=== PATIENT | female | born 1960 | race Caucasian/White ===

== ENCOUNTER 2020-03-10 10:14 | Outpatient (RCR) | payer BC, SELFPAY ==
--- NOTE | 2020-04-16 08:21 | P.EN_ITS ---
Event Note Date of Service: 04/16/20 Event Note: Call to patient to discuss out patient clinic closing 03/31/20-06/29. Pt plans to continue meds with her PCP
--- NOTE | 2020-04-16 08:21 | PM.EVENT ---
Event Note Date of Service: 04/16/20 Event Note: Call to patient to discuss out patient clinic closing 03/31/20-06/29/20. Pt plans to continue meds with her PCP
== END 2020-04-16 09:21 | disposition home or self-care (01) ==
LOC: HO.PAOS 10:14
PROVIDERS: Visit Provider Clinical Nurse Specialist Psychiatric/Mental Health, Adult
DX: F31.9 Bipolar disorder, unspecified (principal)

== ENCOUNTER 2020-09-18 09:16 | Outpatient (REF) | payer BC, SELFPAY ==
[2020-09-18 11:22] LABS: MANUAL DIFF FLAG NO
[2020-09-18 11:38] LABS: Basophils Percent Auto 0.4 % (0-2); Eosinophils Absolute Auto 0.1 X10*3/uL (0.0-0.4); Eosinophils Percent Auto 1.6 % (0-4); Hematocrit 39.1 % (37-47); Hemoglobin 13.4 g/dl (12.0-16.0); Imm Gran Abs Auto 0.03 X10*3/uL (0.00-0.03); Imm Gran Pct Auto 0.4 % (0.0-0.4); Lymphocytes Absolute Auto 2.5 X10*3/uL (1.2-4.9); Lymphocytes Percent Auto 36.4 % (20-40); Mean Corpuscular HGB Conc 34.3 g/dl (31.0-35.0); Mean Corpuscular Hemoglobin 30.8 pg (27.0-33.0); Mean Corpuscular Volume 89.9 fL (80-98); Mean Platelet Volume 9.2 fL (9.4-12.3); Monocytes Absolute Auto 0.5 X10*3/uL (0.1-1.2); Monocytes Percent Auto 7.9 % (2-11); Neutrophils Absolute Auto 3.6 X10*3/uL (2.0-8.3); Neutrophils Percent Auto 53.3 % (45-73); Platelet Count 335 X10*3/uL (160-400); Red Blood Count 4.35 X10*6/uL (4.20-5.50); Red Cell Distribution Width 12.5 % (11.0-16.0); White Blood Count 6.8 X10*3/uL (4.8-10.8)
[2020-09-18 12:13] LABS: Alanine Aminotransferase 21 U/L (0-31); Albumin Level 4.3 g/dL (3.5-5.0); Alkaline Phosphatase 91 U/L (39-117); Anion Gap 15 (12-20); Aspartate Amino Transferase 15 U/L (5-31); Bilirubin Direct 0.2 mg/dL (0.0-0.5); Bilirubin Total 0.7 mg/dL (0.0-1.0); Blood Urea Nitrogen 13 mg/dL (9-16); Calcium 9.4 mg/dL (8.4-10.2); Carbon Dioxide 25 mmol/L (22-29); Chloride 105 mmol/L (96-108); Cholesterol 201 mg/dL; Estimated Glomerular Filt Rate > 60; Glucose Fasting 99 mg/dL (60-99); HDL Cholesterol 58 mg/dL; LDL Cholesterol Calculated 126 mg/dl; Potassium 4.3 mmol/L (3.3-5.1); Sodium 141 mmol/L (135-145); Total Protein 6.9 g/dL (6.5-8.0); Triglycerides 87 mg/dL
== END 2020-09-18 09:17 | disposition home or self-care (01) ==
LOC: HO.HMGCLDS 09:16
PROVIDERS: PCP Internal Medicine; Visit Provider Internal Medicine
DX: I10 Essential (primary) hypertension (principal)
CPT/HCPCS: 36415; 80048; 80061; 80076; 85025

== ENCOUNTER 2020-10-06 09:06 | Outpatient (REF) | payer BC, SELFPAY ==
[2020-10-09 13:52] LABS: HPV mRNA E6/E7 rflx Not Detected (Not Detected)
== END 2020-10-06 09:07 | disposition home or self-care (01) ==
LOC: HO.LAB 09:06
PROVIDERS: PCP Internal Medicine; Visit Provider Obstetrics & Gynecology
DX: Z01.419 Encounter for gynecological examination (general) (routine) without abnormal findings (principal); Z11.51 Encounter for screening for human papillomavirus (HPV)
CPT/HCPCS: 87624; 88142

== ENCOUNTER 2020-11-16 09:58 | Outpatient (REF) | payer BC, SELFPAY ==
--- NOTE | ~2020-11-16 | MM_ITS ---
EXAMINATION: MM SCREENING DIGITAL BREAST TOMOSYNTHESIS, BILATERAL CLINICAL INFORMATION: Screening. Asymptomatic. The lifetime risk of breast cancer based on the Tyrer-Cuzick Model is 6%. COMPARISON: Mammography: 05/09/2016, 04/28/2015 TECHNIQUE: Digital breast tomosynthesis is performed in both the craniocaudal and mediolateral oblique views along with computer-aided detection (CAD). Synthesized 2D images are generated from the tomosynthesis. FINDINGS: There are scattered areas of fibroglandular density (ACR BI-RADS breast composition Category b). There are no significant masses, abnormal calcifications, or other abnormalities. Parenchymal pattern is similar to prior exams. No developing density. Skin contours are smooth. MM/MM tomosynthesis screening BI IMPRESSION: No mammographic evidence of malignancy. ASSESSMENT: BI-RADS 1: Negative RECOMMENDATION: Routine annual mammography screening. This patient's information was entered into a reminder system with a target due date for their next mammogram.
[2020-11-16 12:12] LABS: TSH reflex Free T4 < 0.01 uIU/mL (0.32-4.0)
[2020-11-16 13:21] LABS: Free T4 (Free Thyroxine) 1.92 ng/dL (0.71-1.85)
== END 2020-11-16 09:59 | disposition home or self-care (01) ==
LOC: HO.MAMMO 09:58
PROVIDERS: PCP Internal Medicine; Visit Provider Internal Medicine
DX: Z12.31 Encounter for screening mammogram for malignant neoplasm of breast (principal); E03.9 Hypothyroidism, unspecified
CPT/HCPCS: 36415; 77063; 77067; 84439; 84443

== ENCOUNTER 2021-01-18 09:09 | Outpatient (REF) | payer BC, SELFPAY ==
[2021-01-18 12:34] LABS: TSH reflex Free T4 1.27 uIU/mL (0.32-4.0)
== END 2021-01-18 09:10 | disposition home or self-care (01) ==
LOC: HO.HMGCLDS 09:09
PROVIDERS: PCP Internal Medicine; Visit Provider Internal Medicine
DX: E03.8 Other specified hypothyroidism (principal)
CPT/HCPCS: 36415; 84443

== ENCOUNTER 2021-03-23 09:08 | Outpatient (REF) | payer BC, SELFPAY ==
[2021-03-23 11:28] LABS: MANUAL DIFF FLAG NO
[2021-03-23 11:35] LABS: Basophils Percent Auto 0.4 % (0-2); Eosinophils Absolute Auto 0.2 X10*3/uL (0.0-0.4); Eosinophils Percent Auto 2.7 % (0-4); Hematocrit 42.3 % (37.0-47.0); Imm Gran Abs Auto 0.02 X10*3/uL (0.00-0.03); Imm Gran Pct Auto 0.3 % (0.0-0.4); Lymphocytes Absolute Auto 2.4 X10*3/uL (1.2-4.9); Lymphocytes Percent Auto 30.7 % (20-40); Mean Corpuscular HGB Conc 33.1 g/dl (31.0-35.0); Mean Corpuscular Hemoglobin 30.8 pg (27.0-33.0); Mean Corpuscular Volume 93.2 fL (80.0-98.0); Mean Platelet Volume 8.9 fL (9.4-12.3); Monocytes Absolute Auto 0.5 X10*3/uL (0.1-1.2); Monocytes Percent Auto 6.5 % (2-11); Neutrophils Absolute Auto 4.6 x10*3/uL (2.0-8.3); Neutrophils Percent Auto 59.4 % (45-73); Platelet Count 312 X10*3/uL (160-400); Red Blood Count 4.54 X10*6/uL (4.20-5.50); Red Cell Distribution Width 12.9 % (11.0-16.0); White Blood Count 7.8 X10*3/uL (4.8-10.8)
[2021-03-23 12:21] LABS: TSH reflex Free T4 19.73 uIU/mL (0.32-4.0)
[2021-03-23 12:29] LABS: Alanine Aminotransferase 20 U/L (0-31); Albumin Level 4.4 g/dL (3.5-5.0); Alkaline Phosphatase 84 U/L (39-117); Anion Gap 15 (12-20); Aspartate Amino Transferase 17 U/L (5-31); Bilirubin Total < 0.2 mg/dL (0.0-1.0); Blood Urea Nitrogen 11 mg/dL (9-16); Carbon Dioxide 25 mmol/L (22-29); Chloride 107 mmol/L (96-108); Estimated Glomerular Filt Rate 45; Glucose Random 76 mg/dL (60-115); Potassium 4.4 mmol/L (3.3-5.1); Sodium 143 mmol/L (135-145)
[2021-03-26 05:56] LABS: LDL Cholesterol Direct 132 mg/dL (<100)
== END 2021-03-23 09:09 | disposition home or self-care (01) ==
LOC: HO.HMGCLDS 09:08
PROVIDERS: Visit Provider Internal Medicine
DX: E03.8 Other specified hypothyroidism (principal); I10 Essential (primary) hypertension; M19.90 Unspecified osteoarthritis, unspecified site; F31.9 Bipolar disorder, unspecified
CPT/HCPCS: 36415; 80053; 83721; 84439; 84443; 85025

== ENCOUNTER 2021-05-03 09:04 | Outpatient (REF) | payer BC, SELFPAY ==
[2021-05-03 11:58] LABS: TSH reflex Free T4 6.65 uIU/mL (0.32-4.0)
[2021-05-03 12:30] LABS: Free T4 (Free Thyroxine) 1.12 ng/dL (0.71-1.85)
== END 2021-05-03 09:05 | disposition home or self-care (01) ==
LOC: HO.HMGCLDS 09:04
PROVIDERS: PCP Internal Medicine; Visit Provider Internal Medicine
DX: E03.8 Other specified hypothyroidism (principal)
CPT/HCPCS: 36415; 84439; 84443

== ENCOUNTER 2021-10-15 12:33 | Outpatient (REF) | payer BC, SELFPAY ==
[2021-10-15 15:47] LABS: Alanine Aminotransferase 31 U/L (0-31); Albumin Level 4.7 g/dL (3.5-5.0); Alkaline Phosphatase 96 U/L (39-117); Anion Gap 17 (12-20); Aspartate Amino Transferase 23 U/L (5-31); Bilirubin Total 0.4 mg/dL (0.0-1.0); Blood Urea Nitrogen 8 mg/dL (9-16); Calcium 9.7 mg/dL (8.4-10.2); Carbon Dioxide 25 mmol/L (22-29); Chloride 96 mmol/L (96-108); Estimated Glomerular Filt Rate 59; Glucose Random 122 mg/dL (60-115); Potassium 4.1 mmol/L (3.3-5.1); Sodium 134 mmol/L (135-145); Total Protein 7.6 g/dL (6.5-8.0)
== END 2021-10-15 12:34 | disposition home or self-care (01) ==
LOC: HO.HMGCLDS 12:33
PROVIDERS: PCP Internal Medicine; Visit Provider Internal Medicine
DX: M19.90 Unspecified osteoarthritis, unspecified site (principal); I10 Essential (primary) hypertension
CPT/HCPCS: 36415; 80053

== ENCOUNTER 2021-11-10 13:06 | Outpatient (REF) | payer BC, SELFPAY ==
[2021-11-10 13:52] LABS: MANUAL DIFF FLAG NO
[2021-11-10 13:58] LABS: Basophils Percent Auto 0.3 % (0-2); Eosinophils Absolute Auto 0.1 X10*3/uL (0.0-0.4); Eosinophils Percent Auto 1.3 % (0-4); Hematocrit 41.3 % (37.0-47.0); Hemoglobin 14.3 g/dl (12.0-16.0); Imm Gran Abs Auto 0.03 X10*3/uL (0.00-0.03); Imm Gran Pct Auto 0.3 % (0.0-0.4); Lymphocytes Absolute Auto 2.5 X10*3/uL (1.2-4.9); Lymphocytes Percent Auto 27.3 % (20-40); Mean Corpuscular HGB Conc 34.6 g/dl (31.0-35.0); Mean Corpuscular Hemoglobin 30.4 pg (27.0-33.0); Mean Corpuscular Volume 87.9 fL (80.0-98.0); Mean Platelet Volume 8.8 fL (9.4-12.3); Monocytes Absolute Auto 0.8 X10*3/uL (0.1-1.2); Monocytes Percent Auto 8.3 % (2-11); Neutrophils Absolute Auto 5.7 x10*3/uL (2.0-8.3); Neutrophils Percent Auto 62.5 % (45-73); Platelet Count 329 X10*3/uL (160-400); Red Cell Distribution Width 12.8 % (11.0-16.0); White Blood Count 9.2 X10*3/uL (4.8-10.8)
[2021-11-10 14:25] LABS: Alanine Aminotransferase 22 U/L (0-31); Albumin Level 4.9 g/dL (3.5-5.0); Alkaline Phosphatase 94 U/L (39-117); Anion Gap 16 (12-20); Aspartate Amino Transferase 19 U/L (5-31); Bilirubin Total 0.4 mg/dL (0.0-1.0); Blood Urea Nitrogen 9 mg/dL (9-16); Calcium 9.3 mg/dL (8.4-10.2); Carbon Dioxide 24 mmol/L (22-29); Chloride 98 mmol/L (96-108); Estimated Glomerular Filt Rate > 60; Glucose Random 89 mg/dL (60-115); Potassium 4.5 mmol/L (3.3-5.1); Sodium 133 mmol/L (135-145); Total Protein 7.4 g/dL (6.5-8.0)
[2021-11-10 14:49] LABS: TSH reflex Free T4 0.14 uIU/mL (0.32-4.0)
[2021-11-10 15:36] LABS: Free T4 (Free Thyroxine) 1.44 ng/dL (0.71-1.85)
== END 2021-11-10 13:07 | disposition home or self-care (01) ==
LOC: HO.HMGCLDS 13:06
PROVIDERS: PCP Internal Medicine; Visit Provider Internal Medicine
DX: E03.8 Other specified hypothyroidism (principal); F31.72 Bipolar disorder, in full remission, most recent episode hypomanic; I10 Essential (primary) hypertension; E66.09 Other obesity due to excess calories; Z68.33 Body mass index [BMI] 33.0-33.9, adult
CPT/HCPCS: 36415; 80053; 84439; 84443; 85025

== ENCOUNTER 2021-11-18 07:47 | Outpatient (REF) | payer BC, SELFPAY ==
--- NOTE | ~2021-11-18 | MM_ITS ---
EXAMINATION: MM SCREENING DIGITAL BREAST TOMOSYNTHESIS, BILATERAL CLINICAL INFORMATION: Screening. Asymptomatic. The lifetime risk of breast cancer based on the Tyrer-Cuzick Model is 5.2%. COMPARISON: Mammography: November 16, 2020 and studies dating back to August 06, 2010 TECHNIQUE: Digital breast tomosynthesis is performed in both the craniocaudal and mediolateral oblique views along with computer-aided detection (CAD). Synthesized 2D images are generated from the tomosynthesis. FINDINGS: There are scattered areas of fibroglandular density (ACR BI-RADS breast composition Category b). There are no significant masses, abnormal calcifications, or other abnormalities. MM/MM tomosynthesis screening BI IMPRESSION: There are no significant changes from prior study. ASSESSMENT: BI-RADS 1: Negative RECOMMENDATION: Routine annual mammography screening. This patient's information was entered into a reminder system with a target due date for their next mammogram.
== END 2021-11-18 07:48 | disposition home or self-care (01) ==
LOC: HO.MAMMO 07:47
PROVIDERS: PCP Internal Medicine; Visit Provider Obstetrics & Gynecology
DX: Z12.31 Encounter for screening mammogram for malignant neoplasm of breast (principal)
CPT/HCPCS: 77063; 77067

== ENCOUNTER 2022-06-13 09:30 | Outpatient (REF) | payer BC, SELFPAY ==
[2022-06-13 11:28] LABS: MANUAL DIFF FLAG NO
[2022-06-13 11:49] LABS: Basophils Percent Auto 0.4 % (0-2); Eosinophils Absolute Auto 0.1 X10*3/uL (0.0-0.4); Hematocrit 41.9 % (37.0-47.0); Hemoglobin 13.9 g/dl (12.0-16.0); Imm Gran Abs Auto 0.03 X10*3/uL (0.00-0.03); Imm Gran Pct Auto 0.4 % (0.0-0.4); Lymphocytes Absolute Auto 2.7 X10*3/uL (1.2-4.9); Lymphocytes Percent Auto 38.1 % (20-40); Mean Corpuscular HGB Conc 33.2 g/dl (31.0-35.0); Mean Corpuscular Hemoglobin 30.7 pg (27.0-33.0); Mean Corpuscular Volume 92.5 fL (80.0-98.0); Monocytes Absolute Auto 0.5 X10*3/uL (0.1-1.2); Monocytes Percent Auto 7.5 % (2-11); Neutrophils Absolute Auto 3.6 x10*3/uL (2.0-8.3); Neutrophils Percent Auto 51.6 % (45-73); Platelet Count 355 X10*3/uL (160-400); Red Blood Count 4.53 X10*6/uL (4.20-5.50); Red Cell Distribution Width 12.7 % (11.0-16.0)
[2022-06-13 12:26] LABS: Alanine Aminotransferase 17 U/L (0-31); Albumin Level 4.4 g/dL (3.5-5.0); Alkaline Phosphatase 91 U/L (39-117); Anion Gap 16 (12-20); Aspartate Amino Transferase 15 U/L (5-31); Bilirubin Total 0.3 mg/dL (0.0-1.0); Blood Urea Nitrogen 18 mg/dL (9-16); Calcium 9.9 mg/dL (8.4-10.2); Carbon Dioxide 25 mmol/L (22-29); Chloride 104 mmol/L (96-108); Estimated Glomerular Filt Rate > 60; Glucose Random 96 mg/dL (60-115); Potassium 4.9 mmol/L (3.3-5.1); Sodium 140 mmol/L (135-145); TSH reflex Free T4 0.13 uIU/mL (0.32-4.0); Total Protein 6.9 g/dL (6.5-8.0)
[2022-06-13 12:56] LABS: Free T4 (Free Thyroxine) 1.25 ng/dL (0.71-1.85)
[2022-06-14 08:03] LABS: LDL Cholesterol Direct 98 mg/dL (<100)
== END 2022-06-13 09:31 | disposition home or self-care (01) ==
LOC: HO.HMGCLDS 09:30
PROVIDERS: PCP Internal Medicine; Visit Provider Internal Medicine
DX: M19.90 Unspecified osteoarthritis, unspecified site (principal); I10 Essential (primary) hypertension; F31.72 Bipolar disorder, in full remission, most recent episode hypomanic; E03.8 Other specified hypothyroidism; E66.09 Other obesity due to excess calories; Z68.33 Body mass index [BMI] 33.0-33.9, adult
CPT/HCPCS: 36415; 80053; 83721; 84439; 84443; 85025

== ENCOUNTER 2022-11-11 15:11 | Outpatient (AMB) | payer BC, SELFPAY ==
[2022-11-11 15:20] VITALS: BP 124/90; PULSE 91; O2SAT 99; BMI 32.9
--- NOTE | 2022-11-11 15:20 | A.OFFPC_ITS ---
Vital Signs 11/11/22 15:20 Height 5 ft 3 in Weight 186 lb BMI 32.9 BP 124/90 H Blood Pressure Location Rt brachial Position Sitting Pulse 91 Pulse Source Pulse Oximeter Pulse Oximetry (%) 99 Oxygen Delivery Method Room Air Intake Visit Reasons: Annual PE Allergies oxycodone Allergy (Unknown, Verified 11/11/22 15:20) Unknown lithium [LITHIUM] Adverse Reaction (Intermediate, Verified 11/11/22 15:20) bilateral pedal edema Medication List - Last Reconciled 11/11/22 by Rozina Carpio MD atenolol 25 mg PO DAILY 90 days hydrochlorothiazide 25 mg PO QAM 90 days hydroxyzine HCl 25 mg PO BID lamotrigine (Lamictal) 250 mg PO DAILY levothyroxine 112 mcg PO DAILY 90 days omeprazole 20 mg PO ONCE 90 days quetiapine (Seroquel) 100 mg (2 x 50 mg) PO DAILY MDD 50-100 mg daily Tobacco use date assessed: 11/11/22 Dental Screening Dental Screen Date: 11/11/22 Did you have a dental visit in the last 12 months?: Yes Did you have a dental problem in the last 6 months where you did not have access to dental care?: No Was dental information given to patient?: Patient has dentist HPI Annual PE HPI Details Patient is 62-year-old female came in today for physical examination Blood pressure is stable patient is on atenolol 25 mg and hydrochlorothiazide 25 mg tolerating medication no side effects. 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 Due for mammogram Colonoscopy is due in [address] Dumont [facility] Lab order placed to be done fasting Follow-up 6 months [facility] Medical History Anxiety Hx of major depression Hypertension Thyroid ca Surgical History Hx of section Family History Other Mental health disorder Substance use disorder Social History Housing: House Alcohol intake: current Alcohol intake frequency: holidays/special occasions only Patient Tobacco Use Status: Current someday Tobacco user Tobacco use type: Cigarette Cigarettes Per Day: 2 e-Cigarette/Vaping Use: Never Used service: No Current occupational status: employed (off for 3 months) Cognitive needs: No Hearing needs: No Vision needs: No Female Reproductive History Menstrual Age of Menarche: 14 Questionnaire Thrive Questionnaire Date Thrive assessed: 06/10/22 ANTON-7 AMB Questionnaire ANTON-7 Date ANTON - 7 assessed: 06/10/22 Source: Developed by Drs. Dangelo Taylor, Madiha Valdez, Jonny Pepper and colleagues, with an educational brina from [employer]. Review of Systems Const Denies chills, Denies fever(s) and Denies headache(s) Eyes Denies blurry vision ENT Denies headache(s), Denies nasal discharge, Denies nasal obstruction, Denies odynophagia and Denies sinus pain Card Denies chest pain at rest and Denies chest pain with activity Resp Denies cough and Denies hemoptysis GI Denies diarrhea, Denies odynophagia, Denies vomiting and Denies hematemesis Reports as per HPI Musc Denies abnormal gait Skin/Breast Reports as per HPI Neuro Denies Neuro-related abnormal movements, Denies Abnormal speech present, Denies abnormal gait, Denies headache(s) and Denies Sensory deficit (Neuro) Psych Denies mood swings and Denies paranoia Endo Reports as per HPI Moustapha/Lymph Reports as per HPI Aller/Immun Reports as per HPI Physical exam (Primary Care) Vital Signs: Last Vital Signs Pulse 91 11/11/22 15:20 BP 124/90 H 11/11/22 15:20 Pulse Ox 99 11/11/22 15:20 Oxygen Delivery Method Room Air 11/11/22 15:20 BMI result Body Mass Index 32.9 Tobacco/Smoking Status: Tobacco use Status Tobacco use date assessed 11/11/22 11/11/22 15:24 Patient Tobacco Use Status Current someday Tobacco 11/11/22 15:24 Tobacco use type Cigarette 11/11/22 15:24 e-Cigarette/Vaping Use Never Used 11/11/22 15:24 Thrive Assessment: Date of Thrive Assessment Date Thrive assessed 02/10/23 07/14/23 15:24 Const General: cooperative, comfortable and no acute distress Orientation/consciousness: patient oriented x3 HENMT Head: Yes normocephalic and Yes atraumatic Eyes General: appearance normal, both eyes and all related structures Pupils: Equal, round and reactive pupils present EOM: EOMs intact bilaterally Neck Neck: Yes supple and No lymphadenopathy Thyroid: Thyroid normal Lymphatic: no lymphadenopathy noted Resp Effort & Inspection: normal respiratory effort and able to speak in complete sentences Auscultation: clear to auscultation bilaterally Cardio Heart sounds: S1 normal heart sound present and S2 normal heart sound present GI Palpation (GI): Soft to palpation and nontender Auscultation: normal bowel sounds General: Yes no CVA tenderness Back/Spine/Pelvis Back: no CVA tenderness Skin General skin exam: elasticity normal and turgor normal Neuro General: patient oriented x3 and gait normal Cranial nerves: Yes Equal, round and reactive pupils present Speech: No Abnormal speech present Sensory Exam: No Sensory deficit (Neuro) Coordination: tandem gait normal and Romberg test negative Extrem General: Yes normal exam except as noted and No edema Assessment and Plan Assessment & Plan (1) Encounter for general adult medical examination with abnormal findings: Code(s): Z00.01 - Encounter for general adult medical examination with abnormal findings (2) Hypertension, essential: Code(s): I10 - Essential (primary) hypertension (3) Bipolar disorder: Code(s): F31.9 - Bipolar disorder, unspecified Qualifiers: Active/Remission status: in full remission Most recent bipolar episode type: hypomanic Qualified Code(s): F31.72 - Bipolar disorder, in full remission, most recent episode hypomanic (4) Other specified hypothyroidism: Code(s): E03.8 - Other specified hypothyroidism (5) Obesity due to excess calories: Code(s): E66.09 - Other obesity due to excess calories Qualifiers: Obesity classification: adult class 1 (BMI 30 - 34.9) Serious obesity comorbidity presence: with serious comorbidity Body mass index: BMI 33.0-33.9 Qualified Code(s): E66.09 - Other obesity due to excess calories; Z68.33 - Body mass index [BMI] 33.0-33.9, adult Plan Patient is 62-year-old female came in today for physical examination Blood pressure is stable patient is on atenolol 25 mg and hydrochlorothiazide 25 mg tolerating medication no side effects. 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 Due for mammogram Colonoscopy is due in [address] Dumont [facility] Lab order placed to be done fasting Follow-up 6 months Orders: Orders MM tomosynthesis screening BI Today Z12.31 - Encounter for screening mammogram for malignant neoplasm of breast Complete Blood Count Auto Diff Today E03.8 - Other specified hypothyroidism, E66.09 - Other obesity due to excess calories, F31.9 - Bipolar disorder, unspecified, I10 - Essential (primary) hypertension, Z00.01 - Encounter for general adult medical examination with abnormal findings Comprehensive [place]. Panel Fast Today E03.8 - Other specified hypothyroidism, E66.09 - Other obesity due to excess calories, F31.9 - Bipolar disorder, unspecified, I10 - Essential (primary) hypertension, Z00.01 - Encounter for gen [facility] adult medical examination with abnormal findings TSH reflex Free T4 Today E03.8 - Other specified hypothyroidism, E66.09 - Other obesity due to excess calories, F31.9 - Bipolar disorder, unspecified, I10 - Essential (primary) hypertension, Z00.01 - Encounter for general adult medical examination with abnormal findings Lipid Panel Today E03.8 - Other specified hypothyroidism, E66.09 - Other obesity due to excess calories, F31.9 - Bipolar disorder, unspecified, I10 - Essential (primary) hypertension, Z00.01 - Encounter for general adult medical examination with abnormal findings Medications: Changed From lamotrigine (Lamictal) 200 mg PO DAILY 30 tabs 0RF To lamotrigine (Lamictal) 250 mg PO DAILY Coding Level of Care Code Est Pt Prev Care 40-64y(03303) Diagnoses Encounter for general adult medical examination with abnormal findings Z00.01 Hypertension, essential I10 Bipolar disorder F31.72 Active/Remission status: in full remission Most recent bipolar episode type: hypomanic Other specified hypothyroidism E03.8 Obesity due to excess calories E66.09; Z68.33 Obesity classification: adult class 1 (BMI 30 - 34.9) Serious obesity comorbidity presence: with serious comorbidity Body mass index: BMI 33.0-33.9
== END 2022-11-11 16:10 | disposition home or self-care (01) ==
PROVIDERS: Visit Provider Internal Medicine
DX: Z00.01 Encounter for general adult medical examination with abnormal findings (principal); I10 Essential (primary) hypertension; F31.72 Bipolar disorder, in full remission, most recent episode hypomanic; E03.8 Other specified hypothyroidism; Z68.33 Body mass index [BMI] 33.0-33.9, adult; E66.09 Other obesity due to excess calories
CPT/HCPCS: 99396

== ENCOUNTER 2022-11-12 19:27 | Emergency (ER) | payer BC, SELFPAY ==
[2022-11-12 19:43] VITALS: BP 137/81; PULSE 102; RESP 20; TEMP 36.9; O2SAT 95; BMI 33.3
--- NOTE | 2022-11-12 19:47 | ED.URI ---
HPI - URI/Sore Throat General Chief Complaint: Upper Respiratory Symptoms Stated Complaint: COVID+ Time Seen by Provider: 11/12/22 19:48 Source: patient Mode of arrival: ambulatory Limitations: no limitations History of Present Illness HPI Narrative: 62 yo female with history of HTN, hypothyroidism, bipolar disorder who presents to the ER for evaluation of diffuse body aches that started today. She states she took an at home COVID test and it was positive. She states she just saw her PCP yesterday for a physical and was asymptomatic. She states today she feels weak, tired and achey. No SOB or chest pain. No fevers. No history of COVID infection in the past. MD elicited complaint: other (body aches) Onset (ago): hour(s) Consistency: constant Severity: moderate Able to tolerate fluids by mouth: Yes Associated symptoms: myalgias and headache Treatments prior to arrival: none Related Data Home Medications Medication Instructions Recorded Confirmed hydroxyzine HCl 25 mg tablet 25 mg PO BID 03/23/21 11/11/22 lamotrigine 200 mg tablet 250 mg PO DAILY 11/11/22 11/11/22 (Lamictal) Previous Rx's Medication Instructions Recorded quetiapine 50 mg tablet (Seroquel) 100 mg PO DAILY #60 tabs 04/16/20 hydrochlorothiazide 25 mg tablet 25 mg PO QAM 90 days #90 tabs 12/13/21 levothyroxine 112 mcg tablet 112 mcg PO DAILY 90 days #90 tabs 08/22/22 omeprazole 20 mg capsule,delayed 20 mg PO ONCE 90 days #90 caps 09/12/22 release atenolol 25 mg tablet 25 mg PO DAILY 90 days #90 tabs 11/11/22 Allergies Allergy/AdvReac Type Severity Reaction Status Date / Time oxycodone Allergy Unknown Unknown Verified 11/11/22 15:20 lithium [LITHIUM] AdvReac Intermediate bilateral Verified 11/11/22 15:20 pedal edema Review of Systems Review of Systems: Yes all other systems are reviewed and are negative PMFSH Past Medical History Medical History Anxiety Hx of major depression Hypertension Thyroid ca Surgical History Hx of section Family History Family History Other Mental health disorder Substance use disorder Social History Social History Housing: House Alcohol intake: current Alcohol intake frequency: holidays/special occasions only Patient Tobacco Use Status: Current someday Tobacco user Tobacco use type: Cigarette Cigarettes Per Day: 2 e-Cigarette/Vaping Use: Never Used Advance Directives: No Advance Directives Information Provided: No service: No Current occupational status: employed (off for 3 months) Cognitive needs: No Hearing needs: No Vision needs: No Physical Exam Vital Signs: Vital Signs: Last Vital Signs Temp 98.5 F 11/12/22 19:43 Pulse 102 H 11/12/22 19:43 Resp 20 11/12/22 19:43 BP 137/81 11/12/22 19:43 Pulse Ox 95 11/12/22 19:43 O2 Del Method Room Air 11/12/22 19:43 BMI result Body Mass Index 33.3 Appearance: Alert. Oriented X3. No acute distress. HEENT: normal inspection Neck: Normal inspection. CVS: Normal heart rate and rhythm. Pulses normal. Respiratory: No respiratory distress. Breath sounds normal. Skin: Skin warm and dry. Normal skin color. Normal skin turgor. No rashes. Extremities: No lower extremity edema. Neuro/psych: Oriented X 3. grossly normal, nonfocal Medical Decision Making Medical Decision Making MDM Narrative: 62 yo female with hx HTN and hypothyroidism presenting with body aches that started today, found to have COVID on a home test. VSS and exam unremarkable. Lungs CTAB. No need for CXR today. Symptoms are mild. no pulmonary history. will defer paxlovid and have her f/u with her PCP. patient agrees w/ plan. stable for d/c home with supportive care. return precautions discussed Differential Diagnosis Differential Diagnoses: The differential diagnosis associated with the presentation includes covid, flu, rsv, other viral syndrome, bronchitis, pneumonia External Record Review External record reviewed: Prior outpatient labs Prescription Management I considered prescription management with: Antiviral Chronic Conditions Patient?s care impacted by: Hypertension Critical Care Time Critical Care Time Critical Care Time: No Discharge Plan Discharge Clinical Impression: COVID-19 Patient Disposition: Home, Self-Care Instructions: Covid-19 Viral Syndrome and Novel Coronavirus (ED) Hey/Ath Additional Instructions: your vital signs and exam were not concerning today Rest. Drink plenty of fluids. Do not go out in public while you are not feeling well Take over the counter cold/flu medications as needed for your symptoms. Take Tylenol and/or Motrin as needed for fevers and body aches. Follow up with your doctor tomorrow morning to discuss Paxlovid If you develop shortness of breath, difficulty breathing or any new or worsening symptoms call 911 or come back to the ER for further evaluation. Prescriptions: No Action hydrochlorothiazide 25 mg tablet 25 mg PO QAM 90 Days Qty: 90 1RF levothyroxine 112 mcg tablet 112 mcg PO DAILY 90 Days Qty: 90 1RF omeprazole 20 mg capsule,delayed release(DR/EC) 20 mg PO ONCE 90 Days Qty: 90 0RF atenolol 25 mg tablet 25 mg PO DAILY 90 Days Qty: 90 1RF quetiapine [Seroquel] 50 mg tablet 100 mg PO DAILY MDD 50-100 mg daily Qty: 60 0RF hydroxyzine HCl 25 mg tablet 25 mg PO BID lamotrigine [Lamictal] 200 mg tablet 250 mg PO DAILY
== END 2022-11-12 19:53 | disposition home or self-care (01) ==
PROVIDERS: Emergency Provider Emergency Medicine; PCP Internal Medicine
DX: U07.1 COVID-19 (principal); I10 Essential (primary) hypertension
CPT/HCPCS: 99282

== ENCOUNTER 2022-11-19 09:14 | Outpatient (REF) | payer BC, SELFPAY ==
[2022-11-19 11:25] LABS: MANUAL DIFF FLAG NO
[2022-11-19 11:36] LABS: Basophils Percent Auto 0.3 % (0-2); Eosinophils Absolute Auto 0.1 X10*3/uL (0.0-0.4); Eosinophils Percent Auto 0.9 % (0-4); Hematocrit 36.5 % (37.0-47.0); Hemoglobin 12.4 g/dl (12.0-16.0); Imm Gran Abs Auto 0.09 X10*3/uL (0.00-0.03); Imm Gran Pct Auto 0.9 % (0.0-0.4); Lymphocytes Absolute Auto 2.1 X10*3/uL (1.2-4.9); Lymphocytes Percent Auto 21.3 % (20-40); Mean Corpuscular Hemoglobin 29.8 pg (27.0-33.0); Mean Corpuscular Volume 87.7 fL (80.0-98.0); Monocytes Absolute Auto 0.7 X10*3/uL (0.1-1.2); Monocytes Percent Auto 7.2 % (2-11); Neutrophils Absolute Auto 6.7 x10*3/uL (2.0-8.3); Neutrophils Percent Auto 69.4 % (45-73); Platelet Count 340 X10*3/uL (160-400); Red Blood Count 4.16 X10*6/uL (4.20-5.50); Red Cell Distribution Width 13.2 % (11.0-16.0); White Blood Count 9.6 X10*3/uL (4.8-10.8)
[2022-11-19 11:59] LABS: Alanine Aminotransferase 13 U/L (0-31); Albumin Level 3.7 g/dL (3.5-5.0); Alkaline Phosphatase 71 U/L (39-117); Anion Gap 14 (12-20); Aspartate Amino Transferase 15 U/L (5-31); Bilirubin Total 0.4 mg/dL (0.0-1.0); Blood Urea Nitrogen 9 mg/dL (9-16); Carbon Dioxide 28 mmol/L (22-29); Chloride 100 mmol/L (96-108); Cholesterol 173 mg/dL; Estimated Glomerular Filt Rate > 60; Glucose Fasting 106 mg/dL (60-99); HDL Cholesterol 27 mg/dL; LDL Cholesterol Calculated 111 mg/dl; Potassium 2.9 mmol/L (3.3-5.1); Sodium 139 mmol/L (135-145); Total Protein 7.1 g/dL (6.5-8.0); Triglycerides 177 mg/dL
[2022-11-19 12:19] LABS: TSH reflex Free T4 2.44 uIU/mL (0.32-4.0)
== END 2022-11-19 09:15 | disposition home or self-care (01) ==
LOC: HO.HMGCLDS 09:14
PROVIDERS: PCP Internal Medicine; Visit Provider Internal Medicine
DX: Z00.01 Encounter for general adult medical examination with abnormal findings (principal); E03.8 Other specified hypothyroidism; E66.09 Other obesity due to excess calories; F31.9 Bipolar disorder, unspecified; I10 Essential (primary) hypertension
CPT/HCPCS: 36415; 80053; 80061; 84443; 85025

== ENCOUNTER 2022-11-21 09:12 | Outpatient (AMB) | payer BC, SELFPAY ==
--- NOTE | 2022-11-21 09:14 | MHC.OFFVIS ---
Intake Vital Signs 11/21/22 09:15 Height 5 ft 3 in Weight 184 lb BMI 32.6 BP 134/76 Intake Visit Reasons: [employer]OD [employer]AT[employer] PROFESSIONAL annual exam/DO NOT RS Denture Model Maker Required: No Information Interpreted: non-clinical & clinical Dictating Transcribing Machine Servicer: Dictating Transcribing Machine Servicer Present (Tomeka) Allergies oxycodone Allergy (Unknown, Verified 11/21/22 09:19) Unknown lithium [LITHIUM] Adverse Reaction (Intermediate, Verified 11/21/22 09:19) bilateral pedal edema Is last menstrual period known: No Post menopausal: Yes HPI HPI Comments History of Present Illness Details Presenting for annual exam. No complaints. Last Pap/HPV was negative in 10/19 Last Mammogram was BI-RADS 1 in 11/19 Last Colonoscopy was in 2013, the recommendation was to repeat in 2023 [facility] Medical History Anxiety Hx of major depression Hypertension Thyroid ca Surgical History Hx of section Hx of thyroidectomy Family History Father Colon cancer Other Mental health disorder Substance use disorder Social History Housing: House Alcohol intake: current Alcohol intake frequency: holidays/special occasions only Patient Tobacco Use Status: Current someday Tobacco user Tobacco use type: Cigarette Cigarettes Per Day: 2 e-Cigarette/Vaping Use: Never Used service: No Current occupational status: employed (off for 3 months) Cognitive needs: No Hearing needs: No Vision needs: No Female Reproductive History Menstrual Age of Menarche: 14 control method: none Total pregnancies: 6 Full term: 1 Number of Living Children: 1 Ab spontaneous: 4 Date of last pap smear: 10/07/20 (negative) Date of Mammogram: 11/18/21 Review of Systems Const All systems reviewed & are unremarkable except as noted in HPI and below Card Reports as per HPI Resp Reports as per HPI GI Reports as per HPI and Reports no additional complaints Reports as per HPI Physical Exam Vital Signs: Last Vital Signs BP 134/76 11/21/22 09:15 BMI result Body Mass Index 32.6 Const General: cooperative, healthy appearing and comfortable Chest Chest palpation & inspection: normal inspection of the chest and normal palpation of entire chest wall Breast/axilla inspection: normal inspection of the breasts and normal inspection of the axillae Breast/axilla palpation: normal palpation of the breasts, normal palpation of the axillae and no axillary lymphadenopathy Resp Effort & Inspection: normal respiratory effort Auscultation: clear to auscultation bilaterally Percussion: percussion normal Cardio Palpation: normal PMI Rate: regular rate Rhythm: regular rhythm Heart sounds: no murmurs and no rubs Peripheral pulses: Peripheral pulses 2+ throughout GI Inspection: Yes normal to inspection Palpation (GI): Soft to palpation, nontender, no guarding, not rigid and No hepatosplenomegaly present Percussion: Yes normal to percussion Auscultation: normal bowel sounds Rectal Exam - Female: deferred General: Yes bladder normal to palpation External Female Exam: No lesion Speculum Exam - Vagina: normal appearance of the vagina, normal palpation, normal vaginal discharge and not erythematous Speculum Exam - Cervix: normal appearance of the cervix and normal palpation Bimanual exam- vagina & uterus: normal bimanual exam, normal palpation, uterine size normal, bladder normal to palpation, consistency normal and normal palpation Bimanual Exam- Adnexa, other: normal adnexae, no masses and no tenderness Assessment & Plan Assessment & Plan (1) Well woman exam: Code(s): Z01.419 - Encounter for gynecological examination (general) (routine) without abnormal findings Plan: Co testing not indicated this year. Counseled the patient about the recommended dietary allowance of 1200 mg of Calcium & 600 IU of vitamin D. Mammogram is scheduled in 3 days , the patient is up-to-date with screening colonoscopy . The patient was instructed to perform monthly self-breast exams and schedule annual exam in a year; all questions answered and the patient verbalized understanding. Coding Level of Care Code Est Pt Prev Care 40-64y(56135) Diagnoses Well woman exam Z01.419
[2022-11-21 09:15] VITALS: BP 134/76; BMI 32.6
== END 2022-11-21 09:45 | disposition home or self-care (01) ==
LOC: HO.HWS 09:12
PROVIDERS: PCP Internal Medicine; Visit Provider Obstetrics & Gynecology
DX: Z01.419 Encounter for gynecological examination (general) (routine) without abnormal findings (principal)
CPT/HCPCS: 99396

== ENCOUNTER → 2022-11-21 09:12 | Outpatient (BNVA) | payer BC, SELFPAY | PROVIDERS: PCP Internal Medicine; Visit Provider Obstetrics & Gynecology ==

== ENCOUNTER 2022-11-24 07:28 | Outpatient (REF) | payer BC, SELFPAY ==
--- NOTE | ~2022-11-24 | MM_ITS ---
EXAMINATION: MM SCREENING DIGITAL BREAST TOMOSYNTHESIS, BILATERAL CLINICAL INFORMATION: Screening. Asymptomatic. The lifetime risk of breast cancer based on the Tyrer-Cuzick Model is 4.8%. COMPARISON: Mammography: This study is compared with prior exams dating back to 2017. TECHNIQUE: Digital breast tomosynthesis is performed in both the craniocaudal and mediolateral oblique views along with computer-aided detection (CAD). Synthesized 2D images are generated from the tomosynthesis. FINDINGS: There are scattered areas of fibroglandular density (ACR BI-RADS breast composition Category b). There are no significant masses, abnormal calcifications, or other abnormalities. MM/MM tomosynthesis screening BI IMPRESSION: No mammographic evidence of malignancy. ASSESSMENT: BI-RADS BI-RADS 1 - Negative RECOMMENDATION: Routine annual mammography screening. 1 year F/U This examination should not preclude the clinical evaluation of a suspicious palpable abnormality. This patient's information was entered into a reminder system with a target due date for their next mammogram.
== END 2022-11-24 07:29 | disposition home or self-care (01) ==
LOC: HO.MAMMO 07:28
PROVIDERS: PCP Internal Medicine; Visit Provider Internal Medicine
DX: Z12.31 Encounter for screening mammogram for malignant neoplasm of breast (principal)
CPT/HCPCS: 77063; 77067

== ENCOUNTER → 2022-11-24 08:00 | Outpatient (BNV) | payer BC, SELFPAY | PROVIDERS: PCP Internal Medicine; Visit Provider Radiology Diagnostic Radiology | DX: Z12.31 Encounter for screening mammogram for malignant neoplasm of breast (principal) | CPT/HCPCS: 77063; 77067 ==

== ENCOUNTER 2022-11-28 09:11 | Outpatient (REF) | payer BC, SELFPAY ==
[2022-11-28 12:32] LABS: Anion Gap 21 (12-20); Blood Urea Nitrogen 21 mg/dL (9-16); Calcium 10.3 mg/dL (8.4-10.2); Carbon Dioxide 23 mmol/L (22-29); Chloride 98 mmol/L (96-108); Estimated Glomerular Filt Rate 41; Glucose Random 117 mg/dL (60-115); Potassium 3.4 mmol/L (3.3-5.1); Sodium 139 mmol/L (135-145)
== END 2022-11-28 09:12 | disposition home or self-care (01) ==
LOC: HO.HMGCLDS 09:11
PROVIDERS: PCP Internal Medicine; Visit Provider Internal Medicine
DX: E87.6 Hypokalemia (principal)
CPT/HCPCS: 36415; 80048

== ENCOUNTER 2023-01-13 10:31 | Outpatient (AMB) | payer BC, SELFPAY ==
[2023-01-13 10:54] VITALS: BP 120/82; PULSE 82; TEMP 36.1; O2SAT 98; BMI 32.8
--- NOTE | 2023-01-13 10:54 | AM.OFFWIN_ITS ---
Intake Vital Signs 01/13/23 10:54 Height 5 ft 3 in Weight 84.028 kg BMI 32.8 BP 120/82 Blood Pressure Location Lt brachial Position Sitting Pulse 82 Pulse Source Pulse Oximeter Temp 97 F Temp Source Temporal Artery Scan Pulse Oximetry (%) 98 Oxygen Delivery Method Room Air Intake Visit Reasons: EP RT Knee Pain Patient Tobacco Use Status: Current someday Tobacco user Allergies oxycodone Allergy (Unknown, Verified 11/21/22 09:19) Unknown lithium [LITHIUM] Adverse Reaction (Intermediate, Verified 11/21/22 09:19) bilateral pedal edema HPI HPI Comments History of Present Illness Details 1124 62 yo f presents w/ right knee pain atra umatic in nature ongoing for the past month unclear how it started. Reports constant discomfort w/ intermittent pain worse at night and after long periods of standing. Denies trauma, numbness, tingling, fevers, chills PE benign Plan- imaging concerns for osteoarthritis, inflammatory arthritis. Unlikley nv compromise, threat to limb, dvt, arterial occlusion PFSH Medical History Thyroid ca Anxiety Hx of major depression Hypertension Surgical History Hx of thyroidectomy Hx of section Family History Father Colon cancer Other Mental health disorder Substance use disorder Social History Housing: House Alcohol intake: current Alcohol intake frequency: holidays/special occasions only Patient Tobacco Use Status: Current someday Tobacco user Tobacco use type: Cigarette Cigarettes Per Day: 2 e-Cigarette/Vaping Use: Never Used service: No Current occupational status: employed (off for 3 months) Cognitive needs: No Hearing needs: No Vision needs: No Female Reproductive History Menstrual Age of Menarche: 14 Review of Systems Const Details: Constitutional : No Weight loss, No Fever, No Chills, No Fatigue, No Malaise ENT/Mouth : No sore throat, No Rhinorrhea Eyes: No Eye Pain, No Swelling, No Redness Cardiovascular : No Chest Pain, No SOB, No Dyspnea on Exertion, No Orthopnea, No Edema, No Palpitations Respiratory : No Cough, No Sputum, No Wheezing Gastrointestinal : No Nausea, No Vomiting, No Diarrhea, No Constipation, No abdominal Pain, No Hematochezia, No Melena Genitourinary : No Dysuria, No Urinary Frequency, No Hematuria, Musculoskeletal : + joint pain, No Myalgias, + Joint Swelling Skin : No Skin Lesions, No rash Neuro : No Weakness, No Numbness, No Dizziness, No Headache Psych : No Anxiety/Panic, No Depression All other systems reviewed and are negative All systems reviewed & are unremarkable except as noted in HPI and below Physical Exam Vital Signs: Last Vital Signs Temp 97 F 01/13/23 10:54 Pulse 82 01/13/23 10:54 BP 120/82 01/13/23 10:54 Pulse Ox 98 01/13/23 10:54 Oxygen Delivery Method Room Air 01/13/23 10:54 BMI result Body Mass Index 32.8 vss Appearance: Alert.? Oriented X3.? No acute distress.? Head: Normocephalic, atraumatic, no step-offs or deformities Eyes: Pupils equal, round and reactive to light.? CVS: Normal heart rate and rhythm.? Pulses normal.? Respiratory: No respiratory distress.? Breath sounds normal.? Abdomen: Soft and nontender.? Skin: Skin warm and dry.? Normal skin color.? Normal skin turgor.? Extremities: No lower extremity edema.? No calf ttp. 5/5 strength to bilateral upper and lower extremities. Full rom to b/l knees painless. no effusions. Ambulatory w/ steady gait normal coordination. Neuro: Oriented X 3.? No motor deficit.? No sensory deficit. CN 2-12 intact Assessment & Plan Assessment & Plan (1) Right knee pain: Code(s): M25.561 - Pain in right knee Plan Take your medications as prescribed. If you were prescribed antibiotics today, it is important that you take your medication to their entirety, do not skip any doses, do not finish them early. Follow-up with your primary care provider this week. Return to the emergency department with new or worsening symptoms. Such as fevers, chills, chest pain, shortness of breath, nausea, vomiting, dizziness, headache, vision changes, lethargy In case of emergency call 911 Coding Level of Care Code Est Pt Level 3 (25234) Diagnoses Right knee pain M25.561
== END 2023-01-13 12:50 | disposition home or self-care (01) ==
PROVIDERS: PCP Internal Medicine; Visit Provider Physician Assistant
DX: M25.561 Pain in right knee (principal)
CPT/HCPCS: 99213

== ENCOUNTER 2023-01-13 11:22 | Outpatient (REF) | payer BC, SELFPAY ==
--- NOTE | ~2023-01-13 | XR_ITS ---
EXAMINATION: XR KNEE, RIGHT CLINICAL INFORMATION: Right knee pain COMPARISON: None available. TECHNIQUE: AP, lateral, and both oblique views of the right knee. FINDINGS: No fracture or malalignment. Small marginal osteophytes at the medial compartment. Mild medial compartment joint space narrowing. Lateral and patellofemoral compartments are relatively well-preserved. No significant effusion. XR/XR knee RT 4V IMPRESSION: Mild medial compartment osteoarthritis. No acute osseous findings.
== END 2023-01-13 11:23 | disposition home or self-care (01) ==
LOC: HO.HMGCX 11:22
PROVIDERS: PCP Internal Medicine; Visit Provider Physician Assistant
DX: M25.561 Pain in right knee (principal)
CPT/HCPCS: 73564

== ENCOUNTER 2023-02-01 12:40 | Outpatient (AMB) | payer BC, SELFPAY ==
[2023-02-01 12:43] VITALS: BP 146/94; PULSE 79; O2SAT 98; BMI 33.3
--- NOTE | 2023-02-01 12:43 | A.OFFPC_ITS ---
Vital Signs 3 02/01/23 12:43 Height 5 ft 3 in Weight 188 lb BMI 33.3 BP 146/94 H Blood Pressure Location Lt brachial Position Sitting Pulse 79 Pulse Source Pulse Oximeter Pulse Oximetry (%) 98 Oxygen Delivery Method Room Air Intake Visit Reasons: Follow Up Walk-In/ Arthritis Allergies oxycodone Allergy (Unknown, Verified 02/01/23 12:44) Unknown lithium [LITHIUM] Adverse Reaction (Intermediate, Verified 02/01/23 12:44) bilateral pedal edema Medication List - Last Reconciled 02/01/23 by Rozina Carpio MD atenolol 25 mg PO DAILY 90 days hydrochlorothiazide 25 mg PO QAM 90 days hydroxyzine HCl 25 mg PO BID lamotrigine (Lamictal) 250 mg PO DAILY levothyroxine 112 mcg PO DAILY 90 days omeprazole 20 mg PO ONCE 90 days potassium chloride 40 mEq (15 mL) PO BID 3 days quetiapine (Seroquel) 100 mg (2 x 50 mg) PO DAILY MDD 50-100 mg daily Tobacco use date assessed: 11/11/22 HPI Follow Up Walk-In/ Arthritis 2 HPI0 Details Patient is a 62-year-old female came in today to be evaluated for pain in her right knee Patient was evaluated in walk-in clinic and x-ray done which showed osteoarthritis She has been taking Aleve which is been her. I have told her to stop taking Aleve or Motrin and instead I have stent diclofenac 75 mg that she can take after supper As her pain is worse when she is sleeping at night. Referral for orthopedic evaluation placed. [facility] Medical History Thyroid ca Anxiety Hx of major depression Hypertension Surgical History Hx of thyroidectomy Hx of section Family History Father Colon cancer Other Mental health disorder Substance use disorder Social History Housing: House Alcohol intake: current Alcohol intake frequency: holidays/special occasions only Patient Tobacco Use Status: Current someday Tobacco user Tobacco use type: Cigarette Cigarettes Per Day: 2 e-Cigarette/Vaping Use: Never Used service: No Current occupational status: employed (off for 3 months) Cognitive needs: No Hearing needs: No Vision needs: No Female Reproductive History Menstrual Age of Menarche: 14 Questionnaire PHQ-9 Over the last 2 weeks, how often have you been bothered by any of the following problems? 1. Little interest or pleasure in doing things: several days 2. Feeling down, depressed, or hopeless: several days 3. Trouble falling or staying asleep, or sleeping too much: several days 4. Feeling tired or having little energy: several days 5. Poor appetite or overeating: several days 6. Feeling bad about yourself - or that you are a failure or have let yourself or your family down: not at all 7. Trouble concentrating on things, such as reading the newspaper or watching television: not at all 8. Moving or speaking so slowly that other people could have noticed. Or the opposite - being so fidgety or restless that you have been moving around a lot more than usual: not at all 9. Thoughts that you would be better off or of hurting yourself in some way: not at all Total score: 5 Depression Screening Interpretation: Negative Depression Screening Done: Yes 80823 - PHQ-9 Billing: Yes Source: Developed by Drs. Dangelo Taylor, Jonny Nix and colleagues, with an educational brina from [employer]. Thrive Questionnaire Date Thrive assessed: 06/10/22 ANTON-7 AMB Questionnaire ANTON-7 Date ANTON - 7 assessed: 06/10/22 Source: Developed by Drs. Dangelo Taylor, Jonny Nix and colleagues, with an educational brina from [employer]. Review of Systems Const All systems reviewed & are unremarkable except as noted in HPI and below Physical exam (Primary Care) Vital Signs: Last Vital Signs Pulse 79 02/01/23 12:43 BP 146/94 H 02/01/23 12:43 Pulse Ox 98 02/01/23 12:43 Oxygen Delivery Method Room Air 02/01/23 12:43 BMI result Body Mass Index 33.3 Tobacco/Smoking Status: Tobacco use Status Tobacco use date assessed 11/11/22 02/01/23 12:48 Patient Tobacco Use Status Current someday Tobacco 02/01/23 12:48 Tobacco use type Cigarette 02/01/23 12:48 e-Cigarette/Vaping Use Never Used 02/01/23 12:48 PHQ-9: PHQ-9 Score PHQ-9: Total score 5 02/01/23 13:07 Depression Screening Interpretation: Negative Thrive Assessment: Date of Thrive Assessment Date Thrive assessed 06/10/22 02/01/23 12:48 Const General: no acute distress Orientation/consciousness: patient oriented x3 Eyes General: appearance normal, both eyes and all related structures Resp Effort & Inspection: normal respiratory effort and able to speak in complete sentences Auscultation: clear to auscultation bilaterally Neuro General: patient oriented x3 Extrem Knee images: 2 1. Tender all over, range of motion intact, no swelling Psych Mental Status: mental status grossly normal Assessment and Plan Assessment & Plan (1) Acute pain of right knee: Code(s): M25.561 - Pain in right knee (2) Osteoarthritis of right knee: Code(s): M17.11 - Unilateral primary osteoarthritis, right knee Orders: Referrals 2 Orthopedics Referral M17.11 - Unilateral primary osteoarthritis, right knee, M25.561 - Pain in right knee Medications: New 2 diclofenac sodium 75 mg PO .qhs 30 tabs 0RF pain 30 days Coding Level of Care Code Est Pt Level 3 (24734) Diagnoses Acute pain of right knee M25.561 Osteoarthritis of right knee M17.11
== END 2023-02-01 13:23 | disposition home or self-care (01) ==
PROVIDERS: PCP Internal Medicine; Visit Provider Internal Medicine
DX: M25.561 Pain in right knee (principal); M17.11 Unilateral primary osteoarthritis, right knee
CPT/HCPCS: 99213

== ENCOUNTER 2023-02-20 10:39 | Outpatient (AMB) | payer BC, SELFPAY ==
--- NOTE | 2023-02-20 10:56 | A.OFFVIS_ITS ---
Intake Intake Visit Reasons: New Pt - Right Knee OA - XR @ [facility] Intake Note: Regla is a 62 year old female who presents today as a new patient with complaints of right knee pain. She was seen at the [facility] walk in on 02/01/23 where xrays were taken and she was told that she has OA. Diclofenac was prescribed. She reports that this medication was very helpful and is no longer having pain. Allergies oxycodone Allergy (Unknown, Verified 02/01/23 12:44) Unknown lithium [LITHIUM] Adverse Reaction (Intermediate, Verified 02/01/23 12:44) bilateral pedal edema HPI New Pt - Right Knee OA - XR @ [facility] HPI Details Regla is a 62 year old woman who presents to discuss her right knee OA. She reports having pain in her right knee with daily activity, worse at night which used to wake her up. She denies any pain at this time however. She was seen at the walk-in clinic on 02/01/23 and given PO Diclofenac, which she says has been very helpful for her pain. [facility] Medical History Thyroid ca Anxiety Hx of major depression Hypertension Surgical History Hx of thyroidectomy Hx of section Family History Father Colon cancer Other Mental health disorder Substance use disorder Social History Housing: House Alcohol intake: current Alcohol intake frequency: holidays/special occasions only Patient Tobacco Use Status: Current someday Tobacco user Tobacco use type: Cigarette Cigarettes Per Day: 2 e-Cigarette/Vaping Use: Never Used service: No Current occupational status: employed (off for 3 months) Cognitive needs: No Hearing needs: No Vision needs: No Female Reproductive History Menstrual Age of Menarche: 14 Review of Systems Const All systems reviewed & are unremarkable except as noted in HPI and below Physical Exam Const General: no acute distress, alert and awake Orientation/consciousness: patient oriented x3 HEENT Head: Yes normocephalic and Yes atraumatic Eyes EOM: EOMs intact bilaterally Resp Effort & Inspection: normal respiratory effort and able to speak in complete sentences Cardio Jugular venous distension: no JVD Skin General skin exam: turgor normal Rashes: no rashes Neuro General: patient oriented x3 Extrem Other: Right Knee: No pain Normal motion Normal gait Psych Appearance: grossly normal Affect: normal affect Attitude: cooperative Results Reviewed Results Reviewed: I personally reviewed relevant radiographs. Mild medial compartment osteoarthritis. No acute osseous findings. Assessment & Plan Assessment & Plan (1) Osteoarthritis of right knee: Code(s): M17.11 - Unilateral primary osteoarthritis, right knee Plan: This is a 62 year old woman with mild right knee OA. She no longer has pain and is taking prescribed Diclofenac. I recommend she continue with NSAIDs prn and activity as tolerated. She can follow up prn. Plan Scribed for Henry Reyes MD by [place], chief medical technologist, on 02/20/23 at 11:15 AM, EST. Coding Level of Care Code New Pt Level 3 (33661) Diagnoses Osteoarthritis of right knee M17.11
== END 2023-02-20 11:21 | disposition home or self-care (01) ==
PROVIDERS: PCP Internal Medicine; Visit Provider Orthopaedic Surgery
DX: M17.11 Unilateral primary osteoarthritis, right knee (principal)
CPT/HCPCS: 99204

== ENCOUNTER → 2023-02-20 10:39 | Outpatient (BNVA) | payer BC, SELFPAY | PROVIDERS: PCP Internal Medicine; Visit Provider Orthopaedic Surgery ==

== ENCOUNTER 2023-05-16 09:46 | Outpatient (AMB) | payer BC, SELFPAY ==
[2023-05-16 09:53] VITALS: BP 128/76; PULSE 63; O2SAT 92; BMI 35.7
--- NOTE | 2023-05-16 09:53 | A.OFFPC_ITS ---
Vital Signs 05/16/23 09:53 Height 5 ft 3 in Weight 201 lb 6 oz BMI 35.7 BP 128/76 Blood Pressure Location Lt brachial Position Sitting Pulse 63 Pulse Source Pulse Oximeter Pulse Oximetry (%) 92 Oxygen Delivery Method Room Air Intake Visit Reasons: 6 Month Follow up~ Allergies oxycodone Allergy (Unknown, Verified 05/16/23 09:53) Unknown lithium [LITHIUM] Adverse Reaction (Intermediate, Verified 05/16/23 09:53) bilateral pedal edema Medication List - Last Reconciled 05/16/23 by Rozina Carpio MD atenolol 25 mg PO DAILY 90 days diclofenac sodium 75 mg PO .qhs 30 days hydrochlorothiazide 25 mg PO QAM 90 days hydroxyzine HCl 25 mg PO BID lamotrigine (Lamictal) 250 mg PO DAILY levothyroxine 112 mcg PO DAILY 90 days omeprazole 20 mg PO ONCE 90 days potassium chloride 40 mEq (15 mL) PO BID 3 days quetiapine (Seroquel) 100 mg (2 x 50 mg) PO DAILY MDD 50-100 mg daily Tobacco use date assessed: 05/16/23 Dental Screening Dental Screen Date: 05/16/23 Did you have a dental visit in the last 12 months?: Yes Did you have a dental problem in the last 6 months where you did not have access to dental care?: No Was dental information given to patient?: Patient has dentist HPI 6 Month Follow up~ HPI Details Patient is 63-year-old female came in today for her regular follow-up visit Hypothyroidism: Patient is taking levothyroxine 112 mcg, management through endocrinology Due for labs Blood pressure is stable patient is on hydrochlorothiazide 25 mg and atenolol 25 mg Reflux is stable with omeprazole Arthrosis: Patient takes diclofenac acid as needed with food Bipolar disorder management through Psychiatry Currently she is on lamotrigine 200 mg, hydroxyzine and Seroquel, through Psychiatry Patient has been losing hair she is concerned, requesting a referral to Dermatology, she also need skin cancer screening She is going to be losing her insurance 24 of June as she has stopped working at [employer] BMI is elevated need to lose weight Follow-up 3 months PFSH Medical History Thyroid ca Anxiety Hx of major depression Hypertension Surgical History Hx of thyroidectomy Hx of section Family History Father Colon cancer Other Mental health disorder Substance use disorder Social History Housing: House Alcohol intake: current Alcohol intake frequency: holidays/special occasions only Patient Tobacco Use Status: Current someday Tobacco user Tobacco use type: Cigarette Cigarettes Per Day: 2 e-Cigarette/Vaping Use: Never Used service: No Current occupational status: employed (off for 3 months) Cognitive needs: No Hearing needs: No Vision needs: No Female Reproductive History Menstrual Age of Menarche: 14 Questionnaire Thrive Questionnaire Date Thrive assessed: 06/10/22 AUDIT C Alcohol Use Questionnaire (AUDIT-C) 1. How often do you have a drink containing alcohol?: 2-4 times a month 2. How many drinks containing alcohol do you have on a typical day when you are drinking?: 1 or 2 3. How often do you have six or more drinks on one occasion?: Never Total Score: 2 Score Reviewed/Action Taken: Yes ANTON-7 AMB Questionnaire ANTON-7 Date ANTON - 7 assessed: 06/10/22 Source: Developed by Drs. Dangelo Taylor, Madiha Valdez, Jonny Pepper and colleagues, with an educational brina from [employer]. Review of Systems Const Denies chills and Denies fever(s) ENT Denies epistaxis and Denies nasal discharge Card Denies chest pain Resp Denies chest congestion, Denies cough and Denies hemoptysis GI Denies diarrhea and Denies nausea Skin/Breast Denies rash Neuro Reports no additional complaints Psych Reports no additional complaints Endo Reports no additional complaints Physical exam (Primary Care) Vital Signs: Last Vital Signs Pulse 63 05/16/23 09:53 BP 128/76 05/16/23 09:53 Pulse Ox 92 05/16/23 09:53 Oxygen Delivery Method Room Air 05/16/23 09:53 BMI result Body Mass Index 35.7 Tobacco/Smoking Status: Tobacco use Status Tobacco use date assessed 05/16/23 05/16/23 10:02 Patient Tobacco Use Status Current someday Tobacco 05/16/23 10:02 Tobacco use type Cigarette 05/16/23 10:02 e-Cigarette/Vaping Use Never Used 05/16/23 10:02 Thrive Assessment: Date of Thrive Assessment Date Thrive assessed 06/10/22 05/16/23 10:02 Const General: cooperative, comfortable and no acute distress Orientation/consciousness: patient oriented x3 HENMT Other: Female pattern alopecia Head: Yes normocephalic Eyes General: appearance normal, both eyes and all related structures Neck Neck: Yes supple Resp Effort & Inspection: normal respiratory effort, no cough and no stridor Cardio Rhythm: regular rhythm Heart sounds: S1 normal heart sound present and S2 normal heart sound present Skin General skin exam: turgor normal Neuro General: patient oriented x3, tone normal and moves all extremities Extrem Right lower extremity: no edema Left lower extremity: no edema Assessment and Plan Assessment & Plan (1) Hypertension, essential: Code(s): I10 - Essential (primary) hypertension (2) Arthrosis: Code(s): M19.90 - Unspecified osteoarthritis, unspecified site (3) Bipolar disorder: Code(s): F31.9 - Bipolar disorder, unspecified Qualifiers: Active/Remission status: in full remission Most recent bipolar episode type: hypomanic Qualified Code(s): F31.72 - Bipolar disorder, in full remission, most recent episode hypomanic (4) Other specified hypothyroidism: Code(s): E03.8 - Other specified hypothyroidism (5) Obesity due to excess calories: Code(s): E66.09 - Other obesity due to excess calories Qualifiers: Body mass index: BMI 33.0-33.9 Obesity classification: adult class 1 (BMI 30 - 34.9) Serious obesity comorbidity presence: with serious comorbidity Qualified Code(s): E66.09 - Other obesity due to excess calories; Z68.33 - Body mass index [BMI] 33.0-33.9, adult Plan Patient is 63-year-old female came in today for her regular follow-up visit Hypothyroidism: Patient is taking levothyroxine 112 mcg, management through endocrinology Due for labs Blood pressure is stable patient is on hydrochlorothiazide 25 mg and atenolol 25 mg Reflux is stable with omeprazole Arthrosis: Patient takes diclofenac acid as needed with food Bipolar disorder management through Psychiatry Currently she is on lamotrigine 200 mg, hydroxyzine and Seroquel, through Psychiatry Patient has been losing hair she is concerned, requesting a referral to Dermatology, she also need skin cancer screening She is going to be losing her insurance 24 of June as she has stopped working at [employer] BMI is elevated need to lose weight Follow-up 3 months Orders: Orders Complete Blood Count Auto Diff Today E03.8 - Other specified hypothyroidism, F 31.9 - Bipolar disorder, unspecified, I10 - Essential (primary) hypertension, M19.90 - Unspecified osteoarthritis, unspecified site Comprehensive Met. Panel Today E03.8 - Other specified hypothyroidism, F31.9 - Bipolar disorder, unspecified, I10 - Essential (primary) hypertension, M19.90 - Unspecified osteoarthritis, unspecified site LDL Cholesterol Direct Today E03.8 - Other specified hypothyroidism, F31.9 - Bipolar disorder, unspecified, I10 - Essential (primary) hypertension, M19.90 - Unspecified osteoarthritis, unspecified site TSH reflex Free T4 Today E03.8 - Other specified hypothyroidism, F31.9 - Bipolar disorder, unspecified, I10 - Essential (primary) hypertension, M19.90 - Unspecified osteoarthritis, unspecified site Referrals Dermatology Referral L65.9 - Nonscarring hair loss, unspecified, Z12.83 - Encounter for screening for malignant neoplasm of skin Medications: Refilled omeprazole 20 mg PO ONCE 90 caps 0RF 90 days levothyroxine 112 mcg PO DAILY 90 tabs 1RF 90 days Coding Level of Care Code Est Pt Level 4 (09908) Diagnoses Hypertension, essential I10 Arthrosis M19.90 Bipolar disorder, in full remission, most recent episode hypomanic F31.72 Active/Remission status: in full remission Most recent bipolar episode type: hypomanic Other specified hypothyroidism E03.8 Class 1 obesity due to excess calories with serious comorbidity and body mass index (BMI) of 33.0 to 33.9 in adult E66.09; Z68.33 Body mass index: BMI 33.0-33.9 Obesity classification: adult class 1 (BMI 30 - 34.9) Serious obesity comorbidity presence: with serious comorbidity
== END 2023-05-16 10:15 | disposition home or self-care (01) ==
PROVIDERS: PCP Internal Medicine; Visit Provider Internal Medicine
DX: I10 Essential (primary) hypertension (principal); M19.90 Unspecified osteoarthritis, unspecified site; F31.72 Bipolar disorder, in full remission, most recent episode hypomanic; E03.8 Other specified hypothyroidism; E66.09 Other obesity due to excess calories; Z68.33 Body mass index [BMI] 33.0-33.9, adult
CPT/HCPCS: 99214

== ENCOUNTER 2023-05-16 10:17 | Outpatient (REF) | payer BC, SELFPAY ==
[2023-05-16 13:22] LABS: MANUAL DIFF FLAG NO
[2023-05-16 13:34] LABS: Basophils Percent Auto 0.4 % (0-2); Hematocrit 38.4 % (37.0-47.0); Hemoglobin 13.4 g/dl (12.0-16.0); Imm Gran Abs Auto 0.03 X10*3/uL (0.00-0.03); Imm Gran Pct Auto 0.4 % (0.0-0.4); Lymphocytes Absolute Auto 2.3 X10*3/uL (1.2-4.9); Lymphocytes Percent Auto 29.4 % (20-40); Mean Corpuscular HGB Conc 34.9 g/dl (31.0-35.0); Mean Corpuscular Hemoglobin 30.5 pg (27.0-33.0); Mean Corpuscular Volume 87.3 fL (80.0-98.0); Mean Platelet Volume 9.1 fL (9.4-12.3); Monocytes Absolute Auto 0.6 X10*3/uL (0.1-1.2); Monocytes Percent Auto 7.8 % (2-11); Neutrophils Absolute Auto 4.9 x10*3/uL (2.0-8.3); Platelet Count 348 X10*3/uL (160-400); Red Cell Distribution Width 12.6 % (11.0-16.0); White Blood Count 7.9 X10*3/uL (4.8-10.8)
[2023-05-16 13:47] LABS: Alanine Aminotransferase 18 U/L (0-31); Albumin Level 4.5 g/dL (3.5-5.0); Alkaline Phosphatase 98 U/L (39-117); Anion Gap 14 (12-20); Aspartate Amino Transferase 21 U/L (5-31); Bilirubin Total 0.5 mg/dL (0.0-1.0); Blood Urea Nitrogen 14 mg/dL (9-16); Calcium 10.1 mg/dL (8.4-10.2); Carbon Dioxide 29 mmol/L (22-29); Chloride 90 mmol/L (96-108); Estimated Glomerular Filt Rate 58; Glucose Random 99 mg/dL (60-115); Potassium 3.3 mmol/L (3.3-5.1); Sodium 130 mmol/L (135-145); Total Protein 7.8 g/dL (6.5-8.0)
[2023-05-16 14:16] LABS: TSH reflex Free T4 3.42 uIU/mL (0.32-4.0)
[2023-05-17 08:24] LABS: LDL Cholesterol Direct 133 mg/dL (<100)
== END 2023-05-16 10:18 | disposition home or self-care (01) ==
LOC: HO.HMGCLDS 10:17
PROVIDERS: PCP Internal Medicine; Visit Provider Internal Medicine
DX: M19.90 Unspecified osteoarthritis, unspecified site (principal); F31.9 Bipolar disorder, unspecified; E03.8 Other specified hypothyroidism; I10 Essential (primary) hypertension
CPT/HCPCS: 36415; 80053; 83721; 84443; 85025

== ENCOUNTER 2023-08-09 13:36 | Outpatient (AMB) | payer OTHER, SELFPAY ==
[2023-08-09 13:41] VITALS: BP 122/84; PULSE 81; TEMP 36.1; O2SAT 97; BMI 35.6
--- NOTE | 2023-08-09 13:41 | AM.OFFWIN_ITS ---
Intake Vital Signs 08/09/23 13:41 Height 5 ft 3 in Weight 201 lb 2 oz BMI 35.6 BP 122/84 Blood Pressure Location Lt brachial Position Sitting Pulse 81 Pulse Source Pulse Oximeter Temp 97.0 F Temp Source Temporal Artery Scan Pulse Oximetry (%) 97 Oxygen Delivery Method Room Air Intake Visit Reasons: EP RT Knee extreme pain Intake Note: Pt presents to the office today for c/o right knee pain. Pt states she has severe knee pain with no injury. She states the pain is worse at night Patient Tobacco Use Status: Current someday Tobacco user Allergies oxycodone Allergy (Unknown, Verified 08/09/23 13:43) Unknown lithium [LITHIUM] Adverse Reaction (Intermediate, Verified 08/09/23 13:43) bilateral pedal edema HPI HPI Comments History of Present Illness Details 63 y/o female patient who presents to [facility] in clinic today with c/o right knee pain. This is an ongoing chronic issue. She was prescribed Diclofenac by PCP with good pain relief then, now she reports medication not working. She was seen by Ortho back in Dec, but at that time pain went away. Xray done in Dec show Mild OA right knee. PFSH Medical History Thyroid ca Anxiety Hx of major depression Hypertension Surgical History Hx of thyroidectomy Hx of section Family History Father Colon cancer Other Mental health disorder Substance use disorder Social History Housing: House Alcohol intake: current Alcohol intake frequency: holidays/special occasions only Patient Tobacco Use Status: Current someday Tobacco user Tobacco use type: Cigarette Cigarettes Per Day: 2 e-Cigarette/Vaping Use: Never Used service: No Current occupational status: employed (off for 3 months) Cognitive needs: No Hearing needs: No Vision needs: No Female Reproductive History Menstrual Age of Menarche: 14 Physical Exam Vital Signs: Last Vital Signs Temp 97.0 F 08/09/23 13:41 Pulse 81 08/09/23 13:41 BP 122/84 08/09/23 13:41 Pulse Ox 97 08/09/23 13:41 Oxygen Delivery Method Room Air 08/09/23 13:41 BMI result Body Mass Index 35.6 Const General: no acute distress Nutritional Appearance: obese Orientation/consciousness: patient oriented x3 Neuro General: patient oriented x3, gait normal and moves all extremities Extrem Right lower extremity: knee Details: normal to inspection, tenderness Location: of the patella Details: medially and normal ROM; no swelling, no crepitus and no unusual warmth; no edema Left lower extremity: full ROM; no edema Psych Speech and movement: Normal speech and movement present Assessment & Plan Assessment & Plan (1) Osteoarthritis of right knee: Code(s): M17.11 - Unilateral primary osteoarthritis, right knee Qualifiers: Osteoarthritis type: unspecified Qualified Code(s): M17.11 - Unilateral primary osteoarthritis, right knee Plan: - Knee Brace - Call Ortho for f/u Appt - Acetaminophen for pain relief. - Recom swimming as low impact exercise. Coding Level of Care Code Est Pt Level 3 (31102) Diagnoses Osteoarthritis of right knee, unspecified osteoarthritis type M17.11 Osteoarthritis type: unspecified Time Spent (min) 15
== END 2023-08-09 14:20 | disposition home or self-care (01) ==
PROVIDERS: PCP Internal Medicine; Visit Provider Nurse Practitioner Family
DX: M17.11 Unilateral primary osteoarthritis, right knee (principal)
CPT/HCPCS: 99213

== ENCOUNTER 2023-08-18 09:30 | Outpatient (AMB) | payer OTHER, SELFPAY ==
--- NOTE | 2023-08-18 09:36 | A.OFFPC_ITS ---
Vital Signs 08/18/23 09:37 Height 5 ft 3 in Weight 200 lb 2 oz BMI 35.4 BP 122/78 Blood Pressure Location Lt brachial Position Sitting Pulse 61 Pulse Source Pulse Oximeter Pulse Oximetry (%) 97 Oxygen Delivery Method Room Air Intake Visit Reasons: 3 month fu Allergies oxycodone Allergy (Unknown, Verified 08/18/23 09:37) Unknown lithium [LITHIUM] Adverse Reaction (Intermediate, Verified 08/18/23 09:37) bilateral pedal edema Medication List - Last Reconciled 08/18/23 by Rozina Carpio MD atenolol 25 mg PO DAILY 90 days diclofenac sodium 25 mg PO .qhs 30 days hydrochlorothiazide 25 mg PO QAM 90 days hydroxyzine HCl 25 mg PO BID lamotrigine (Lamictal) 250 mg PO DAILY levothyroxine 112 mcg PO DAILY 90 days omeprazole 20 mg PO ONCE 90 days potassium chloride 40 mEq (15 mL) PO BID 3 days quetiapine (Seroquel) 100 mg (2 x 50 mg) PO DAILY MDD 50-100 mg daily Tobacco use date assessed: 05/16/23 Dental Screening Dental Screen Date: 08/18/23 Did you have a dental visit in the last 12 months?: Yes Did you have a dental problem in the last 6 months where you did not have access to dental care?: No Was dental information given to patient?: Patient has dentist HPI 3 month fu HPI Details Patient is 63-year-old female came in today for her regular follow-up visit She has been suffering from knee pain for the past few weeks Patient says that diclofenac is not helping her anymore she is taking that we Tylenol I have sent tramadol 50 mg tablets that she may take at night, she has appointment coming up with orthopedic end of this month Also has been complaining of cramping all over the body I see that her sodium was slightly low last time We will be repeating labs again, I have added magnesium as well She is also complaining of frequency of urination, UA added as well as sugar Hypothyroidism: Patient is taking levothyroxine 112 mcg, management through endocrinology Blood pressure is stable patient is on hydrochlorothiazide 25 mg and atenolol 25 mg Reflux is stable with omeprazole Bipolar disorder management through Psychiatry Currently she is on lamotrigine 200 mg, hydroxyzine and Seroquel, through Psychiatry BMI is elevated need to lose weight Follow-up 1st week of August PFSH Medical History Thyroid ca Anxiety Hx of major depression Hypertension Surgical History Hx of thyroidectomy Hx of section Family History Father Colon cancer Other Mental health disorder Substance use disorder Social History Housing: House Alcohol intake: current Alcohol intake frequency: holidays/special occasions only Patient Tobacco Use Status: Current someday Tobacco user Tobacco use type: Cigarette Cigarettes Per Day: 2 e-Cigarette/Vaping Use: Never Used service: No Current occupational status: employed (off for 3 months) Cognitive needs: No Hearing needs: No Vision needs: No Female Reproductive History Menstrual Age of Menarche: 14 Questionnaire PHQ-9 Over the last 2 weeks, how often have you been bothered by any of the following problems? 1. Little interest or pleasure in doing things: nearly every day 2. Feeling down, depressed, or hopeless: more than half the days 3. Trouble falling or staying asleep, or sleeping too much: nearly every day 4. Feeling tired or having little energy: nearly every day 5. Poor appetite or overeating: more than half the days 6. Feeling bad about yourself - or that you are a failure or have let yourself or your family down: not at all 7. Trouble concentrating on things, such as reading the newspaper or watching television: not at all 8. Moving or speaking so slowly that other people could have noticed. Or the opposite - being so fidgety or restless that you have been moving around a lot more than usual: not at all 9. Thoughts that you would be better off or of hurting yourself in some way: not at all Total score: 13 Depression Screening Interpretation: Positive Depression Screening Follow-up: Existing condition and In treatment Depression Screening Done: Yes [id number] - PHQ-9 Billing: Yes Source: Developed by Drs. Dangelo Taylor, Madiha Valdez, Jonny Pepper and colleagues, with an educational brina from [employer]. Thrive Questionnaire Date Thrive assessed: 08/18/23 I am a: Patient What is your living situation today?: I have a steady place to live Within the past 12 months, did the food you bought not last and you didn't have the money to get more?: Never true Within the past 12 months, did you worry whether your food would run out before you got money to buy more?: Never true Do you have trouble paying for medicines?: No Do you have trouble getting transportation to medical appointments?: No Do you have trouble paying your heating and electricity bill?: No Do you have trouble taking care of your child, family member or friend?: No Do you have trouble with day-to-day activities such as bathing, preparing meals, shopping, managing finances, etc.?: No Are you currently unemployed and looking for a job?: No Are you interested in more education?: No Please select the resources that you would like help with: None Currently or been in a relationship where the following occur: no concerns reported THRIVE Score: 0 AUDIT C Alcohol Use Questionnaire (AUDIT-C) 1. How often do you have a drink containing alcohol?: Never 3. How often do you have six or more drinks on one occasion?: Never Total Score: 0 Score Reviewed/Action Taken: Yes ANTON-7 AMB Questionnaire ANTON-7 Date ANTON - 7 assessed: 08/18/23 Feeling nervous, anxious, or on edge: 3 = Nearly every day Not being able to stop or control worryin = Nearly every day Worrying too much about different things: 3 = Nearly every day Trouble relaxin = Nearly every day Being so restless that it is hard to sit still: 0 = Not at all Becoming easily annoyed or irritable: 3 = Nearly every day Feeling afraid as if something awful might happen: 0 = Not at all Total ANTON-7 score (0-4 normal; 5-9 mild; 10-14 moderate; 15-21 severe): 15 Source: Developed by Drs. Dangelo Taylor, Madiha Valdez, Jonny Pepper and colleagues, with an educational brina from [employer]. ANTON-7 Assessment Billing ANTON-7 Assessment Tool: ANTON-7 Assessment 79306 Review of Systems Const Denies chills and Denies fever(s) ENT Denies epistaxis and Denies nasal discharge Card Denies chest pain Resp Denies chest congestion, Denies cough and Denies hemoptysis GI Denies diarrhea and Denies nausea Skin/Breast Denies rash Neuro Reports no additional complaints Psych Reports no additional complaints Endo Reports no additional complaints Physical exam (Primary Care) Vital Signs: Last Vital Signs Pulse 61 08/18/23 09:37 BP 122/78 08/18/23 09:37 Pulse Ox 97 08/18/23 09:37 Oxygen Delivery Method Room Air 08/18/23 09:37 BMI result Body Mass Index 35.4 Tobacco/Smoking Status: Tobacco use Status Tobacco use date assessed 05/16/23 08/18/23 09:37 Patient Tobacco Use Status Current someday Tobacco 08/18/23 09:37 Tobacco use type Cigarette 08/18/23 09:37 e-Cigarette/Vaping Use Never Used 08/18/23 09:37 PHQ-9: PHQ-9 Score PHQ-9: Total score 13 08/18/23 10:11 Depression Screening Interpretation: Positive Depression Screening Follow-up: Existing condition and In treatment Thrive Assessment: Date of Thrive Assessment Date Thrive assessed 08/18/23 08/18/23 09:43 Currently or been in a relationship where the following occur: no concerns reported Const General: cooperative, comfortable and no acute distress Orientation/consciousness: patient oriented x3 HENMT Head: Yes normocephalic Eyes General: appearance normal, both eyes and all related structures Neck Neck: Yes supple Resp Effort & Inspection: normal respiratory effort, no cough and no stridor Cardio Rhythm: regular rhythm Heart sounds: S1 normal heart sound present and S2 normal heart sound present Skin General skin exam: turgor normal Neuro General: patient oriented x3, tone normal and moves all extremities Extrem Right lower extremity: no edema Left lower extremity: no edema Assessment and Plan Assessment & Plan (1) Hypertension, essential: Code(s): I10 - Essential (primary) hypertension (2) Muscle cramps: Code(s): R25.2 - Cramp and spasm (3) Frequency of urination: Code(s): R35.0 - Frequency of micturition (4) Osteoarthritis of right knee: Code(s): M17.11 - Unilateral primary osteoarthritis, right knee Qualifiers: Osteoarthritis type: unspecified Qualified Code(s): M17.11 - Unilateral primary osteoarthritis, right knee (5) Obesity due to excess calories: Code(s): E66.09 - Other obesity due to excess calories Qualifiers: Body mass index: BMI 33.0-33.9 Obesity classification: adult class 1 (BMI 30 - 34.9) Serious obesity comorbidity presence: with serious comorbidity Qualified Code(s): E66.09 - Other obesity due to excess calories; Z68.33 - Body mass index [BMI] 33.0-33.9, adult (6) Other specified hypothyroidism: Code(s): E03.8 - Other specified hypothyroidism (7) Bipolar disorder: Code(s): F31.9 - Bipolar disorder, unspecified Qualifiers: Active/Remission status: in full remission Most recent bipolar episode type: hypomanic Qualified Code(s): F31.72 - Bipolar disorder, in full remission, most recent episode hypomanic (8) Hypothyroidism: Code(s): E03.9 - Hypothyroidism, unspecified Qualifiers: Hypothyroidism type: unspecified Qualified Code(s): E03.9 - Hypothyroidism, unspecified (9) Arthrosis: Code(s): M19.90 - Unspecified osteoarthritis, unspecified site Plan Patient is 63-year-old female came in today for her regular follow-up visit She has been suffering from knee pain for the past few weeks Patient says that diclofenac is not helping her anymore she is taking that we Tylenol I have sent tramadol 50 mg tablets that she may take at night, she has appointment coming up with orthopedic end of this month Also has been complaining of cramping all over the body I see that her sodium was slightly low last time We will be repeating labs again, I have added magnesium as well She is also complaining of frequency of urination, UA added as well as sugar Hypothyroidism: Patient is taking levothyroxine 112 mcg, management through endocrinology Blood pressure is stable patient is on hydrochlorothiazide 25 mg and atenolol 25 mg Reflux is stable with omeprazole Bipolar disorder management through Psychiatry Currently she is on lamotrigine 200 mg, hydroxyzine and Seroquel, through Psychiatry BMI is elevated need to lose weight Follow-up 1st week of August Orders: Orders Complete Blood Count Auto Diff Today E03.8 - Other specified hypothyroidism, E03.9 - Hypothyroidism, unspecified, E66.09 - Other obesity due to excess calories, F31.72 - Bipolar disorder, in full remission, most recent episode hypomanic, I10 - Essential (primary) hypertension, M17.11 - Unilateral primary osteoarthritis, right knee, M19.90 - Unspecified osteoarthritis, unspecified site, Z68.33 - Body mass index [BMI] 33.0-33.9, adult LDL Cholesterol Direct Today E03.8 - Other specified hypothyroidism, E03.9 - Hypothyroidism, unspecified, E66.09 - Other obesity due to excess calories, F31.72 - Bipolar disorder, in full remission, most recent episode hypomanic, I10 - Essential (primary) hypertension, M17.11 - Unilateral primary osteoarthritis, right knee, M19.90 - Unspecified osteoarthritis, unspecified site, Z68.33 - Body mass index [BMI] 33.0-33.9, adult Vitamin B12 Today E03.8 - Other specified hypothyroidism, E03.9 - Hypothyroidism, unspecified, E66.09 - Other obesity due to excess calories, F31.72 - Bipolar disorder, in full remission, most recent episode hypomanic, I10 - Essential (primary) hypertension, M17.11 - Unilateral primary osteoarthritis, right knee, M19.90 - Unspecified osteoarthritis, unspecified site, Z68.33 - B brenda mass index [BMI] 33.0-33.9, adult UA CC w/rflx Micro + Cult Today R25.2 - Cramp and spasm, R35.0 - Frequency of micturition Magnesium Today R25.2 - Cramp and spasm, R35.0 - Frequency of micturition Hemoglobin A1c Today E03.8 - Other specified hypothyroidism, E03.9 - Hypothyroidism, unspecified, E66.09 - Other obesity due to excess calories, F31.72 - Bipolar disorder, in full remission, most recent episode hypomanic, I10 - Essential (primary) hypertension, M17.11 - Unilateral primary osteoarthritis, right knee, M19.90 - Unspecified osteoarthritis, unspecified site, Z68.33 - Body mass index [BMI] 33.0-33.9, adult Comprehensive Met. Panel Today E03.8 - Other specified hypothyroidism, E03.9 - Hypothyroidism, unspecified, E66.09 - Other obesity due to excess calories, F31.72 - Bipolar disorder, in full remission, most recent episode hypomanic, I10 - Essential (primary) hypertension, M17.11 - Unilateral primary osteoarthritis, right knee, M19.90 - Unspecified osteoarthritis, unspecified site, Z68.33 - Body mass index [BMI] 33.0-33.9, adult TSH reflex Free T4 Today E03.8 - Other specified hypothyroidism, E03.9 - Hypothyroidism, unspecified, E66.09 - Other obesity due to excess calories, F31.72 - Bipolar disorder, in full remission, most recent episode hypomanic, I10 - Essential (primary) hypertension, M17.11 - Unilateral primary osteoarthritis, right knee, M19.90 - Unspecified osteoarthritis, unspecified site, Z68.33 - Body mass index [BMI] 33.0-33.9, adult Vitamin D 25-OH (D2 and D3) Today E03.8 - Other specified hypothyroidism, E03.9 - Hypothyroidism, unspecified, E66.09 - Other obesity due to excess calories, F 31.72 - Bipolar disorder, in full remission, most recent episode hypomanic, I10 - Essential (primary) hypertension, M17.11 - Unilateral primary osteoarthritis, right knee, M19.90 - Unspecified osteoarthritis, unspecified site, Z68.33 - Body mass index [BMI] 33.0-33.9, adult Medications: New tramadol 50 mg PO BEDTIME 20 tabs 0RF 20 days cyclobenzaprine 5 mg PO BEDTIME 30 tabs 0RF 30 days M54.9 - Dorsalgia, unspecified Coding Level of Care Code Est Pt Level 4 (60554) Diagnoses Hypertension, essential I10 Muscle cramps R25.2 Frequency of urination R35.0 Osteoarthritis of right knee, unspecified osteoarthritis type M17.11 Osteoarthritis type: unspecified Class 1 obesity due to excess calories with serious comorbidity and body mass index (BMI) of 33.0 to 33.9 in adult E66.09; Z68.33 Body mass index: BMI 33.0-33.9 Obesity classification: adult class 1 (BMI 30 - 34.9) Serious obesity comorbidity presence: with serious comorbidity Other specified hypothyroidism E03.8 Bipolar disorder, in full remission, most recent episode hypomanic F31.72 Active/Remission status: in full remission Most recent bipolar episode type: hypomanic Hypothyroidism, unspecified type E03.9 Hypothyroidism type: unspecified Arthrosis M19.90 Additional Codes ANTON-7 Assessment Billing - ANTON-7 Assessment Tool: ANTON-7 Assessment [id number] ([id number])
[2023-08-18 09:37] VITALS: BP 122/78; PULSE 61; O2SAT 97; BMI 35.4
== END 2023-08-18 10:00 | disposition home or self-care (01) ==
PROVIDERS: PCP Internal Medicine; Visit Provider Internal Medicine
DX: I10 Essential (primary) hypertension (principal); R25.2 Cramp and spasm; F31.72 Bipolar disorder, in full remission, most recent episode hypomanic; R35.0 Frequency of micturition; M17.11 Unilateral primary osteoarthritis, right knee; E66.09 Other obesity due to excess calories; Z68.33 Body mass index [BMI] 33.0-33.9, adult; E03.8 Other specified hypothyroidism; E03.9 Hypothyroidism, unspecified; M19.90 Unspecified osteoarthritis, unspecified site
CPT/HCPCS: 99214

== ENCOUNTER 2023-08-18 10:01 | Outpatient (REF) | payer OTHER, SELFPAY ==
[2023-08-18 13:19] LABS: MANUAL DIFF FLAG NO
[2023-08-18 13:40] LABS: Appearance Urine Clear; Color Urine Yellow; Glucose Urine UA Negative (Negative); Leukocyte Esterase Urine Trace (Negative); Nitrite Urine Negative (Negative); PH 6.5 (5.0-9.0); Specific Gravity - Urine <= 1.005 (1.005-1.025); UMIC TRIGGER UACC YES; Urine Blood Negative (Negative); Urine Ketones Negative (Negative); Urine Protein Negative (Neg-Trace)
[2023-08-18 13:42] LABS: Bacteria Urine None Seen (None Seen); Hyaline Casts Urine 0-2 /LPF (0-2); RBC Urine 0-2 /HPF (0-2); WBC Urine 0-5 /HPF (0-5)
[2023-08-18 13:44] LABS: Basophils Percent Auto 0.3 % (0-2); Eosinophils Percent Auto 0.5 % (0-4); Hemoglobin 13.6 g/dl (12.0-16.0); Imm Gran Abs Auto 0.09 X10*3/uL (0.00-0.03); Imm Gran Pct Auto 1.2 % (0.0-0.4); Lymphocytes Absolute Auto 1.7 X10*3/uL (1.2-4.9); Lymphocytes Percent Auto 23.2 % (20-40); Mean Corpuscular HGB Conc 36.8 g/dl (31.0-35.0); Mean Corpuscular Volume 84.3 fL (80.0-98.0); Mean Platelet Volume 8.8 fL (9.4-12.3); Monocytes Absolute Auto 0.5 X10*3/uL (0.1-1.2); Monocytes Percent Auto 7.1 % (2-11); Neutrophils Absolute Auto 5.1 x10*3/uL (2.0-8.3); Neutrophils Percent Auto 67.7 % (45-73); Platelet Count 471 X10*3/uL (160-400); Red Blood Count 4.39 X10*6/uL (4.20-5.50); Red Cell Distribution Width 12.2 % (11.0-16.0); White Blood Count 7.5 X10*3/uL (4.8-10.8)
[2023-08-18 15:26] LABS: Estimated Average Glucose 117 mg/dL; Hemoglobin A1C 196.4933 umol/L; Hemoglobin A1c % 5.7 % (<6.0)
[2023-08-18 17:38] LABS: Anion Gap 18 (12-20)
[2023-08-18 18:03] LABS: TSH reflex Free T4 15.74 uIU/mL (0.32-4.0)
[2023-08-18 18:04] LABS: Alanine Aminotransferase 38 U/L (0-31); Albumin Level 4.4 g/dL (3.5-5.0); Alkaline Phosphatase 86 U/L (39-117); Aspartate Amino Transferase 45 U/L (5-31); Bilirubin Total 0.3 mg/dL (0.0-1.0); Blood Urea Nitrogen 8 mg/dL (9-16); Calcium 9.4 mg/dL (8.4-10.2); Carbon Dioxide 23 mmol/L (22-29); Chloride 82 mmol/L (96-108); Estimated Glomerular Filt Rate 54; Glucose Random 112 mg/dL (60-115); Magnesium 2.1 mg/dL (1.6-2.6); Potassium 3.3 mmol/L (3.3-5.1); Total Protein 7.6 g/dL (6.5-8.0)
[2023-08-18 18:34] LABS: Free T4 (Free Thyroxine) 1.22 ng/dL (0.71-1.85)
[2023-08-18 20:12] LABS: Sodium 120 mmol/L (135-145)
[2023-08-19 17:03] LABS: LDL Cholesterol Direct 161 mg/dL (<100)
[2023-08-20 00:25] LABS: Vitamin B12 820 pg/mL (200-900)
[2023-08-26 14:27] LABS: Vitamin D 25-OH, D2 <4 ng/mL; Vitamin D 25-OH, D3 15 ng/mL; Vitamin D 25-OH, Total 15 ng/mL (30-100)
== END 2023-08-18 10:02 | disposition home or self-care (01) ==
LOC: HO.HMGCLDS 10:01
PROVIDERS: PCP Internal Medicine; Visit Provider Internal Medicine
DX: M17.11 Unilateral primary osteoarthritis, right knee (principal); E66.09 Other obesity due to excess calories; E03.8 Other specified hypothyroidism; F31.72 Bipolar disorder, in full remission, most recent episode hypomanic; E03.9 Hypothyroidism, unspecified; I10 Essential (primary) hypertension; M19.90 Unspecified osteoarthritis, unspecified site; R25.2 Cramp and spasm; R35.0 Frequency of micturition; Z68.33 Body mass index [BMI] 33.0-33.9, adult
CPT/HCPCS: 36415; 80053; 81001; 82306; 82607; 83036; 83721; 83735; 84439; 84443; 85025

== ENCOUNTER 2023-08-18 20:39 | Inpatient (IN) | payer OTHER, SELFPAY ==
[2023-08-18 20:58] VITALS: BP 151/76; PULSE 54; RESP 18; TEMP 36.8; O2SAT 100; BMI 35.4
--- NOTE | 2023-08-18 21:33 | MHC.EDTECH ---
Patient brought to triage area,labs drawn and sent to lab.
[2023-08-18 21:36] LABS: MANUAL DIFF FLAG NO
[2023-08-18 21:43] LABS: Basophils Percent Auto 0.2 % (0-2); Eosinophils Absolute Auto 0.1 X10*3/uL (0.0-0.4); Eosinophils Percent Auto 0.6 % (0-4); Hematocrit 38.4 % (37.0-47.0); Hemoglobin 14.3 g/dl (12.0-16.0); Imm Gran Abs Auto 0.09 X10*3/uL (0.00-0.03); Imm Gran Pct Auto 0.7 % (0.0-0.4); Lymphocytes Absolute Auto 3.3 X10*3/uL (1.2-4.9); Lymphocytes Percent Auto 26.9 % (20-40); Mean Corpuscular HGB Conc 37.2 g/dl (31.0-35.0); Mean Corpuscular Hemoglobin 30.7 pg (27.0-33.0); Mean Corpuscular Volume 82.4 fL (80.0-98.0); Mean Platelet Volume 8.4 fL (9.4-12.3); Monocytes Absolute Auto 0.9 X10*3/uL (0.1-1.2); Monocytes Percent Auto 7.1 % (2-11); Neutrophils Absolute Auto 7.8 x10*3/uL (2.0-8.3); Neutrophils Percent Auto 64.5 % (45-73); Platelet Count 434 X10*3/uL (160-400); Red Blood Count 4.66 X10*6/uL (4.20-5.50); Red Cell Distribution Width 12.2 % (11.0-16.0); White Blood Count 12.1 X10*3/uL (4.8-10.8)
[2023-08-18 22:14] LABS: Alanine Aminotransferase 39 U/L (0-31); Albumin Level 4.3 g/dL (3.5-5.0); Alkaline Phosphatase 88 U/L (39-117); Anion Gap 14 (12-20); Aspartate Amino Transferase 43 U/L (5-31); Bilirubin Total 0.3 mg/dL (0.0-1.0); Blood Urea Nitrogen 8 mg/dL (9-16); Carbon Dioxide 28 mmol/L (22-29); Chloride 81 mmol/L (96-108); Creatinine Clr Calc Pharmacy 67.9; Estimated Glomerular Filt Rate > 60; Glucose Random 103 mg/dL (60-115); Potassium 3.3 mmol/L (3.3-5.1); Sodium 120 mmol/L (135-145); Total Protein 7.5 g/dL (6.5-8.0)
--- NOTE | 2023-08-18 22:18 | ECG_ITS ---
Test Reason : HYPONATREMIA Blood Pressure : / mmHG Vent. Rate : 049 BPM Atrial Rate : 049 BPM P-R Int : 170 ms QRS Dur : 100 ms QT Int : 482 ms P-R-T Axes : 007 -15 012 degrees QTc Int : 435 ms Sinus bradycardia Nonspecific T wave abnormality Abnormal ECG When compared with ECG of 18-JUL-2017 11:15, Vent. rate has decreased BY 31 BPM Inverted T waves have replaced nonspecific T wave abnormality in Inferior leads Nonspecific T wave abnormality now evident in Anterior leads QT has shortened Referred By: Vijay Spaulding Electronically Signed By:VIRA DAVIES
--- NOTE | 2023-08-18 22:33 | ED.RECABL ---
HPI - Recheck/Abnormal Lab/Rx General Chief Complaint: Recheck/Abnormal Lab/Rx Stated Complaint: electrolytes are low per dawood Time Seen by Provider: 08/18/23 20:48 Source: patient Mode of arrival: ambulatory Limitations: no limitations History of Present Illness HPI narrative: 63-year-old female with a history of, depression, anxiety hypertension, GERD, right knee osteoarthritis, thyroid cancer 5 years prior status post thyroidectomy with hypothyroidism who presents emergency department for evaluation of abnormal labs. Patient states that she has not been feeling well for 2 weeks. She states that her muscles are cramping. She states she feels very weak and fatigued. Laboratory evaluation from earlier this morning at 10:05 hours revealed low sodium and low chloride of 120 and 81. The patient states that she takes atenolol 25 mg daily and hydrochlorothiazide 25 mg daily. The patient states that she drinks 2 gal of water per day and she does urinate frequently. Related Data Home Medications ?Medication ?Instructions ?Recorded ?Confirmed hydroxyzine HCl 25 mg tablet 25 mg PO BID 03/23/21 08/18/23 lamotrigine 200 mg tablet 250 mg PO DAILY 11/11/22 08/18/23 (Lamictal) Previous Rx's ?Medication ?Instructions ?Recorded quetiapine 50 mg tablet (Seroquel) 100 mg (2 x 50 mg) PO DAILY #60 04/16/20 tabs potassium chloride 40 mEq/15 mL 40 meq (15 mL) PO BID 3 days #90 mL 11/21/22 oral liquid atenolol 25 mg tablet 25 mg PO DAILY 90 days #90 tabs 05/08/23 hydrochlorothiazide 25 mg tablet 25 mg PO QAM 90 days #90 tabs 05/09/23 levothyroxine 112 mcg tablet 112 mcg PO DAILY 90 days #90 tabs 05/16/23 omeprazole 20 mg capsule,delayed 20 mg PO ONCE 90 days #90 caps 05/16/23 release diclofenac sodium 25 mg 25 mg PO .qhs pain 30 days #30 tabs 08/08/23 tablet,delayed release cyclobenzaprine 5 mg tablet 5 mg PO BEDTIME 30 days #30 tabs 08/18/23 tramadol 50 mg tablet 50 mg PO BEDTIME 20 days #20 tabs 08/18/23 Allergies Allergy/AdvReac Type Severity Reaction Status Date / Time oxycodone Allergy Unknown Unknown Verified 08/18/23 21:01 lithium [LITHIUM] AdvReac Intermediate bilateral Verified 08/18/23 21:01 pedal edema PMFSH Past Medical History Medical History Thyroid ca Anxiety Hx of major depression Hypertension Surgical History Hx of thyroidectomy Hx of section Family History Family History Father Colon cancer Other Mental health disorder Substance use disorder Social History Social History Housing: House Alcohol intake: current Alcohol intake frequency: holidays/special occasions only Patient Tobacco Use Status: Current someday Tobacco user Tobacco use type: Cigarette Cigarettes Per Day: 2 Smoked in Last 30 Days: Yes e-Cigarette/Vaping Use: Never Used Advance Directives: No Advance Directives Information Provided: No service: No Current occupational status: employed (off for 3 months) Cognitive needs: No Hearing needs: No Vision needs: No Physical Exam Vital Signs: Vital Signs: Last Vital Signs Temp 98.2 F 08/18/23 20:58 Pulse 54 08/18/23 20:58 Resp 18 08/18/23 20:58 BP 151/76 H 08/18/23 20:58 Pulse Ox 100 08/18/23 20:58 O2 Del Method Room Air 08/18/23 20:58 BMI result Body Mass Index 35.4 Medical Decision Making Medical Decision Making MDM Narrative: 63-year-old female with a history of, depression, anxiety hypertension, GERD, right knee osteoarthritis, thyroid cancer 5 years prior status post thyroidectomy with hypothyroidism who presents emergency department for evaluation of abnormal labs. Patient states that she has not been feeling well for 2 weeks. She states that her muscles are cramping. She states she feels very weak and fatigued. Laboratory evaluation from earlier this morning at 10:05 hours revealed low sodium and low chloride of 120 and 81.The patient states that she takes atenolol 25 mg daily and hydrochlorothiazide 25 mg daily. The patient states that she drinks 2 gal of water per day and she does urinate frequently. Vital signs revealed an elevated blood pressure of 151/76. Physical examination was unremarkable. Differential diagnosis: ?Includes but is not limited to SIADH, water intoxication/polydipsia, diuretic induced hyponatremia, liver failure, kidney failure, Following evaluation was ordered: CBC, CMP, urinalysis, magnesium, TSH with reflex T4, urine osmolality, serum osmolality, urine sodium Patient was initially treated with the following: Fluid restriction Course: 00:15 My independent interpretation patient's laboratory evaluation as follows: Sodium low 120, chloride low 81. BUN and creatinine normal. Serum osmolality low, serum osmolality low 94 and urine sodium is low less than 20-these values suggest that the patient has water intoxication most likely secondary to polydipsia. TSH this morning and this evening were elevated at 15.74 and 23.55, patient had a normal T4 of 1.22 this morning. Urinalysis positive for leukocyte esterase. Microscopic revealed 0-2 RBCs, 6-10 WBCs, 0-2 squamous cells but no bacteria-no evidence for urinary tract infection. I did discuss patient's laboratory evaluation with the window shade estimator, Dr. El and he felt that the patient's symptoms were related to polydipsia/water intoxication and recommended straight fluid restriction and following the patient's sodium every 2-3 hours until it normalizes. I did put in a consult for him as well to help us manage this patient. I did discuss the patient's presentation over tiger text with the covering hospitalist the patient will be admitted for further management. Admission/Observation Consideration of admission/observation: Escalation of care including admission/observation considered Consult Healthcare Provider Management of the patient was discussed with: Hospitalist and Commissary Clerk (Nephrology, ) Lab Data MDM Lab Attestation statement: I reviewed the patient's lab results. 08/18/23 21:32 08/18/23 21:32 Labs: Lab Results 08/18/23 08/18/23 08/18/23 Range/Units 21:32 22:40 22:52 WBC 12.1 H (4.8-10.8) X10*3/uL RBC 4.66 (4.20-5.50) X10*6/uL Hgb 14.3 (12.0-16.0) g/dl Hct 38.4 (37.0-47.0) % MCV 82.4 (80.0-98.0) fL MCH 30.7 (27.0-33.0) pg MCHC 37.2 H (31.0-35.0) g/dl RDW 12.2 (11.0-16.0) % Plt Count 434 H (160-400) X10*3/uL MPV 8.4 L (9.4-12.3) fL Immature Gran % (Auto) 0.7 H (0.0-0.4) % Neut % (Auto) 64.5 (45-73) % Lymph % (Auto) 26.9 (20-40) % Sampson % (Auto) 7.1 (2-11) % Eos % (Auto) 0.6 (0-4) % Baso % (Auto) 0.2 (0-2) % Lymph # (Auto) 3.3 (1.2-4.9) X10*3/uL Sampson # (Auto) 0.9 (0.1-1.2) X10*3/uL Eos # (Auto) 0.1 (0.0-0.4) X10*3/uL Baso # (Auto) 0.0 (0.0-0.2) X10*3/uL Abs Immat Gran (auto) 0.09 H (0.00-0.03) X10*3/uL Absolute Neuts (auto) 7.8 (2.0-8.3) x10*3/uL Absolute Nucleated RBC 0.000 (0.0-0.012) X10*3/uL Nucleated RBC % (auto) 0.0 (0.0-0.2) /100WBC Sodium 120 L* (135-145) mmol/L Potassium 3.3 (3.3-5.1) mmol/L Chloride 81 L (96-108) mmol/L Carbon Dioxide 28 (22-29) mmol/L Anion Gap 14 (12-20) BUN 8 L (9-16) mg/dL Creatinine 0.93 (0.5-1.4) mg/dL Estim Creat Clear Calc 67.9 Estimated GFR > 60 Random Glucose 103 (60-115) mg/dL Osmolality 247 L (281-305) mosm/kg Calcium 11.0 H D (8.4-10.2) mg/dL Magnesium 1.9 (1.6-2.6) mg/dL Total Bilirubin 0.3 (0.0-1.0) mg/dL AST 43 H (5-31) U/L ALT 39 H (0-31) U/L Alkaline Phosphatase 88 (39-117) U/L Total Protein 7.5 (6.5-8.0) g/dL Albumin 4.3 (3.5-5.0) g/dL TSH 23.55 H (0.32-4.0) uIU/mL Urine Color Yellow Urine Appearance Clear Urine pH 6.5 (5.0-9.0) Ur Specific [place] <= 1.005 (1.005-1.025) Urine Protein Negative (Neg-Trace) mg/dL Urine Glucose (UA) Negative (Negative) mg/dL Urine Ketones Negative (Negative) mg/dL Urine Blood Negative (Negative) Urine Nitrite Negative (Negative) Ur Leukocyte Esterase Small (1+) H (Negative) Urine RBC 0-2 (0-2) /HPF Urine WBC 6-10 H (0-5) /HPF Ur Squamous Epith Cells 0-2 (0-2) /HPF Urine Bacteria None Seen (None Seen) Hyaline Casts 0-2 (0-2) /LPF Urine Osmolality (373-1093) mosm/kg Ur Random Sodium < 20.0 mmol/L 08/18/23 Range/Units 22:53 WBC (4.8-10.8) X10*3/uL RBC (4.20-5.50) X10*6/uL Hgb (12.0-16.0) g/dl Hct (37.0-47.0) % MCV (80.0-98.0) fL MCH (27.0-33.0) pg MCHC (31.0-35.0) g/dl RDW (11.0-16.0) % Plt Count (160-400) X10*3/uL MPV (9.4-12.3) fL Immature Gran % (Auto) (0.0-0.4) % Neut % (Auto) (45-73) % Lymph % (Auto) (20-40) % Sampson % (Auto) (2-11) % Eos % (Auto) (0-4) % Baso % (Auto) (0-2) % Lymph # (Auto) (1.2-4.9) X10*3/uL Sampson # (Auto) (0.1-1.2) X10*3/uL Eos # (Auto) (0.0-0.4) X10*3/uL Baso # (Auto) (0.0-0.2) X10*3/uL Abs Immat Gran (auto) (0.00-0.03) X10*3/uL Absolute Neuts (auto) (2.0-8.3) x10*3/uL Absolute Nucleated RBC (0.0-0.012) X10*3/uL Nucleated RBC % (auto) (0.0-0.2) /100WBC Sodium (135-145) mmol/L Potassium (3.3-5.1) mmol/L Chloride (96-108) mmol/L Carbon Dioxide (22-29) mmol/L Anion Gap (12-20) BUN (9-16) mg/dL Creatinine (0.5-1.4) mg/dL Estim Creat Clear Calc Estimated GFR Random Glucose (60-115) mg/dL Osmolality (281-305) mosm/kg Calcium (8.4-10.2) mg/dL Magnesium (1.6-2.6) mg/dL Total Bilirubin (0.0-1.0) mg/dL AST (5-31) U/L ALT (0-31) U/L Alkaline Phosphatase (39-117) U/L Total Protein (6.5-8.0) g/dL Albumin (3.5-5.0) g/dL TSH (0.32-4.0) uIU/mL Urine Color Urine Appearance Urine pH (5.0-9.0) Ur Specific [place] (1.005-1.025) Urine Protein (Neg-Trace) mg/dL Urine Glucose (UA) (Negative) mg/dL Urine Ketones (Negative) mg/dL Urine Blood (Negative) Urine Nitrite (Negative) Ur Leukocyte Esterase (Negative) Urine RBC (0-2) /HPF Urine WBC (0-5) /HPF Ur Squamous Epith Cells (0-2) /HPF Urine Bacteria (None Seen) Hyaline Casts (0-2) /LPF Urine Osmolality 94 L (373-1093) mosm/kg Ur Random Sodium mmol/L Independent Interpretation I performed an independent interpretation of an: EKG Interpretation: My independent interpretation patient's 12 EKG done at 22:28 hours is as follows: Sinus bradycardia with a rate of 48, normal UT interval, prolonged QRS of 100 milliseconds, normal QTC interval, no ST segment elevation, no ST segment depression, inverted T-wave in lead 3 and V1, no PACs, no PVCs-except for the bradycardia this is a normal EKG. Chronic Conditions Patient?s care impacted by: Hypertension Critical Care Time Critical Care Time Critical Care Time: Yes Total Critical Care Time: 35 Attestation: Critical Care: The patient was critically ill with a high probability of imminent or life threatening deterioration. I spent greater than 30 minutes of discontinuous time evaluating the patient,delivering critical care at the bedside, discussing and evaluating pertinent data with consultants. Critical care time does not include time spent performing separately billable procedures or teaching. Total time spent performing critical care was minutes. Discharge Plan Discharge Patient Disposition: Admitted As Inpatient Prescriptions: No Action potassium chloride 40 mEq/15 mL liquid 40 meq PO BID 3 Days Qty: 90 1RF atenolol 25 mg tablet 25 mg PO DAILY 90 Days Qty: 90 1RF hydrochlorothiazide 25 mg tablet 25 mg PO QAM 90 Days Qty: 90 1RF diclofenac sodium 25 mg tablet,delayed release (DR/EC) 25 mg PO .qhs 30 Days Qty: 30 0RF quetiapine [Seroquel] 50 mg tablet 100 mg PO DAILY MDD 50-100 mg daily Qty: 60 0RF tramadol 50 mg tablet 50 mg PO BEDTIME 20 Days Qty: 20 0RF cyclobenzaprine 5 mg tablet 5 mg PO BEDTIME 30 Days Qty: 30 0RF hydroxyzine HCl 25 mg tablet 25 mg PO BID lamotrigine [Lamictal] 200 mg tablet 250 mg PO DAILY levothyroxine 112 mcg tablet 112 mcg PO DAILY 90 Days Qty: 90 1RF omeprazole 20 mg capsule,delayed release(DR/EC) 20 mg PO ONCE 90 Days Qty: 90 0RF Print Language: [place]ican
[2023-08-18 22:39] LABS: Magnesium 1.9 mg/dL (1.6-2.6)
--- NOTE | 2023-08-18 22:44 | PC.NURSE ---
Patient sent to ED by Dr. Carpio for abnormal electrolytes, NA 120. Patients generalized cramp like discomfort x2 weeks.Patient changed into a hospital attire, 20 G IV line established in R AC, labs draw. Patient assisted to the restroom to collect urine specimen, flux core welder applied. Call hernández placed within patient's reach. Plan of care ongoing.
[2023-08-18 23:02] LABS: Appearance Urine Clear; Color Urine Yellow; Glucose Urine UA Negative (Negative); Leukocyte Esterase Urine Small (1+) (Negative); Nitrite Urine Negative (Negative); PH 6.5 (5.0-9.0); Specific Gravity - Urine <= 1.005 (1.005-1.025); UMIC TRIGGER UACC YES; Urine Blood Negative (Negative); Urine Ketones Negative (Negative); Urine Protein Negative (Neg-Trace)
[2023-08-18 23:06] LABS: Bacteria Urine None Seen (None Seen); Hyaline Casts Urine 0-2 /LPF (0-2); RBC Urine 0-2 /HPF (0-2); Squamous Epithelial Cell Urine 0-2 /HPF (0-2); UACC Culture Trigger YES
[2023-08-18 23:10] LABS: Sodium Urine Random < 20.0 mmol/L
[2023-08-18 23:14] LABS: TSH reflex Free T4 23.55 uIU/mL (0.32-4.0)
[2023-08-18 23:23] LABS: Osmolality, Serum 247 mosm/kg (281-305)
[2023-08-18 23:24] LABS: Osmolality Urine 94 mosm/kg (373-1093)
[2023-08-19] VITALS (7 sets, daily range): BP systolic 98–143; BP diastolic 54–75; PULSE 51–58; RESP 14–20; TEMP 36.1–37; O2SAT 93–97
--- NOTE | 2023-08-19 02:19 | P.HPHOSP_ITS ---
History of Present Illness Date of Service: 08/19/23 Attending physician on admission: hCinyere Condon Chief Complaint: I feel crapy Regla Bailey is a 63 years old woman with past medical history significant for hypothyroidism (thyroid CA s/p thyroidectomy), depression and essential hypertension presents to the emergency department after she was found to have significant hyponatremia (120) on a routine blood workup as an outpatient. She stated that she has been feeling generally weak and having episodes of cramps over the last 2 weeks. Over the month, she also mentioned that she has been taking diclofenac for right knee. She denied headache, confusion, dizziness, seizures, nausea, vomiting, diarrhea or abdominal pain. She also denied any acute urinary symptoms. Denies fevers or chills. Denied any acute cardiopulmonary symptoms She takes hydrochlorothiazide for hypertension. She admits drinking about 2 gal of water daily. Before today she used to 2 L of diet Coke daily. Has no history of hyponatremia. In the ED she was found to have normal vital signs. Blood workup was remarkable for hyponatremia 120 and hypochloremia and hypercalcemia, 11. Urine osmolarity is 94 and urine sodium is < 20. Transaminases are slightly elevated of Willie, total protein and albumin are normal. TSH is 23.52 and free T4 is 1.22. ED tx: None. Review of Systems 2 Review of Systems: All 12 systems were reviewed and normal except as noted in HPI. [facility] Medical History Thyroid ca Anxiety Hx of major depression Hypertension Family History Father Colon cancer Other Mental health disorder Substance use disorder Surgical History Hx of thyroidectomy Hx of section Social History Housing: House Alcohol intake: current Alcohol intake frequency: holidays/special occasions only Patient Tobacco Use Status: Current someday Tobacco user Tobacco use type: Cigarette Cigarettes Per Day: 2 Smoked in Last 30 Days: Yes e-Cigarette/Vaping Use: Never Used Advance Directives: No Advance Directives Information Provided: No service: No Current occupational status: employed (off for 3 months) Cognitive needs: No Hearing needs: No Vision needs: No Meds Allergies Allergy/AdvReac Type Severity Reaction Status Date / Time oxycodone Allergy Unknown Unknown Verified 08/18/23 21:01 lithium [LITHIUM] AdvReac Intermediate bilateral Verified 08/18/23 21:01 pedal edema Active Medications: Current Medications Acetaminophen (Acetaminophen 325 Mg Tablet) 650 mg PO Q6H PRN PRN Reason: Pain, Mild (Pain Scale 1-3) Sodium Chloride (0.9 % Sodium Chloride Flush 3 Ml Syringe) 3 ml IVFLUSH QSHIFT [facility] Home Medications ?Medication ?Instructions ?Recorded ?Confirmed ?Last Taken ?Type hydroxyzine HCl 25 mg tablet 25 mg PO Q8H PRN Anxiety 03/23/21 08/19/23 Unknown History lamotrigine 200 mg tablet 250 mg PO DAILY 11/11/22 08/18/23 Unknown History (Lamictal) lamotrigine 250 mg tablet,extended 250 mg PO QAM 08/19/23 08/19/23 Unknown History release 24 hr quetiapine 100 mg tablet 100 mg PO BEDTIME 08/19/23 08/19/23 Unknown History Physical Exam 2 Vital Signs and Narrative: Vital Signs: Last Vital Signs Temp 98.2 F 08/18/23 20:58 Pulse 58 08/19/23 00:55 Resp 16 08/19/23 00:55 BP 138/71 08/19/23 00:55 Pulse Ox 96 08/19/23 00:55 O2 Del Method Room Air 08/19/23 00:55 BMI result Body Mass Index 35.4 Results Labs 08/18/23 21:32 08/18/23 21:32 Labs: Laboratory Results - last 24 hr 08/18/23 08/18/23 08/18/23 21:32 22:40 22:52 MCV 82.4 MCH 30.7 MCHC 37.2 H RDW 12.2 Plt Count 434 H MPV 8.4 L Immature Gran % (Auto) 0.7 H Neut % (Auto) 64.5 Lymph % (Auto) 26.9 Cass % (Auto) 7.1 Eos % (Auto) 0.6 Baso % (Auto) 0.2 Lymph # (Auto) 3.3 Cass # (Auto) 0.9 Eos # (Auto) 0.1 Baso # (Auto) 0.0 Abs Immat Gran (auto) 0.09 H Absolute Neuts (auto) 7.8 Absolute Nucleated RBC 0.000 Nucleated RBC % (auto) 0.0 Anion Gap 14 Estim Creat Clear Calc 67.9 Estimated GFR > 60 Random Glucose 103 Osmolality 247 L Calcium 11.0 H D Magnesium 1.9 Total Bilirubin 0.3 AST 43 H ALT 39 H Alkaline Phosphatase 88 Total Protein 7.5 Albumin 4.3 TSH 23.55 H Urine Color Yellow Urine Appearance Clear Urine pH 6.5 Ur Specific [place] <= 1.005 Urine Protein Negative Urine Glucose (UA) Negative Urine Ketones Negative Urine Blood Negative Urine Nitrite Negative Ur Leukocyte Esterase Small (1+) H Urine RBC 0-2 Urine WBC 6-10 H Ur Squamous Epith Cells 0-2 Urine Bacteria None Seen Hyaline Casts 0-2 Urine Osmolality Ur Random Sodium < 20.0 08/18/23 22:53 MCV MCH MCHC RDW Plt Count MPV Immature Gran % (Auto) Neut % (Auto) Lymph % (Auto) Cass % (Auto) Eos % (Auto) Baso % (Auto) Lymph # (Auto) Cass # (Auto) Eos # (Auto) Baso # (Auto) Abs Immat Gran (auto) Absolute Neuts (auto) Absolute Nucleated RBC Nucleated RBC % (auto) Anion Gap Estim Creat Clear Calc Estimated GFR Random Glucose Osmolality Calcium Magnesium Total Bilirubin AST ALT Alkaline Phosphatase Total Protein Albumin TSH Urine Color Urine Appearance Urine pH Ur Specific [place] Urine Protein Urine Glucose (UA) Urine Ketones Urine Blood Urine Nitrite Ur Leukocyte Esterase Urine RBC Urine WBC Ur Squamous Epith Cells Urine Bacteria Hyaline Casts Urine Osmolality 94 L Ur Random Sodium Assessment and Plan (1) Polydipsia: Status: Acute (2) Acute hyponatremia: Status: Acute (3) Hypothyroidism: Qualifiers: Hypothyroidism type: unspecified Qualified Code(s): E03.9 - Hypothyroidism, unspecified Status: Acute (4) Hypertension, essential: Status: Acute Plan Regla Bailey is a 63 years old woman admitted with: * Hyponatremia, likely secondary to primary polydipsia; no severe symptoms reported. Admit to hospitalist service. Na+ levels stat then every 4 hours. Fluid restriction. Hold hydrochlorothiazide (Dr. El was contacted by Dr. Spaulding). * Hypercalcemia. Likely secondary to hydrochlorothiazide. Hold hydrochlorothiazide. Check PTH and phosphate. Continue to monitor calcium level. * Short QT. Likely secondary to above. Telemetry. Recheck EKG. * Hypothyroidism, TSH is worsening. Normal free T4. Hx of thyroid CA s/p thyroidectomy. Likely contributing to hyponatremia. Increase levothyroxine dose. * Essential hypertension. Continue atenolol. Hydrochlorothiazide on hold due to hyponatremia. * Depression and anxiety. Continue Seroquel, lamotrigine and hydroxyzine. DVT prophylaxis: SCDs. Early ambulation. Code status: Full Patient will need hospitalization for at least 2 midnights for hyponatremia management. She needs close monitoring of sodium level, signs and symptoms and evaluation by subspecialty Quality Stroke Does the patient have a stroke diagnosis?: No VTE Prior VTE?: No VTE Risk Level:: Medical - low VTE Device Contraindication: N/A - Device Ordered VTE Drug Contraindication: Treatment Not Indicated
[2023-08-19 03:04] LABS: Sodium 119 mmol/L (135-145)
[2023-08-19] MEDS: Sodium Chloride 3 % 100 ML 25 ML IV (03:31)
--- NOTE | 2023-08-19 03:41 | PC.NURSE ---
Na+ 3% IV infusion paused per Dr Pedroza order for consultation with pc maintenance technician.
--- NOTE | 2023-08-19 04:03 | PC.NURSE ---
Per IRENE Patino to resume Na+ 3% 100 mL at 25 mL /hr.
[2023-08-19 08:01] LABS: Parathyroid Hormone Intact 37.6 pg/mL (8.7-77.1)
[2023-08-19 08:03] LABS: Phosphorus 3.5 mg/dL (2.7-4.5); Sodium 120 mmol/L (135-145)
[2023-08-19] MEDS: Levothyroxine Sodium 125 MCG TABLET PO (08:41)
[2023-08-19] MEDS: atenoloL 25 MG TABLET PO (08:41)
[2023-08-19] MEDS: 0.9 % Sodium Chloride Flush 3 ML SYRINGE IVFLUSH ×2 (08:46→17:41)
--- NOTE | 2023-08-19 08:54 | MHC.CM.PN ---
CM met with Patient at bedside and assisted her with the completion of a HCP; Patient named her Daughter/Crystal as her Agent. Patient lives in a house with her Boyfriend and her 13 year old Disabled Grandson(Patient is his Caregiver). Patient is functionally independent. Home self care is the goal and CM has initiated and will follow fir dc planning. PCP is Dr.Asma Carpio.
--- NOTE | 2023-08-19 09:21 | PHA.MEDREC ---
Pharmacy Consult ? Medication Reconciliation Pharmacy has completed the medication reconciliation.
[2023-08-19 10:10] LABS: Sodium 121 mmol/L (135-145)
[2023-08-19 14:35] LABS: Sodium 119 mmol/L (135-145)
--- NOTE | 2023-08-19 14:44 | P.PNIM_ITS ---
Subjective Subjective Date of Service: 08/19/23 Interval History: seen and examined this morning follow up for low sodium having cramps Review of Systems Review of Systems: Yes all other systems are reviewed and are negative Constitutional Constitutional: Denies chills and Denies fever(s) Cardiovascular Cardiovascular: Denies chest pain, Denies palpitations and Denies dyspnea Respiratory Respiratory: Denies cough and Denies dyspnea Gastrointestinal Gastrointestinal: Denies abdominal pain Endocrine Endocrine: Denies palpitations Physical Exam 2 Vital Signs: Vital Signs: Last Vital Signs Temp 98.6 F 08/19/23 11:10 Pulse 54 08/19/23 11:10 Resp 20 08/19/23 11:10 BP 116/54 L 08/19/23 11:10 Pulse Ox 95 08/19/23 11:10 O2 Del Method Room Air 08/19/23 11:10 BMI result Body Mass Index 35.4 Const: General: cooperative, comfortable, no acute distress, alert and awake Nutritional Appearance: overweight Orientation/consciousness: patient oriented x3 Resp: Effort & Inspection: normal respiratory effort, able to speak in complete sentences, no respiratory distress and no use of accessory muscles Cardio: Rate: regular rate GI: Inspection: No distended Palpation (GI): Soft to palpation and nontender Neuro: General: patient oriented x3, moves all extremities and CN's II-XI intact bilaterally Extrem: General: Yes no pedal edema Objective Data Active Medications Acetaminophen (Acetaminophen 325 Mg Tablet) 650 mg PO Q6H PRN PRN Reason: Pain, Mild (Pain Scale 1-3) Atenolol (Atenolol 25 Mg Tablet) 25 mg PO DAILY [facility]; Protocol Last Admin: 08/19/23 08:41 Dose: 25 mg Documented By: SHARON Cyclobenzaprine HCl (Cyclobenzaprine Hcl 5 Mg Tablet) 5 mg PO DAILY [facility] Hydroxyzine HCl (Hydroxyzine Hcl 25 Mg Tablet) 25 mg PO Q8H PRN PRN Reason: Anxiety Levothyroxine Sodium (Levothyroxine Sodium 125 Mcg Tablet) 125 mcg PO DAILY@0600 [facility] Last Admin: 08/19/23 08:41 Dose: 125 mcg Documented By: SHARON Non-Formulary Medication (Lamotrigine) 250 mg PO QAM [facility] Omeprazole (Omeprazole 20 Mg Capsule.Dr) 20 mg PO DAILY@0630 [facility] Quetiapine Fumarate (Quetiapine Fumarate 100 Mg Tablet) 100 mg PO BEDTIME [facility] Sodium Chloride (0.9 % Sodium Chloride Flush 3 Ml Syringe) 3 ml IVFLUSH QSHIFT [facility] Last Admin: 08/19/23 08:46 Dose: 3 ml Documented By: SHARON Sodium Chloride (Sodium Chloride Tab 1 Gm Tablet) 2 gm PO BID [facility] Tramadol HCl (Tramadol Hcl 50 Mg Tablet) 50 mg PO BEDTIME [facility] Labs 08/18/23 21:32 08/19/23 13:52 Labs: Laboratory Results - last 24 hr 08/18/23 08/18/23 08/18/23 21:32 22:40 22:52 MCV 82.4 MCH 30.7 MCHC 37.2 H RDW 12.2 Plt Count 434 H MPV 8.4 L Immature Gran % (Auto) 0.7 H Neut % (Auto) 64.5 Lymph % (Auto) 26.9 Swain % (Auto) 7.1 Eos % (Auto) 0.6 Baso % (Auto) 0.2 Lymph # (Auto) 3.3 Swain # (Auto) 0.9 Eos # (Auto) 0.1 Baso # (Auto) 0.0 Abs Immat Gran (auto) 0.09 H Absolute Neuts (auto) 7.8 Absolute Nucleated RBC 0.000 Nucleated RBC % (auto) 0.0 Hold Purple Top Anion Gap 14 Estim Creat Clear Calc 67.9 Estimated GFR > 60 Random Glucose 103 Osmolality 247 L Calcium 11.0 H D Phosphorus Magnesium 1.9 Total Bilirubin 0.3 AST 43 H ALT 39 H Alkaline Phosphatase 88 Total Protein 7.5 Albumin 4.3 TSH 23.55 H PTH Intact Urine Color Yellow Urine Appearance Clear Urine pH 6.5 Ur Specific [place] <= 1.005 Urine Protein Negative Urine Glucose (UA) Negative Urine Ketones Negative Urine Blood Negative Urine Nitrite Negative Ur Leukocyte Esterase Small (1+) H Urine RBC 0-2 Urine WBC 6-10 H Ur Squamous Epith Cells 0-2 Urine Bacteria None Seen Hyaline Casts 0-2 Urine Osmolality Ur Random Sodium < 20.0 08/18/23 08/19/23 08/19/23 22:53 07:20 07:30 MCV MCH MCHC RDW Plt Count MPV Immature Gran % (Auto) Neut % (Auto) Lymph % (Auto) Swain % (Auto) Eos % (Auto) Baso % (Auto) Lymph # (Auto) Swain # (Auto) Eos # (Auto) Baso # (Auto) Abs Immat Gran (auto) Absolute Neuts (auto) Absolute Nucleated RBC Nucleated RBC % (auto) Hold Purple Top SEE NOTE Anion Gap Estim Creat Clear Calc Estimated GFR Random Glucose Osmolality Calcium Phosphorus 3.5 Magnesium Total Bilirubin AST ALT Alkaline Phosphatase Total Protein Albumin TSH PTH Intact 37.6 Urine Color Urine Appearance Urine pH Ur Specific [place] Urine Protein Urine Glucose (UA) Urine Ketones Urine Blood Urine Nitrite Ur Leukocyte Esterase Urine RBC Urine WBC Ur Squamous Epith Cells Urine Bacteria Hyaline Casts Urine Osmolality 94 L Ur Random Sodium Assessment and Plan (1) Polydipsia: Status: Acute (2) Acute hyponatremia: Status: Acute Plan Regla Bailey is a 63 years old woman admitted with: Hyponatremia, likely secondary to primary polydipsia recently changed from drinking several Liters of diet soda to the same amount of water sodium still 120 Fluid restriction Hold hydrochlorothiazide will start salts tabs 2gm bid nephrology following Hypercalcemia repeat levels Hypothyroidism, TSH is worsening. Normal free T4. Hx of thyroid CA s/p thyroidectomy. Likely contributing to hyponatremia. Increase levothyroxine dose. Essential hypertension. Continue atenolol. Hydrochlorothiazide on hold due to hyponatremia. BP stable Depression and anxiety. Continue Seroquel, lamotrigine and hydroxyzine. DVT prophylaxis: SCDs. Early ambulation. Code status: Full Patient will need hospitalization for at least 2 midnights for hyponatremia management. She needs close monitoring of sodium level, signs and symptoms and evaluation by subspecialty Quality Stroke Does the patient have a stroke diagnosis?: No VTE Prior VTE?: No VTE Risk Level:: Medical - low VTE Device Contraindication: N/A - Device Ordered VTE Drug Contraindication: Treatment Not Indicated
[2023-08-19] MEDS: Omeprazole 20 MG CAPSULE.DR PO (15:25)
[2023-08-19 16:05] LABS: Calcium 9.7 mg/dL (8.4-10.2)
[2023-08-19] MEDS: Sodium Chloride Tab 1 GM TABLET 2 GM PO ×2 (17:41→21:08)
--- NOTE | 2023-08-19 18:26 | PM.EVENT ---
Event Note Date of Service: 08/19/23 Event Note: 63 yr old woman with severe hyponatremia Na stays around 120 Severe hypothyroidism Low urine Osm Restrict PO water intake Optimize thyroid function Currently on NaCl tabs If no improvement, can add UREA powder 30 gm PO BID x 4 doses Goal is to correct pNa at a rate of 0.5 to 1 mmol/L/ hr and not more than 10 meq in a 24 hr period Monitor pNa q 2-4hourly Full conuslt to follow Thanks Time Spent With Patient Time: Total time managing care of this patient today ____ minutes.
[2023-08-19 21:00] LABS: Sodium 119 mmol/L (135-145)
[2023-08-19] MEDS: traMADoL HCL 50 MG TABLET PO (21:08)
[2023-08-19] MEDS: QUEtiapine Fumarate 100 MG TABLET PO (21:08)
[2023-08-19] MEDS: Urea 15 GM POWDER 30 GM PO (22:42)
[2023-08-20] VITALS (7 sets, daily range): BP systolic 96–144; BP diastolic 47–68; PULSE 48–59; RESP 16–18; TEMP 36–36.6; O2SAT 92–99
[2023-08-20 02:09] LABS: Sodium 126 mmol/L (135-145)
[2023-08-20] MEDS: Omeprazole 20 MG CAPSULE.DR PO (05:56)
[2023-08-20] MEDS: Levothyroxine Sodium 125 MCG TABLET PO (05:57)
--- NOTE | 2023-08-20 07:21 | PM.EVENT ---
Event Note Date of Service: 08/20/23 Event Note: 10:03 PM - Na+ level - urea powder started. 1:51 AM - Na+ 26 - pt refusing urea due to bad taste. Will hold NaCL tab for now. Of note: 3% NaCl 100 ml 25 ml/hr was ordered to give over 4 hours on admission as Na+ level dropped to 119. I was notified by nursing that 3% was still running since it was ordered so it was stopped immediately. It was assumed that pt was receiving 3% over the last 24h but pharmacy stated that the infusion was stopped for several hours and restarted (pt received the infusion over 8hr instead of 4 hours). Time Spent With Patient Time: Total time managing care of this patient today ____ minutes.
[2023-08-20 07:49] LABS: Anion Gap 13 (12-20); Blood Urea Nitrogen 22 mg/dL (9-16); Calcium 9.5 mg/dL (8.4-10.2); Carbon Dioxide 26 mmol/L (22-29); Chloride 93 mmol/L (96-108); Creatinine Clr Calc Pharmacy 73.4; Estimated Glomerular Filt Rate > 60; Glucose Random 94 mg/dL (60-115); Potassium 3.1 mmol/L (3.3-5.1); Sodium 129 mmol/L (135-145)
[2023-08-20] MEDS: Potassium Chloride ER 20 MEQ TAB.ER.PRT 40 MEQ PO (09:32)
[2023-08-20] MEDS: atenoloL 25 MG TABLET PO (09:33)
[2023-08-20] MEDS: Cyclobenzaprine HCl 5 MG TABLET PO (09:33)
[2023-08-20] MEDS: Dextrose 5 % 1,000 ML 75 ML IVCONT (09:34)
[2023-08-20] MEDS: 0.9 % Sodium Chloride Flush 3 ML SYRINGE IVFLUSH (09:37)
--- NOTE | 2023-08-20 11:15 | HO.PM.IMPN ---
Subjective Subjective Date of Service: 08/20/23 Interval History: seen and examined this morning follow up for hyponatremia cramping better no specific complaints this morning Review of Systems Review of Systems: Yes all other systems are reviewed and are negative Constitutional Constitutional: Denies chills and Denies fever(s) Physical Exam Vital Signs: Vital Signs: Last Vital Signs Temp 97.6 F 08/20/23 10:45 Pulse 52 08/20/23 10:45 Resp 16 08/20/23 10:45 BP 111/64 08/20/23 10:45 Pulse Ox 92 08/20/23 10:45 O2 Del Method Room Air 08/20/23 10:45 BMI result Body Mass Index 35.4 Const: General: cooperative, comfortable, no acute distress, alert and awake Nutritional Appearance: overweight Orientation/consciousness: patient oriented x3 Resp: Effort & Inspection: normal respiratory effort, able to speak in complete sentences, no respiratory distress and no use of accessory muscles Cardio: Rate: regular rate GI: Inspection: No distended Palpation (GI): Soft to palpation and nontender Neuro: General: patient oriented x3, moves all extremities and CN's II-XI intact bilaterally Extrem: General: Yes no pedal edema Objective Data Active Medications Acetaminophen (Acetaminophen 325 Mg Tablet) 650 mg PO Q6H PRN PRN Reason: Pain, Mild (Pain Scale 1-3) Atenolol (Atenolol 25 Mg Tablet) 25 mg PO DAILY [facility]; Protocol Last Admin: 08/20/23 09:33 Dose: 25 mg Documented By: BRIDGET Cyclobenzaprine HCl (Cyclobenzaprine Hcl 5 Mg Tablet) 5 mg PO DAILY [facility] Last Admin: 08/20/23 09:33 Dose: 5 mg Documented By: BRIDGET Hydroxyzine HCl (Hydroxyzine Hcl 25 Mg Tablet) 25 mg PO Q8H PRN PRN Reason: Anxiety Dextrose (D5w) 1,000 mls @ 75 mls/hr IVCONT .[id number] [facility] Stop: 08/20/23 21:49 Last Admin: 08/20/23 09:34 Dose: 75 mls/hr Documented By: BRIDGET Levothyroxine Sodium (Levothyroxine Sodium 125 Mcg Tablet) 125 mcg PO DAILY@0600 [facility] Last Admin: 08/20/23 05:57 Dose: 125 mcg Documented By: WILLIAM Non-Formulary Medication (Lamotrigine) 250 mg PO QAM [facility] Omeprazole (Omeprazole 20 Mg Capsule.) 20 mg PO DAILY@0630 [facility] Last Admin: 08/20/23 05:56 Dose: 20 mg Documented By: WILLIAM Quetiapine Fumarate (Quetiapine Fumarate 100 Mg Tablet) 100 mg PO BEDTIME [facility] Last Admin: 08/19/23 21:08 Dose: 100 mg Documented By: MIKAL Sodium Chloride (0.9 % Sodium Chloride Flush 3 Ml Syringe) 3 ml IVFLUSH QSHIFT [facility] Last Admin: 08/20/23 09:37 Dose: 3 ml Documented By: BRIDGET Tramadol HCl (Tramadol Hcl 50 Mg Tablet) 50 mg PO BEDTIME [facility] Last Admin: 08/19/23 21:08 Dose: 50 mg Documented By: MIKAL Labs 08/18/23 21:32 08/20/23 06:56 Labs: Laboratory Results - last 24 hr 08/19/23 08/20/23 13:52 06:56 Hold Purple Top SEE NOTE Anion Gap 13 Estim Creat Clear Calc 73.4 Estimated GFR > 60 Random Glucose 94 Calcium 9.7 D 9.5 Microbiology Microbiology Results: Microbiology 08/18/23 Unknown Urine Culture - Preliminary Urine clean catch - Urine mayes top Gram negative nithya Assessment and Plan (1) Acute hyponatremia: Status: Acute (2) Low blood potassium: Status: Acute Plan Regla Bailey is a 63 years old female with hypothyroidism, hypertension, depression, anxiety who was been having leg cramps for the past 2 weeks and was sent in by PCP after routine lab work revealed severe hyponatremia Hyponatremia, likely secondary to primary polydipsia recently changed from drinking several Liters of diet soda to the same amount of water continue Fluid restriction Hold hydrochlorothiazide started on salts tabs 2gm bid 08/18 and urea started overnight due to persistently low na, sodium up to 129 this am will stop salt tabs and urea start d5w 75 cc/hr x 1L follow sodium levels closely nephrology following Hypercalcemia repeat wnl hypokalemia replace and follow Hypothyroidism, TSH is worsening. Normal free T4. Hx of thyroid CA s/p thyroidectomy. Likely contributing to hyponatremia. Increases levothyroxine dose. Essential hypertension. Continue atenolol. Hydrochlorothiazide on hold due to hyponatremia. BP stable Depression and anxiety. Continue Seroquel, lamotrigine and hydroxyzine. DVT prophylaxis: SCDs. Early ambulation. Code status: Full Requires ongoing inpatient stay for hyponatremia management. She needs close monitoring of sodium level, signs and symptoms and evaluation by subspecialty Quality Stroke Does the patient have a stroke diagnosis?: No VTE Prior VTE?: No VTE Risk Level:: Medical - low VTE Device Contraindication: N/A - Device Ordered VTE Drug Contraindication: Treatment Not Indicated
[2023-08-20 13:22] LABS: Sodium 128 mmol/L (135-145)
[2023-08-20 18:08] LABS: Sodium 123 mmol/L (135-145)
[2023-08-20 21:35] LABS: Sodium 122 mmol/L (135-145)
[2023-08-20] MEDS: traMADoL HCL 50 MG TABLET PO (22:04)
[2023-08-20] MEDS: QUEtiapine Fumarate 100 MG TABLET PO (22:04)
[2023-08-21] VITALS (7 sets, daily range): BP systolic 102–148; BP diastolic 54–67; PULSE 48–57; RESP 16–20; TEMP 36–36.8; O2SAT 94–98
[2023-08-21 01:52] LABS: Sodium 125 mmol/L (135-145)
[2023-08-21 06:12] LABS: Anion Gap 11 (12-20); Blood Urea Nitrogen 14 mg/dL (9-16); Calcium 8.8 mg/dL (8.4-10.2); Carbon Dioxide 26 mmol/L (22-29); Chloride 95 mmol/L (96-108); Estimated Glomerular Filt Rate > 60; Glucose Random 100 mg/dL (60-115); Potassium 3.5 mmol/L (3.3-5.1); Sodium 128 mmol/L (135-145)
[2023-08-21] MEDS: Acetaminophen 325 MG TABLET 650 MG PO ×3 (06:27→21:52)
[2023-08-21] MEDS: Omeprazole 20 MG CAPSULE.DR PO (06:28)
[2023-08-21] MEDS: Levothyroxine Sodium 125 MCG TABLET PO (06:28)
[2023-08-21] MEDS: Cyclobenzaprine HCl 5 MG TABLET PO (06:31)
[2023-08-21] MEDS: atenoloL 25 MG TABLET PO (07:50)
[2023-08-21] MEDS: 0.9 % Sodium Chloride Flush 3 ML SYRINGE IVFLUSH ×4 (07:52→21:54)
[2023-08-21] MEDS: lamoTRIgine 100 MG TABLET 125 MG PO ×2 (09:22→21:51)
[2023-08-21 10:09] LABS: Sodium 127 mmol/L (135-145)
--- NOTE | 2023-08-21 10:36 | HO.PM.IMPN ---
Subjective Subjective Date of Service: 08/21/23 Interval History: seen and examined this morning follow up for hyponatremia cramping better no specific complaints this morning Review of Systems Review of Systems: Yes all other systems are reviewed and are negative Constitutional Constitutional: Denies chills and Denies fever(s) Physical Exam Vital Signs: Vital Signs: Last Vital Signs Temp 97.6 F 08/21/23 07:11 Pulse 52 08/21/23 07:50 Resp 20 08/21/23 07:11 BP 129/62 08/21/23 07:50 Pulse Ox 96 08/21/23 07:11 O2 Del Method Room Air 08/21/23 07:11 BMI result Body Mass Index 35.4 Appearing in no acute distress lung sounds are clear to auscultation heart regular rate rhythm, clear S1, S2 positive bowel sounds, abdomen is soft, nontender neuro patient is alert x3, no focal deficits Objective Data Active Medications Acetaminophen (Acetaminophen 325 Mg Tablet) 650 mg PO Q6H PRN PRN Reason: Pain, Mild (Pain Scale 1-3) Last Admin: 08/21/23 06:27 Dose: 650 mg Documented By: TIM Atenolol (Atenolol 25 Mg Tablet) 25 mg PO DAILY [facility]; Protocol Last Admin: 08/21/23 07:50 Dose: 25 mg Documented By: BRIDGET Cyclobenzaprine HCl (Cyclobenzaprine Hcl 5 Mg Tablet) 5 mg PO DAILY [facility] Last Admin: 08/21/23 06:31 Dose: 5 mg Documented By: TIM Hydroxyzine HCl (Hydroxyzine Hcl 25 Mg Tablet) 25 mg PO Q8H PRN PRN Reason: Anxiety Lamotrigine (Lamotrigine 100 Mg Tablet) 125 mg PO BID [facility] Last Admin: 08/21/23 09:22 Dose: 125 mg Documented By: BRIDGET Levothyroxine Sodium (Levothyroxine Sodium 125 Mcg Tablet) 125 mcg PO DAILY@0600 [facility] Last Admin: 08/21/23 06:28 Dose: 125 mcg Documented By: TIM Omeprazole (Omeprazole 20 Mg Capsule.) 20 mg PO DAILY@0630 [facility] Last Admin: 08/21/23 06:28 Dose: 20 mg Documented By: TIM Quetiapine Fumarate (Quetiapine Fumarate 100 Mg Tablet) 100 mg PO BEDTIME [facility] Last Admin: 08/20/23 22:04 Dose: 100 mg Documented By: TIM Sodium Chloride (0.9 % Sodium Chloride Flush 3 Ml Syringe) 3 ml IVFLUSH QSHIFT [facility] Last Admin: 08/21/23 07:52 Dose: 3 ml Documented By: BRIDGET Tramadol HCl (Tramadol Hcl 50 Mg Tablet) 50 mg PO BEDTIME [facility] Last Admin: 08/20/23 22:04 Dose: 50 mg Documented By: TIM Labs 08/18/23 21:32 08/21/23 09:57 Labs: Laboratory Results - last 24 hr 08/21/23 05:22 Hold Purple Top SEE NOTE Anion Gap 11 L Estim Creat Clear Calc 83.0 Estimated GFR > 60 Random Glucose 100 Calcium 8.8 D Microbiology Microbiology Results: Microbiology 08/18/23 Unknown Urine Culture - Final Urine clean catch - Urine mayes top Escherichia coli Assessment and Plan (1) Acute hyponatremia: Status: Acute (2) Low blood potassium: Status: Acute Plan Regla Bailey is a 63 years old female with hypothyroidism, hypertension, depression, anxiety who was been having leg cramps for the past 2 weeks and was sent in by PCP after routine lab work revealed severe hyponatremia Hyponatremia, likely secondary to primary polydipsia recently changed from drinking several Liters of diet soda to the same amount of water continue Fluid restriction hydrochlorothiazide stopped s/p salt tabs and urea s/p d5w 75 cc/hr x 1L follow sodium levels closely nephrology following Hypercalcemia repeat wnl Hypokalemia replace and follow Hypothyroidism, TSH is worsening. Normal free T4. Hx of thyroid CA s/p thyroidectomy. Likely contributing to hyponatremia. Increases levothyroxine dose. Essential hypertension. Continue atenolol. Hydrochlorothiazide on hold due to hyponatremia. BP stable Depression and anxiety. Continue Seroquel, lamotrigine and hydroxyzine. DVT prophylaxis: SCDs. Early ambulation. Attending Dr. Colón Code status: Full Requires ongoing inpatient stay for hyponatremia management. She needs close monitoring of sodium level, signs and symptoms and evaluation by subspecialty Quality Stroke Does the patient have a stroke diagnosis?: No VTE Prior VTE?: No VTE Risk Level:: Medical - low VTE Device Contraindication: N/A - Device Ordered VTE Drug Contraindication: Treatment Not Indicated
--- NOTE | 2023-08-21 10:47 | P.CONNP_ITS ---
History of Present Illness Reason for Consult Consult date: 08/21/23 Reason for consult: Hyponatremia Chief Complaint Chief complaint: Hyponatremia History of Present Illness Narrative: 63 years old woman with a history significant for hypothyroidism (thyroid CA s/p thyroidectomy), depression and essential hypertension presents to the emergency department after she was found to have significant hyponatremia (120) on a routine blood workup as an outpatient. She stated that she has been feeling generally weak and having episodes of cramps over the last 2 weeks. Over the month, she also mentioned that she has been taking diclofenac for right knee. She denied headache, confusion, dizziness, seizures, nausea, vomiting, diarrhea or abdominal pain. She also denied any acute urinary symptoms. Denies fevers or chills. Denied any acute cardiopulmonary symptoms She takes hydrochlorothiazide for hypertension. She admits drinking about 2 gal of water daily. she used to 2 L of diet Coke daily. Has no history of hyponatremia. Urine specific gravity was less than 1.005 initially Serum sodium improved from 119 up to 127. She was given D5W to slow the rate of correction Review of Systems Constitutional: Denies fever(s) and Denies weight loss Cardiovascular: Denies chest pain Respiratory: Denies cough and Denies hemoptysis Gastrointestinal: Denies abdominal pain, Denies diarrhea and Denies nausea Musculoskeletal: Denies back pain Denies focal weakness PMFSH Past Medical History Medical History Thyroid ca Anxiety Hx of major depression Hypertension Family History Family History Father Colon cancer Other Mental health disorder Substance use disorder Surgical History Surgical History Hx of thyroidectomy Hx of section Social History Social History Household Members: Significant Other Housing: House Do you presently have visiting nurse or other home services: No Alcohol intake: current Alcohol intake frequency: holidays/special occasions only Patient Tobacco Use Status: Never used Tobacco Tobacco use type: Cigarette Cigarettes Per Day: 2 e-Cigarette/Vaping Use: Never Used service: No Current occupational status: employed (off for 3 months) Cognitive needs: No Hearing needs: No Vision needs: No Meds Allergies Allergy/AdvReac Type Severity Reaction Status Date / Time oxycodone Allergy Unknown Unknown Verified 08/18/23 21:01 lithium [LITHIUM] AdvReac Intermediate bilateral Verified 08/18/23 21:01 pedal edema Active Medications: Current Medications Acetaminophen (Acetaminophen 325 Mg Tablet) 650 mg PO Q6H PRN PRN Reason: Pain, Mild (Pain Scale 1-3) Last Admin: 08/21/23 06:27 Dose: 650 mg Atenolol (Atenolol 25 Mg Tablet) 25 mg PO DAILY [facility]; Protocol Last Admin: 08/21/23 07:50 Dose: 25 mg Cyclobenzaprine HCl (Cyclobenzaprine Hcl 5 Mg Tablet) 5 mg PO DAILY [facility] Last Admin: 08/21/23 06:31 Dose: 5 mg Hydroxyzine HCl (Hydroxyzine Hcl 25 Mg Tablet) 25 mg PO Q8H PRN PRN Reason: Anxiety Lamotrigine (Lamotrigine 100 Mg Tablet) 125 mg PO BID [facility] Last Admin: 08/21/23 09:22 Dose: 125 mg Levothyroxine Sodium (Levothyroxine Sodium 125 Mcg Tablet) 125 mcg PO DAILY@0600 [facility] Last Admin: 08/21/23 06:28 Dose: 125 mcg Omeprazole (Omeprazole 20 Mg Capsule.Dr) 20 mg PO DAILY@0630 [facility] Last Admin: 08/21/23 06:28 Dose: 20 mg Quetiapine Fumarate (Quetiapine Fumarate 100 Mg Tablet) 100 mg PO BEDTIME [facility] Last Admin: 08/20/23 22:04 Dose: 100 mg Sodium Chloride (0.9 % Sodium Chloride Flush 3 Ml Syringe) 3 ml IVFLUSH QSHIFT [facility] Last Admin: 08/21/23 07:52 Dose: 3 ml Tramadol HCl (Tramadol Hcl 50 Mg Tablet) 50 mg PO BEDTIME [facility] Last Admin: 08/20/23 22:04 Dose: 50 mg Home Medications ?Medication ?Instructions ?Recorded ?Confirmed ?Last Taken ?Type hydroxyzine HCl 25 mg tablet 25 mg PO Q8H PRN Anxiety 03/23/21 08/19/23 Unknown History cyclobenzaprine 5 mg tablet 5 mg PO DAILY 08/19/23 08/19/23 08/18/23 History diclofenac sodium 25 mg 25 mg PO BEDTIME PRN pain 08/19/23 08/19/23 Unknown History tablet,delayed release hydrochlorothiazide 25 mg tablet 25 mg PO DAILY 08/19/23 08/19/23 08/18/23 History lamotrigine 250 mg tablet,extended 250 mg PO DAILY 08/19/23 08/19/23 08/18/23 History release 24 hr levothyroxine 88 mcg tablet 88 mcg PO DAILY@0600 08/19/23 08/19/23 08/18/23 History omeprazole magnesium 20 mg 20 mg PO DAILY@0630 08/19/23 08/19/23 08/18/23 History capsule,delayed release quetiapine 100 mg tablet 100 mg PO BEDTIME 08/19/23 08/19/23 08/18/23 History Physical Exam Vital Signs: Last Vital Signs Temp 97.6 F 08/21/23 07:11 Pulse 52 08/21/23 07:50 Resp 20 08/21/23 07:11 BP 129/62 08/21/23 07:50 Pulse Ox 96 08/21/23 07:11 O2 Del Method Room Air 08/21/23 07:11 BMI result Body Mass Index 35.4 Results Lab Results 08/18/23 21:32 08/21/23 09:57 Lab results: Chemistry 08/18/23 08/19/23 08/19/23 21:32 02:47 07:30 Sodium 120 L* 119 L* 120 L* Potassium 3.3 Carbon Dioxide 28 BUN 8 L Creatinine 0.93 Calcium 11.0 H D Phosphorus 3.5 08/19/23 08/19/23 08/19/23 09:45 13:52 20:03 Sodium 121 L 119 L* 119 L* Potassium Carbon Dioxide BUN Creatinine Calcium 9.7 D Phosphorus 08/20/23 08/20/23 08/20/23 01:51 06:22 06:22 Sodium 126 L Cancelled Cancelled Potassium Carbon Dioxide BUN Creatinine Calcium Phosphorus 08/20/23 08/20/23 08/20/23 06:56 12:38 17:40 Sodium 129 L 128 L 123 L Potassium 3.1 L Carbon Dioxide 26 BUN 22 H Creatinine 0.86 Calcium 9.5 Phosphorus 08/20/23 08/21/23 08/21/23 20:58 01:40 05:22 Sodium 122 L 125 L 128 L Potassium 3.5 Carbon Dioxide 26 BUN 14 Creatinine 0.76 Calcium 8.8 D Phosphorus 08/21/23 09:57 Sodium 127 L Potassium Carbon Dioxide BUN Creatinine Calcium Phosphorus Hematology 08/18/23 21:32 WBC 12.1 H Hgb 14.3 Plt Count 434 H Urinalysis 08/18/23 22:52 Urine Color Yellow Urine Appearance Clear Urine pH 6.5 Ur Specific [place] <= 1.005 Urine Protein Negative Urine Glucose (UA) Negative Urine Ketones Negative Urine Blood Negative Urine Nitrite Negative Ur Leukocyte Esterase Small (1+) H Urine RBC 0-2 Urine WBC 6-10 H Ur Squamous Epith Cells 0-2 Hyaline Casts 0-2 Urine Studies 08/18/23 22:53 Urine Osmolality 94 L Assessment and Plan (1) Acute hyponatremia: Status: Acute Plan 63-year-old man with a history of severe hyponatremia. Based on the history and available lab data it appears that she has been drinking excess free water leading to hyponatremia. Goal is to correct the serum sodium rate of 0.5 to 1 millimole per L/hr not exceed more than 10 millimoles in a 24 hour. Restrict oral free water intake D5W has been discontinued. Monitor serum sodium every 4 hours. No indication for urea powder at this time. She can be discharged home with a serum sodium more than 130 millimoles and can be followed as an outpatient. Procedures Date of Service Date of Service: 08/21/23
[2023-08-21 11:43] LABS: Sodium 128 mmol/L (135-145)
--- NOTE | 2023-08-21 13:11 | MHC.CM.PN ---
Pt has not been medically cleared for DC, she requires ongoing treatment for hypernatremia. Her DC plan is home, self care. CM will follow and assist as needed with DC plan.
[2023-08-21 14:16] LABS: Sodium 125 mmol/L (135-145)
[2023-08-21 18:19] LABS: Sodium 127 mmol/L (135-145)
[2023-08-21] MEDS: traMADoL HCL 50 MG TABLET PO (21:52)
[2023-08-21] MEDS: QUEtiapine Fumarate 100 MG TABLET PO (21:53)
[2023-08-22 03:46] VITALS: BP 114/58; PULSE 47; RESP 18; TEMP 36.4; O2SAT 94
[2023-08-22] MEDS: Acetaminophen 325 MG TABLET 650 MG PO (05:57)
[2023-08-22] MEDS: Omeprazole 20 MG CAPSULE.DR PO (05:57)
[2023-08-22] MEDS: Levothyroxine Sodium 125 MCG TABLET PO (05:58)
[2023-08-22 07:43] VITALS: BP 117/57; PULSE 54; RESP 18; TEMP 36.5; O2SAT 95
[2023-08-22 08:05] LABS: Anion Gap 12 (12-20); Blood Urea Nitrogen 12 mg/dL (9-16); Carbon Dioxide 24 mmol/L (22-29); Chloride 96 mmol/L (96-108); Estimated Glomerular Filt Rate > 60; Glucose Random 86 mg/dL (60-115); Potassium 3.9 mmol/L (3.3-5.1); Sodium 128 mmol/L (135-145)
[2023-08-22] MEDS: Cyclobenzaprine HCl 5 MG TABLET PO (08:08)
[2023-08-22] MEDS: lamoTRIgine 100 MG TABLET 125 MG PO (08:09)
[2023-08-22] MEDS: 0.9 % Sodium Chloride Flush 3 ML SYRINGE IVFLUSH (08:10)
--- NOTE | 2023-08-22 10:12 | P.PNNP_ITS ---
Subjective Subjective Date of Service: 08/22/23 Interval history: Events noted Feels better Physical Exam 2 Vital Signs: Vital Signs: Last Vital Signs Temp 97.7 F 08/22/23 07:43 Pulse 54 08/22/23 07:43 Resp 18 08/22/23 07:43 BP 117/57 L 08/22/23 07:43 Pulse Ox 95 08/22/23 07:43 O2 Del Method Room Air 08/22/23 07:43 BMI result Body Mass Index 35.4 Const: General: cooperative, comfortable, no acute distress, alert and awake Nutritional Appearance: overweight Orientation/consciousness: patient oriented x3 Resp: Effort & Inspection: normal respiratory effort, able to speak in complete sentences, no respiratory distress and no use of accessory muscles Cardio: Rate: regular rate GI: Inspection: No distended Palpation (GI): Soft to palpation and nontender Neuro: General: patient oriented x3, moves all extremities and CN's II-XI intact bilaterally Extrem: General: Yes no pedal edema Objective Data Labs 08/18/23 21:32 08/22/23 06:18 Labs: Laboratory Results - last 24 hr 08/21/23 08/21/23 08/21/23 11:29 14:05 17:47 Hold Purple Top Sodium 128 L 125 L 127 L Potassium Chloride Carbon Dioxide Anion Gap BUN Creatinine Estim Creat Clear Calc Estimated GFR Random Glucose Calcium 08/22/23 06:18 Hold Purple Top SEE NOTE Sodium 128 L Potassium 3.9 Chloride 96 Carbon Dioxide 24 Anion Gap 12 BUN 12 Creatinine 0.82 Estim Creat Clear Calc 77.0 Estimated GFR > 60 Random Glucose 86 Calcium 9.0 Microbiology Microbiology Results: Microbiology 08/18/23 Unknown Urine clean catch - Urine mayes top Urine Culture - Final Escherichia coli Procedures Date of Service Date of Service: 08/22/23 Assessment & Plan Assessment and plan (1) Acute hyponatremia: Status: Acute Plan 63-year-old man with a history of severe hyponatremia. Based on the history and available lab data it appears that she has been drinking excess free water leading to hyponatremia. Goal is to correct the serum sodium rate of 0.5 to 1 millimole per L/hr not exceed more than 10 millimoles in a 24 hour. Restrict oral free water intake No indication for urea powder at this time. She can be discharged home and i will follow her as an outpatient. Time Spent With Patient Time: Total time managing care of this patient today ____ minutes. Progress Note: Quality Stroke Does the patient have a stroke diagnosis?: No
[2023-08-22 11:04] VITALS: BP 133/63; PULSE 53; RESP 20; TEMP 36.2; O2SAT 98
--- NOTE | 2023-08-22 11:09 | P.DS_ITS ---
DS: Providers Provider Date of Service: 08/22/23 Date of admission: 08/19/23 02:09 Primary care physician: Rozina Carpio MD Consults: 08/19/23 00:09 Consult to Nephrology Routine Consulting Provider: [facility] [place] [place] Reason for consultation: Hyponatremia Has provider been notified: Yes DS: Diagnosis Discharge Diagnosis (1) Acute hyponatremia: Status: Acute DS: Summary Hospital Course Hospital Course: History and physical as per admitting provider. Regla Bailey is a 63 years old woman with past medical history significant for hypothyroidism (thyroid CA s/p thyroidectomy), depression and essential hypertension presents to the emergency department after she was found to have significant hyponatremia (120) on a routine blood workup as an outpatient. She stated that she has been feeling generally weak and having episodes of cramps over the last 2 weeks. Over the month, she also mentioned that she has been taking diclofenac for right knee. She denied headache, confusion, dizziness, seizures, nausea, vomiting, diarrhea or abdominal pain. She also denied any acute urinary symptoms. Denies fevers or chills. Denied any acute cardiopulmonary symptoms She takes hydrochlorothiazide for hypertension. She admits drinking about 2 gal of water daily. Before today she used to 2 L of diet Coke daily. Has no history of hyponatremia. In the ED she was found to have normal vital signs. Blood workup was remarkable for hyponatremia 120 and hypochloremia and hypercalcemia, 11. Urine osmolarity is 94 and urine sodium is < 20. Transaminases are slightly elevated of Willie, total protein and albumin are normal. TSH is 23.52 and free T4 is 1.22. ED tx: None. 63-year-old woman treated for acute hyponatremia secondary to primary polydipsia patient had been drinking several L of diet soda and switched to water instead. She was having cramps throughout her body and came to the ER. She was placed on a fluid restriction, her hydrochlorothiazide was stopped. She was treated with salt tabs and urea but discontinued. Treated with D5W. Sodium levels have slowly increased. Seen evaluated by Nephrology, elda for patient to be discharged with sodium of 128. She will need to recheck BMP in 1 week and follow up with Nephrology in office. Hypokalemia. Repleted and resolved Hypothyroidism. TSH worsening, normal free T4. History of thyroid cancer status post thyroidectomy. Levothyroxine dose increased. Hypertension. Continue atenolol. Hydrochlorothiazide was stopped due to hyponatremia Mental health. Continue Seroquel, lamotrigine and hydroxyzine Time Attestation Discharge Coordination Time (in mins): 47 Quality: Safe Use of Opioids Does Pt have an Active Cancer Diagnosis on the Problem List?: No Quality: Stroke Does the patient have a stroke diagnosis?: No Physical Exam Vital Signs: Vital Signs: Last Vital Signs Temp 97.2 F 08/22/23 11:04 Pulse 53 08/22/23 11:04 Resp 20 08/22/23 11:04 BP 133/63 08/22/23 11:04 Pulse Ox 98 08/22/23 11:04 O2 Del Method Room Air 08/22/23 11:04 BMI result Body Mass Index 35.4 Appearing in no acute distress head is normocephalic atraumatic eyes pupils are PERRLA sclera is anicteric mouth throat mucous membranes are intact and moist neck is supple no lymphadenopathy, no JVD noted lung sounds are clear to auscultation heart regular rate rhythm, clear S1, S2 positive bowel sounds, abdomen is soft, nontender neuro patient is alert x3, no focal deficits DS: Data Data Completed and Pending Labs on day of discharge: Laboratory Results - last 24 hr 08/21/23 08/21/23 08/21/23 11:29 14:05 17:47 Hold Purple Top Sodium 128 L 125 L 127 L Potassium Chloride Carbon Dioxide Anion Gap BUN Creatinine Estim Creat Clear Calc Estimated GFR Random Glucose Calcium 08/22/23 06:18 Hold Purple Top SEE NOTE Sodium 128 L Potassium 3.9 Chloride 96 Carbon Dioxide 24 Anion Gap 12 BUN 12 Creatinine 0.82 Estim Creat Clear Calc 77.0 Estimated GFR > 60 Random Glucose 86 Calcium 9.0 Discharge Plan Discharge Anticipated Discharge Date/Time: 08/22/23 10:36 Patient Disposition: Home, Self-Care Discharge Diagnosis: Hyponatremia Referrals: Sarkis El MD [Physician] - 1 Week Rozina Carpio MD [Primary Care Provider] - 1 Week Discharge Medications: New levothyroxine 125 mcg Tablet 125 mcg PO DAILY@0600 Qty: 30 0RF nicotine (polacrilex) 2 mg gum 2 mg buccal Q2H Qty: 20 0RF Continued atenolol 25 mg tablet 25 mg PO DAILY 90 Days Qty: 90 1RF lamotrigine 250 mg tablet extended release 24hr 250 mg PO DAILY quetiapine 100 mg tablet 100 mg PO BEDTIME levothyroxine 88 mcg tablet 88 mcg PO DAILY@0600 diclofenac sodium 25 mg tablet,delayed release (DR/EC) 25 mg PO BEDTIME PRN (Reason: pain) omeprazole magnesium 20 mg Capsule,Delayed Release(Dr/Ec) 20 mg PO DAILY@0630 cyclobenzaprine 5 mg tablet 5 mg PO DAILY tramadol 50 mg tablet 50 mg PO BEDTIME 20 Days Qty: 20 0RF hydroxyzine HCl 25 mg tablet 25 mg PO Q8H PRN (Reason: Anxiety) Discontinued hydrochlorothiazide 25 mg tablet 25 mg PO DAILY Discharge Orders: Discharge Order (Routine); Ordered 08/22/23 Ordered By: Ariadne Zelaya Diet: Advance to usual diet Activity on Discharge: As tolerated Stand Alone Forms: Patient Portal Discharge page Print Language: Australian Other Ambulatory Orders: Basic Metabolic Panel (Routine) Timeframe: 1 Week Facility: [facility] - Location: Laboratory Ordered By: Ariadne Zelaya Care Plan Goals: Check BMP in 1 week, follow up with Nephrology outpatient Avoid excess water intake Your hydrochlorothiazide was stopped as this medication can also make sodium levels go down Health Concerns: Hyponatremia Plan of Treatment: Follow-up with primary care provider as needed Take all medications as prescribed Assessment: See discharge summary
--- NOTE | 2023-08-22 11:14 | MHC.CM.PN ---
Pt has been medically cleared for DC, she will go home via family transport and plan is self, care.
[2023-08-22 11:29] LABS: Sodium 129 mmol/L (135-145)
== END 2023-08-22 15:15 | disposition home or self-care (01) | DRG 426 ==
LOC: HO.ED 08-19 00:22 → HO.EDOVER 08-19 02:17 → HO.S3 08-19 05:20 → HO.IMC 08-19 07:17
PROVIDERS: Physician Assistant Medical; Admitting Provider Internal Medicine; Emergency Provider Emergency Medicine Emergency Medical Services; PCP Internal Medicine; Visit Provider Nurse Practitioner Acute Care
DX: E87.1 Hypo-osmolality and hyponatremia (principal); E83.52 Hypercalcemia; E89.0 Postprocedural hypothyroidism; I10 Essential (primary) hypertension; F32.A Depression, unspecified; E87.6 Hypokalemia; F41.9 Anxiety disorder, unspecified; Z85.850 Personal history of malignant neoplasm of thyroid; Z79.890 Hormone replacement therapy; Z79.899 Other long term (current) drug therapy
CPT/HCPCS: 36415; 80048; 80053; 81001; 81003; 82310; 83735; 83930; 83935; 83970; 84100; 84295; 84300; 84443; 85025; 87086; 87088; 87186; 93005; 99285; J7131

== ENCOUNTER → 2023-08-18 22:18 | Outpatient (BNV) | payer OTHER, SELFPAY | PROVIDERS: Admitting Provider Internal Medicine; Emergency Provider Emergency Medicine Emergency Medical Services; PCP Internal Medicine; Visit Provider Internal Medicine | DX: R00.1 Bradycardia, unspecified (principal) | CPT/HCPCS: 93010 ==

== ENCOUNTER → 2023-08-19 02:09 | Outpatient (BNV) | payer OTHER, SELFPAY | PROVIDERS: Admitting Provider Internal Medicine; Emergency Provider Emergency Medicine Emergency Medical Services; PCP Internal Medicine; Visit Provider Internal Medicine Hypertension Specialist | DX: E87.1 Hypo-osmolality and hyponatremia (principal) | CPT/HCPCS: 99223; 99232; 99499 ==

== ENCOUNTER → 2023-08-19 02:09 | Outpatient (BNV) | payer OTHER, SELFPAY | PROVIDERS: Admitting Provider Internal Medicine; Emergency Provider Emergency Medicine Emergency Medical Services; PCP Internal Medicine; Visit Provider Internal Medicine | DX: E87.1 Hypo-osmolality and hyponatremia (principal) | CPT/HCPCS: 99222; 99232; 99233; 99239; 99499 ==

== ENCOUNTER 2023-08-28 12:18 | Outpatient (AMB) | payer OTHER, SELFPAY ==
--- NOTE | 2023-08-28 12:20 | MHC.OFFVIS ---
Intake Visit Reasons: ov-Right Knee OA pain Intake Note: Regla is a 63 year old female who presents today for a follow up of her right knee OA. At her last visit she was instructed to continue NSAIDs and continue activity as tolerated. Patient reports that her pain has increased, she is having trouble sleeping at night due to the pain. She was seen with her PCP who prescribed Cyclobenzabrine and Tramadol which did give her some relief. Allergies oxycodone Allergy (Unknown, Verified 08/28/23 14:24) Unknown lithium [LITHIUM] Adverse Reaction (Intermediate, Verified 08/28/23 14:24) bilateral pedal edema HPI HPI ov-Right Knee OA pain: Details: This is a 63-year-old woman who comes in today with worsening right knee pain. She was seen in the past and we discussed treatment options including injections and physical therapy and NSAIDs. She has been active and taking NSAIDs and they were working until the last 4-6 weeks when she has had worsening pain. She is pain at night and she can not sleep well. She denies any specific injury. She denies mechanical symptoms. [facility] Medical History (Updated 08/28/23 @ 15:07 by Henry Reyes MD) Internal derangement of right knee Hypothyroidism Hypertension, essential Thyroid ca Anxiety Hx of major depression Hypertension Surgical History Hx of thyroidectomy Hx of section Family History Father Colon cancer Other Mental health disorder Substance use disorder Social History Household Members: Significant Other Housing: House Do you presently have visiting nurse or other home services: No Alcohol intake: current Alcohol intake frequency: holidays/special occasions only Patient Tobacco Use Status: Never used Tobacco Tobacco use type: Cigarette Cigarettes Per Day: 2 e-Cigarette/Vaping Use: Never Used service: No Current occupational status: employed (off for 3 months) Cognitive needs: No Hearing needs: No Vision needs: No Female Reproductive History Menstrual Age of Menarche: 14 Physical Exam Const General: no acute distress, alert and awake Orientation/consciousness: patient oriented x3 HEENT Head: Yes normocephalic and Yes atraumatic Eyes EOM: EOMs intact bilaterally Resp Effort & Inspection: normal respiratory effort and able to speak in complete sentences Cardio Jugular venous distension: no JVD Skin General skin exam: turgor normal Rashes: no rashes Neuro General: patient oriented x3 Extrem Other: There is tenderness to palpation medial joint line with a positive medial Rama's right knee. Trace effusion. Psych Appearance: grossly normal Affect: normal affect Attitude: cooperative Office Procedures Joint Injection/Drain Joint Injection/Drain Details: Injected 1 mL of Decadron and 3 mL 1% lidocaine and 3 mL of 0.25% Marcaine. Site was prepped using aseptic technique. Patient tolerated the procedure well. Primary Site: right knee Approach Used: anterolateral Coding - Large joint Procedure code (CPT) selection complete Assessment & Plan Assessment & Plan (1) Internal derangement of right knee: Code(s): M23.91 - Unspecified internal derangement of right knee Category: Medical Plan: I injected her right knee. I recommend MRI to assess as she has signs and symptoms of meniscal injury that have been ongoing and worsening. Orders: Orders MR knee RT wo con Today M23.91 - Unspecified internal derangement of right knee Coding Level of Care Code Est Pt Level 3 (52061) Diagnoses Internal derangement of right knee M23.91 CPT Codes Coding - Large joint: 26440 - Large joint ([id number])
== END 2023-08-28 15:50 | disposition home or self-care (01) ==
PROVIDERS: PCP Internal Medicine; Visit Provider Orthopaedic Surgery
DX: M23.91 Unspecified internal derangement of right knee (principal)
CPT/HCPCS: 20610; 99213

== ENCOUNTER → 2023-08-28 12:18 | Outpatient (BNVA) | payer OTHER, SELFPAY | PROVIDERS: PCP Internal Medicine; Visit Provider Orthopaedic Surgery | DX: E03.8 Other specified hypothyroidism (principal); E87.1 Hypo-osmolality and hyponatremia; N18.9 Chronic kidney disease, unspecified | CPT/HCPCS: 99212 ==

== ENCOUNTER 2023-08-28 14:20 | Outpatient (AMB) | payer OTHER, SELFPAY ==
[2023-08-28 14:22] VITALS: BP 136/70; PULSE 68; O2SAT 98; BMI 34.9
--- NOTE | 2023-08-28 14:22 | HO.NEPHOV ---
Vital Signs 08/28/23 14:22 Height 5 ft 3 in Weight 197 lb BMI 34.9 BP 136/70 Blood Pressure Location Rt brachial Position Sitting Pulse 68 Pulse Source Pulse Oximeter Pulse Oximetry (%) 98 Oxygen Delivery Method Room Air Intake Visit Reasons: CKD/ FU/ Confirmed Assistant Account Executive Required: No Accompanied by: Self / Same As Patient Allergies oxycodone Allergy (Unknown, Verified 08/28/23 14:24) Unknown lithium [LITHIUM] Adverse Reaction (Intermediate, Verified 08/28/23 14:24) bilateral pedal edema HPI Comments Details: 63 years old woman with a history significant for hypothyroidism (thyroid CA s/p thyroidectomy), depression and essential hypertension presents to the emergency department after she was found to have significant hyponatremia (120) on a routine blood workup as an outpatient. Sodium was 119. She admits to drinking 2 gal of water. She drinks at least 1 2 L bottle of diet Coke. She had severe hypothyroidism with a TSH of 16 She is placed on p.o. water restriction. Sodium gradually increased to 129 and she was discharged She is here for further follow-up. At the time of discharge she was supposed to be sent home with 125 mcg of Synthroid however she was given a prescription of 88 mcg. [facility] Medical History (Updated 08/28/23 @ 15:07 by Henry Reyes MD) Internal derangement of right knee Hypothyroidism Hypertension, essential Thyroid ca Anxiety Hx of major depression Hypertension Surgical History Hx of thyroidectomy Hx of section Family History Father Colon cancer Other Mental health disorder Substance use disorder Social History Household Members: Significant Other Housing: House Do you presently have visiting nurse or other home services: No Alcohol intake: current Alcohol intake frequency: holidays/special occasions only Patient Tobacco Use Status: Never used Tobacco Tobacco use type: Cigarette Cigarettes Per Day: 2 e-Cigarette/Vaping Use: Never Used service: No Current occupational status: employed (off for 3 months) Cognitive needs: No Hearing needs: No Vision needs: No Female Reproductive History Menstrual Age of Menarche: 14 Physical Exam Vital Signs: Last Vital Signs Pulse 68 08/28/23 14:22 BP 136/70 08/28/23 14:22 Pulse Ox 98 08/28/23 14:22 Oxygen Delivery Method Room Air 08/28/23 14:22 BMI result Body Mass Index 34.9 Const General: comfortable Nutritional Appearance: well nourished Orientation/consciousness: patient oriented x3 HEENT Head: No normal to inspection Mouth: moist mucous membranes Neck Neck: Yes supple and Yes no JVD Resp Auscultation: clear to auscultation bilaterally, no rales and rub present Cardio Jugular venous distension: no JVD Palpation: no palpable S3 and no palpable S4 Heart sounds: no rubs GI Palpation (GI): Soft to palpation and nontender Percussion: No Fluid wave present General: Yes no CVA tenderness Back/Spine/Pelvis Back: no CVA tenderness Skin General skin exam: no rashes or lesions noted Neuro General: patient oriented x3 Extrem General: Yes no pedal edema and No clubbing Results Reviewed Nephrology Results: Hgb 14.3 g/dl (12.0-16.0) 08/18/23 WBC 12.1 X10*3/uL (4.8-10.8) H 08/18/23 Plt Count 434 X10*3/uL (160-400) H 08/18/23 Sodium 132 mmol/L (135-145) L 08/28/23 Potassium 3.8 mmol/L (3.3-5.1) 08/28/23 Chloride 96 mmol/L (96-108) 08/28/23 Carbon Dioxide 22 mmol/L (22-29) 08/28/23 BUN 15 mg/dL (9-16) 08/28/23 Creatinine 1.12 mg/dL (0.5-1.4) 08/28/23 Calcium 10.0 mg/dL (8.4-10.2) 08/28/23 Phosphorus 3.5 mg/dL (2.7-4.5) 08/19/23 PTH Intact 37.6 pg/mL (8.7-77.1) 08/19/23 Urine Protein Negative mg/dL (Neg-Trace) 08/18/23 Assessment & Plan Assessment & Plan (1) Other specified hypothyroidism: Code(s): E03.8 - Other specified hypothyroidism Category: Medical (2) Hyponatremia: Code(s): E87.1 - Hypo-osmolality and hyponatremia Category: Medical Plan Severe hyponatremia due to significant hypothyroidism and excessive free water intake. Serum sodium has been gradually corrected. Rate of correction acceptable. Goal is to maintain serum sodium more than 130 millimoles. Hypothyroidism needs to be addressed. I will switch her back to 125 mcg and recheck TSH in next 4 weeks. Encouraged to limit her free water intake. She will follow serum sodium periodically. Orders: Orders Basic Metabolic Panel 08/28/23 E03.8 - Other specified hypothyroidism, E87.1 - Hypo-osmolality and hyponatremia Basic Metabolic Panel 08/28/23 E87.1 - Hypo-osmolality and hyponatremia TSH reflex Free T4 08/28/23 E03.8 - Other specified hypothyroidism, E87.1 - Hypo-osmolality and hyponatremia Medications: Refilled levothyroxine 125 mcg PO DAILY@0600 30 tabs 0RF Coding Level of Care Code Est Pt Level 4 (67500) Diagnoses Other specified hypothyroidism E03.8 Hyponatremia E87.1
== END 2023-08-28 14:48 | disposition home or self-care (01) ==
PROVIDERS: PCP Internal Medicine; Visit Provider Internal Medicine Hypertension Specialist
DX: E03.8 Other specified hypothyroidism (principal); E87.1 Hypo-osmolality and hyponatremia
CPT/HCPCS: 99214

== ENCOUNTER 2023-08-28 15:12 | Outpatient (REF) | payer OTHER, SELFPAY ==
[2023-08-28 17:19] LABS: Anion Gap 18 (12-20); Blood Urea Nitrogen 15 mg/dL (9-16); Carbon Dioxide 22 mmol/L (22-29); Chloride 96 mmol/L (96-108); Estimated Glomerular Filt Rate 49; Glucose Random 149 mg/dL (60-115); Potassium 3.8 mmol/L (3.3-5.1); Sodium 132 mmol/L (135-145)
== END 2023-08-28 15:13 | disposition home or self-care (01) ==
LOC: HO.HMGCLDS 15:12
PROVIDERS: PCP Internal Medicine; Visit Provider Internal Medicine Hypertension Specialist
DX: E87.1 Hypo-osmolality and hyponatremia (principal); E03.8 Other specified hypothyroidism
CPT/HCPCS: 20610; 36415; 80048; 84443; 99212; J0665; J1100

== ENCOUNTER 2023-09-06 10:54 | Outpatient (AMB) | payer OTHER, SELFPAY ==
[2023-09-06 10:57] VITALS: BP 136/66; PULSE 63; O2SAT 96; BMI 34.7
--- NOTE | 2023-09-06 10:57 | MHC.PC.OV ---
Vital Signs 09/06/23 10:57 Height 5 ft 3 in Weight 196 lb 3 oz BMI 34.7 BP 136/66 Blood Pressure Location Rt brachial Position Sitting Pulse 63 Pulse Source Pulse Oximeter Pulse Oximetry (%) 96 Oxygen Delivery Method Room Air Intake Visit Reasons: 1M F/U knee pain Allergies oxycodone Allergy (Unknown, Verified 09/06/23 10:58) Unknown lithium [LITHIUM] Adverse Reaction (Intermediate, Verified 09/06/23 10:58) bilateral pedal edema NSAIDS (Non-Steroidal Anti-Inflamma Adverse Reaction (Mild, Verified 09/06/23 11:28) Nephropathy Medication List - Last Reconciled 09/06/23 by Rozina Carpio MD atenolol 25 mg PO DAILY 90 days cholecalciferol (vitamin D3) 25 mcg PO DAILY 90 days cyclobenzaprine 5 mg PO BEDTIME diclofenac sodium 25 mg PO BEDTIME PRN hydroxyzine HCl 25 mg PO Q8H PRN lamotrigine ER 250 mg PO DAILY levothyroxine (Synthroid) 125 mcg PO DAILY omeprazole magnesium 20 mg PO DAILY@0630 quetiapine 100 mg PO BEDTIME Tobacco use date assessed: 09/06/23 Dental Screening Dental Screen Date: 09/06/23 Did you have a dental visit in the last 12 months?: Yes Did you have a dental problem in the last 6 months where you did not have access to dental care?: No Was dental information given to patient?: Patient has dentist HPI 1M F/U knee pain HPI Details Patient is 63-year-old female came in today for follow-up appointment She has been having pain in her knee, x-ray done showed Mild medial compartment osteoarthritis. No acute osseous findings. She was given few tablets of tramadol as Tylenol was not helping Patient recently had sodium of 120 she was in hospital, at that time she was evaluated for knee pain And was given cortisone injection which did help her. Now the pain is only at night when she lays down She is still taking diclofenac given by orthopedic doctor, I have told patient to stop taking that and do not take anymore NSAIDs because of nephropathy I have sent few more tablets of tramadol to be taken as needed only at night Patient also had labs done She has chronically low sodium level Her GFR has dropped to 49 from 60 She is currently seeing Nephrology and has appointment coming up next month Patient has seen them last month, consultation reviewed As per Nephrology patient is hyponatremia is due to significant hypothyroidism and excessive free water intake. Her TSH done recently is within normal limit Sodium has improved to 132 She will return for follow-up in 4 months for hypothyroidism [facility] Medical History Internal derangement of right knee Hypothyroidism Hypertension, essential Thyroid ca Anxiety Hx of major depression Hypertension Surgical History Hx of thyroidectomy Hx of section Family History Father Colon cancer Other Mental health disorder Substance use disorder Social History Household Members: Significant Other Housing: House Do you presently have visiting nurse or other home services: No Alcohol intake: current Alcohol intake frequency: holidays/special occasions only Patient Tobacco Use Status: Never used Tobacco Tobacco use type: Cigarette Cigarettes Per Day: 2 e-Cigarette/Vaping Use: Never Used service: No Current occupational status: employed (off for 3 months) Cognitive needs: No Hearing needs: No Vision needs: No Female Reproductive History Menstrual Age of Menarche: 14 Questionnaire Thrive Questionnaire Date Thrive assessed: 08/19/23 AUDIT C Alcohol Use Questionnaire (AUDIT-C) 1. How often do you have a drink containing alcohol?: Never 3. How often do you have six or more drinks on one occasion?: Never Total Score: 0 Score Reviewed/Action Taken: Yes ANTON-7 AMB Questionnaire ANTON-7 Date ANTON - 7 assessed: 08/18/23 Source: Developed by Drs. Dangelo Taylor, Madiha Valdez, Jonny Pepper and colleagues, with an educational brina from [employer]. Review of Systems Const Denies chills and Denies fever(s) ENT Denies epistaxis and Denies nasal discharge Card Denies chest pain Resp Denies chest congestion, Denies cough and Denies hemoptysis GI Denies diarrhea and Denies nausea Skin/Breast Denies rash Neuro Reports no additional complaints Psych Reports no additional complaints Endo Reports no additional complaints Physical exam (Primary Care) Vital Signs: Last Vital Signs Pulse 63 09/06/23 10:57 BP 136/66 09/06/23 10:57 Pulse Ox 96 09/06/23 10:57 Oxygen Delivery Method Room Air 09/06/23 10:57 BMI result Body Mass Index 34.7 Tobacco/Smoking Status: Tobacco use Status Tobacco use date assessed 09/06/23 09/06/23 10:59 Patient Tobacco Use Status Never used Tobacco 09/06/23 10:59 Tobacco use type Cigarette 09/06/23 10:59 e-Cigarette/Vaping Use Never Used 09/06/23 10:59 Thrive Assessment: Date of Thrive Assessment Date Thrive assessed 08/19/23 09/06/23 10:59 Const General: cooperative, comfortable and no acute distress Orientation/consciousness: patient oriented x3 HENMT Head: Yes normocephalic Eyes General: appearance normal, both eyes and all related structures Neck Neck: Yes supple Resp Effort & Inspection: normal respiratory effort, no cough and no stridor Cardio Rhythm: regular rhythm Heart sounds: S1 normal heart sound present and S2 normal heart sound present Skin General skin exam: turgor normal Neuro General: patient oriented x3, tone normal and moves all extremities Extrem Right lower extremity: no edema Left lower extremity: no edema Assessment and Plan Assessment & Plan (1) Hospital discharge follow-up: Code(s): Z09 - Encounter for follow-up examination after completed treatment for conditions other than malignant neoplasm (2) Other specified hypothyroidism: Code(s): E03.8 - Other specified hypothyroidism (3) Osteoarthritis of right knee: Code(s): M17.11 - Unilateral primary osteoarthritis, right knee Qualifiers: Osteoarthritis type: unspecified Qualified Code(s): M17.11 - Unilateral primary osteoarthritis, right knee (4) Hyponatremia: Code(s): E87.1 - Hypo-osmolality and hyponatremia (5) Nephropathy: Code(s): N28.9 - Disorder of kidney and ureter, unspecified Plan Patient is 63-year-old female came in today for follow-up appointment She has been having pain in her knee, x-ray done showed Mild medial compartment osteoarthritis. No acute osseous findings. She was given few tablets of tramadol as Tylenol was not helping Patient recently had sodium of 120 she was in hospital, at that time she was evaluated for knee pain And was given cortisone injection which did help her. Now the pain is only at night when she lays down She is still taking diclofenac given by orthopedic doctor, I have told patient to stop taking that and do not take anymore NSAIDs because of nephropathy I have sent few more tablets of tramadol to be taken as needed only at night Patient also had labs done She has chronically low sodium level Her GFR has dropped to 49 from 60 She is currently seeing Nephrology and has appointment coming up next month Patient has seen them last month, consultation reviewed As per Nephrology patient is hyponatremia is due to significant hypothyroidism and excessive free water intake. Her TSH done recently is within normal limit Sodium has improved to 132 She will return for follow-up in 4 months for hypothyroidism Medications: Changed From tramadol 50 mg PO BEDTIME 20 days 20 tabs 0RF To tramadol 50 mg PO BEDTIME 30 days 30 tabs 0RF Right knee pain Coding Level of Care Code Est Pt Level 4 (36456) Complex EM visit Add On G2211 Diagnoses Hospital discharge follow-up Z09 Other specified hypothyroidism E03.8 Osteoarthritis of right knee, unspecified osteoarthritis type M17.11 Osteoarthritis type: unspecified Hyponatremia E87.1 Nephropathy N28.9
== END 2023-09-06 11:24 | disposition home or self-care (01) ==
PROVIDERS: PCP Internal Medicine; Visit Provider Internal Medicine
DX: Z09 Encounter for follow-up examination after completed treatment for conditions other than malignant neoplasm (principal); E03.8 Other specified hypothyroidism; M17.11 Unilateral primary osteoarthritis, right knee; E87.1 Hypo-osmolality and hyponatremia; N28.9 Disorder of kidney and ureter, unspecified
CPT/HCPCS: 99214; G2211

== ENCOUNTER 2023-09-26 06:51 | Outpatient (REF) | payer OTHER, SELFPAY ==
--- NOTE | ~2023-09-26 | MR_ITS ---
EXAMINATION: MR KNEE WITHOUT CONTRAST, RIGHT CLINICAL INFORMATION: Right knee pain. Internal derangement. COMPARISON: Right knee radiographs dated 01/13/2023. TECHNIQUE: MRI of the knee without contrast was performed using routine sequences on a high-field scanner. FINDINGS: MENISCI: Medial Meniscus: Irregular inner margin fraying/tearing of the posterior horn and root with an oblique inner margin component to the tear. Medial extrusion of the meniscal body with inner margin fraying. Adjacent soft tissue edema. Lateral Meniscus: Blunting of the posterior horn and root inner margin, consistent with tearing. LIGAMENTS: Cruciate: Intact. Collateral: Edema adjacent to the medial collateral ligament, likely related to the meniscal tear. No measurable ligament tear. Intact fibular collateral ligament. EXTENSOR MECHANISM: Intact quadriceps and patellar tendons. Normal patellofemoral alignment. ARTICULAR CARTILAGE/BONE: Patellofemoral Compartment: Patellar median ridge and medial patellar facet articular cartilage signal heterogeneity and surface irregularity. Medial trochlea signal heterogeneity. Small marginal osteophytes. Medial Compartment: Weightbearing articular cartilage thinning and signal heterogeneity with areas of full-thickness loss at the weightbearing medial femoral condyle. Marrow edema within the medial tibial plateau which likely represents an osseous contusion related to the meniscal tear. No associated fracture line. Small marginal osteophytes. Lateral Compartment: Intact articular cartilage. JOINT FLUID AND BURSAE: Small joint effusion and small Sharpe's cyst. MR/MR knee RT wo con IMPRESSION: 1. Irregular inner margin fraying/tearing of the medial meniscus posterior horn and root with a thin oblique inner margin component. Medial extrusion of the meniscal body with inner margin fraying. Adjacent soft tissue edema and osseous contusion within the medial tibial plateau. 2. Inner margin tearing of the lateral meniscus posterior horn and root. 3. Mild patellofemoral and medial compartment osteoarthritis. Small joint effusion and small Sharpe's cyst.
== END 2023-09-26 06:52 | disposition home or self-care (01) ==
LOC: HO.MRI 06:51
PROVIDERS: PCP Internal Medicine; Visit Provider Orthopaedic Surgery
DX: M23.91 Unspecified internal derangement of right knee (principal)
CPT/HCPCS: 73721

== ENCOUNTER 2023-10-04 10:00 | Outpatient (REF) | payer OTHER, SELFPAY ==
[2023-10-04 13:50] LABS: Appearance Urine Clear; Color Urine Yellow; Glucose Urine UA Negative (Negative); Leukocyte Esterase Urine Moderate (2+) (Negative); Nitrite Urine Negative (Negative); PH 6.5 (5.0-9.0); UMIC TRIGGER UACC YES; Urine Blood Trace (Negative); Urine Ketones Negative (Negative); Urine Protein Negative (Neg-Trace)
[2023-10-04 13:53] LABS: Bacteria Urine None Seen (None Seen); Hyaline Casts Urine 0-2 /LPF (0-2); UACC Culture Trigger YES; WBC Urine 21-50 /HPF (0-5)
[2023-10-04 14:32] LABS: Anion Gap 15 (12-20); Blood Urea Nitrogen 7 mg/dL (9-16); Calcium 10.3 mg/dL (8.4-10.2); Carbon Dioxide 25 mmol/L (22-29); Chloride 92 mmol/L (96-108); Estimated Glomerular Filt Rate > 60; Glucose Random 96 mg/dL (60-115); Potassium 3.1 mmol/L (3.3-5.1); Sodium 129 mmol/L (135-145)
== END 2023-10-04 10:01 | disposition home or self-care (01) ==
LOC: HO.HMGCLDS 10:00
PROVIDERS: PCP Internal Medicine; Visit Provider Internal Medicine Hypertension Specialist
DX: E87.1 Hypo-osmolality and hyponatremia (principal); R25.2 Cramp and spasm; R35.0 Frequency of micturition; E87.79 Other fluid overload; R63.1 Polydipsia
CPT/HCPCS: 36415; 80048; 81001; 87086

== ENCOUNTER 2023-10-09 09:06 | Outpatient (AMB) | payer OTHER, SELFPAY ==
[2023-10-09 09:08] VITALS: BP 136/70; PULSE 70; O2SAT 97; BMI 33.8
--- NOTE | 2023-10-09 09:08 | HO.NEPHOV ---
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 Coordinator Required: No Accompanied by: Self / Same As Patient Allergies oxycodone Allergy (Unknown, Verified 10/09/23 09:10) Unknown lithium [LITHIUM] Adverse Reaction (Intermediate, Verified 10/09/23 09:10) bilateral pedal edema NSAIDS (Non-Steroidal Anti-Inflamma Adverse Reaction (Mild, Verified 10/09/23 09:10) Nephropathy HPI Comments Details: 63 years old woman with a history significant for hypothyroidism (thyroid CA s/p thyroidectomy), depression and essential hypertension presents to the emergency department after she was found to have significant hyponatremia (120) on a routine blood workup as an outpatient. Sodium was 119. She admits to drinking 2 gal of water. She drinks at least 1 2 L bottle of diet Coke. She had severe hypothyroidism with a TSH of 16 She is placed on p.o. water restriction. Sodium gradually increased to 129 and she was discharged She is here for further follow-up. At the time of discharge she was supposed to be sent home with 125 mcg of Synthroid however she was given a prescription of 88 mcg. Extent 2023. She took 2 caffeinated gums and feels jittery. Recently treated for suspected UTI with nitrofurantoin. Currently she is on levothyroxine 125 mcg. [facility] Medical History Internal derangement of right knee Hypothyroidism Hypertension, essential Thyroid ca Anxiety Hx of major depression Hypertension Surgical History Hx of thyroidectomy Hx of section Family History Father Colon cancer Other Mental health disorder Substance use disorder Social History Household Members: Significant Other Housing: House Do you presently have visiting nurse or other home services: No Alcohol intake: current Alcohol intake frequency: holidays/special occasions only Patient Tobacco Use Status: Never used Tobacco Tobacco use type: Cigarette Cigarettes Per Day: 2 e-Cigarette/Vaping Use: Never Used service: No Current occupational status: employed (off for 3 months) Cognitive needs: No Hearing needs: No Vision needs: No Female Reproductive History Menstrual Age of Menarche: 14 Physical Exam Vital Signs: Last Vital Signs Pulse 70 10/09/23 09:08 BP 136/70 10/09/23 09:08 Pulse Ox 97 10/09/23 09:08 Oxygen Delivery Method Room Air 10/09/23 09:08 BMI result Body Mass Index 33.8 Const General: comfortable Nutritional Appearance: well nourished Orientation/consciousness: patient oriented x3 HEENT Head: No normal to inspection Mouth: moist mucous membranes Neck Neck: Yes supple and Yes no JVD Resp Auscultation: clear to auscultation bilaterally, no rales and rub present Cardio Jugular venous distension: no JVD Palpation: no palpable S3 and no palpable S4 Heart sounds: no rubs GI Palpation (GI): Soft to palpation and nontender Percussion: No Fluid wave present General: Yes no CVA tenderness Back/Spine/Pelvis Back: no CVA tenderness Skin General skin exam: no rashes or lesions noted Neuro General: patient oriented x3 Extrem General: Yes no pedal edema and No clubbing Results Reviewed Nephrology Results: Hgb 14.3 g/dl (12.0-16.0) 08/18/23 WBC 12.1 X10*3/uL (4.8-10.8) H 08/18/23 Plt Count 434 X10*3/uL (160-400) H 08/18/23 Sodium 129 mmol/L (135-145) L 10/04/23 Potassium 3.1 mmol/L (3.3-5.1) L 10/04/23 Chloride 92 mmol/L (96-108) L 10/04/23 Carbon Dioxide 25 mmol/L (22-29) 10/04/23 BUN 7 mg/dL (9-16) L 10/04/23 Creatinine 0.79 mg/dL (0.5-1.4) 10/04/23 Calcium 10.3 mg/dL (8.4-10.2) H 10/04/23 Phosphorus 3.5 mg/dL (2.7-4.5) 08/19/23 PTH Intact 37.6 pg/mL (8.7-77.1) 08/19/23 Urine Protein Negative mg/dL (Neg-Trace) 10/04/23 Assessment & Plan Assessment & Plan (1) Hyponatremia: Code(s): E87.1 - Hypo-osmolality and hyponatremia Category: Medical (2) Other specified hypothyroidism: Code(s): E03.8 - Other specified hypothyroidism Category: Medical Plan History of Severe hyponatremia due to significant hypothyroidism and excessive free water intake. Serum sodium has been gradually improved Rate of correction acceptable. Goal is to maintain serum sodium more than 130 millimoles. Hypothyroidism needs to be addressed. Continue levothyroxine 125 mcg and recheck TSH -ordered Encouraged to limit her free water intake. Mild hypokalemia. Gave potassium chloride 10 mEq use daily x3 doses check levels next week. Orders: Orders Basic Metabolic Panel 1 Week E87.1 - Hypo-osmolality and hyponatremia TSH reflex Free T4 1 Week E87.1 - Hypo-osmolality and hyponatremia Medications: New potassium chloride ER 10 mEq PO DAILY 3 caps 0RF Coding Level of Care Code Est Pt Level 4 (28831) Diagnoses Hyponatremia E87.1 Other specified hypothyroidism E03.8
== END 2023-10-09 09:35 | disposition home or self-care (01) ==
PROVIDERS: PCP Internal Medicine; Visit Provider Internal Medicine Hypertension Specialist
DX: E87.1 Hypo-osmolality and hyponatremia (principal); E03.8 Other specified hypothyroidism
CPT/HCPCS: 99214

== ENCOUNTER → 2023-10-09 09:06 | Outpatient (BNVA) | payer OTHER, SELFPAY | PROVIDERS: PCP Internal Medicine; Visit Provider Internal Medicine Hypertension Specialist | DX: E87.1 Hypo-osmolality and hyponatremia (principal); E03.8 Other specified hypothyroidism | CPT/HCPCS: 99212 ==

== ENCOUNTER 2023-10-20 09:30 | Outpatient (REF) | payer OTHER, SELFPAY ==
[2023-10-20 12:21] LABS: Anion Gap 16 (12-20); Blood Urea Nitrogen 11 mg/dL (9-16); Calcium 9.3 mg/dL (8.4-10.2); Carbon Dioxide 26 mmol/L (22-29); Chloride 96 mmol/L (96-108); Estimated Glomerular Filt Rate > 60; Glucose Random 111 mg/dL (60-115); Potassium 3.2 mmol/L (3.3-5.1); Sodium 135 mmol/L (135-145); TSH reflex Free T4 0.05 uIU/mL (0.32-4.0)
[2023-10-20 13:10] LABS: Free T4 (Free Thyroxine) 1.36 ng/dL (0.71-1.85)
== END 2023-10-20 09:31 | disposition home or self-care (01) ==
LOC: HO.HMGCLDS 09:30
PROVIDERS: PCP Internal Medicine; Visit Provider Internal Medicine Hypertension Specialist
DX: E87.1 Hypo-osmolality and hyponatremia (principal)
CPT/HCPCS: 36415; 80048; 84439; 84443

== ENCOUNTER 2023-11-06 11:21 | Outpatient (AMB) | payer OTHER, SELFPAY ==
--- NOTE | 2023-11-06 11:22 | MHC.OFFVIS ---
Intake Visit Reasons: OV - Right Knee MRI Follow Up Intake Note: Regla is a 63 year old female who present today for a follow up of her right Knee MRI done on 09/26/23. Patient reports she is still having continued pain at night that keeps her awake. Her last injection was on 08/28/23 provided her with a month of relief. Allergies oxycodone Allergy (Unknown, Verified 11/06/23 11:24) Unknown lithium [LITHIUM] Adverse Reaction (Intermediate, Verified 11/06/23 11:24) bilateral pedal edema NSAIDS (Non-Steroidal Anti-Inflamma Adverse Reaction (Mild, Verified 11/06/23 11:24) Nephropathy HPI HPI OV - Right Knee MRI Follow Up: Details: Regla is a 63 year old female who present today for a follow up of her right Knee MRI done on 09/26/23. Patient reports she is still having continued pain at night that keeps her awake. Her last injection was on 08/28/23 provided her with a month of relief. She has pain at night and with ambulation. [facility] Medical History Internal derangement of right knee Hypothyroidism Hypertension, essential Thyroid ca Anxiety Hx of major depression Hypertension Surgical History Hx of thyroidectomy Hx of section Family History Father Colon cancer Other Mental health disorder Substance use disorder Social History Household Members: Significant Other Housing: House Do you presently have visiting nurse or other home services: No Alcohol intake: current Alcohol intake frequency: holidays/special occasions only Patient Tobacco Use Status: Never used Tobacco Tobacco use type: Cigarette Cigarettes Per Day: 2 e-Cigarette/Vaping Use: Never Used service: No Current occupational status: unemployed Cognitive needs: No Hearing needs: No Vision needs: No Female Reproductive History Menstrual Age of Menarche: 14 Physical Exam Extrem Other: Medial tibial plateau ttp Office Procedures Joint Injection/Drain Joint Injection/Drain Details: Injected 1 mL of Decadron and 3 mL 1% lidocaine and 3 mL of 0.25% Marcaine. Site was prepped using aseptic technique. Patient tolerated the procedure well. Primary Site: right knee Approach Used: anterolateral Coding - Large joint Procedure code (CPT) selection complete Results Reviewed Results Reviewed: I personally reviewed the MR images. 1. Irregular inner margin fraying/tearing of the medial meniscus posterior horn and root with a thin oblique inner margin component. Medial extrusion of the meniscal body with inner margin fraying. Adjacent soft tissue edema and osseous contusion within the medial tibial plateau. Assessment & Plan Assessment & Plan (1) Unilateral post-traumatic osteoarthritis, right knee: Code(s): M17.31 - Unilateral post-traumatic osteoarthritis, right knee Category: Medical Plan: Degenerative meniscal tearing in setting of knee OA. Injected knee today. If pain persists will consider additional options. Cannot take NSAIDs. Coding Level of Care Code Est Pt Level 3 (91517) Diagnoses Unilateral post-traumatic osteoarthritis, right knee M17.31 CPT Codes Coding - Large joint: 98835 - Large joint ([id number])
== END 2023-11-06 12:06 | disposition home or self-care (01) ==
PROVIDERS: PCP Internal Medicine; Visit Provider Orthopaedic Surgery
DX: M17.31 Unilateral post-traumatic osteoarthritis, right knee (principal)
CPT/HCPCS: 20610; 99213

== ENCOUNTER → 2023-11-06 11:21 | Outpatient (BNVA) | payer OTHER, SELFPAY | PROVIDERS: PCP Internal Medicine; Visit Provider Orthopaedic Surgery | DX: M17.31 Unilateral post-traumatic osteoarthritis, right knee (principal); T14.90XS Injury, unspecified, sequela | CPT/HCPCS: 20610; 99212; J0665; J1100 ==

== ENCOUNTER 2023-11-18 10:03 | Outpatient (REF) | payer OTHER, SELFPAY ==
[2023-11-18 11:51] LABS: Anion Gap 17 (12-20); Carbon Dioxide 21 mmol/L (22-29); Chloride 105 mmol/L (96-108); Sodium 139 mmol/L (135-145)
== END 2023-11-18 10:04 | disposition home or self-care (01) ==
LOC: HO.HMGCLDS 10:03
PROVIDERS: PCP Internal Medicine; Visit Provider Internal Medicine Nephrology
DX: E87.1 Hypo-osmolality and hyponatremia (principal)
CPT/HCPCS: 36415; 80051

== ENCOUNTER 2023-11-20 10:03 | Outpatient (AMB) | payer OTHER, SELFPAY ==
[2023-11-20 10:05] VITALS: BP 142/78; PULSE 73; O2SAT 97; BMI 33.7
--- NOTE | 2023-11-20 10:05 | HO.NEPHOV_ITS ---
Vital Signs 11/20/23 10:05 11/20/23 10:15 Height 5 ft 3 in Weight 190 lb BMI 33.7 BP 142/78 H 120/70 Blood Pressure Location Lt brachial Lt brachial Position Sitting Sitting Pulse 73 Pulse Source Pulse Oximeter Pulse Oximetry (%) 97 Oxygen Delivery Method Room Air Intake Visit Reasons: CKD/ 6 weeks fu/ LVM [employer] Required: No Accompanied by: Self / Same As Patient Allergies oxycodone Allergy (Unknown, Verified 11/20/23 10:06) Unknown lithium [LITHIUM] Adverse Reaction (Intermediate, Verified 11/20/23 10:06) bilateral pedal edema NSAIDS (Non-Steroidal Anti-Inflamma Adverse Reaction (Mild, Verified 11/20/23 10:06) Nephropathy Medication List - Last Reconciled 11/20/23 by Sarkis El MD atenolol 25 mg PO DAILY 90 days cholecalciferol (vitamin D3) 25 mcg PO DAILY 90 days cyclobenzaprine 5 mg PO BEDTIME diclofenac sodium 75 mg PO BEDTIME PRN lamotrigine ER 250 mg PO DAILY levothyroxine 125 mcg PO DAILY minoxidil 2.5 mg PO DAILY omeprazole magnesium 20 mg PO DAILY@0630 potassium chloride ER 10 mEq PO DAILY quetiapine 100 mg PO BEDTIME tramadol 50 mg PO BEDTIME 30 days HPI Comments Details: 63 years old woman with a history significant for hypothyroidism (thyroid CA s/p thyroidectomy), depression and essential hypertension presents to the emergency department after she was found to have significant hyponatremia (120) on a routine blood workup as an outpatient. Sodium was 119. She admits to drinking 2 gal of water. She drinks at least 1 2 L bottle of diet Coke. She had severe hypothyroidism with a TSH of 16 She is placed on p.o. water restriction. Sodium gradually increased to 129 and she was discharged She is here for further follow-up. At the time of discharge she was supposed to be sent home with 125 mcg of Synthroid however she was given a prescription of 88 mcg. September 2023. She took 2 caffeinated gums and feels jittery. Recently treated for suspected UTI with nitrofurantoin. Currently she is on levothyroxine 125 mcg. [facility] Medical History Internal derangement of right knee Hypothyroidism Hypertension, essential Thyroid ca Anxiety Hx of major depression Hypertension Surgical History Hx of thyroidectomy Hx of section Family History Father Colon cancer Other Mental health disorder Substance use disorder Social History Household Members: Significant Other Housing: House Do you presently have visiting nurse or other home services: No Alcohol intake: current Alcohol intake frequency: holidays/special occasions only Patient Tobacco Use Status: Never used Tobacco Tobacco use type: Cigarette Cigarettes Per Day: 2 e-Cigarette/Vaping Use: Never Used service: No Current occupational status: unemployed Cognitive needs: No Hearing needs: No Vision needs: No Female Reproductive History Menstrual Age of Menarche: 14 Physical Exam Vital Signs: Last Vital Signs Pulse 73 11/20/23 10:05 BP 142/78 H 11/20/23 10:05 Pulse Ox 97 11/20/23 10:05 Oxygen Delivery Method Room Air 11/20/23 10:05 BMI result Body Mass Index 33.7 Const General: comfortable; No acute distress Orientation/consciousness: patient oriented x3 Eyes General: appearance normal, both eyes and all related structures Visual Hernandez: normal visual hernandez by confrontation Neck Neck: Yes supple and Yes no JVD Resp Effort & Inspection: normal respiratory effort and respiratory effort not decreased Auscultation: rhonchi Cardio Palpation: no palpable S3 and no palpable S4 Heart sounds: no rubs GI Inspection: Yes normal to inspection Palpation (GI): Soft to palpation Percussion: Yes normal to percussion Auscultation: normal bowel sounds General: Yes no CVA tenderness Back/Spine/Pelvis Back: no CVA tenderness Skin General skin exam: no petechiae and no purpura Neuro General: patient oriented x3 and no focal motor deficits Extrem General: No clubbing and No edema Results Reviewed Nephrology Results: Sodium 139 mmol/L (135-145) 11/18/23 Potassium 4.0 mmol/L (3.3-5.1) 11/18/23 Chloride 105 mmol/L (96-108) 11/18/23 Carbon Dioxide 21 mmol/L (22-29) L 11/18/23 BUN 11 mg/dL (9-16) 10/20/23 Creatinine 0.77 mg/dL (0.5-1.4) 10/20/23 Calcium 9.3 mg/dL (8.4-10.2) 10/20/23 Urine Protein Negative mg/dL (Neg-Trace) 10/04/23 Assessment & Plan Assessment & Plan (1) Hyponatremia: Code(s): E87.1 - Hypo-osmolality and hyponatremia Category: Medical (2) Other specified hypothyroidism: Code(s): E03.8 - Other specified hypothyroidism Category: Medical Plan History of Severe hyponatremia due to significant hypothyroidism and excessive free water intake. Serum sodium has been gradually improved Rate of correction acceptable. Goal is to maintain serum sodium more than 130 millimoles. Hypothyroidism Continue levothyroxine 125 mcg Repeat TSH -normal Encouraged to limit her free water intake. Mild hypokalemia. corrected Orders: Orders Basic Metabolic Panel 3 Months E87.1 - Hypo-osmolality and hyponatremia Vitamin D 25-OH (D2 and D3) 3 Months E87.1 - Hypo-osmolality and hyponatremia TSH reflex Free T4 3 Months E87.1 - Hypo-osmolality and hyponatremia Medications: Discontinued potassium chloride ER Discontinued Reason: Doctor's Order 10 mEq PO DAILY 3 caps 0RF Coding Level of Care Code Est Pt Level 3 (63116) Diagnoses Hyponatremia E87.1 Other specified hypothyroidism E03.8
[2023-11-20 10:15] VITALS: BP 120/70
== END 2023-11-20 10:18 | disposition home or self-care (01) ==
PROVIDERS: PCP Internal Medicine; Visit Provider Internal Medicine Hypertension Specialist
DX: E87.1 Hypo-osmolality and hyponatremia (principal); E03.8 Other specified hypothyroidism
CPT/HCPCS: 99213

== ENCOUNTER → 2023-11-20 10:03 | Outpatient (BNVA) | payer OTHER, SELFPAY | PROVIDERS: PCP Internal Medicine; Visit Provider Internal Medicine Hypertension Specialist | DX: E87.1 Hypo-osmolality and hyponatremia (principal); E03.8 Other specified hypothyroidism | CPT/HCPCS: 99212 ==

== ENCOUNTER 2023-11-30 07:34 | Outpatient (REF) | payer OTHER, SELFPAY ==
--- NOTE | ~2023-11-30 | MM_ITS ---
EXAMINATION: MM SCREENING DIGITAL BREAST TOMOSYNTHESIS, BILATERAL CLINICAL INFORMATION: Screening. Asymptomatic. COMPARISON: Mammography: This study is compared with prior exams dating back to 2017. TECHNIQUE: Digital breast tomosynthesis is performed in both the craniocaudal and mediolateral oblique views along with computer-aided detection (CAD). Synthesized 2D images are generated from the tomosynthesis. FINDINGS: There are scattered areas of fibroglandular density (ACR BI-RADS breast composition Category b). There are no significant masses, abnormal calcifications, or other abnormalities. MM/MM tomosynthesis screening BI IMPRESSION: No mammographic evidence of malignancy. ASSESSMENT: BI-RADS BI-RADS 1 - Negative RECOMMENDATION: Routine annual mammography screening. 1 year F/U This examination should not preclude the clinical evaluation of a suspicious palpable abnormality. This patient's information was entered into a reminder system with a target due date for their next mammogram. Electronically signed by: Shaina Betancourt MD 12/29/2023 11:50 AM EDT
== END 2023-11-30 07:35 | disposition home or self-care (01) ==
LOC: HO.MAMMO 07:34
PROVIDERS: PCP Internal Medicine; Visit Provider Internal Medicine
DX: Z12.31 Encounter for screening mammogram for malignant neoplasm of breast (principal)
CPT/HCPCS: 77063; 77067

== ENCOUNTER → 2023-11-30 07:45 | Outpatient (BNV) | payer OTHER, SELFPAY | PROVIDERS: PCP Internal Medicine; Visit Provider Radiology Diagnostic Radiology | DX: Z12.31 Encounter for screening mammogram for malignant neoplasm of breast (principal) | CPT/HCPCS: 77063; 77067 ==

== ENCOUNTER 2023-12-06 12:12 | Outpatient (AMB) | payer OTHER, SELFPAY ==
--- NOTE | 2023-12-06 12:46 | A.OFFVIS_ITS ---
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 No complaints. Last Pap/HPV was negative in 10/19 Last Mammogram was done in 12/20/2023, the report is still pending Last Colonoscopy was in 2013, the recommendation was to repeat in 2023 [facility] Medical History Internal derangement of right knee Hypothyroidism Hypertension, essential Thyroid ca Anxiety Hx of major depression Hypertension Surgical History Hx of thyroidectomy Hx of section Family History Father Colon cancer Other Mental health disorder Substance use disorder Social History Household Members: Significant Other Housing: House Do you presently have visiting nurse or other home services: No Alcohol intake: current Alcohol intake frequency: holidays/special occasions only Patient Tobacco Use Status: Never used Tobacco Tobacco use type: Cigarette Cigarettes Per Day: 2 e-Cigarette/Vaping Use: Never Used service: No Current occupational status: unemployed Cognitive needs: No Hearing needs: No Vision needs: No Female Reproductive History Menstrual Age of Menarche: 14 Date of last pap smear: 10/07/20 Date of Mammogram: 11/30/23 Review of Systems Const All systems reviewed & are unremarkable except as noted in HPI and below Card Reports as per HPI Resp Reports as per HPI GI Reports as per HPI and Reports no additional complaints Reports as per HPI Physical Exam Vital Signs: Last Vital Signs BP 126/74 12/06/23 12:47 BMI result Body Mass Index 33.6 Const General: cooperative, healthy appearing and comfortable Chest Chest palpation & inspection: normal inspection of the chest and normal palpation of entire chest wall Breast/axilla inspection: normal inspection of the breasts and normal inspection of the axillae Breast/axilla palpation: normal palpation of the breasts, normal palpation of the axillae and no axillary lymphadenopathy Resp Effort & Inspection: normal respiratory effort Auscultation: clear to auscultation bilaterally Percussion: percussion normal Cardio Palpation: normal PMI Rate: regular rate Rhythm: regular rhythm Heart sounds: no murmurs and no rubs Peripheral pulses: Peripheral pulses 2+ throughout GI Inspection: Yes normal to inspection Palpation (GI): Soft to palpation, nontender, no guarding, not rigid and No hepatosplenomegaly present Percussion: Yes normal to percussion Auscultation: normal bowel sounds Rectal Exam - Female: deferred General: Yes bladder normal to palpation External Female Exam: No lesion Speculum Exam - Vagina: normal appearance of the vagina, normal palpation, normal vaginal discharge and not erythematous Speculum Exam - Cervix: normal appearance of the cervix and normal palpation Bimanual exam- vagina & uterus: normal bimanual exam, normal palpation, uterine size normal, bladder normal to palpation, consistency normal and normal palpation Bimanual Exam- Adnexa, other: normal adnexae, no masses and no tenderness Assessment & Plan Assessment & Plan (1) Well woman exam: Code(s): Z01.419 - Encounter for gynecological examination (general) (routine) without abnormal findings Category: Medical Plan: Co testing not indicated this year. Counseled the patient about the recommended dietary allowance of 1200 mg of Calcium & 600 IU of vitamin D. Instructions given the patient to schedule next screening Mammogram in 12/23. The patient was referred to GI for screening colonoscopy . The patient was instructed to perform monthly self-breast exams and schedule annual exam in a year. All questions answered and the patient verbalized understanding. Orders: Referrals Gastroenterology Referral Z12.11 - Encounter for screening for malignant neoplasm of colon Coding Level of Care Code Est Pt Prev Care 40-64y(41636) Diagnoses Well woman exam Z01.419
[2023-12-06 12:47] VITALS: BP 126/74; BMI 33.6
== END 2023-12-06 13:01 | disposition home or self-care (01) ==
PROVIDERS: PCP Internal Medicine; Visit Provider Obstetrics & Gynecology
DX: Z01.419 Encounter for gynecological examination (general) (routine) without abnormal findings (principal)
CPT/HCPCS: 99396

== ENCOUNTER → 2023-12-06 12:12 | Outpatient (BNVA) | payer OTHER, SELFPAY | PROVIDERS: PCP Internal Medicine; Visit Provider Obstetrics & Gynecology | DX: Z01.419 Encounter for gynecological examination (general) (routine) without abnormal findings (principal) | CPT/HCPCS: 99396 ==

== ENCOUNTER 2023-12-11 08:25 | Outpatient (REF) | payer OTHER, SELFPAY ==
--- NOTE | ~2023-12-11 | XR_ITS ---
EXAMINATION: XR KNEE AP STANDING CLINICAL INFORMATION: Pain. COMPARISON: Right knee radiographs dated 01/13/2023. TECHNIQUE: AP bilateral standing view of the knees was obtained. FINDINGS: Bony alignment and mineralization are normal. There is mild to moderate asymmetric narrowing of medial joint space compartment of the right knee. The lateral joint space compartment of the right knee is well-maintained. The lateral and medial joint space compartments of the left knee are well-maintained. No acute fracture or dislocation is seen. There is no significant varus or valgus configuration bilaterally. The soft tissue planes are unremarkable. XR/XR knee standing BI IMPRESSION: 1. There is mild to moderate degenerative change of the medial joint space compartment of the right knee. 2. The joint space compartments of the left knee are well-maintained. Electronically signed by: Jet Vides MD 01/09/2024 07:59 PM EDT
== END 2023-12-11 08:26 | disposition home or self-care (01) ==
LOC: HO.HOSX 08:25
PROVIDERS: Visit Provider Orthopaedic Surgery
DX: M25.569 Pain in unspecified knee (principal); M17.11 Unilateral primary osteoarthritis, right knee
CPT/HCPCS: 73565; 99212

== ENCOUNTER 2023-12-11 10:16 | Outpatient (AMB) | payer OTHER, SELFPAY ==
[2023-12-11 10:40] VITALS: BMI 33.5
--- NOTE | 2023-12-11 10:40 | A.OFFVIS_ITS ---
Vital Signs 12/11/23 10:40 Height 5 ft 3 in Weight 189 lb BMI 33.5 Intake Visit Reasons: OV-pain in right knee-discuss surgery? Intake Note: Regla is a 63 year old female who presents today for a follow up of her right knee OA & Degenerative Mencius tearing. Injected 11/06/23 which was only mildly helpful, she would like to discuss alternative treatment options. Allergies oxycodone Allergy (Unknown, Verified 12/11/23 10:43) Unknown lithium [LITHIUM] Adverse Reaction (Intermediate, Verified 12/11/23 10:43) bilateral pedal edema NSAIDS (Non-Steroidal Anti-Inflamma Adverse Reaction (Mild, Verified 12/11/23 10:43) Nephropathy HPI HPI OV-pain in right knee-discuss surgery?: Details: Regla is a 63 year old female who presents today for a follow up of her right knee OA & Degenerative Mencius tearing. Injected 11/06/23 which was only mildly helpful, she would like to discuss alternative treatment options. Injections, NSAIDs, activity modification have been tried and have been unsuccessful. This has been going on for about one year and she feels the quality of her life is diminished. [facility]LY [facility] Medical History Internal derangement of right knee Hypothyroidism Hypertension, essential Thyroid ca Anxiety Hx of major depression Hypertension Surgical History Hx of thyroidectomy Hx of section Family History Father Colon cancer Other Mental health disorder Substance use disorder Social History Household Members: Significant Other Housing: House Do you presently have visiting nurse or other home services: No Alcohol intake: current Alcohol intake frequency: holidays/special occasions only Patient Tobacco Use Status: Never used Tobacco Tobacco use type: Cigarette Cigarettes Per Day: 2 e-Cigarette/Vaping Use: Never Used service: No Current occupational status: unemployed Cognitive needs: No Hearing needs: No Vision needs: No Female Reproductive History Menstrual Age of Menarche: 14 Physical Exam Vital Signs: BMI result Body Mass Index 33.5 Extrem Other: medial compartment gonarthrosis and ttp trace effusion gait antalgia on gait initiation Results Reviewed Results Reviewed: I personally reviewed relevant radiographs. I personally reviewed the MR images. There is moderate to severe cartilage loss in the medial compartment of the right knee. Assessment & Plan Assessment & Plan (1) Arthritis of right knee: Code(s): M17.11 - Unilateral primary osteoarthritis, right knee Category: Medical Plan: right knee medial compartment arthrosis. She has failed non-operative treatments and I recommend UKA. We had a long discussion regarding UKA vs TKA. I discussed the risks benefits and alternatives including but not limited to the risk of pain, infection, stiffness, need for further surgery as well as potential medical complications such as blood clots, pulmonary embolism and cardiac complications. We elected to proceed forward with UKA. She understands the possibilty of adjacent compartment disease and decreased prosthesis longevity. Plan I reccomend medial unicompartmental Knee Arthroplasty, I will introduce patient to our Nurse Navigator Nilda for surgical planning Orders: Orders XR knee standing BI Today M25.569 - Pain in unspecified knee Coding Level of Care Code Est Pt Level 4 (14665) Diagnoses Arthritis of right knee M17.11
== END 2023-12-11 11:13 | disposition home or self-care (01) ==
PROVIDERS: PCP Internal Medicine; Visit Provider Orthopaedic Surgery
DX: M17.11 Unilateral primary osteoarthritis, right knee (principal)
CPT/HCPCS: 99214

== ENCOUNTER 2024-01-03 09:14 | Outpatient (AMB) | payer OTHER, SELFPAY ==
[2024-01-03 09:16] VITALS: BP 126/84; PULSE 80; O2SAT 96; BMI 33.5
--- NOTE | 2024-01-03 09:16 | A.OFFPC_ITS ---
Vital Signs 01/03/24 09:16 Height 5 ft 3 in Weight 189 lb 4 oz BMI 33.5 BP 126/84 Blood Pressure Location Lt brachial Position Sitting Pulse 80 Pulse Source Pulse Oximeter Pulse Oximetry (%) 96 Oxygen Delivery Method Room Air Intake Visit Reasons: 4M F/U knee pain Allergies oxycodone Allergy (Unknown, Verified 01/03/24 09:16) Unknown lithium [LITHIUM] Adverse Reaction (Intermediate, Verified 01/03/24 09:16) bilateral pedal edema NSAIDS (Non-Steroidal Anti-Inflamma Adverse Reaction (Mild, Verified 01/03/24 09:16) Nephropathy Medication List - Last Reconciled 01/03/24 by Rozina Carpio MD atenolol 25 mg PO DAILY 90 days cholecalciferol (vitamin D3) 25 mcg PO DAILY 90 days cyclobenzaprine 5 mg PO BEDTIME lamotrigine ER 250 mg PO DAILY levothyroxine 125 mcg PO DAILY minoxidil 2.5 mg PO DAILY omeprazole magnesium 20 mg PO DAILY@0630 quetiapine 100 mg PO BEDTIME tramadol 50 mg PO BEDTIME 30 days Tobacco use date assessed: 01/03/24 Dental Screening Dental Screen Date: 01/03/24 Did you have a dental visit in the last 12 months?: Yes Did you have a dental problem in the last 6 months where you did not have access to dental care?: No Was dental information given to patient?: Patient has dentist HPI 4M F/U knee pain HPI Details Patient is 63-year-old female came in today for her regular follow-up visit She has been suffering from knee pain for the past few weeks Finally going partial knee replacement right side on February 12 She will come in January 30 for preop clearance Lab order placed that need to be done 3 days before her visit with me Hypothyroidism: Patient was seeing endocrinology but then stopped going, her TSH level was very high at 1 point Patient says that somebody told her that they are sending 25 mg of levothyroxine and that is why it was like that She told Dr. El who took over the thyroid management, she is currently taking 125 mcg , patient started seeing Nephrology Due to electrolyte imbalance and nephropathy. I have ordered TSH level that she will do 3 days before her preop visit Blood pressure is stable with atenolol 25 mg and hydrochlorothiazide 25 mg Reflux is stable with omeprazole Bipolar disorder management through Psychiatry Currently she is on lamotrigine 200 mg, hydroxyzine and Seroquel, through Psychiatry BMI is elevated need to lose weight PFSH Medical History Internal derangement of right knee Hypothyroidism Hypertension, essential Thyroid ca Anxiety Hx of major depression Hypertension Surgical History Hx of thyroidectomy Hx of section Family History Father Colon cancer Other Mental health disorder Substance use disorder Social History Household Members: Significant Other Housing: House Do you presently have visiting nurse or other home services: No Alcohol intake: current Alcohol intake frequency: holidays/special occasions only Patient Tobacco Use Status: Never used Tobacco Tobacco use type: Cigarette Cigarettes Per Day: 2 e-Cigarette/Vaping Use: Never Used service: No Current occupational status: unemployed Cognitive needs: No Hearing needs: No Vision needs: No Female Reproductive History Menstrual Age of Menarche: 14 Questionnaire PHQ-9 Over the last 2 weeks, how often have you been bothered by any of the following problems? 1. Little interest or pleasure in doing things: several days 2. Feeling down, depressed, or hopeless: not at all 3. Trouble falling or staying asleep, or sleeping too much: not at all 4. Feeling tired or having little energy: not at all 5. Poor appetite or overeating: not at all 6. Feeling bad about yourself - or that you are a failure or have let yourself or your family down: not at all 7. Trouble concentrating on things, such as reading the newspaper or watching television: not at all 8. Moving or speaking so slowly that other people could have noticed. Or the opposite - being so fidgety or restless that you have been moving around a lot more than usual: not at all 9. Thoughts that you would be better off or of hurting yourself in some way: not at all Total score: 1 Depression Screening Interpretation: Negative Depression Screening Done: Yes 57347 - PHQ-9 Billing: Yes Source: Developed by Drs. Dangelo LMadiha Hadley Kurt Kroenke and colleagues, with an educational brina from [employer]. Thrive Questionnaire Date Thrive assessed: 01/03/24 I am a: Patient What is your living situation today?: I have a steady place to live Within the past 12 months, did the food you bought not last and you didn't have the money to get more?: I choose not to answer this question Within the past 12 months, did you worry whether your food would run out before you got money to buy more?: I choose not to answer this question Do you have trouble paying for medicines?: I choose not to answer this question Do you have trouble getting transportation to medical appointments?: No Do you have trouble paying your heating and electricity bill?: No Do you have trouble taking care of your child, family member or friend?: No Do you have trouble with day-to-day activities such as bathing, preparing meals, shopping, managing finances, etc.?: No Are you currently unemployed and looking for a job?: No Are you interested in more education?: I choose not to answer this question Please select the resources that you would like help with: None Currently or been in a relationship where the following occur: No concerns reported THRIVE Score: 0 AUDIT C Alcohol Use Questionnaire (AUDIT-C) 1. How often do you have a drink containing alcohol?: Never 2. How many drinks containing alcohol do you have on a typical day when you are drinking?: 1 or 2 3. How often do you have six or more drinks on one occasion?: Never Total Score: 0 Score Reviewed/Action Taken: Yes ANTON-7 AMB Questionnaire ANTON-7 Date ANTON - 7 assessed: 01/03/24 Feeling nervous, anxious, or on edge: 2 = More than half the days Not being able to stop or control worryin = Several days Worrying too much about different things: 2 = More than half the days Trouble relaxin = Several days Being so restless that it is hard to sit still: 0 = Not at all Becoming easily annoyed or irritable: 3 = Nearly every day Feeling afraid as if something awful might happen: 1 = Several days Total ANTON-7 score (0-4 normal; 5-9 mild; 10-14 moderate; 15-21 severe): 10 Source: Developed by Drs. Dangelo Taylor, Madiha Valdez, Jonny Pepper and colleagues, with an educational brina from [employer]. ANTON-7 Assessment Billing ANTON-7 Assessment Tool: ANTON-7 Assessment 35420 Review of Systems Const Denies chills and Denies fever(s) ENT Denies epistaxis and Denies nasal discharge Card Denies chest pain Resp Denies chest congestion, Denies cough and Denies hemoptysis GI Denies diarrhea and Denies nausea Skin/Breast Denies rash Neuro Reports no additional complaints Psych Reports no additional complaints Endo Reports no additional complaints Physical exam (Primary Care) Vital Signs: Last Vital Signs Pulse 80 01/03/24 09:16 BP 126/84 01/03/24 09:16 Pulse Ox 96 01/03/24 09:16 Oxygen Delivery Method Room Air 01/03/24 09:16 BMI result Body Mass Index 33.5 Tobacco/Smoking Status: Tobacco use Status Tobacco use date assessed 01/03/24 01/03/24 09:17 Patient Tobacco Use Status Never used Tobacco 01/03/24 09:17 Tobacco use type Cigarette 01/03/24 09:17 e-Cigarette/Vaping Use Never Used 01/03/24 09:17 PHQ-9: PHQ-9 Score PHQ-9: Total score 1 01/03/24 09:52 Depression Screening Interpretation: Negative Thrive Assessment: Date of Thrive Assessment Date Thrive assessed 01/03/24 01/03/24 09:17 Currently or been in a relationship where the following occur: No concerns reported Const General: cooperative, comfortable and no acute distress Orientation/consciousness: patient oriented x3 HENDE Head: Yes normocephalic Eyes General: appearance normal, both eyes and all related structures Neck Neck: Yes supple Resp Effort & Inspection: normal respiratory effort, no cough and no stridor Cardio Rhythm: regular rhythm Heart sounds: S1 normal heart sound present and S2 normal heart sound present Skin General skin exam: turgor normal Neuro General: patient oriented x3, tone normal and moves all extremities Extrem Right lower extremity: no edema Left lower extremity: no edema Assessment and Plan Assessment & Plan (1) Hypertension, essential: Code(s): I10 - Essential (primary) hypertension (2) Bipolar disorder: Code(s): F31.9 - Bipolar disorder, unspecified Qualifiers: Active/Remission status: in full remission Most recent bipolar episode type: hypomanic Qualified Code(s): F31.72 - Bipolar disorder, in full remission, most recent episode hypomanic (3) Other specified hypothyroidism: Code(s): E03.8 - Other specified hypothyroidism (4) Obesity due to excess calories: Code(s): E66.09 - Other obesity due to excess calories Qualifiers: Body mass index: BMI 33.0-33.9 Obesity classification: adult class 1 (BMI 30 - 34.9) Serious obesity comorbidity presence: with serious comorbidity Qualified Code(s): E66.09 - Other obesity due to excess calories; Z68.33 - Body mass index [BMI] 33.0-33.9, adult (5) Osteoarthritis of right knee: Code(s): M17.11 - Unilateral primary osteoarthritis, right knee Qualifiers: Osteoarthritis type: unspecified Qualified Code(s): M17.11 - Unilateral primary osteoarthritis, right knee (6) Nephropathy: Code(s): N28.9 - Disorder of kidney and ureter, unspecified (7) Muscle cramps: Code(s): R25.2 - Cramp and spasm (8) Hypothyroidism: Code(s): E03.9 - Hypothyroidism, unspecified Qualifiers: Hypothyroidism type: unspecified Qualified Code(s): E03.9 - Hypothyroidism, unspecified (9) Arthrosis: Code(s): M19.90 - Unspecified osteoarthritis, unspecified site Plan Patient is 63-year-old female came in today for her regular follow-up visit She has been suffering from knee pain for the past few weeks Finally going partial knee replacement right side on February 12 She will come in January 30 for preop clearance Lab order placed that need to be done 3 days before her visit with me Hypothyroidism: Patient was seeing endocrinology but then stopped going, her TSH level was very high at 1 point Patient says that somebody told her that they are sending 25 mg of levothyroxine and that is why it was like that She told Dr. El who took over the thyroid management, she is currently taking 125 mcg , patient started seeing Nephrology Due to electrolyte imbalance and nephropathy. I have ordered TSH level that she will do 3 days before her preop visit Blood pressure is stable with atenolol 25 mg and hydrochlorothiazide 25 mg Reflux is stable with omeprazole Bipolar disorder management through Psychiatry Currently she is on lamotrigine 200 mg, hydroxyzine and Seroquel, through Psychiatry BMI is elevated need to lose weight Orders: Orders Complete Blood Count Auto Diff Today E03.8 - Other specified hypothyroidism, E66.09 - Other obesity due to excess calories, F31.72 - Bipolar disorder, in full remission, most recent episode hypomanic, M17.11 - Unilateral primary osteoarthritis, right knee, Z68.33 - Body mass index [BMI] 33.0-33.9, adult TSH reflex Free T4 Today E03.8 - Other specified hypothyroidism, E66.09 - Other obesity due to excess calories, F31.72 - Bipolar disorder, in full remission, most recent episode hypomanic, M17.11 - Unilateral primary osteoarthritis, right knee, Z68.33 - Body mass index [BMI] 33.0-33.9, adult Comprehensive Met. Panel Today E03.8 - Other specified hypothyroidism, E66.09 - Other obesity due to excess calories, F31.72 - Bipolar disorder, in full remission, most recent episode hypomanic, M17.11 - Unilateral primary osteoarthritis, right knee, Z68.33 - Body mass index [BMI] 33.0-33.9, adult Coding Level of Care Code Est Pt Level 4 (35263) Complex EM visit Add On G2211 Diagnoses Hypertension, essential I10 Bipolar disorder, in full remission, most recent episode hypomanic F31.72 Active/Remission status: in full remission Most recent bipolar episode type: hypomanic Other specified hypothyroidism E03.8 Class 1 obesity due to excess calories with serious comorbidity and body mass index (BMI) of 33.0 to 33.9 in adult E66.09; Z68.33 Body mass index: BMI 33.0-33.9 Obesity classification: adult class 1 (BMI 30 - 34.9) Serious obesity comorbidity presence: with serious comorbidity Osteoarthritis of right knee, unspecified osteoarthritis type M17.11 Osteoarthritis type: unspecified Nephropathy N28.9 Muscle cramps R25.2 Hypothyroidism, unspecified type E03.9 Hypothyroidism type: unspecified Arthrosis M19.90 Additional Codes ANTON-7 Assessment Billing - ANTON-7 Assessment Tool: ANTON-7 Assessment [id number] ([id number])
== END 2024-01-03 10:20 | disposition home or self-care (01) ==
PROVIDERS: PCP Internal Medicine; Visit Provider Internal Medicine
DX: I10 Essential (primary) hypertension (principal); F31.72 Bipolar disorder, in full remission, most recent episode hypomanic; Z68.33 Body mass index [BMI] 33.0-33.9, adult; E66.09 Other obesity due to excess calories; E03.8 Other specified hypothyroidism; M17.11 Unilateral primary osteoarthritis, right knee; N28.9 Disorder of kidney and ureter, unspecified; R25.2 Cramp and spasm; E03.9 Hypothyroidism, unspecified; M19.90 Unspecified osteoarthritis, unspecified site
CPT/HCPCS: 99214; G2211

== ENCOUNTER 2024-01-10 10:25 | Outpatient (REF) | payer OTHER, SELFPAY ==
[2024-01-10 14:34] LABS: Alanine Aminotransferase 20 U/L (0-31); Albumin Level 4.3 g/dL (3.5-5.0); Alkaline Phosphatase 99 U/L (39-117); Aspartate Amino Transferase 23 U/L (5-31); Bilirubin Direct < 0.2 mg/dL (0.0-0.5); Bilirubin Total 0.2 mg/dL (0.0-1.0); Total Protein 7.1 g/dL (6.5-8.0)
== END 2024-01-10 10:26 | disposition home or self-care (01) ==
LOC: HO.HMGCLDS 10:25
PROVIDERS: PCP Internal Medicine
DX: Z79.899 Other long term (current) drug therapy (principal)
CPT/HCPCS: 36415; 80076

== ENCOUNTER → 2024-01-19 08:48 | Outpatient (BNVA) | payer OTHER, SELFPAY | PROVIDERS: PCP Internal Medicine | DX: Z01.818 Encounter for other preprocedural examination (principal) ==

== ENCOUNTER 2024-01-24 08:03 | Outpatient (REF) | payer OTHER, SELFPAY ==
[2024-01-24 10:13] LABS: Basophils Percent Auto 0.1 % (0-2); Eosinophils Percent Auto 0.1 % (0-4); Hematocrit 38.1 % (37.0-47.0); Hemoglobin 13.1 g/dl (12.0-16.0); Imm Gran Abs Auto 0.04 X10*3/uL (0.00-0.03); Imm Gran Pct Auto 0.6 % (0.0-0.4); Lymphocytes Absolute Auto 2.3 X10*3/uL (1.2-4.9); Lymphocytes Percent Auto 32.4 % (20-40); MANUAL DIFF FLAG NO; Mean Corpuscular HGB Conc 34.4 g/dl (31.0-35.0); Mean Corpuscular Hemoglobin 32.1 pg (27.0-33.0); Mean Corpuscular Volume 93.4 fL (80.0-98.0); Mean Platelet Volume 8.8 fL (9.4-12.3); Monocytes Absolute Auto 0.5 X10*3/uL (0.1-1.2); Monocytes Percent Auto 7.3 % (2-11); Neutrophils Absolute Auto 4.2 x10*3/uL (2.0-8.3); Neutrophils Percent Auto 59.5 % (45-73); Platelet Count 292 X10*3/uL (160-400); Red Blood Count 4.08 X10*6/uL (4.20-5.50); Red Cell Distribution Width 12.7 % (11.0-16.0)
[2024-01-24 10:58] LABS: Alanine Aminotransferase 15 U/L (0-31); Alkaline Phosphatase 72 U/L (39-117); Anion Gap 12 (12-20); Aspartate Amino Transferase 15 U/L (5-31); Bilirubin Total 0.4 mg/dL (0.0-1.0); Blood Urea Nitrogen 12 mg/dL (9-16); Calcium 9.5 mg/dL (8.4-10.2); Carbon Dioxide 28 mmol/L (22-29); Chloride 106 mmol/L (96-108); Estimated Glomerular Filt Rate > 60; Glucose Random 78 mg/dL (60-115); Potassium 4.1 mmol/L (3.3-5.1); Sodium 142 mmol/L (135-145); TSH reflex Free T4 0.17 uIU/mL (0.32-4.0); Total Protein 6.7 g/dL (6.5-8.0)
[2024-01-24 11:36] LABS: Free T4 (Free Thyroxine) 1.21 ng/dL (0.71-1.85)
== END 2024-01-24 08:04 | disposition home or self-care (01) ==
LOC: HO.HMGCLDS 08:03
PROVIDERS: PCP Internal Medicine; Visit Provider Internal Medicine
DX: M17.11 Unilateral primary osteoarthritis, right knee (principal); Z68.33 Body mass index [BMI] 33.0-33.9, adult; E66.09 Other obesity due to excess calories; E03.8 Other specified hypothyroidism; F31.72 Bipolar disorder, in full remission, most recent episode hypomanic
CPT/HCPCS: 36415; 80053; 84439; 84443; 85025

== ENCOUNTER 2024-01-31 13:29 | Outpatient (AMB) | payer OTHER, SELFPAY ==
[2024-01-31 13:38] VITALS: BP 128/86; PULSE 68; O2SAT 97; BMI 33.7
--- NOTE | 2024-01-31 13:38 | MHC.PC.OV ---
Vital Signs 01/31/24 13:38 Height 5 ft 3 in Weight 190 lb 4 oz BMI 33.7 BP 128/86 Blood Pressure Location Lt brachial Position Sitting Pulse 68 Pulse Source Pulse Oximeter Pulse Oximetry (%) 97 Oxygen Delivery Method Room Air Intake Visit Reasons: Knee arthroplasty Allergies oxycodone Allergy (Unknown, Verified 01/31/24 13:41) Unknown lithium [LITHIUM] Adverse Reaction (Intermediate, Verified 01/31/24 13:41) bilateral pedal edema NSAIDS (Non-Steroidal Anti-Inflamma Adverse Reaction (Mild, Verified 01/31/24 13:41) Nephropathy Medication List - Last Reconciled 01/31/24 by Rozina Carpio MD atenolol 25 mg PO DAILY 90 days cholecalciferol (vitamin D3) 25 mcg PO DAILY 90 days cyclobenzaprine 5 mg PO BEDTIME PRN hydroxyzine HCl 25 mg PO Q8H PRN lamotrigine ER 250 mg PO BEDTIME levothyroxine 125 mcg PO DAILY minoxidil 2.5 mg PO DAILY omeprazole magnesium 20 mg PO DAILY@0630 quetiapine 100 mg PO BEDTIME tramadol 50 mg PO BEDTIME PRN walker Folding Front wheeled walker Tobacco use date assessed: 01/31/24 Dental Screening Dental Screen Date: 01/31/24 Did you have a dental visit in the last 12 months?: Yes Did you have a dental problem in the last 6 months where you did not have access to dental care?: No Was dental information given to patient?: Patient has dentist HPI Knee arthroplasty HPI Details Regla came in today for preop clearance for right knee surgery By Dr. Reyes on February 12 [facility] TSH level is still abnormal We are reducing levothyroxine further to 112 mcg Patient is complaining of urine incontinence which is chronic problem But has gotten worse for the past few weeks I have placed order for UA to rule out bladder infection Patient is to start Detrol 1 mg in the morning EKG done in the hospital recently reviewed Labs done recently reviewed as well Patient is stable for knee surgery We will set up a telemedicine visit in 3 weeks to see how she is doing with the new medication for bladder PFSH Medical History Arthritis GERD (gastroesophageal reflux disease) Bipolar 1 disorder Internal derangement of right knee Thyroid ca Anxiety Hx of major depression Hypothyroidism Hypertension, essential Surgical History Hx of removal of cyst H/O colonoscopy Hx of thyroidectomy Hx of section Family History Father Colon cancer Other Mental health disorder Substance use disorder Social History Household Members: Significant Other Housing: House Are you a primary director of patient care to a significant other at home: No Do you presently have visiting nurse or other home services: No Alcohol intake: current Alcohol intake frequency: a few times a month Patient Tobacco Use Status: Never used Tobacco Tobacco use type: Cigarette Cigarettes Per Day: 2 e-Cigarette/Vaping Use: Never Used service: No Current occupational status: unemployed Cognitive needs: No Hearing needs: No Vision needs: No Female Reproductive History Menstrual Age of Menarche: 14 Questionnaire PHQ-9 Over the last 2 weeks, how often have you been bothered by any of the following problems? 1. Little interest or pleasure in doing things: not at all 2. Feeling down, depressed, or hopeless: several days 3. Trouble falling or staying asleep, or sleeping too much: not at all 4. Feeling tired or having little energy: not at all 5. Poor appetite or overeating: not at all 6. Feeling bad about yourself - or that you are a failure or have let yourself or your family down: not at all 7. Trouble concentrating on things, such as reading the newspaper or watching television: not at all 8. Moving or speaking so slowly that other people could have noticed. Or the opposite - being so fidgety or restless that you have been moving around a lot more than usual: not at all 9. Thoughts that you would be better off or of hurting yourself in some way: not at all Total score: 1 Depression Screening Interpretation: Negative Depression Screening Done: Yes 37059 - PHQ-9 Billing: Yes Source: Developed by Drs. Dangelo Taylor, Madiha Valdez, Jonny Pepper and colleagues, with an educational brina from [employer]. Thrive Questionnaire Date Thrive assessed: 01/31/24 I am a: Patient What is your living situation today?: I have a steady place to live Within the past 12 months, did the food you bought not last and you didn't have the money to get more?: I choose not to answer this question Within the past 12 months, did you worry whether your food would run out before you got money to buy more?: I choose not to answer this question Do you have trouble paying for medicines?: I choose not to answer this question Do you have trouble getting transportation to medical appointments?: No Do you have trouble paying your heating and electricity bill?: No Do you have trouble taking care of your child, family member or friend?: No Do you have trouble with day-to-day activities such as bathing, preparing meals, shopping, managing finances, etc.?: No Are you currently unemployed and looking for a job?: No Are you interested in more education?: I choose not to answer this question Please select the resources that you would like help with: None Currently or been in a relationship where the following occur: No concerns reported THRIVE Score: 0 AUDIT C Alcohol Use Questionnaire (AUDIT-C) 1. How often do you have a drink containing alcohol?: Never 3. How often do you have six or more drinks on one occasion?: Never Total Score: 0 Score Reviewed/Action Taken: Yes ANTON-7 AMB Questionnaire ANTON-7 Date ANTON - 7 assessed: 01/03/24 Source: Developed by Drs. Dangelo Taylor, Madiha Valdez, Jonny Pepper and colleagues, with an educational brina from [employer]. Review of Systems Const Denies chills and Denies fever(s) ENT Denies epistaxis and Denies nasal discharge Card Denies chest pain Resp Denies chest congestion, Denies cough and Denies hemoptysis GI Denies diarrhea and Denies nausea Skin/Breast Denies rash Neuro Reports no additional complaints Psych Reports no additional complaints Endo Reports no additional complaints Physical exam (Primary Care) Vital Signs: Last Vital Signs Pulse 68 01/31/24 13:38 BP 128/86 01/31/24 13:38 Pulse Ox 97 01/31/24 13:38 Oxygen Delivery Method Room Air 01/31/24 13:38 BMI result Body Mass Index 33.7 Tobacco/Smoking Status: Tobacco use Status Tobacco use date assessed 01/31/24 01/31/24 13:42 Patient Tobacco Use Status Never used Tobacco 01/31/24 13:38 Tobacco use type Cigarette 01/31/24 13:38 e-Cigarette/Vaping Use Never Used 01/31/24 13:38 PHQ-9: PHQ-9 Score PHQ-9: Total score 1 01/31/24 13:42 Depression Screening Interpretation: Negative Thrive Assessment: Date of Thrive Assessment Date Thrive assessed 01/31/24 01/31/24 13:42 Currently or been in a relationship where the following occur: No concerns reported Const General: cooperative, comfortable and no acute distress Orientation/consciousness: patient oriented x3 HENMT Head: Yes normocephalic Eyes General: appearance normal, both eyes and all related structures Neck Neck: Yes supple Resp Effort & Inspection: normal respiratory effort, no cough and no stridor Cardio Rhythm: regular rhythm Heart sounds: S1 normal heart sound present and S2 normal heart sound present Skin General skin exam: turgor normal Neuro General: patient oriented x3, tone normal and moves all extremities Extrem Right lower extremity: no edema Left lower extremity: no edema Coding Level of Care Code Est Pt Level 4 (04799) Diagnoses Pre-op evaluation Z01.818 Unilateral post-traumatic osteoarthritis, right knee M17.31 Mixed stress and urge urinary incontinence N39.46 Urinary Incontinence type: mixed stress and urge incontinence Other specified hypothyroidism E03.8 Assessment & Plan Assessment & Plan (1) Pre-op evaluation: Code(s): Z01.818 - Encounter for other preprocedural examination Category: Medical (2) Unilateral post-traumatic osteoarthritis, right knee: Code(s): M17.31 - Unilateral post-traumatic osteoarthritis, right knee Category: Medical (3) Urine incontinence: Code(s): R32 - Unspecified urinary incontinence Category: Medical Qualifiers: Urinary Incontinence type: mixed stress and urge incontinence Qualified Code(s): N39.46 - Mixed incontinence (4) Other specified hypothyroidism: Code(s): E03.8 - Other specified hypothyroidism Category: Medical Plan Regla came in today for preop clearance for right knee surgery By Dr. Reyes on February 12 [facility] TSH level is still abnormal We are reducing levothyroxine further to 112 mcg Patient is complaining of urine incontinence which is chronic problem But has gotten worse for the past few weeks I have placed order for UA to rule out bladder infection Patient is to start Detrol 1 mg in the morning EKG done in the hospital recently reviewed Labs done recently reviewed as well Patient is stable for knee surgery We will set up a telemedicine visit in 3 weeks to see how she is doing with the new medication for bladder Orders: Orders UA CC w/rflx Micro + Cult Today R32 - Unspecified urinary incontinence Medications: New tolterodine (Detrol) 1 mg PO DAILY 30 tabs 0RF Changed From levothyroxine 125 mcg PO DAILY 90 tabs 0RF To levothyroxine 112 mcg PO DAILY 90 tabs 0RF
== END 2024-01-31 16:02 | disposition home or self-care (01) ==
PROVIDERS: PCP Internal Medicine; Visit Provider Internal Medicine
DX: Z01.818 Encounter for other preprocedural examination (principal); M17.31 Unilateral post-traumatic osteoarthritis, right knee; N39.46 Mixed incontinence; E03.8 Other specified hypothyroidism

== ENCOUNTER 2024-01-31 13:29 | Outpatient (REF) | payer OTHER, SELFPAY ==
[2024-01-31 16:18] LABS: Appearance Urine Clear; Color Urine Yellow; Glucose Urine UA Negative (Negative); Leukocyte Esterase Urine Small (1+) (Negative); Nitrite Urine Negative (Negative); PH 5.5 (5.0-9.0); Specific Gravity - Urine 1.015 (1.005-1.025); UMIC TRIGGER UACC YES; Urine Blood Moderate (2+) (Negative); Urine Ketones Negative (Negative); Urine Protein Trace mg/dL (Neg-Trace)
[2024-01-31 16:25] LABS: Bacteria Urine Trace (None Seen); Hyaline Casts Urine 0-2 /LPF (0-2); UACC Culture Trigger YES
== END 2024-01-31 13:30 | disposition home or self-care (01) ==
LOC: HO.HMGCLDS 13:29
PROVIDERS: PCP Internal Medicine; Visit Provider Internal Medicine
DX: Z01.818 Encounter for other preprocedural examination (principal); M17.31 Unilateral post-traumatic osteoarthritis, right knee; T14.90XS Injury, unspecified, sequela; X58.XXXS Exposure to other specified factors, sequela; N39.46 Mixed incontinence; E03.8 Other specified hypothyroidism; Z79.899 Other long term (current) drug therapy
CPT/HCPCS: 81001; 87086; 87088; 87186; 96127; 99212

== ENCOUNTER 2024-02-08 08:33 | Outpatient (REF) | payer OTHER, SELFPAY ==
--- NOTE | ~2024-02-08 | XR_ITS ---
EXAMINATION: Upright AP view of both knees and patellae and lateral view of the right knee CLINICAL INFORMATION: Primary osteoarthritis right knee COMPARISON: Upright AP view of both knees December 11, 2023 and MRI of the right knee August 2023. TECHNIQUE: AP upright both knees with additional lateral patella view of the right knee FINDINGS: Right knee: There is moderate to severe osteoarthritis of the medial compartment with joint space narrowing. Lateral compartment unremarkable. Minimal osteoarthritis patellofemoral compartment. Joint effusion. Limited left knee AP upright: The visualized medial lateral compartments are normal. Patella compartment cannot be assessed. Surrounding bone and soft tissues unremarkable. XR/XR knee RT 3V IMPRESSION: Right knee: Osteoarthritis with degenerative changes most prominent in the medial compartment being moderate to severe. Left knee limited: Unremarkable Electronically signed by: Rodrick Concepcion MD 02/14/2024 11:29 AM EDT
--- NOTE | ~2024-02-08 | XR_ITS ---
EXAMINATION: Upright AP view of both knees and patellae and lateral view of the right knee CLINICAL INFORMATION: Primary osteoarthritis right knee COMPARISON: Upright AP view of both knees December 11, 2023 and MRI of the right knee August 2023. TECHNIQUE: AP upright both knees with additional lateral patella view of the right knee FINDINGS: Right knee: There is moderate to severe osteoarthritis of the medial compartment with joint space narrowing. Lateral compartment unremarkable. Minimal osteoarthritis patellofemoral compartment. Joint effusion. Limited left knee AP upright: The visualized medial lateral compartments are normal. Patella compartment cannot be assessed. Surrounding bone and soft tissues unremarkable. XR/XR knee LT 1V IMPRESSION: Right knee: Osteoarthritis with degenerative changes most prominent in the medial compartment being moderate to severe. Left knee limited: Unremarkable Electronically signed by: Rodrick Concepcion MD 02/14/2024 11:29 AM EDT
== END 2024-02-08 08:34 | disposition home or self-care (01) ==
LOC: HO.HOSX 08:33
PROVIDERS: Visit Provider Physician Assistant
DX: M25.562 Pain in left knee (principal); M17.11 Unilateral primary osteoarthritis, right knee; M17.31 Unilateral post-traumatic osteoarthritis, right knee; Z96.651 Presence of right artificial knee joint
CPT/HCPCS: 73560; 73562; 99212

== ENCOUNTER 2024-02-08 09:33 | Outpatient (AMB) | payer OTHER, SELFPAY ==
--- NOTE | 2024-02-08 09:43 | MHC.OFFVIS ---
Vital Signs 02/08/24 09:56 Height 5 ft 3 in Weight 190 lb BMI 33.7 Intake Visit Reasons: Pre-Op: R UKA w/NE 02/13/24 Intake Note: Regla a 63 year old female who presents today for a preoperative visit, RT UKA w/NE on 02/13/24. Pain management agreement reviewed and signed. Allergies oxycodone Allergy (Unknown, Verified 02/08/24 09:54) Unknown lithium [LITHIUM] Adverse Reaction (Intermediate, Verified 02/08/24 09:54) bilateral pedal edema NSAIDS (Non-Steroidal Anti-Inflamma Adverse Reaction (Mild, Verified 02/08/24 09:54) Nephropathy Medication List - Last Reconciled 02/08/24 by Jose Colorado PA-C atenolol 25 mg PO DAILY 90 days cholecalciferol (vitamin D3) 25 mcg PO DAILY 90 days cyclobenzaprine 5 mg PO BEDTIME PRN hydroxyzine HCl 25 mg PO Q8H PRN lamotrigine ER 250 mg PO BEDTIME levothyroxine 112 mcg PO DAILY minoxidil 2.5 mg PO DAILY nitrofurantoin monohyd/m-cryst 100 mg (Macrobid) 100 mg PO Q12H 7 days omeprazole magnesium 20 mg PO DAILY@0630 quetiapine 100 mg PO BEDTIME tolterodine (Detrol) 1 mg PO DAILY tramadol 50 mg PO BEDTIME PRN walker Folding Front wheeled walker HPI Comments Details: Ms Bailey presents to the office today for preop visit. She is scheduled for right unicompartmental knee arthroplasty with Dr. Reyes. She continues to have ongoing pain and difficulty with ambulation in the right knee, which is affecting her quality of life; therefore, she has elected to move forward with surgery. [facility] Medical History Arthritis GERD (gastroesophageal reflux disease) Bipolar 1 disorder Internal derangement of right knee Thyroid ca Anxiety Hx of major depression Hypothyroidism Hypertension, essential Surgical History Hx of removal of cyst H/O colonoscopy Hx of thyroidectomy Hx of section Family History Father Colon cancer Other Mental health disorder Substance use disorder Social History Household Members: Significant Other Housing: House Are you a primary child care education coordinator to a significant other at home: No Do you presently have visiting nurse or other home services: No Alcohol intake: current Alcohol intake frequency: a few times a month Patient Tobacco Use Status: Never used Tobacco Tobacco use type: Cigarette Cigarettes Per Day: 2 e-Cigarette/Vaping Use: Never Used service: No Current occupational status: unemployed Cognitive needs: No Hearing needs: No Vision needs: No Female Reproductive History Menstrual Age of Menarche: 14 Review of Systems Const All systems reviewed & are unremarkable except as noted in HPI and below Physical Exam Vital Signs: BMI result Body Mass Index 33.7 Const General: cooperative and no acute distress Orientation/consciousness: patient oriented x3 Neck Neck: Yes normal visual inspection and Yes no lymphadenopathy Resp Effort & Inspection: normal respiratory effort and able to speak in complete sentences Cardio Peripheral pulses: Peripheral pulses 2+ throughout GI Inspection: Yes normal to inspection Palpation (GI): Soft to palpation Skin General skin exam: no rashes or lesions noted Neuro General: patient oriented x3 Extrem Other: Right knee skin intact, no open wounds or abraisons. Full extension and flexion medial compartment gonarthrosis and ttp trace effusion gait antalgia on gait initiation Results Reviewed Results Reviewed: Xrays were obtained in the office today and personally reviewed by me of the right knee for pre op planning show medial compartment oa / joint collapse Assessment & Plan Assessment & Plan (1) Unilateral post-traumatic osteoarthritis, right knee: Code(s): M17.31 - Unilateral post-traumatic osteoarthritis, right knee Category: Medical Plan I discussed in detail the procedure and what to expect pre and post operatively. We discussed the risks, benefits and alternatives to the surgery as well as the rehabilitation course. The risks; which include, but are not limited to infection, bleeding, nerve injury, ongoing pain, swelling, and stiffness, perioperative risk of injury to bones and soft tissues, and blood clots. I?ve answered all questions and with their understanding they have consented to move forward with Right unicompartment knee arthroplasty with Dr. Amy Weinberg ASA Orders: Orders XR knee RT 3V Today M17.11 - Unilateral primary osteoarthritis, right knee XR knee LT 1V Today M25.562 - Pain in left knee PT Evaluation and Treatment Today Z96.651 - Presence of right artificial knee joint Patient Instructions: Scribed for Jose Colorado PA-C, by Aníbal Thompson medical records assistant, on 02/08/2024 at 9:45 AM EST.? I, Jose Colorado PA-C, have personally reviewed and agree with the information entered by the scribe. Coding Level of Care Code Est Pt Level 3 (87892) Complex EM visit Add On G2211 Diagnoses Unilateral post-traumatic osteoarthritis, right knee M17.31
[2024-02-08 09:56] VITALS: BMI 33.7
== END 2024-02-08 10:16 | disposition home or self-care (01) ==
PROVIDERS: PCP Internal Medicine; Visit Provider Physician Assistant
DX: M17.31 Unilateral post-traumatic osteoarthritis, right knee (principal)
CPT/HCPCS: 99024

== ENCOUNTER 2024-02-13 06:06 | Day surgery (SDC) | payer OTHER, SELFPAY ==
--- NOTE | 2024-01-31 | ECG_ITS ---
Test Reason : PREOP Blood Pressure : / mmHG Vent. Rate : 066 BPM Atrial Rate : 066 BPM P-R Int : 148 ms QRS Dur : 088 ms QT Int : 428 ms P-R-T Axes : 013 -11 010 degrees QTc Int : 448 ms Normal sinus rhythm Normal ECG When compared with ECG of 18-AUG-2023 22:28, Nonspecific T wave abnormality no longer evident in Anterior leads Heart rate has increased Referred By: Yolande Reilly Electronically Signed By:CODY MCLEOD
[2024-01-31 12:06] VITALS: BP 171/77; PULSE 65; RESP 18; O2SAT 95; BMI 33.8
--- NOTE | 2024-01-31 12:29 | HO.ANESPROP2 ---
Documented by User: Yolande Reilly NP 02/08/24 13:17 HPI - Anesthesia Eval Consult details Narrative: 63yo F for Right Knee Replacement Uni-Compartmental, 02/13/24 Medically optimized No recent illness No CP/SOB with minimal activity GERD: PPI controls PMFSH Active Problems Active Problems: All Active Problems Arthritis of right knee (Acute) Unilateral post-traumatic osteoarthritis, right knee (Acute) Hospital discharge follow-up (Acute) Nephropathy (Acute) Hyponatremia (Acute) Frequency of urination (Acute) Muscle cramps (Acute) Skin cancer screening (Acute) Hair loss (Acute) Acute pain of right knee (Acute) Osteoarthritis of right knee (Acute) COVID-19 (Acute) Recurrent vomiting (Acute) Obesity due to excess calories (Acute) Other specified hypothyroidism (Acute) Well woman exam (Acute) Routine gynecological examination (Acute) Breast screening (Acute) Bipolar disorder (Acute) Encounter for general adult medical examination with abnormal findings (Acute) Arthrosis (Acute) Internal derangement of right knee (Acute) Past Medical History Medical History Arthritis GERD (gastroesophageal reflux disease) Bipolar 1 disorder Internal derangement of right knee Thyroid ca Anxiety Hx of major depression Hypothyroidism Hypertension, essential Family History Family History Father Colon cancer Other Mental health disorder Substance use disorder Family history of problems with anesthesia: No Surgical History Surgical History Hx of removal of cyst H/O colonoscopy Hx of thyroidectomy Hx of section History of Problems with Anesthesia: No Social History Social History Household Members: Significant Other Housing: House Are you a primary health care liaison to a significant other at home: No Do you presently have visiting nurse or other home services: No Alcohol intake: current Alcohol intake frequency: a few times a month Patient Tobacco Use Status: Current someday Tobacco user Tobacco use type: Cigarette Cigarettes Per Day: 2 e-Cigarette/Vaping Use: Never Used Use of substances other than those prescribed or required for medical reasons: No Have you been hit, kicked, punched, or otherwise hurt by someone within the past year? If so, by whom?: No Are you DNR?: No Advance Directives: No Advance Directives Information Provided: No Advance Directives on File: No Recently lost weight without trying: No Eating poorly because of decreased appetite: No Nutrition Risks: No Nutritional Risk Patient : No : No Poor oral hygiene: Yes (partial upper denture) service: No Current occupational status: unemployed Cognitive needs: No Hearing needs: No Vision needs: No Meds Allergies Allergy/AdvReac Type Severity Reaction Status Date / Time lithium [LITHIUM] AdvReac Intermediate bilateral Verified 02/08/24 09:54 pedal edema Home Medications ?Medication ?Instructions ?Recorded ?Confirmed ?Last Taken ?Type lamotrigine 250 mg tablet,extended 250 mg PO BEDTIME 08/19/23 02/13/24 02/11/24 History release 24 hr quetiapine 100 mg tablet 100 mg PO BEDTIME 08/19/23 02/13/24 02/11/24 History minoxidil 2.5 mg tablet 2.5 mg PO DAILY 11/20/23 02/13/24 02/11/24 History cyclobenzaprine 5 mg tablet 5 mg PO BEDTIME PRN Muscle Spasm 01/31/24 02/13/24 02/11/24 History hydroxyzine HCl 25 mg tablet 25 mg PO Q8H PRN anxiety 01/31/24 02/13/24 02/11/24 History tramadol 50 mg tablet 50 mg PO BEDTIME PRN Right knee 01/31/24 02/13/24 02/11/24 History pain Exam Height,Weight and Vital Signs: Height 5 ft 3 in Weight 86.636 kg Last Vital Signs Pulse 65 01/31/24 12:06 Resp 18 01/31/24 12:06 BP 171/77 H 01/31/24 12:06 Pulse Ox 95 01/31/24 12:06 O2 Del Method Room Air 01/31/24 12:06 Pertinent Lab Results Pertinent Lab Results: Laboratory Tests 01/24/24 01/24/24 08:08 Unknown WBC 7.0 Hgb 13.1 Hct 38.1 Plt Count 292 D Sodium 142 Potassium 4.1 Chloride 106 Carbon Dioxide 28 BUN 12 Creatinine 0.90 Narrative Narrative: EKG 01/2024 Vent. Rate : 066 BPM Atrial Rate : 066 BPM P-R Int : 148 ms QRS Dur : 088 ms QT Int : 428 ms P-R-T Axes : 013 -11 010 degrees QTc Int : 448 ms Normal sinus rhythm Normal ECG When compared with ECG of 18-AUG-2023 22:28, Nonspecific T wave abnormality no longer evident in Anterior leads Heart rate has increased Airway Mallampati Class: II TM Dist: >3cm Neck ROM: Full Partial: Upper Heart: RRR Lungs: CTAB Assessment and Plan Assessment Anesthesia Assessment: Anesthesia Plan Discussed, Smoking Cess. Discussed and PAT Visit Final Anesthetic Review Family History of Problems with Anesthesia: No History of Problems with Anesthesia: No Documented by User: Ashlee Soliz MD 02/13/24 08:15 [facility] Past Medical History Medical History Arthritis GERD (gastroesophageal reflux disease) Bipolar 1 disorder Internal derangement of right knee Thyroid ca Anxiety Hx of major depression Hypothyroidism Hypertension, essential Family History Family History Father Colon cancer Other Mental health disorder Substance use disorder Surgical History Surgical History Hx of removal of cyst H/O colonoscopy Hx of thyroidectomy Hx of section Social History Social History Household Members: Significant Other Housing: House Are you a primary health care liaison to a significant other at home: No Do you presently have visiting nurse or other home services: No Alcohol intake: current Alcohol intake frequency: a few times a month Patient Tobacco Use Status: Current someday Tobacco user Tobacco use type: Cigarette Cigarettes Per Day: 2 e-Cigarette/Vaping Use: Never Used Use of substances other than those prescribed or required for medical reasons: No Have you been hit, kicked, punched, or otherwise hurt by someone within the past year? If so, by whom?: No Are you DNR?: No Advance Directives: No Advance Directives Information Provided: No Advance Directives on File: No Recently lost weight without trying: No Eating poorly because of decreased appetite: No Nutrition Risks: No Nutritional Risk Patient : No : No Poor oral hygiene: Yes (partial upper denture) service: No Current occupational status: unemployed Cognitive needs: No Hearing needs: No Vision needs: No Meds Allergies Allergy/AdvReac Type Severity Reaction Status Date / Time lithium [LITHIUM] AdvReac Intermediate bilateral Verified 02/08/24 09:54 pedal edema Home Medications ?Medication ?Instructions ?Recorded ?Confirmed ?Last Taken ?Type lamotrigine 250 mg tablet,extended 250 mg PO BEDTIME 08/19/23 02/13/24 02/11/24 History release 24 hr quetiapine 100 mg tablet 100 mg PO BEDTIME 08/19/23 02/13/24 02/11/24 History minoxidil 2.5 mg tablet 2.5 mg PO DAILY 11/20/23 02/13/24 02/11/24 History cyclobenzaprine 5 mg tablet 5 mg PO BEDTIME PRN Muscle Spasm 01/31/24 02/13/24 02/11/24 History hydroxyzine HCl 25 mg tablet 25 mg PO Q8H PRN anxiety 01/31/24 02/13/24 02/11/24 History tramadol 50 mg tablet 50 mg PO BEDTIME PRN Right knee 01/31/24 02/13/24 02/11/24 History pain Assessment and Plan Assessment Anesthesia Assessment: Chart Reviewed Final Anesthetic Review NPO: Yes ASA Class: III Final Preanesthetic Review: No Changes in Pt Med Stat, Meds/Allgs Chart Reviewed, Consent Obtained/Reviewed and Anes Risks/Benef Reviewed Patient Risk: Intermediate Procedure Risk: Intermediate Anesthetic Plan Anesthetic Plan: Spinal and Regional Block Disposition: Standard PACU
[2024-01-31 14:27] LABS: MRSA Nasal PCR NEGATIVE (Negative); SA Nasal PCR POSITIVE (Negative)
[2024-02-13] VITALS (15 sets, daily range): BP systolic 112–182; BP diastolic 56–84; PULSE 61–75; RESP 16–18; TEMP 35.8–37; O2SAT 95–98
--- NOTE | ~2024-02-13 | XR_ITS ---
EXAMINATION: XR KNEE, RIGHT CLINICAL INFORMATION: Right knee arthroplasty. COMPARISON: None TECHNIQUE: Two views of the right knee. FINDINGS: The patient is status post medial right knee hemiarthroplasty. Air and fluid are seen within the knee joint capsule. Subcutaneous air is also present, with vertical midline surgical skin kory. No unexpected radiopaque foreign body is identified. There is no evidence of fracture or loosening. XR/XR knee RT 2V IMPRESSION: Status post medial right knee hemiarthroplasty. Electronically signed by: Juan Moore MD 02/13/2024 12:51 PM EDT
--- OUTSIDE RECORDS SUMMARY | 2024-02-13 06:12 | XMS_ITS | Continuity of Care Document ---
Author Organization [facility] Address [address] [place] [address]- Care Team Providers Care Creative Services Writer Name Role Phone Balaji PARR, Asma Primary Care Physician [place] [facility] [place]23 - 03/29/23 [facility] [address] [place] [id number] Allergies, Adverse Reactions, Alerts No Known Allergies Medications acetaminophen 325 mg oral tablet = 650 mg, By Mouth, Every 4 hours, PRN Headache Pain , Mild, 0 Refills, Maintenance, 06/12/14 11:54:42, Tablet Start Date: 06/12/14 Status: Ordered Celebrex 200 mg oral capsule 1 capsule = 200 mg, By Mouth, Daily, # 30 capsule, 0 Refills, Maintenance, 04/18/14 8:44:30, Capsule Start Date: 04/18/14 Status: Ordered Citracal Maximum + Vitamin D Tablet 2 tablet = 630 mg, By Mouth, 2 times a day, 0 Refills, Maintenance, 06/12/14 11:55:05, Tablet Start Date: 06/12/14 Status: Ordered hydrochlorothiazide 25 mg oral tablet 25 mg, 1, tablet, By Mouth, Daily, # 30 tablet, Refills 0, Maintenance, 09/03/21 10:49:00 EDT, Partial fill upon patient request if the prescription is for a schedule II opioid drug. Start Date: 09/03/21 Status: Ordered hydrOXYzine hydrochloride 25 mg oral tablet 1 tablet = 25 mg, By Mouth, 4 times a day, 0 Refills, Maintenance, 09/03/21 10:49:00 EDT, Partial fill upon patient request if the prescription is for a schedule II opioid drug. Start Date: 09/03/21 Status: Ordered lamotrigine 25 mg oral tablet 25 mg, 1, tablet, By Mouth, 2 times a day, # 60 tablet, Refills 5, Maintenance, 09/03/21 10:48:00 EDT, Partial fill upon patient request if the prescription is for a schedule II opioid drug. Start Date: 09/03/21 Status: Ordered levothyroxine 0.088 mg oral tablet See Instructions, 1 tablet By Mouth Daily from Mon through Mon and 0.5 tablet on Sundays., 0 Refills, Maintenance, 09/10/21 16:57:00 EDT, Tablet, Partial fill upon patient request if the prescriptionis for a schedule II opioid drug. Start Date: 09/10/21 Status: Ordered Metamucil Powder 1 packet, By Mouth, Daily, 0 Refills, Maintenance, Powder Start Date: 12/03/12 Status: Ordered Omeprazole By Mouth, Daily, 0 Refills, Maintenance Start Date: 11/20/12 Status: Ordered Probiotic Formula 1 capsule, By Mouth, Daily, 0 Refills, Maintenance, 04/18/14 8:45:07 Start Date: 04/18/14 Status: Ordered Super B Complex Vitamin B Complex oral tablet 1 tablet, By Mouth, Daily, 0 Refills, Maintenance Start Date: 12/03/12 Status: Ordered venlafaxine 37.5 mg oral tablet 1 tablet = 37.5 mg, By Mouth, 2 times a day, # 180 tablet, 0 Refills, Maintenance, 04/18/14 8:44:56, Tablet Start Date: 04/18/14 Status: Ordered Problem List Condition Confirmation Course Effective Dates Status Health St atus Informant Bartholin's gland cyst Confirmed Active Obese class II Confirmed Active Social History Social History Type Response Smoking Status Type: Cigarettes; Pr evious treatment: None; Interested in cessation: No;Current some day smoker; Tobacco user in household: Yes; Started at age: 15; entered on: 06/11/14 Sex Patient Care team information Care Team Personnel Name: Angela Davis RN Position: [facility] RN Member Role: Primary Care Nurse Name: Chan Kaur RN Position: [facility] RN Member Role: Primary Care Nurse Name: Rozina Carpio MD Position: [facility] Physician - Primary Care Member Role: PCP Address: Address: [facility] [place], [place] [address] Name: Art Jamison DO Position: [facility] AUTO PARKER MD Member Role: Lifetime AUTO PARKER Physician Address: Address: [address] [place], [place] [address] [facility] General Director [place] [address]- Name: Kaitlynn De La Cruz RN Position: [facility] RN Member Role: Primary Care Nurse Care Team Related Persons Name: BING PARIKH Address: home [address] [place] [address]
--- OUTSIDE RECORDS SUMMARY | 2024-02-13 06:12 | XMS_ITS | Continuity of Care Document ---
Author Organization [facility] Address [address] [place] [address]- Care Team Providers Care Band Bias Machine Operator Name Role Phone Balaji PARR, Asma Primary Care Physician Encounter [facility] [id number] Date(s): 07/21/23 - 08/20/23 [facility] [address] [place] [address]- Attending Physician: Serene Zacarias Admitting Physician: AdmtrSerene Referring Physician: Admtr ArAloan Allergies, Adverse Reactions, Alerts No Known Allergies [...] Status: Ordered levothyroxine 0.088 mg oral tablet = 88 mcg, By Mouth, Daily, # 30 tablet, 11 Refills, Maintenance, 08/10/23 11:54:00 EDT, Tablet, [facility]/pharmacy #[id number], Partial fill upon patient request if the prescription is for a schedule II opioid drug., 156.2, cm, 09/03/21 10:50:00 EDT, Height Start Date: 08/10/23 Stop Date: 08/04/24 Status: Ordered Metamucil Powder 1 packet, By [...] atus Informant Bartholin's gland cyst Confirmed Active Thyroid cancer Confirmed Active Obese class II Confirmed Active Social History Social History Type Response Smoking Status Type: Cigarettes; Pr evious treatment: None; Interested in cessation: No;Current some day smoker; Tobacco user in household: Yes; Started at age: 15; entered on: 06/11/14 Sex Laboratory * Event Display: Non Lab Results Authored Date: Patient Care team information Care Team Personnel Name: Ryan TAYLOR, Angela Position: [facility] RN Member Role: Primary Care Nurse Name: Chan Kaur RN Position: S RN Member Role: Primary Care Nurse Name: Balaji PARR, Rozina Position: [facility] Physician - Primary Care Member Role: PCP Address: Address: [address] [place] [address]- Name: Art Jamison DO Position: [facility] FRUIT RECEIVER MD Member Role: Lifetime FRUIT RECEIVER Physician Address: Address: [place] [address]- [place] Name: Kaitlynn De La Cruz RN Position: [facility] RN Member Role: Primary Care Nurse Care Team Related Persons Name: KATINAVDEEPNN Address: home [address] [place] [address]
--- OUTSIDE RECORDS SUMMARY | 2024-02-13 06:12 | XMS_ITS | Continuity of Care Document ---
Author Organization [facility] Address [address] [place] [address]- Care Team Providers Care Director Broadcast Name Role Phone Balaji PARR, Asma Primary Care Physician [place] [facility] [place](s): 08/10/23 - 09/09/23 [facility] [address] [place] [address] Allergies, Adverse Reactions, Alerts No Known Allergies [...] 11 Refills, Maintenance, 08/10/23 11:54:00 EDT, Tablet, [facility]/pharmacy #[id number], Partial fill upon patient request if [...] Team Personnel Name: Angela Davis RN Position: S RN Member Role: Primary Care Nurse Name: Chan Kaur RN Position: S RN Member Role: Primary Care Nurse Name: Rozina Carpio MD Position: [facility] Physician - Primary Care Member Role: PCP Address: Address: [address] [place] [address]- [place] Name: Art Jamison DO Position: [facility] VIDEO GAME DEVELOPER MD Member Role: Lifetime VIDEO GAME DEVELOPER Physician Address: Address: [place] [address]- [place] Name: Kaitlynn De La Cruz RN Position: [facility] RN Member Role: Primary Care Nurse Care Team Related Persons Name: BING PARIKH Address: home [address] [place] [address]
--- OUTSIDE RECORDS SUMMARY | 2024-02-13 06:12 | XMS_ITS | Continuity of Care Document ---
Author Organization [facility] Address [address] [place] [address]- Care Team Providers Care Bench Inspector Name Role Phone Balaji PARR, Asma Primary Care Physician Encounter [facility] [place] Date(s): 07/25/22 - 08/24/22 [facility] [address] [place] [id number] Allergies, Adverse Reactions, Alerts No Known [...] Team Personnel Name: Angela Davis RN Position: [facility] RN Member Role: Primary Care Nurse Name: Chan Kaur RN Position: [facility] RN Member Role: Primary Care Nurse Name: Rozina Carpio MD Position: [facility] Physician (General Medicine) Member Role: PCP Address: Address: [facility] [place] [address] Name: Art Jamison DO Position: [facility] PEST CONTROL SUPERVISOR MD Member Role: Lifetime PEST CONTROL SUPERVISOR Physician Address: Address: [address] [place], [place] [address] [facility] Liberal [place] [address]- Name: Kaitlynn De La Cruz RN Position: [facility] RN Member Role: Primary Care Nurse Care Team Related Persons Name: BING PARIKH Address: home [address] [place] [address]
--- OUTSIDE RECORDS SUMMARY | 2024-02-13 06:12 | XMS_ITS | Continuity of Care Document ---
Author Organization [facility] Address [address] [place] [address]- Care Team Providers Care Orthopedic Cast Specialist Name Role Phone Balaji PARR, Asma Primary Care Physician Encounter [facility] [place] Date(s): 04/06/23 - 05/06/23 [facility] [address] [place] [id number] Allergies, Adverse Reactions, Alerts No Known Allergies [...] Team Personnel Name: Angela Davis RN Position: [facility] RN Member Role: Primary Care Nurse Name: Chan Kaur RN Position: [facility] RN Member Role: Primary Care Nurse Name: Rozina Carpio MD Position: [facility] Physician - Primary Care Member Role: PCP Address: Address: [facility] [place], [place] [address] Name: Art Jamison DO Position: [facility] JIGGER ARTISAN MD Member Role: Lifetime JIGGER ARTISAN Physician Address: Address: [address] [place] [address]- Name: Kaitlynn De La Cruz RN Position: [facility] RN Member Role: Primary Care Nurse Care Team Related Persons Name: BING PARIKH Address: home [address] [place] [address]
--- OUTSIDE RECORDS SUMMARY | 2024-02-13 06:12 | XMS_ITS | Continuity of Care Document ---
Author Organization [facility] Address [address] [place] [address]- Care Team Providers Care Director Of Claims Name Role Phone Balaji PARR, Asma Primary Care Physician Encounter [facility] [place] Date(s): 02/28/23 - 03/30/23 [facility] [address] [place] [id number] Allergies, Adverse Reactions, Alerts No [...] Team Personnel Name: Angela Davis RN Position: [facility] RN Member Role: Primary Care Nurse Name: Chan Kaur RN Position: [facility] RN Member Role: Primary Care Nurse Name: Rozina Carpio MD Position: [facility] Physician - Primary Care Member Role: PCP Address: Address: [facility] [place] [address] Name: Art Jamison DO Position: [facility] INSULATION WORKER FURNACE INSTALLER MD Member Role: Lifetime INSULATION WORKER FURNACE INSTALLER Physician Address: Address: [address] [place], [place] [address] [facility] [place] [address]- Name: Kaitlynn De La Cruz RN Position: [facility] RN Member Role: Primary Care Nurse Care Team Related Persons Name: BING PARIKH Address: home [address] [place] [address]
--- OUTSIDE RECORDS SUMMARY | 2024-02-13 06:12 | XMS_ITS | Continuity of Care Document ---
Author Organization [facility] Address [address] [place] [address]- Care Team Providers Care Associate Programmer Analyst Name Role Phone Balaji PARR, Asma Primary Care Physician [phone] Encounter [facility] [place] Date(s): 03/03/23 - 04/02/23 [facility] [address] [place] [id number] Allergies, Adverse Reactions, Alerts No Known [...] Team Personnel Name: Angela Davis RN Position: [facility] RN Member Role: Primary Care Nurse Name: Chan Kaur RN Position: [facility] RN Member Role: Primary Care Nurse Name: Rozina Carpio MD Position: [facility] Physician - Primary Care Member Role: PCP Address: Address: [facility] [place], [place] [address] Name: Art Jamison DO Position: [facility] PLANNING FEEDER MD Member Role: Lifetime PLANNING FEEDER Physician Address: Address: [address] [place], [place] [address] [facility] Surgical [place] [address]- Name: Kaitlynn De La Cruz RN Position: [facility] RN Member Role: Primary Care Nurse Care Team Related Persons Name: BING PARIKH Address: home [address] [place] [address]
--- OUTSIDE RECORDS SUMMARY | 2024-02-13 06:12 | XMS_ITS | Continuity of Care Document ---
Author Organization [facility] Address [address] [place] [address]- Care Team Providers Care Vegetable Tier Name Role Phone Balaji PARR, Rozina Primary Care Physician [place] [facility] [place]): [place]10/23 - 08/17/23 [facility] [address] [place] [address]- Encounter Diagnosis Thyroid cancer(Discharge Diagnosis) - 08/10/23 Attending Physician: Mariam Hdez MD Referring Physician: Rozina Carpio MD Allergies, Adverse Reactions, Alerts No Known Allergies [...] 11 Refills, Maintenance, 08/10/23 11:54:00 EDT, Tablet, [facility]/pharmacy #[id number], Partial fill upon patient request if [...] Confirmed Active Obese class II Confirmed Active Diagnosis Diagnosis Type Effective Dates Health Status Cl inical Service Informant Thyroid cancer Discharge Diagnosis 08/10/23 Social History Social History Type Response Smoking Status Type: Cigarettes; Pr evious treatment: None; Interested in cessation: No;Current some day smoker; Tobacco user in household: Yes; Started at age: 15; entered on: 06/11/14 Sex Patient Care team information Care Team Personnel Name: Angela Davis RN Position: [facility] RN Member Role: Primary Care Nurse Name: Chan Kaur RN Position: [facility] RN Member Role: Primary Care Nurse Name: Rozina Carpio MD Position: [facility] Physician - Primary Care Member Role: PCP Address: Address: [address] [place] [address]- [place] Name: Art Jamison DO Position: [facility] EPIC MANAGER MD Member Role: Lifetime EPIC MANAGER Physician Address: Address: [place] [address]- [place] Name: Kaitlynn De La Cruz RN Position: [facility] RN Member Role: Primary Care Nurse Care Team Related Persons Name: BING PARIKH Address: home [address] [place] [address]
--- OUTSIDE RECORDS SUMMARY | 2024-02-13 06:12 | XMS_ITS | Continuity of Care Document ---
Author Organization [facility] Address [address] [place] [address]- Care Team Providers Care Apprentice Name Role Phone Balaji PARR, Asma Primary Care Physician Encounter [facility] [place] Date(s): 03/03/23 - 04/02/23 [facility] [address] [place] [id number] Allergies, Adverse Reactions, Alerts No [...] Team Personnel Name: Angela Davis RN Position: [facility] RN Member Role: Primary Care Nurse Name: Chan Kaur RN Position: [facility] RN Member Role: Primary Care Nurse Name: Rozina Carpio MD Position: [facility] Physician - Primary Care Member Role: PCP Address: Address: [facility] [place] [address] Name: Art Jamison DO Position: [facility] FIBREGLASS LAY UP WORKER MD Member Role: Lifetime FIBREGLASS LAY UP WORKER Physician Address: Address: [address] [place], [place] [address] [facility] Auto Vinyl [place] [address]- Name: Kaitlynn De La Cruz RN Position: [facility] RN Member Role: Primary Care Nurse Care Team Related Persons Name: BING PARIKH Address: home [address] [place] [address]
--- OUTSIDE RECORDS SUMMARY | 2024-02-13 06:12 | XMS_ITS | Continuity of Care Document ---
Author Organization [facility] Address [address] [place] [address]- Care Team Providers Care Township Supervisor Name Role Phone Balaji PARR, Asma Primary Care Physician [phone] Encounter [facility] [place] Date(s): 04/03/23 - 05/03/23 [facility] [address] [place] [address] Allergies, Adverse Reactions, Alerts No [...] Team Personnel Name: Angela Davis RN Position: [facility] RN Member Role: Primary Care Nurse Name: Chan Kaur RN Position: [facility] RN Member Role: Primary Care Nurse Name: Rozina Carpio MD Position: [facility] Physician - Primary Care Member Role: PCP Address: Address: [facility] [place] [address] Name: Art Jamison DO Position: [facility] TRIM ATTACHER MD Member Role: Lifetime TRIM ATTACHER Physician Address: Address: [address] [place] [address]- Name: Kaitlynn De La Cruz RN Position: [facility] RN Member Role: Primary Care Nurse Care Team Related Persons Name: BING PARIKH Address: home [address] [place] [address]
--- OUTSIDE RECORDS SUMMARY | 2024-02-13 06:12 | XMS_ITS | Continuity of Care Document ---
Author Organization [facility] Address [address] [place] [address]- Care Team Providers Care Retail Services Professional Name Role Phone Balaji PARR, Asma Primary Care Physician [place] [facility] Date(s): 04/05/23 - 05/05/23 [facility] [address] [place] [address] Allergies, Adverse Reactions, Alerts No Known [...] Team Personnel Name: Angela Davis RN Position: [facility] RN Member Role: Primary Care Nurse Name: Chan Kaur RN Position: [facility] RN Member Role: Primary Care Nurse Name: Rozina Carpio MD Position: [facility] Physician - Primary Care Member Role: PCP Address: Address: [employer] [place], [place] [address] Name: Art Jamison DO Position: [facility] TRAFFIC CONTROL SIGNALER MD Member Role: Lifetime TRAFFIC CONTROL SIGNALER Physician Address: Address: [address] [place] [address]- Name: Kaitlynn De La Cruz RN Position: [facility] RN Member Role: Primary Care Nurse Care Team Related Persons Name: BING PARIKH Address: home [address] [place] [address]
[2024-02-13 06:44] LABS: Hematocrit 39.2 % (37.0-47.0); Hemoglobin 13.7 g/dl (12.0-16.0)
[2024-02-13] MEDS: Lactated Ringers 1,000 ML 100 ML IVCONT ×3 (06:50→23:42)
--- NOTE | 2024-02-13 07:30 | MHC.SHP ---
Pre-Procedural Eval Section A - 24 Hr Update-Section A only Date of Service: 02/13/24 The patient is an INPATIENT: No Changes since office visit: No Cold of Flu in the past 2 weeks, No New Medical Problems, No Changes in Medication and No Patient answered all questions The patient has been examined within 24 hours of the surgical procedure. The History & Physical has been completed within 30 days and I have reviewed it.: Yes Section B - Complete if H&P > 30 days Chief Complaint: RT UKA Allergies: Allergies Allergy/AdvReac Type Severity Reaction Status Date / Time lithium [LITHIUM] AdvReac Intermediate bilateral Verified 02/08/24 09:54 pedal edema Plan I have reviewed the history and physical and performed a pertinent physical examination on my patient. No changes have occurred unless specified. Time Spent With Patient Time: Total time managing care of this patient today ____ minutes.
--- NOTE | 2024-02-13 09:03 | PM.DS ---
DS: Providers Provider Date of Service: 02/14/24 Primary care physician: Rozina Carpio MD DS: Summary Hospital Course Hospital Course: The patient underwent a successful right unicompartment knee arthroplasty, they were transferred to PACU and then to the floor to recover. During their stay, their vitals were stable, afebrile at 97.6. Labs were unremarkable, H/H 10.7/32.0. POD 1 they were started on Aspirin 325mg po bid for DVT ppx, they also received Physical Therapy services twice a day. Prior to discharge, their dressing was changed, incision clean dry and intact, new Aquacel dressing applied and the plan was to be discharged home with VNA services. Time Attestation Discharge Coordination Time (in mins): 30 Quality: Safe Use of Opioids Does Pt have an Active Cancer Diagnosis on the Problem List?: No Quality: Stroke Does the patient have a stroke diagnosis?: No Physical Exam Vital Signs: Vital Signs: Last Vital Signs Temp 98.5 F 02/13/24 06:31 Pulse 67 02/13/24 06:31 Resp 18 02/13/24 06:31 BP 173/84 H 02/13/24 06:31 Pulse Ox 98 02/13/24 06:31 O2 Del Method Room Air 02/13/24 06:31 BMI result Body Mass Index 33.8 Const: General: cooperative, healthy appearing and no acute distress Resp: Effort & Inspection: normal respiratory effort and able to speak in complete sentences Cardio: Rate: regular rate Peripheral pulses: Peripheral pulses 2+ throughout GI: Palpation (GI): Soft to palpation Skin: Lesions: no lesions Rashes: no rashes Extrem: Other: right knee dressing is c/d/i. Able to dorsi/plantar flex. Calf is supple and nontender. Sensation intact. Pedal pulse intact. DS: Data Data Completed and Pending Labs on day of discharge: Laboratory Results - last 24 hr 02/13/24 06:31 Hgb 13.7 Hct 39.2 Discharge Plan Discharge Patient Disposition: Home, Self-Care Referrals: Jose Colorado PA-C [Physician Fax Machine Operator] - 02/29/24 9:30 am Discharge Medications: New celecoxib 200 mg Capsule 200 mg PO BID 30 Days Qty: 60 0RF aspirin 325 mg Tablet 325 mg PO BID 42 Days Qty: 84 0RF hydrocodone-acetaminophen 5-325 mg Tablet 1 tab PO Q4H PRN (Reason: Pain, Moderate(Pain Scale 4-6)) 7 Days Qty: 42 0RF Rx Instructions: Partial Fill upon patient request. docusate sodium 100 mg Capsule 100 mg PO BID 30 Days Qty: 60 0RF Continued cholecalciferol (vitamin D3) 25 mcg (1,000 unit) capsule 25 mcg PO DAILY 90 Days Qty: 90 1RF atenolol 25 mg tablet 25 mg PO DAILY 90 Days Qty: 90 1RF (DME) walker Misc See Rx Instructions .MEDSUPPLY Qty: 1 0RF Rx Instructions: Folding Front wheeled walker omeprazole magnesium 20 mg capsule,delayed release(DR/EC) 20 mg PO DAILY@0630 Qty: 90 0RF lamotrigine 250 mg tablet extended release 24hr 250 mg PO BEDTIME quetiapine 100 mg tablet 100 mg PO BEDTIME cyclobenzaprine 5 mg tablet 5 mg PO BEDTIME PRN (Reason: Muscle Spasm) hydroxyzine HCl 25 mg tablet 25 mg PO Q8H PRN (Reason: anxiety) divalproex 500 mg tablet extended release 24 hr 500 mg PO BEDTIME levothyroxine 112 mcg tablet 112 mcg PO DAILY@0600 tolterodine [Detrol] 1 mg tablet 1 mg PO DAILY Qty: 30 0RF minoxidil 2.5 mg tablet 2.5 mg PO DAILY Discharge Orders: Discharge Order (Routine); Ordered 02/14/24 Ordered By: Sheyla Rico Diet: Advance to usual diet Activity on Discharge: Use cane or walker Activity Restrictions/Additional Instructions: Physical Therapy for ROM 0-120, quad strength, gait training. Use walker for ambulation Limit stair climbing, No shower, No tub bath, No driving Continue anticoagulant x 6 weeks Keep Aquacel dressing clean, dry and intact. Follow up with orthopedics in 2 weeks Print Language: Swazi
--- NOTE | 2024-02-13 09:05 | W.MHC.F2F ---
Service Date Service Date: 02/13/24 Encounter Date of encounter: 02/14/24 Reasons for Services Signs and symptoms assessed: s/p right knee unicompartment arthroplasty Pt. is considered homebound due to recent surgery. Unable to drive, poor balance, poor gait mechanics. Reason for physical therapy: home safety and mobility, therapeutic exercises, restore joint function, gait/transfer training and ADL training Homebound: Leaving the home is medically contraindicated at this time without the asist of a device and/or another person due th the listed conditions above and below. Reason homebound: unsteady gait / fall risk, leg weakness, pain with ambulation, pain with transfers, poor balance / fall risk and unable to drive Certification: Based on the above findings, I certify that this patient is confined to the home and needs intermittent custodial care, physical therapy and/or speech therapy, or continues to need occupational therapy. The patient is under my care, and I have initiated the establishment of the plan of care. The patient will be followed by a physician who will periodically review the plan of care. Time Spent With Patient Time: Total time managing care of this patient today ____ minutes.
--- NOTE | 2024-02-13 09:48 | P.BOP_ITS ---
Brief Operative Note Date of Service: 02/13/24 Pre-op diagnosis: right medial compartment OA Post-op diagnosis: same Procedure: Right UKA Implants: Alecia Persona cemented Surgeon: Henry Reyes MD Anesthesia: GLMA and regional Was an Printing Bindery Assistant used for this Procedure?: Yes Printing Bindery Assistant: Jose Colorado Estimated blood loss (mL): 25 Tourniquet time (min): 75 IV fluids (mL): 1,000 Pathology: other Condition: stable Disposition: PACU
--- NOTE | 2024-02-13 12:24 | PHA.MEDREC ---
Addendum entered by Chandler Moreira 02/13/24 12:27: reviewed Original Note: Pharmacy Consult ? Medication Reconciliation Pharmacy has reviewed the medication reconciliation done by nursing. Spoke to patient to confirm med list. Patient states she is no longer on Ketoconazole cream.
--- NOTE | 2024-02-13 12:48 | HO.PM.IMCN ---
History of Present Illness Data of Consult Service Date: 02/13/24 Primary Care Provider: Rozina Carpio MD HPI 63-year-old woman with a history of right knee osteoarthritis. Status post right knee arthroplasty. Surgery was unremarkable. Patient has been able to eat and drink. Denies nausea or vomiting. No acute medical complaints at this time. Review of Systems Review of Systems: Denies any recent fever chills or decrease in appetite respiratory denies any shortness of breath coverage production cardiovascular is adjustment of any PND or edema gastrointestinal denies any dysphagia abdominal pain nausea vomiting or diarrhea genitourinary denies any dysuria frequency or hematuria musculoskeletal denies any joint pain or swelling neuropsych denies any weakness or seizures all other systems reviewed are negative PMFSH Medical History Arthritis GERD (gastroesophageal reflux disease) Bipolar 1 disorder Internal derangement of right knee Thyroid ca Anxiety Hx of major depression Hypothyroidism Hypertension, essential Family History Father Colon cancer Other Mental health disorder Substance use disorder Surgical History Hx of removal of cyst H/O colonoscopy Hx of thyroidectomy Hx of section Social History Household Members: Significant Other Housing: House Are you a primary day care assistant to a significant other at home: No Do you presently have visiting nurse or other home services: No Alcohol intake: current Alcohol intake frequency: a few times a month Patient Tobacco Use Status: Current everyday Tobacco user Tobacco use type: Cigarette Cigarette Packs Per Day: 0 Cigarettes Per Day: 2 Years Smoked: 40 years e-Cigarette/Vaping Use: Never Used Second Hand Smoke Exposure: No service: No Current occupational status: unemployed Cognitive needs: No Hearing needs: No Vision needs: No Meds Allergies Allergy/AdvReac Type Severity Reaction Status Date / Time lithium [LITHIUM] AdvReac Intermediate bilateral Verified 02/08/24 09:54 pedal edema Active Medications: Current Medications Hydrocodone Bitart/Acetaminophen (Hydrocodone Bit/Acetam 5/325 Tablet) 1 tab PO Q4H PRN PRN Reason: Pain, Moderate(Pain Scale 4-6) Aspirin (Aspirin 325 Mg Tablet) 325 mg PO BID [facility] Atenolol (Atenolol 25 Mg Tablet) 25 mg PO DAILY MARILOU; Protocol Celecoxib (Celecoxib 200 Mg Capsule) 200 mg PO BID [facility] Cyclobenzaprine HCl (Cyclobenzaprine Hcl 5 Mg Tablet) 5 mg PO BEDTIME PRN PRN Reason: Muscle Spasm Docusate Sodium (Docusate Sodium 100 Mg Capsule) 100 mg PO BID [facility] Hydromorphone HCl (Hydromorphone Hcl 0.5 Mg/0.5 Ml Syringe) 0.25 mg IVPUSH Q4H PRN; Protocol PRN Reason: Pain, Severe (Pain Scale 7-10) Hydroxyzine HCl (Hydroxyzine Hcl 25 Mg Tablet) 25 mg PO Q8H PRN PRN Reason: anxiety Lactated Ringer's (Lr) 1,000 mls @ 100 mls/hr IVCONT .Q10H MARILOU Stop: 02/14/24 10:16 Cefazolin Sodium/Dextrose (Ancef) 2 gm in 50 mls @ 100 mls/hr IV POSTOP ONE Stop: 02/13/24 14:29 Influenza Virus Vaccine (Flu Vacc [id number](6mos Up)/Pf 0.5 Ml Syringe) 0.5 ml IM .ONCE ONE Stop: 02/13/24 12:43 Levothyroxine Sodium (Levothyroxine Sodium 112 Mcg Tablet) 112 mcg PO DAILY [facility] Minoxidil (Minoxidil 2.5 Mg Tablet) 2.5 mg PO DAILY [facility] Non-Formulary Medication (Lamotrigine) 250 mg PO BEDTIME [facility] Non-Formulary Medication (Tolterodine [Detrol]) 1 mg PO DAILY [facility] Omeprazole (Omeprazole 20 Mg Capsule.Dr) 20 mg PO DAILY@0630 [facility] Ondansetron HCl (Ondansetron Hcl 4 Mg/2 Ml Vial) 4 mg IVPUSH Q8H PRN PRN Reason: Nausea and Vomiting Oxycodone HCl (Oxycodone Hcl Er 10 Mg Tab.Er.12h) 10 mg PO BID [facility] Quetiapine Fumarate (Quetiapine Fumarate 100 Mg Tablet) 100 mg PO BEDTIME [facility] Sodium Chloride (0.9 % Sodium Chloride Flush 3 Ml Syringe) 3 ml IVFLUSH QSHIFT [facility] Home Medications ?Medication ?Instructions ?Recorded ?Confirmed ?Last Taken ?Type lamotrigine 250 mg tablet,extended 250 mg PO BEDTIME 08/19/23 02/13/24 02/11/24 History release 24 hr quetiapine 100 mg tablet 100 mg PO BEDTIME 08/19/23 02/13/24 02/11/24 History minoxidil 2.5 mg tablet 2.5 mg PO DAILY 11/20/23 02/13/24 02/11/24 History cyclobenzaprine 5 mg tablet 5 mg PO BEDTIME PRN Muscle Spasm 01/31/24 02/13/24 02/11/24 History hydroxyzine HCl 25 mg tablet 25 mg PO Q8H PRN anxiety 01/31/24 02/13/24 02/11/24 History divalproex 500 mg tablet,extended 500 mg PO BEDTIME 02/13/24 02/13/24 Unknown History release 24 hr levothyroxine 112 mcg tablet 112 mcg PO DAILY@0600 02/13/24 02/13/24 Unknown History Physical Exam Vital Signs and Narrative: Vital Signs: Last Vital Signs Temp 98.6 F 02/13/24 11:55 Pulse 69 02/13/24 11:55 Resp 16 02/13/24 11:55 BP 160/77 H 02/13/24 12:25 Pulse Ox 98 02/13/24 11:55 O2 Del Method Room Air 02/13/24 11:55 BMI result Body Mass Index 33.8 Appearing in no acute distress head is normocephalic atraumatic eyes pupils are PERRLA sclera is anicteric mouth throat mucous membranes are intact and moist neck is supple no lymphadenopathy, no JVD noted lung sounds are clear to auscultation heart regular rate rhythm, clear S1, S2 positive bowel sounds, abdomen is soft, nontender neuro patient is alert x3, no focal deficits Results Labs 02/14/24 05:40 02/14/24 05:40 Assessment and Plan (1) Status post total right knee replacement: Status: Inactive Plan 63-year-old woman admitted by Orthopedic surgery and is status post Right Knee Replacement Uni-Compartmental Right knee arthroplasty Management as per surgical team Pain management Hypertension Stable blood pressure Continue atenolol Hypothyroidism Continue levothyroxine GERD Continue PPI Mental health Continue home medications DVT prophylaxis as per admitting provider Medical consultation complete. Will sign off
[2024-02-13] MEDS: Flu Vacc TS2024-25(6mos up)/PF 0.5 ML SYRINGE IM (13:04)
[2024-02-13] MEDS: ceFAZolin Sodium/Dextrose,Iso 2 GM/50 ML PIGGYBACK IV (13:59)
[2024-02-13] MEDS: HYDROcodone Bit/Acetam 5/325 TABLET 1 TAB PO (15:30)
[2024-02-13] MEDS: HYDROmorphone HCl 0.5 MG/0.5 ML SYRINGE 0.25 MG IVPUSH ×2 (16:01→20:10)
[2024-02-13] MEDS: oxyCODONE HCl ER 10 MG TAB.ER.12H PO (20:09)
[2024-02-13] MEDS: 0.9 % Sodium Chloride Flush 3 ML SYRINGE IVFLUSH (20:09)
[2024-02-13] MEDS: QUEtiapine Fumarate 100 MG TABLET PO (20:10)
[2024-02-13] MEDS: Celecoxib 200 MG CAPSULE PO (20:10)
[2024-02-14 04:00] VITALS: BP 111/65; PULSE 67; RESP 18; TEMP 36.4; O2SAT 95
--- NOTE | 2024-02-14 04:39 | PC.NURSE ---
Pt is AOx4, able to make needs known. Pt is refusing all safety measures, especially the bed alarm. This RN and the TRAVEL ATTENDANTS have repeatedly educated pt about safety measures including the bed alarm. Pt states understanding and still refuses bed alarm. Call hernández within reach, frequent checks on pt throughout shift.
[2024-02-14] MEDS: Omeprazole 20 MG CAPSULE.DR PO (06:06)
[2024-02-14 06:28] LABS: MANUAL DIFF FLAG NO
[2024-02-14 06:42] LABS: Basophils Percent Auto 0.2 % (0-2); Eosinophils Percent Auto 0.1 % (0-4); Hemoglobin 10.7 g/dl (12.0-16.0); Imm Gran Abs Auto 0.05 X10*3/uL (0.00-0.03); Imm Gran Pct Auto 0.5 % (0.0-0.4); Lymphocytes Absolute Auto 1.8 X10*3/uL (1.2-4.9); Lymphocytes Percent Auto 16.3 % (20-40); Mean Corpuscular HGB Conc 33.4 g/dl (31.0-35.0); Mean Corpuscular Hemoglobin 31.5 pg (27.0-33.0); Mean Corpuscular Volume 94.1 fL (80.0-98.0); Mean Platelet Volume 8.9 fL (9.4-12.3); Monocytes Absolute Auto 0.8 X10*3/uL (0.1-1.2); Monocytes Percent Auto 7.6 % (2-11); Neutrophils Absolute Auto 8.4 x10*3/uL (2.0-8.3); Neutrophils Percent Auto 75.3 % (45-73); Platelet Count 250 X10*3/uL (160-400); Red Cell Distribution Width 11.9 % (11.0-16.0); White Blood Count 11.1 X10*3/uL (4.8-10.8)
[2024-02-14 07:02] LABS: Anion Gap 13 (12-20); Blood Urea Nitrogen 14 mg/dL (9-16); Calcium 8.6 mg/dL (8.4-10.2); Carbon Dioxide 22 mmol/L (22-29); Chloride 104 mmol/L (96-108); Creatinine Clr Calc Pharmacy 69.2; Estimated Glomerular Filt Rate > 60; Glucose Fasting 139 mg/dL (60-99); Potassium 4.2 mmol/L (3.3-5.1); Sodium 135 mmol/L (135-145)
[2024-02-14 07:34] VITALS: BP 128/63; PULSE 66; RESP 18; O2SAT 94
[2024-02-14] MEDS: Aspirin 325 MG TABLET PO (07:46)
[2024-02-14] MEDS: Celecoxib 200 MG CAPSULE PO (07:47)
[2024-02-14] MEDS: minoxidiL 2.5 MG TABLET PO (07:47)
[2024-02-14] MEDS: Docusate Sodium 100 MG CAPSULE PO (07:48)
[2024-02-14] MEDS: atenoloL 25 MG TABLET PO (07:48)
[2024-02-14] MEDS: oxyCODONE HCl ER 10 MG TAB.ER.12H PO (07:48)
[2024-02-14] MEDS: 0.9 % Sodium Chloride Flush 3 ML SYRINGE IVFLUSH (07:49)
[2024-02-14] MEDS: Levothyroxine Sodium 112 MCG TABLET PO (07:50)
[2024-02-14 07:51] VITALS: TEMP 35.9
[2024-02-14] MEDS: HYDROcodone Bit/Acetam 5/325 TABLET 1 TAB PO (08:07)
--- NOTE | 2024-02-14 08:09 | PC.NURSE ---
Patient refuses bed alarm,encouraged patient to ask for assistance
[2024-02-14 08:26] VITALS: BP 128/63; PULSE 66; O2SAT 94
--- NOTE | 2024-02-14 08:48 | MHC.CM.PN ---
Patient lives in home w/ S.O. and disabled 13 year old grandson. Patient is primary caregiver to grandson. Functionally independent. Has a cane to use post op. PCP Rozina Carpio MD HCP on file and verified. [facility]CA is daughter, Myesha. DP: PT rec home w/ services. [facility] has accepted. Medically cleared for dc. Daughter to transport home this evening. RN aware.
[2024-02-14] MEDS: HYDROmorphone HCl 0.5 MG/0.5 ML SYRINGE 0.25 MG IVPUSH (11:08)
--- NOTE | 2024-02-14 11:11 | PC.NURSE ---
Lamotrigine from home returned to patient
[2024-02-14 11:50] VITALS: BP 123/59; PULSE 62; RESP 18; TEMP 36.4; O2SAT 92
--- NOTE | 2024-02-14 13:50 | HO.POSTANES ---
Post Anesthesia Evaluation Post Anesthesia Evaluation Date of Service: 02/13/24 Vital Signs: Vital Signs Temp Pulse Resp BP Pulse Ox O2 Del Method 02/14/24 11:50 97.5 F 62 18 123/59 L 92 Room Air 02/14/24 08:26 66 128/63 94 02/14/24 07:51 96.7 F L 02/14/24 07:34 66 18 128/63 94 Room Air 02/14/24 04:00 97.6 F 67 18 111/65 95 Room Air Anesthesia: Spinal Mental Status: Awake Pain Control: Satisfactory Nausea/Vomiting: None Hydration: Adequate Anesthesia-Related Issues: No Anes. Related Issues
--- NOTE | 2024-02-27 09:39 | W.PM.OPN ---
Operative Note Operative Note Date of Service: 02/13/24 Narrative: Date of Service: 02/13/24 Pre-op diagnosis: right medial compartment OA Post-op diagnosis: same Procedure: Right UKA Implants: Alecia Persona cemented Surgeon: Henry Reyes MD Anesthesia: GLMA and regional Was an Financial Accountant used for this Procedure?: Yes Financial Accountant: Jose Colorado Estimated blood loss (mL): 25 Tourniquet time (min): 75 IV fluids (mL): 1,000 Pathology: other Condition: stable Disposition: PACU Procedure in detail: The patient was brought to the operating room and prepped and draped in standard sterile fashion. A time-out was called to identify proper site proper procedure proper surgeon and IV antibiotics were administered. 1 g of IV tranexamic acid was administered. I began by making an incision anteromedially and dissected down to the retinaculum and performed a limited medial parapatellar arthrotomy. The patella was translated laterally with a retractor in the notch and the knee was flexed up.The medial compartment was eburnated. There were some G2 changes of the medial patellar facet and the lateral compartment was unaffected. I performed a small medial peel. I began by taking 4 mm off the tibia while in extension using an external tibial guide. I did not attempt to fully reproduce valgus alignment but rather to put her into neutral. A recprocating saw was used to make my tibial cut and a saggital saw to make my saggital cut just medial to the tibial attachment of the ACL. Care was taken to protect the posterior soft tissues. All excess bone and debris was removed and a 9mm spacer was inserted and was snug. I therefore turned my attention to femur where I placed a pin in hyper-extension and made my distal femoral cut using a reciprocating saw. I then checked my flexion and extension gaps and was satisfied. I sized an E femur and placed my cutting jig and made my chamfer cuts. I then returned to the tibia where I sized a 3 tibia and then made my lug holes and placed a tibial and femoral trial and trialed with an 8 insert. I was satisfied with the alignment and had not over corrected. All instrumentation was then removed and I irrigated copiously. One bag of Palacos bone cement was mixed on the back table and the components cemented in in standard fashion while applying axial compression. Once the cement was dry all excess cement was removed and I re-trialed an 8 and 9 spacer. I was satisfied with the 8 spaced and this was placed. I then irrigated and closed with running Quill suture, a 3 0 Vicryl and kory on the skin. Patient was then placed in sterile dressing and brought to recovery room in stable condition there were no known complications.
== END 2024-02-14 14:50 | disposition home health service (06) ==
LOC: HO.SSS 09:03 → HO.S3 10:51
PROVIDERS: Physician Assistant; PCP Internal Medicine; Visit Provider Orthopaedic Surgery
PROC: (CPT 27446; principal; 2024-02-13 07:30)
DX: M17.11 Unilateral primary osteoarthritis, right knee (principal); Z96.9 Presence of functional implant, unspecified; I10 Essential (primary) hypertension; E03.9 Hypothyroidism, unspecified; K21.9 Gastro-esophageal reflux disease without esophagitis; F31.9 Bipolar disorder, unspecified; F41.9 Anxiety disorder, unspecified; Z85.850 Personal history of malignant neoplasm of thyroid; Z88.8 Allergy status to other drugs, medicaments and biological substances; F17.210 Nicotine dependence, cigarettes, uncomplicated; Z56.0 Unemployment, unspecified; Z79.899 Other long term (current) drug therapy
CPT/HCPCS: 27446; 36415; 73560; 80048; 85014; 85018; 85025; 86850; 86900; 86901; 87640; 87641; 88304; 88305; 88311; 90656; 93005; 97110; 97116; 97162; C1713; C1776; J0131; J0171; J0665; J0690; J1100; J1171; J2003; J2250; J2371; J2405; J2704; J3010; J7120

== ENCOUNTER → 2024-02-13 06:06 | Outpatient (BNV) | payer OTHER, SELFPAY | PROVIDERS: PCP Internal Medicine; Visit Provider Orthopaedic Surgery | DX: M17.11 Unilateral primary osteoarthritis, right knee (principal) | CPT/HCPCS: 27447; 99024; G0180 ==

== ENCOUNTER → 2024-02-13 06:06 | Outpatient (BNV) | payer OTHER, SELFPAY | PROVIDERS: PCP Internal Medicine; Visit Provider Nurse Practitioner Acute Care | DX: M17.11 Unilateral primary osteoarthritis, right knee (principal); Z96.651 Presence of right artificial knee joint | CPT/HCPCS: 99222 ==

== ENCOUNTER 2024-02-19 10:40 | Outpatient (REF) | payer OTHER, SELFPAY ==
[2024-02-19 13:40] LABS: Anion Gap 15 (12-20); Blood Urea Nitrogen 8 mg/dL (9-16); Calcium 9.6 mg/dL (8.4-10.2); Carbon Dioxide 22 mmol/L (22-29); Chloride 103 mmol/L (96-108); Estimated Glomerular Filt Rate 56; Glucose Random 86 mg/dL (60-115); Potassium 4.2 mmol/L (3.3-5.1); Sodium 136 mmol/L (135-145)
[2024-02-19 13:59] LABS: TSH reflex Free T4 4.37 uIU/mL (0.32-4.0)
[2024-02-19 14:41] LABS: Free T4 (Free Thyroxine) 1.17 ng/dL (0.71-1.85)
[2024-02-23 16:34] LABS: Vitamin D 25-OH, D2 <4 ng/mL; Vitamin D 25-OH, D3 37 ng/mL; Vitamin D 25-OH, Total 37 ng/mL (30-100)
== END 2024-02-19 10:41 | disposition home or self-care (01) ==
LOC: HO.HMGCLDS 10:40
PROVIDERS: PCP Internal Medicine; Visit Provider Internal Medicine Hypertension Specialist
DX: E87.1 Hypo-osmolality and hyponatremia (principal)
CPT/HCPCS: 36415; 80048; 82306; 84439; 84443

== ENCOUNTER 2024-02-26 10:01 | Outpatient (AMB) | payer OTHER, SELFPAY ==
--- NOTE | 2024-02-26 10:02 | HO.NEPHOV ---
Vital Signs 02/26/24 10:03 02/26/24 10:28 Height 5 ft 3 in Weight 196 lb BMI 34.7 BP 162/82 H 140/70 H Blood Pressure Location Lt brachial Lt brachial Position Sitting Sitting Pulse 65 Pulse Source Pulse Oximeter Pulse Oximetry (%) 97 Oxygen Delivery Method Room Air Intake Visit Reasons: CKD/ LVM Anime Designer Required: No Accompanied by: Self / Same As Patient Allergies lithium [LITHIUM] Adverse Reaction (Intermediate, Verified 02/26/24 10:03) bilateral pedal edema Medication List - Last Reconciled 02/26/24 by Sarkis El MD aspirin 325 mg PO BID 42 days atenolol 25 mg PO DAILY 90 days cholecalciferol (vitamin D3) 25 mcg PO DAILY 90 days cyclobenzaprine 5 mg PO BEDTIME PRN divalproex ER 500 mg PO BEDTIME hydrocodone-acetaminophen 5-325 mg 1 tab PO Q4H PRN 7 days hydroxyzine HCl 25 mg PO Q8H PRN lamotrigine ER 250 mg PO BEDTIME levothyroxine 112 mcg PO DAILY@0600 minoxidil 2.5 mg PO DAILY omeprazole magnesium 20 mg PO DAILY@0630 quetiapine 100 mg PO BEDTIME tolterodine (Detrol) 1 mg PO DAILY walker Folding Front wheeled walker HPI Comments Details: 63 years old woman with a history significant for hypothyroidism (thyroid CA s/p thyroidectomy), depression and essential hypertension presents to the emergency department after she was found to have significant hyponatremia (120) on a routine blood workup as an outpatient. Sodium was 119. She admits to drinking 2 gal of water. She drinks at least 1 2 L bottle of diet Coke. She had severe hypothyroidism with a TSH of 16 She is placed on p.o. water restriction. Sodium gradually increased to 129 and she was discharged She is here for further follow-up. At the time of discharge she was supposed to be sent home with 125 mcg of Synthroid however she was given a prescription of 88 mcg. September 2023. She took 2 caffeinated gums and feels jittery. Recently treated for suspected UTI with nitrofurantoin. Currently she is on levothyroxine 125 mcg. 02/26/24 Recently had knee surgery Levothyroxine decreased to 112mcg [facility] Medical History Arthritis GERD (gastroesophageal reflux disease) Bipolar 1 disorder Internal derangement of right knee Thyroid ca Anxiety Hx of major depression Hypothyroidism Hypertension, essential Surgical History Status post total right knee replacement Hx of removal of cyst H/O colonoscopy Hx of thyroidectomy Hx of section Family History Father Colon cancer Other Mental health disorder Substance use disorder Social History Household Members: Significant Other Housing: House Are you a primary manager long term care to a significant other at home: No Do you presently have visiting nurse or other home services: No Alcohol intake: current Alcohol intake frequency: a few times a month Patient Tobacco Use Status: Current everyday Tobacco user Tobacco use type: Cigarette Cigarette Packs Per Day: 0 Cigarettes Per Day: 2 Years Smoked: 40 years e-Cigarette/Vaping Use: Never Used Second Hand Smoke Exposure: No service: No Current occupational status: unemployed Cognitive needs: No Hearing needs: No Vision needs: No Female Reproductive History Menstrual Age of Menarche: 14 Physical Exam Vital Signs: Last Vital Signs Pulse 65 02/26/24 10:03 BP 162/82 H 02/26/24 10:03 Pulse Ox 97 02/26/24 10:03 Oxygen Delivery Method Room Air 02/26/24 10:03 BMI result Body Mass Index 34.7 Const General: comfortable; No acute distress Orientation/consciousness: patient oriented x3 Eyes General: appearance normal, both eyes and all related structures Visual Hernandez: normal visual hernandez by confrontation Neck Neck: Yes supple and Yes no JVD Resp Effort & Inspection: normal respiratory effort and respiratory effort not decreased Auscultation: rhonchi Cardio Palpation: no palpable S3 and no palpable S4 Heart sounds: no rubs GI Inspection: Yes normal to inspection Palpation (GI): Soft to palpation Percussion: Yes normal to percussion Auscultation: normal bowel sounds General: Yes no CVA tenderness Back/Spine/Pelvis Back: no CVA tenderness Skin General skin exam: no petechiae and no purpura Neuro General: patient oriented x3 and no focal motor deficits Extrem General: No clubbing and No edema Results Reviewed Nephrology Results: Hgb 10.7 g/dl (12.0-16.0) L 02/14/24 WBC 11.1 X10*3/uL (4.8-10.8) H 02/14/24 Plt Count 250 X10*3/uL (160-400) 02/14/24 Sodium 136 mmol/L (135-145) 02/19/24 Potassium 4.2 mmol/L (3.3-5.1) 02/19/24 Chloride 103 mmol/L (96-108) 02/19/24 Carbon Dioxide 22 mmol/L (22-29) 02/19/24 BUN 8 mg/dL (9-16) L 02/19/24 Creatinine 1.00 mg/dL (0.5-1.4) 02/19/24 Calcium 9.6 mg/dL (8.4-10.2) 02/19/24 Urine Protein Trace mg/dL (Neg-Trace) 01/31/24 Assessment & Plan Assessment & Plan (1) Hyponatremia: Code(s): E87.1 - Hypo-osmolality and hyponatremia Category: Medical (2) Other specified hypothyroidism: Code(s): E03.8 - Other specified hypothyroidism Category: Medical Plan History of Severe hyponatremia due to significant hypothyroidism and excessive free water intake. Serum sodium has been gradually improved Rate of correction acceptable. Goal is to maintain serum sodium more than 130 millimoles. Hypothyroidism levothyroxine 112 mcg- Follow with PCP Encouraged to limit her free water intake. Mild hypokalemia. corrected BP sub optimal today REpeat was better- shall watch Low salt diet Orders: Orders Basic Metabolic Panel 4 Months E87.1 - Hypo-osmolality and hyponatremia Coding Level of Care Code Est Pt Level 4 (76929) Diagnoses Hyponatremia E87.1 Other specified hypothyroidism E03.8
[2024-02-26 10:03] VITALS: BP 162/82; PULSE 65; O2SAT 97; BMI 34.7
[2024-02-26 10:28] VITALS: BP 140/70
== END 2024-02-26 10:33 | disposition home or self-care (01) ==
PROVIDERS: PCP Internal Medicine; Visit Provider Internal Medicine Hypertension Specialist
DX: E87.1 Hypo-osmolality and hyponatremia (principal); E03.8 Other specified hypothyroidism
CPT/HCPCS: 99214

== ENCOUNTER → 2024-02-26 10:01 | Outpatient (BNVA) | payer OTHER, SELFPAY | PROVIDERS: PCP Internal Medicine; Visit Provider Internal Medicine Hypertension Specialist | DX: E87.1 Hypo-osmolality and hyponatremia (principal); E03.8 Other specified hypothyroidism | CPT/HCPCS: 99212 ==

== ENCOUNTER 2024-02-26 13:00 | Outpatient (RCR) | payer OTHER, SELFPAY ==
--- NOTE | 2024-02-19 10:33 | MHC.PT.EP ---
[facility] [place] [facility] [place] [facility] [place] [facility] [address] Nain Schroeder [address] [phone] F: [phone] F: [phone] F: [phone] F: [phone] Physical Therapy Plan of Care Date of Evaluation: 02/19/24 Date of Surgery: 02/13/2024 Diagnosis: s/p UKA 02/13/2024 Assessment: Patient is a 63 year old female presenting to PT s/p UKA 02/13/2024. She presents today with impairments in pain, ROM, knee strength, hip strength. Pt's current occupation is none, with baseline physical activities including ambulating, watching tv, stair negotiation. 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 Clinical presentation today is most consistent with signs and sx associated with s/p UKA 02/13/2024 and pt will benefit from skilled PT 2 week x 4 weeks to address the following problems and impairments noted upon evaluation: pain, ROM, knee strength, hip strength. These problems limit the patient with the following functional activities: ambulating, ADLs, stair negotiation. The prescribed treatment plan of care is medically necessary. Co-morbidities of none were identified and taken into considerations of plan of care. Pt was educated on HEP, role of PT, prognosis, POC. Frequency and Duration: The patient will be seen 2 x week x 4 weeks Short Term Goals: Pt will demonstrate compliance with use of cane in 1 visit. Pt will demonstrate improved R knee ROM to 120 in 2 weeks. Pt will demonstrate improved R knee MMT strength by 1/3 grade in 2 weeks. Pt will demonstrate hip MMT strength at least 4/5 in 2 weeks. Usp Goals: Pt will demonstrate improved LEFI score by 9 points in 4 weeks for improved functional mobility. Pt will demonstrate ability to ambulate with no AD in 4 weeks for improved access to her home. Pt will demonstrate ability to negotiate stairs with step over step pattern in 4 weeks for return to PLOF. Treatment Plan: Modalities to reduce pain, spasms and effusion. Manual therapy to restore motion and function. Therapeutic exercise to improve strength and flexibility. Neuromuscular re-education for posture and balance. Therapeutic activities to return to functional activities of daily living. Electronically signed by: Veronica Gutierrez, PT, DPT, ATC Please sign and return to therapist. Thank you for your referral.
--- NOTE | 2024-04-02 10:04 | MHC.PT.DC ---
[facility] [place] Office [place] Office [place] Office [address] [phone] F: [phone] F: [phone] F: [phone] F: [phone] Physical Therapy Discharge Report Diagnosis: s/p UKA 02/13/2024 Date of Surgery: 02/13/2024 Date of Evaluation: 02/19/24 Date of Discharge: 04/02/24 Treatments to Date: 2 Cancellations to Date: 3 No Shows to Date: 0 Discharge Status: Discharge Summary: Pt has not attended skilled PT in> 30 days and therefore to be d/c per policy. Electronically signed by: Veronica Gutierrez, PT, DPT, ATC Please sign and return to therapist. Thank you for your referral.
== END 2024-04-02 10:04 | disposition home or self-care (01) ==
LOC: HO.PTCHIC 13:00
PROVIDERS: PCP Internal Medicine; Visit Provider Physician Assistant
DX: Z96.651 Presence of right artificial knee joint (principal)
CPT/HCPCS: 97110; 97161

== ENCOUNTER 2024-02-27 13:34 | Outpatient (AMB) | payer OTHER, SELFPAY ==
--- NOTE | 2024-02-27 13:35 | MHC.PC.OV ---
Vital Signs 02/27/24 13:36 Height 5 ft 3 in Weight 198 lb 6 oz BMI 35.1 BP 128/76 Blood Pressure Location Rt brachial Position Sitting Pulse 70 Pulse Source Pulse Oximeter Pulse Oximetry (%) 98 Oxygen Delivery Method Room Air Intake Visit Reasons: Knee surgery follow up Allergies lithium [LITHIUM] Adverse Reaction (Intermediate, Verified 02/27/24 13:36) bilateral pedal edema Medication List - Last Reconciled 02/27/24 by Rozina Carpio MD aspirin 325 mg PO BID 42 days atenolol 25 mg PO DAILY 90 days cholecalciferol (vitamin D3) 25 mcg PO DAILY 90 days cyclobenzaprine 5 mg PO BEDTIME PRN divalproex ER 500 mg PO BEDTIME hydrocodone-acetaminophen 5-325 mg 1 tab PO Q4H PRN 7 days hydroxyzine HCl 25 mg PO Q8H PRN lamotrigine ER 250 mg PO BEDTIME levothyroxine 112 mcg PO DAILY@0600 minoxidil 2.5 mg PO DAILY omeprazole magnesium 20 mg PO DAILY@0630 quetiapine 100 mg PO BEDTIME tolterodine (Detrol) 1 mg PO DAILY walker Folding Front wheeled walker Tobacco use date assessed: 02/27/24 Dental Screening Dental Screen Date: 02/27/24 Did you have a dental visit in the last 12 months?: Yes Did you have a dental problem in the last 6 months where you did not have access to dental care?: No Was dental information given to patient?: Patient has dentist HPI Knee surgery follow up HPI Details Follow-up urinary incontinence Patient was started on Detrol 1 mg She did well, her urinary symptoms resolved and she was not getting up frequently at night Ninety days script sent with 1 refill Blood pressure is stable patient is on atenolol Psychiatric medications through Psychiatry Continue levothyroxine 112 mcg we will check TSH again at her next visit Continue omeprazole for GERD She is status post right knee surgery And is doing well wound is healing well I see that her hemoglobin has dropped after the surgery We will be repeating labs again at her next visit in 4 months Patient is to continue follow with the orthopedic [facility] Medical History Hypertension, essential Arthritis GERD (gastroesophageal reflux disease) Bipolar 1 disorder Internal derangement of right knee Thyroid ca Anxiety Hx of major depression Hypothyroidism Surgical History Status post total right knee replacement Hx of removal of cyst H/O colonoscopy Hx of thyroidectomy Hx of section Family History Father Colon cancer Other Mental health disorder Substance use disorder Social History Household Members: Significant Other Housing: House Are you a primary healthcare account manager to a significant other at home: No Do you presently have visiting nurse or other home services: No Alcohol intake: current Alcohol intake frequency: a few times a month Patient Tobacco Use Status: Current everyday Tobacco user Tobacco use type: Cigarette Cigarette Packs Per Day: 0 Cigarettes Per Day: 2 Years Smoked: 40 years e-Cigarette/Vaping Use: Never Used Second Hand Smoke Exposure: No service: No Current occupational status: unemployed Cognitive needs: No Hearing needs: No Vision needs: No Female Reproductive History Menstrual Age of Menarche: 14 Questionnaire Thrive Questionnaire Date Thrive assessed: 02/27/24 I am a: Patient What is your living situation today?: I have a steady place to live Within the past 12 months, did the food you bought not last and you didn't have the money to get more?: I choose not to answer this question Within the past 12 months, did you worry whether your food would run out before you got money to buy more?: I choose not to answer this question Do you have trouble paying for medicines?: I choose not to answer this question Do you have trouble getting transportation to medical appointments?: No Do you have trouble paying your heating and electricity bill?: No Do you have trouble taking care of your child, family member or friend?: No Do you have trouble with day-to-day activities such as bathing, preparing meals, shopping, managing finances, etc.?: No Are you currently unemployed and looking for a job?: No Are you interested in more education?: I choose not to answer this question Please select the resources that you would like help with: None Currently or been in a relationship where the following occur: No concerns reported THRIVE Score: 0 AUDIT C Alcohol Use Questionnaire (AUDIT-C) 1. How often do you have a drink containing alcohol?: Never 3. How often do you have six or more drinks on one occasion?: Never Total Score: 0 Score Reviewed/Action Taken: Yes ANTON-7 AMB Questionnaire ANTON-7 Date ANTON - 7 assessed: 01/03/24 Source: Developed by Drs. Dangelo Taylor, Madiha Valdez, Jonny Pepper and colleagues, with an educational brina from [employer]. Review of Systems Const Denies chills and Denies fever(s) ENT Denies epistaxis and Denies nasal discharge Card Denies chest pain Resp Denies chest congestion, Denies cough and Denies hemoptysis GI Denies diarrhea and Denies nausea Skin/Breast Denies rash Neuro Reports no additional complaints Psych Reports no additional complaints Endo Reports no additional complaints Physical exam (Primary Care) Vital Signs: Last Vital Signs Pulse 70 02/27/24 13:36 BP 128/76 02/27/24 13:36 Pulse Ox 98 02/27/24 13:36 Oxygen Delivery Method Room Air 02/27/24 13:36 BMI result Body Mass Index 35.1 Tobacco/Smoking Status: Tobacco use Status Tobacco use date assessed 02/27/24 02/27/24 13:40 Patient Tobacco Use Status Current everyday Tobacco 02/27/24 13:40 Tobacco use type Cigarette 02/27/24 13:40 e-Cigarette/Vaping Use Never Used 02/27/24 13:40 Thrive Assessment: Date of Thrive Assessment Date Thrive assessed 02/27/24 02/27/24 13:40 Currently or been in a relationship where the following occur: No concerns reported Const General: cooperative, comfortable and no acute distress Orientation/consciousness: patient oriented x3 HENCT Head: Yes normocephalic Eyes General: appearance normal, both eyes and all related structures Neck Neck: Yes supple Resp Effort & Inspection: normal respiratory effort, no cough and no stridor Cardio Rhythm: regular rhythm Heart sounds: S1 normal heart sound present and S2 normal heart sound present Skin General skin exam: turgor normal Neuro General: patient oriented x3, tone normal and moves all extremities Extrem Right lower extremity: no edema Left lower extremity: no edema Coding Level of Care Code Est Pt Level 4 (09618) Diagnoses Hypertension, essential I10 Bipolar disorder, in full remission, most recent episode hypomanic F31.72 Active/Remission status: in full remission Most recent bipolar episode type: hypomanic Other specified hypothyroidism E03.8 Gastroesophageal reflux disease without esophagitis K21.9 Esophagitis presence: without esophagitis Assessment & Plan Assessment & Plan (1) Hypertension, essential: Code(s): I10 - Essential (primary) hypertension Category: Medical (2) Bipolar disorder: Code(s): F31.9 - Bipolar disorder, unspecified Category: Medical Qualifiers: Active/Remission status: in full remission Most recent bipolar episode type: hypomanic Qualified Code(s): F31.72 - Bipolar disorder, in full remission, most recent episode hypomanic (3) Other specified hypothyroidism: Code(s): E03.8 - Other specified hypothyroidism Category: Medical (4) GERD (gastroesophageal reflux disease): Code(s): K21.9 - Gastro-esophageal reflux disease without esophagitis Category: Medical Qualifiers: Esophagitis presence: without esophagitis Qualified Code(s): K21.9 - Gastro-esophageal reflux disease without esophagitis Plan Follow-up urinary incontinence Patient was started on Detrol 1 mg She did well, her urinary symptoms resolved and she was not getting up frequently at night Ninety days script sent with 1 refill Blood pressure is stable patient is on atenolol Psychiatric medications through Psychiatry Continue levothyroxine 112 mcg we will check TSH again at her next visit Continue omeprazole for GERD She is status post right knee surgery And is doing well wound is healing well I see that her hemoglobin has dropped after the surgery We will be repeating labs again at her next visit in 4 months Patient is to continue follow with the orthopedic Orders: Orders Complete Blood Count Auto Diff 3 Months E03.8 - Other specified hypothyroidism, F31.72 - Bipolar disorder, in full remission, most recent episode hypomanic, I10 - Essential (primary) hypertension, K21.9 - Gastro-esophageal reflux disease without esophagitis, N28.9 - Disorder of kidney and ureter, unspecified Comprehensive Met. Panel 3 Months E03.8 - Other specified hypothyroidism, F31.72 - Bipolar disorder, in full remission, most recent episode hypomanic, I10 - Essential (primary) hypertension, K21.9 - Gastro-esophageal reflux disease without esophagitis, N28.9 - Disorder of kidney and ureter, unspecified TSH reflex Free T4 3 Months E03.8 - Other specified hypothyroidism, F31.72 - Bipolar disorder, in full remission, most recent episode hypomanic, I10 - Essential (primary) hypertension, K21.9 - Gastro-esophageal reflux disease without esophagitis, N28.9 - Disorder of kidney and ureter, unspecified Medications: Refilled tolterodine (Detrol) 1 mg PO DAILY 90 tabs 1RF Bladder incontinence
[2024-02-27 13:36] VITALS: BP 128/76; PULSE 70; O2SAT 98; BMI 35.1
== END 2024-02-27 15:09 | disposition home or self-care (01) ==
LOC: HO.HMCC 13:35
PROVIDERS: PCP Internal Medicine; Visit Provider Internal Medicine
DX: I10 Essential (primary) hypertension (principal); F31.72 Bipolar disorder, in full remission, most recent episode hypomanic; E03.8 Other specified hypothyroidism; K21.9 Gastro-esophageal reflux disease without esophagitis

== ENCOUNTER → 2024-02-27 13:34 | Outpatient (BNVA) | payer OTHER, SELFPAY | PROVIDERS: PCP Internal Medicine; Visit Provider Internal Medicine | DX: I10 Essential (primary) hypertension (principal); F31.72 Bipolar disorder, in full remission, most recent episode hypomanic; E03.8 Other specified hypothyroidism; K21.9 Gastro-esophageal reflux disease without esophagitis; Z98.890 Other specified postprocedural states | CPT/HCPCS: 99212 ==

== ENCOUNTER → 2024-02-29 08:24 | Outpatient (BNVA) | payer OTHER, SELFPAY | PROVIDERS: PCP Internal Medicine; Visit Provider Internal Medicine ==

== ENCOUNTER 2024-02-29 08:48 | Emergency (ER) | payer OTHER, SELFPAY ==
[2024-02-29] VITALS (7 sets, daily range): BP systolic 150–184; BP diastolic 47–90; PULSE 69–82; RESP 16–20; TEMP 36.6–36.8; O2SAT 94–96; BMI 36.4
--- NOTE | ~2024-02-29 | CT_ITS ---
EXAMINATION: CT CERVICAL SPINE WITHOUT CONTRAST CLINICAL INFORMATION: Status post fall. Injury. Pain. COMPARISON: None available. TECHNIQUE: Contiguous axial images from the skull base to the thoracic inlet using 3 mm collimation with bone and soft tissue algorithm. Sagittal and coronal reformatted images acquired. This CT examination was performed using dose optimization techniques as appropriate, variously including the following: *Automated exposure control *Adjustment of mA and/or kV according to patient size (this includes techniques or standardized protocols for targeted exams where dose is matched to indication/reason for exam; i.e. extremities or head) *Use of iterative reconstruction technique DLP: 1000 and 363 mGy-cm FINDINGS: Craniocervical junction is intact. C1 is intact. C2 is intact. No acute cortical disruption within the vertebral bodies, transverse processes, pedicles, lamina, facet and posterior spinous processes, cervical spine. Bilateral facet joint hypertrophy at multiple levels more conspicuous at C6-7. Marginal osteophyte formation, sclerosis and decreased intervertebral disc height, C5-6. There is reverse curvature apex at C5. No acute cortical disruption or trauma-related malalignment. No prevertebral compartment hematoma. Status post total thyroidectomy. Punctate calcifications in the palatine tonsils likely tonsillith. CT/CT cervical spine wo IV con IMPRESSION: Multilevel cervical spondylosis more conspicuous at C5-6 without acute fracture or trauma-related listhesis. If patient's symptoms persist consider MRI. Fleischner guidelines were followed. Electronically signed by: Abner West MD 02/29/2024 10:46 AM EDT
--- NOTE | ~2024-02-29 | CT_ITS ---
EXAMINATION: CT HEAD WITHOUT CONTRAST CLINICAL INFORMATION: fall, injury, pain COMPARISON: CT dated May 20, 2016 TECHNIQUE: Contiguous axial imaging was performed from the skull base to vertex without intravenous administration of contrast. This CT examination was performed using dose optimization techniques as appropriate, variously including the following: *Automated exposure control *Adjustment of mA and/or kV according to patient size (this includes techniques or standardized protocols for targeted exams where dose is matched to indication/reason for exam; i.e. extremities or head) *Use of iterative reconstruction technique DLP: 1016 mGy-cm FINDINGS: Bony calvarium is intact. Skull base is intact. No acute intracranial hemorrhage, mass effect, midline shift, hydrocephalus or herniation. Finney-white matter differentiation is normal. Osteopenia cranial fossa contents demonstrated no acute intracranial hemorrhage or mass effect. Sellar/suprasellar region demonstrated no gross masses. Prominence of the extra-axial CSF spaces and the bifrontal regions. Tympanic cavities and mastoid cells are aerated. No air-fluid levels in the included paranasal sinuses. CT/CT head/brain wo IV con IMPRESSION: No acute fracture, bony calvarium. No acute intracranial hemorrhage. Stable brain. Electronically signed by: Abner West MD 02/29/2024 10:39 AM EDT
--- NOTE | ~2024-02-29 | XR_ITS ---
EXAMINATION: XR KNEE, LEFT CLINICAL INFORMATION: Injury. COMPARISON: X-ray dated February 08, 2024 TECHNIQUE: Four views of the left knee. FINDINGS: No acute cortical disruption or malalignment. No lytic or blastic lesions. No joint effusion, suprapatellar bursa. XR/XR knee LT 3V IMPRESSION: No acute fracture or dislocation. Electronically signed by: Abner West MD 02/29/2024 09:55 AM EDT
--- NOTE | ~2024-02-29 | XR_ITS ---
EXAMINATION: XR HIP, LEFT CLINICAL INFORMATION: Pain, fall, injury. COMPARISON: None available. TECHNIQUE: AP pelvis, AP supine and frog-leg lateral views of the left hip. FINDINGS: No fracture, dislocation, or suspicious bone lesion. Alignment is anatomic. Hip joint space is maintained. Normal SI joints. Soft tissues are unremarkable. XR/XR hip LT w PEL1V IMPRESSION: No acute findings. Normal exam. Electronically signed by: Arsalan Argueta MD 02/29/2024 12:40 PM EDT
--- NOTE | ~2024-02-29 | XR_ITS ---
EXAMINATION: XR KNEE, RIGHT CLINICAL INFORMATION: Weakness. Partial replacement. COMPARISON: X-ray dated February 13, 2024 TECHNIQUE: Four views of the right knee. FINDINGS: Metallic prosthesis placed in the osseous structures of the medial femoral condyle and medial tibial plateau without acute cortical disruption or gross malalignment. Skin kory in the anterior aspect of the left knee. Suprapatellar bursa joint effusion. No subcutaneous emphysema. XR/XR knee RT 3V IMPRESSION: Status post medial compartmental arthroplasty without acute fracture or dislocation. Joint effusion, suprapatellar bursa. Electronically signed by: Abner West MD 02/29/2024 09:56 AM EDT
--- NOTE | ~2024-02-29 | US_ITS ---
EXAMINATION: US TRIPLEX LOWER EXTREMITY, RIGHT CLINICAL INFORMATION: Swelling, warmth, redness, concern for DVT. COMPARISON: Bilateral lower extremity venous Doppler ultrasound 01/13/2018. TECHNIQUE: Color-flow triplex imaging with spectral analysis and compression Doppler were performed on the right lower extremity. FINDINGS: Limited evaluation of right calf peroneal veins secondary to body habitus/lower extremity swelling. Respiratory variation, normal compression and augmented flow are noted throughout the right lower extremity. The visualized common femoral vein, superficial femoral vein, profunda femoral vein, popliteal vein and midcalf posterior tibial venous segments show no evidence of deep venous thrombosis. The left common femoral vein was imaged for comparison and shows normal respiratory variation. There is a complex right popliteal fossa Sharpe's cyst measuring 6.3 x 1 x 3.8 cm. No associated internal vascularity. US/US venous duplex LE RT IMPRESSION: Limited evaluation of right calf peroneal veins secondary to body habitus/lower extremity swelling. No evidence of deep venous thrombosis involving the visualized right lower extremity veins. Complex right popliteal fossa Sharpe's cyst as detailed. Electronically signed by: Tenzin Rebolledo MD 02/29/2024 01:28 PM EDT
--- NOTE | 2024-02-29 09:09 | ED_ITS ---
HPI - General Adult General Chief complaint: General Medical Stated complaint: FREQ FALLS X2D SINCE KNEE SURG 02/12 PER EMS Time Seen by Provider: 02/29/24 09:09 Source: patient and EMS Mode of arrival: EMS Limitations: no limitations History of Present Illness ED Provider: Joselyn Moralez PA-C HPI narrative: 63-year-old female with a PMH of HTN, GERD, bipolar disorder, and hypothyroidism who is s/p R partial knee arthroplasty on 02/12 presents to the ED today with a chief complaint of sudden onset L leg weakness and frequent falls. Patient states that she believes she fell approximately 5 times while attempting to descend the stairs at a friends house on 02/27. Her friends brought her home and she was unable to ascend the three stairs she has to get into her home. Once home she was too weak to stand and was crawling around to get to the restroom and into bed. Unknown HS, denies LOC. Endorses pain of L hip and R knee with increased swelling of R knee. She had previously worked with PT this week and did well and has been able to ambulate with a cane. When asked if she has any pain anywhere states that he has cuts and bruises everywhere from falling . Patient has an appointment scheduled today with orthopedics for dressing removal. Denies alcohol or tobacco use. Denies dizziness, GEE, vision changes, SOB or chest pain. Relieving factors: none Exacerbating factors: none Associated symptoms: weakness Treatments prior to arrival: none Related Data Home Medications ?Medication ?Instructions ?Recorded ?Confirmed lamotrigine 250 mg tablet,extended 250 mg PO BEDTIME 08/19/23 02/27/24 release 24 hr quetiapine 100 mg tablet 100 mg PO BEDTIME 08/19/23 02/27/24 minoxidil 2.5 mg tablet 2.5 mg PO DAILY 11/20/23 02/27/24 cyclobenzaprine 5 mg tablet 5 mg PO BEDTIME PRN Muscle Spasm 01/31/24 02/27/24 hydroxyzine HCl 25 mg tablet 25 mg PO Q8H PRN anxiety 01/31/24 02/27/24 divalproex 500 mg tablet,extended 500 mg PO BEDTIME 02/13/24 02/27/24 release 24 hr levothyroxine 112 mcg tablet 112 mcg PO DAILY@0600 02/13/24 02/27/24 Previous Rx's ?Medication ?Instructions ?Recorded atenolol 25 mg tablet 25 mg PO DAILY 90 days #90 tabs 10/11/23 walker #1 ea 01/08/24 omeprazole magnesium 20 mg 20 mg PO DAILY@0630 #90 caps 02/09/24 capsule,delayed release aspirin 325 mg tablet 325 mg PO BID 42 days #84 tabs 02/14/24 hydrocodone 5 mg-acetaminophen 325 1 tab PO Q4H PRN Pain, 02/14/24 mg tablet Moderate(Pain Scale 4-6) 7 days #42 tabs cholecalciferol (vitamin D3) 25 25 mcg PO DAILY 90 days #90 caps 02/26/24 mcg (1,000 unit) capsule tolterodine 1 mg tablet (Detrol) 1 mg PO DAILY Bladder incontinence 02/27/24 #90 tabs Allergies Allergy/AdvReac Type Severity Reaction Status Date / Time lithium [LITHIUM] AdvReac Intermediate bilateral Verified 02/29/24 09:05 pedal edema Review of Systems 2 Constitutional: Constitutional: Reports no additional constitutional complaints, Denies chills, Denies fever(s), Denies night sweats and Reports weakness Eyes: Eyes: Reports no additional eye complaints, Denies blurry vision, Denies change in vision, Denies diplopia, Denies eye discharge, Denies loss of vision and Denies eye pain ENT: Denies dizziness Cardiovascular: Cardiovascular: Reports no additional cardiovascular complaints, Denies chest pain, Denies lightheadedness, Denies Loss of Consciousness and Denies dyspnea Respiratory: Respiratory: Reports no additional respiratory complaints and Denies dyspnea Gastrointestinal: Gastrointestinal: Reports no additional gastrointestinal complaints, Denies abdominal pain, Denies melena, Denies hematochezia, Denies change in bowel habits and Denies change in stool character Genitourinary: Genitourinary: Denies hematuria, Denies urinary frequency, Denies dysuria, Denies urinary incontinence, Denies urinary hesitancy and Denies urinary urgency Musculoskeletal: Musculoskeletal: Reports no additional musculoskeletal complaints, Reports abnormal gait, Reports joint swelling (R knee), Reports muscle weakness (L leg weakness), Denies numbness, Denies tingling and Reports other (Pain in L hip with movement ) Integumentary/Breasts: Comments: bruising and abrasions of extremities Neurologic: Reports abnormal gait, Denies dizziness, Denies loss of vision, Denies numbness, Denies tingling and Reports weakness Psychiatric: Psychiatric: Reports no additional psychiatric complaints Endocrine: Endocrine: Reports no additional endocrine complaints Hematologic/Lymphatic: Hematologic/Lymphatic: Reports no additional hematologic/lymphatic complaints Allergic/Immunologic: Allergic/Immunologic: Reports no additional allergic/immunologic complaints [facility] Past Medical History Attestation statement: The following information was validated with the patient. Source: old records reviewed and nursing notes reviewed Medical History Hypertension, essential Arthritis GERD (gastroesophageal reflux disease) Bipolar 1 disorder Internal derangement of right knee Thyroid ca Anxiety Hx of major depression Hypothyroidism Surgical History Status post total right knee replacement Hx of removal of cyst H/O colonoscopy Hx of thyroidectomy Hx of section Family History Family History Father Colon cancer Other Mental health disorder Substance use disorder Social History Social History Household Members: Significant Other Housing: House Are you a primary child care assistant to a significant other at home: No Do you presently have visiting nurse or other home services: No Alcohol intake: current Alcohol intake frequency: a few times a week Patient Tobacco Use Status: Current everyday Tobacco user Tobacco use type: Cigarette Cigarette Packs Per Day: 0 Cigarettes Per Day: 2 Years Smoked: 40 years Smoked in Last 30 Days: Yes e-Cigarette/Vaping Use: Never Used Second Hand Smoke Exposure: No Use of substances other than those prescribed or required for medical reasons: Yes Substance Use Type: Marijuana Substance Use Frequency: Occasionally Advance Directives: No Advance Directives Information Provided: Yes service: No Current occupational status: unemployed Cognitive needs: No Hearing needs: No Vision needs: No Physical Exam ED Vital Signs: Vital Signs - 24 hr 02/29/24 09:02 02/29/24 10:00 02/29/24 12:21 Temperature 98.1 F 97.8 F 98.2 F Pulse Rate 76 78 Respiratory Rate 18 17 17 Blood Pressure 184/90 H 172/82 H 150/47 H Pulse Oximetry 95 94 95 Oxygen Delivery Method Room Air Room Air Room Air BMI result Body Mass Index 36.4 Const General: cooperative, no acute distress, alert and awake Nutritional Appearance: well nourished Orientation/consciousness: patient oriented x3 Limitations: no limitations HENMT Head: Yes normal to inspection, Yes normocephalic, Yes atraumatic and No abrasion Ears: hearing grossly normal bilaterally and external ears normal General nose exam: Normal external nose present, no nasal discharge noted and no epistaxis Face and sinus: Yes normal facial exam, No abrasion and No laceration Mouth: Normal oral and palatal mucosa present, no drooling and no muffled voice Eyes General: appearance normal, both eyes and all related structures Periorbital: periorbital findings normal Eyelids: Yes eyelids normal Conjunctivae: conjunctivae normal Pupils: Equal, round and reactive pupils present EOM: EOMs intact bilaterally Neck Neck: Yes normal visual inspection, Yes full ROM and Yes no lymphadenopathy Chest Chest palpation & inspection: normal inspection of the chest Resp Effort & Inspection: normal respiratory effort and able to speak in complete sentences Cardio Rate: regular rate Rhythm: regular rhythm GI Inspection: Yes normal to inspection General: Yes deferred Skin General skin exam: ecchymosis (multiple punctate bruises on BLUE, multiple bruises L knee) Trauma: abrasion (small abrasions on bilateral elbow, 2cm x 3 cm abrasions on L knee) Neuro General: patient oriented x3 and moves all extremities Cranial nerves: Yes Equal, round and reactive pupils present Cognition (Neuro): normal cognition Motor exam (neuro): 5/5 motor strength present throughout Pupils: Normal pupillary reactivity/response: bilateral Extrem Other: General: Yes full ROM and Yes capillary refill normal Right upper extremity: full ROM and elbow/forearm Details: abrasion (elbow) Left upper extremity: full ROM and elbow/forearm Details: abrasion (elbow) Elbow/forearm/wrist images: 2 1. abrasion L elbow 2. small abrasion R elbow Right lower extremity: knee Details: tenderness, swelling and warmth Location: of the entire knee joint; ROM limited (limited due to pain ) Left lower extremity: knee Details: abrasion (Anterior L knee) and ecchymosis; abnormal ROM (limited due to pain, passive ROM elicits L hip pain ) Knee images: 2 1. 2cm x 3 cm abrasion L knee Psych Appearance: grossly normal Mental Status: mental status grossly normal Affect: normal affect Attitude: cooperative Thought process: Normal thought process present Thought content: Normal thought content present Insight: Good insight present (Psych) Medications Administered Discontinued Medications Generic Name Dose Route Start Last Admin Trade Name Radha PRN Reason Stop Dose Admin Ketorolac Tromethamine 15 mg 02/29/24 13:38 02/29/24 13:42 Ketorolac Tromethamine 15 Mg/Ml Vial IM 02/29/24 13:39 15 mg ONCE ONE Administration Medical Decision Making Medical Decision Making [facility] Narrative: Patient is a 63 year old assigned female at with a history of HTN, GERD, and recent partial knee replacement (right) presenting to the emergency department today with weakness and multiple falls. Patient's physical exam was as noted in the physical exam portion of this note. Patient's blood work was unremarkable. Patient's urine showed no acute process. Patient's EKG was unremarkable. Patient's right and left knee x-rays showed no acute process. Patient's left hip and pelvis x-ray showed no acute process. Patient's head CT and cervical spine CT were unremarkable. Patient's right lower extremity US showed a sharpe's cyst but was otherwise unremarkable. Orthopedic team came and examined the patient. They removed the dressing and examined the wound stating it looks as though it is healing well. They replaced the bandage and given she is going to possibly be placed in short term rehab - recommended leaving the kory for 1 more week. Patient was examined by physical therapy who recommended short term rehab placement. I explained my physical exam findings as well as all test results to the patient. I answered all questions asked by the patient. Patient will remain in observation pending STR placement. Differential Diagnosis Differential Diagnoses: The differential diagnosis associated with the presentation includes Weakness Knee pain Knee injury Admission/Observation Consideration of admission/observation: Escalation of care including admission/observation considered Patient would have been admitted to the hospital had her work up had any findings where hospital admission was appropriate and her clinical presentation warranted hospital admission. Lab Data [facility] Lab Attestation statement: I reviewed the patient's lab results. My interpretation of these results are in the MDM Rationale portion of this note. 02/29/24 11:17 02/29/24 11:17 Labs: Lab Results 02/29/24 02/29/24 02/29/24 Range/Units 10:08 10:09 11:17 WBC 12.1 H (4.8-10.8) X10*3/uL RBC 3.83 L (4.20-5.50) X10*6/uL Hgb 12.2 (12.0-16.0) g/dl Hct 34.6 L (37.0-47.0) % MCV 90.3 (80.0-98.0) fL MCH 31.9 (27.0-33.0) pg MCHC 35.3 H (31.0-35.0) g/dl RDW 12.2 (11.0-16.0) % Plt Count 396 D (160-400) X10*3/uL MPV 8.4 L (9.4-12.3) fL Immature Gran % (Auto) 0.4 (0.0-0.4) % Neut % (Auto) 79.2 H (45-73) % Lymph % (Auto) 14.8 L (20-40) % [place] % (Auto) 4.9 (2-11) % Eos % (Auto) 0.5 (0-4) % Baso % (Auto) 0.2 (0-2) % Lymph # (Auto) 1.8 (1.2-4.9) X10*3/uL [place] # (Auto) 0.6 (0.1-1.2) X10*3/uL Eos # (Auto) 0.1 (0.0-0.4) X10*3/uL Baso # (Auto) 0.0 (0.0-0.2) X10*3/uL Abs Immat Gran (auto) 0.05 H (0.00-0.03) X10*3/uL Absolute Neuts (auto) 9.6 H (2.0-8.3) x10*3/uL Absolute Nucleated RBC 0.000 (0.0-0.012) X10*3/uL Nucleated RBC % (auto) 0.0 (0.0-0.2) /100WBC Smear Tech's Comments VERIFIED PT 11.9 (10.9-12.4) SEC INR 1.0 (0.9-1.1) APTT 29.2 (26.0-36.8) SEC Sodium 134 L (135-145) mmol/L Potassium 3.9 (3.3-5.1) mmol/L Chloride 100 (96-108) mmol/L Carbon Dioxide 22 (22-29) mmol/L Anion Gap 16 (12-20) BUN 7 L (9-16) mg/dL Creatinine 0.79 (0.5-1.4) mg/dL Estim Creat Clear Calc 81.1 Estimated GFR > 60 Random Glucose 78 (60-115) mg/dL Calcium 9.9 (8.4-10.2) mg/dL Magnesium 2.0 (1.6-2.6) mg/dL Total Bilirubin 0.5 (0.0-1.0) mg/dL AST 56 H (5-31) U/L ALT 15 (0-31) U/L Alkaline Phosphatase 108 (39-117) U/L Troponin I High Sens 15.0 (<3.5-17.0) ng/L Total Protein 7.4 (6.5-8.0) g/dL Albumin 4.3 (3.5-5.0) g/dL Urine Color Yellow Urine Appearance Clear Urine pH 6.0 (5.0-9.0) Ur Specific Busy 1.010 (1.005-1.025) Urine Protein 100 (2+) H (Neg-Trace) mg/dL Urine Glucose (UA) Negative (Negative) mg/dL Urine Ketones 15 (Negative) mg/dL Urine Blood Moderate (2+) H (Negative) Urine Nitrite Negative (Negative) Ur Leukocyte Esterase Trace H (Negative) Urine RBC 3-5 H (0-2) /HPF Urine WBC 0-5 (0-5) /HPF Ur Squamous Epith Cells 0-2 (0-2) /HPF Urine Bacteria None Seen (None Seen) Hyaline Casts 0-2 (0-2) /LPF Influenza Type A (PCR) NEGATIVE (Negative) Influenza Type B (PCR) NEGATIVE (Negative) RSV RNA Qual (PCR) NEGATIVE (Negative) SARS-CoV-2 RNA (RT-PCR) NEGATIVE (Negative) Independent Interpretation I performed an independent interpretation of an: EKG, Plain X-Ray, Ultrasound and CT Scan Interpretation: My interpretation is in agreement with the radiologist's impression of these imaging studies. L EXAMINATION: XR KNEE, LEFT CLINICAL INFORMATION: Injury. COMPARISON: X-ray dated February 08, 2024 TECHNIQUE: Four views of the left knee. FINDINGS: No acute cortical disruption or malalignment. No lytic or blastic lesions. No joint effusion, suprapatellar bursa. XR/XR knee LT 3V IMPRESSION: No acute fracture or dislocation. Electronically signed by: Abner West MD 02/29/2024 09:55 AM EDT RP Dictated By: Abner Gan Signed By: Electronically signed by Abner Hernandez 02/29/24 0955 EXAMINATION: XR KNEE, RIGHT CLINICAL INFORMATION: Weakness. Partial replacement. COMPARISON: X-ray dated February 13, 2024 TECHNIQUE: Four views of the right knee. FINDINGS: Metallic prosthesis placed in the osseous structures of the medial femoral condyle and medial tibial plateau without acute cortical disruption or gross malalignment. Skin kory in the anterior aspect of the left knee. Suprapatellar bursa joint effusion. No subcutaneous emphysema. XR/XR knee RT 3V IMPRESSION: Status post medial compartmental arthroplasty without acute fracture or dislocation. Joint effusion, suprapatellar bursa. Electronically signed by: Abner West MD 02/29/2024 09:56 AM EDT Dictated By: Abner Gan Signed By: Electronically signed by Abner Hernandez 02/29/24 0956 EXAMINATION: CT CERVICAL SPINE WITHOUT CONTRAST CLINICAL INFORMATION: Status post fall. Injury. Pain. COMPARISON: None available. TECHNIQUE: Contiguous axial images from the skull base to the thoracic inlet using 3 mm collimation with bone and soft tissue algorithm. Sagittal and coronal reformatted images acquired. This CT examination was performed using dose optimization techniques as appropriate, variously including the following: *Automated exposure control *Adjustment of mA and/or kV according to patient size (this includes techniques or standardized protocols for targeted exams where dose is matched to indication/reason for exam; i.e. extremities or head) *Use of iterative reconstruction technique DLP: 1000 and 363 mGy-cm FINDINGS: Craniocervical junction is intact. C1 is intact. C2 is intact. No acute cortical disruption within the vertebral bodies, transverse processes, pedicles, lamina, facet and posterior spinous processes, cervical spine. Bilateral facet joint hypertrophy at multiple levels more conspicuous at C6-7. Marginal osteophyte formation, sclerosis and decreased intervertebral disc height, C5-6. There is reverse curvature apex at C5. No acute cortical disruption or trauma-related malalignment. No prevertebral compartment hematoma. Status post total thyroidectomy. Punctate calcifications in the palatine tonsils likely tonsillith. CT/CT cervical spine wo IV con IMPRESSION: Multilevel cervical spondylosis more conspicuous at C5-6 without acute fracture or trauma-related listhesis. If patient's symptoms persist consider MRI. Fleischner guidelines were followed. Electronically signed by: Abner West MD 02/29/2024 10:46 AM EDT Dictated By: Abner Gan Signed By: Electronically signed by Abner Hernandez 02/29/24 1046 EXAMINATION: CT HEAD WITHOUT CONTRAST CLINICAL INFORMATION: fall, injury, pain COMPARISON: CT dated May 20, 2016 TECHNIQUE: Contiguous axial imaging was performed from the skull base to vertex without intravenous administration of contrast. This CT examination was performed using dose optimization techniques as appropriate, variously including the following: *Automated exposure control *Adjustment of mA and/or kV according to patient size (this includes techniques or standardized protocols for targeted exams where dose is matched to indication/reason for exam; i.e. extremities or head) *Use of iterative reconstruction technique DLP: 1016 mGy-cm FINDINGS: Bony calvarium is intact. Skull base is intact. No acute intracranial hemorrhage, mass effect, midline shift, hydrocephalus or herniation. Finney-white matter differentiation is normal. Osteopenia cranial fossa contents demonstrated no acute intracranial hemorrhage or mass effect. Sellar/suprasellar region demonstrated no gross masses. Prominence of the extra-axial CSF spaces and the bifrontal regions. Tympanic cavities and mastoid cells are aerated. No air-fluid levels in the included paranasal sinuses. CT/CT head/brain wo IV con IMPRESSION: No acute fracture, bony calvarium. No acute intracranial hemorrhage. Stable brain. Electronically signed by: Abner West MD 02/29/2024 10:39 AM EDT Dictated By: Abner Gan Signed By: Electronically signed by Abner Hernandez 02/29/24 1039 EXAMINATION: XR HIP, LEFT CLINICAL INFORMATION: Pain, fall, injury. COMPARISON: None available. TECHNIQUE: AP pelvis, AP supine and frog-leg lateral views of the left hip. FINDINGS: No fracture, dislocation, or suspicious bone lesion. Alignment is anatomic. Hip joint space is maintained. Normal SI joints. Soft tissues are unremarkable. XR/XR hip LT w PEL1V IMPRESSION: No acute findings. Normal exam. Electronically signed by: Arsalan Argueta MD 02/29/2024 12:40 PM EDT Dictated By: Arsalan Argueta MD Signed By: Electronically signed by Arsalan Argueta MD 02/29/24 1240 EXAMINATION: US TRIPLEX LOWER EXTREMITY, RIGHT CLINICAL INFORMATION: Swelling, warmth, redness, concern for DVT. COMPARISON: Bilateral lower extremity venous Doppler ultrasound 01/13/2018. TECHNIQUE: Color-flow triplex imaging with spectral analysis and compression. Doppler were performed on the right lower extremity. FINDINGS: Limited evaluation of right calf peroneal veins secondary to body habitus/lower extremity swelling. Respiratory variation, normal compression and augmented flow are noted throughout the right lower extremity. The visualized common femoral vein, superficial femoral vein, profunda femoral vein, popliteal vein and midcalf posterior tibial venous segments show no evidence of deep venous thrombosis. The left common femoral vein was imaged for comparison and shows normal respiratory variation. There is a complex right popliteal fossa Sharpe's cyst measuring 6.3 x 1 x 3.8 cm. No associated internal vascularity. US/US venous duplex LE RT IMPRESSION: Limited evaluation of right calf peroneal veins secondary to body habitus/lower extremity swelling. No evidence of deep venous thrombosis involving the visualized right lower extremity veins. Complex right popliteal fossa Sharpe's cyst as detailed. Electronically signed by: Tenzin Rebolledo MD 02/29/2024 01:28 PM EDT Dictated By: Tenzin Rebolledo Signed By: Electronically signed by Tenzin Rebolledo 02/29/24 1328 Vent. Rate: 073 BPM Atrial Rate: 073 BPM P-R Int: 152 ms QRS Dur: 096 ms QT Int: 426 ms P-R-T Axes: 057 -01 022 degrees QTc Int: 469 ms Normal sinus rhythm Normal ECG When compared with ECG of 31-JAN-2024 12:44, No significant change was found DD/ [id number] Radiology Impression Discussion of test interpretation with radiology: I have reviewed the radiologist's reading. Independent Historian Clinical information obtained from an independent historian. History obtained from or confirmed by: EMS (EMS provided additional history and confirmed the history provided by the patient.) Discharge Plan Discharge Clinical Impression: Status post right partial knee replacement, Weakness, Falls Patient Disposition: Still a Patient Prescriptions: No Action atenolol 25 mg tablet 25 mg PO DAILY 90 Days Qty: 90 1RF (DME) walker Misc See Rx Instructions .MEDSUPPLY Qty: 1 0RF Rx Instructions: Folding Front wheeled walker omeprazole magnesium 20 mg capsule,delayed release(DR/EC) 20 mg PO DAILY@0630 Qty: 90 0RF cholecalciferol (vitamin D3) 25 mcg (1,000 unit) capsule 25 mcg PO DAILY 90 Days Qty: 90 1RF lamotrigine 250 mg tablet extended release 24hr 250 mg PO BEDTIME quetiapine 100 mg tablet 100 mg PO BEDTIME cyclobenzaprine 5 mg tablet 5 mg PO BEDTIME PRN (Reason: Muscle Spasm) hydroxyzine HCl 25 mg tablet 25 mg PO Q8H PRN (Reason: anxiety) divalproex 500 mg tablet extended release 24 hr 500 mg PO BEDTIME levothyroxine 112 mcg tablet 112 mcg PO DAILY@0600 aspirin 325 mg Tablet 325 mg PO BID 42 Days Qty: 84 0RF hydrocodone-acetaminophen 5-325 mg Tablet 1 tab PO Q4H PRN (Reason: Pain, Moderate(Pain Scale 4-6)) 7 Days Qty: 42 0RF Rx Instructions: Partial Fill upon patient request. tolterodine [Detrol] 1 mg tablet 1 mg PO DAILY Qty: 90 1RF minoxidil 2.5 mg tablet 2.5 mg PO DAILY Print Language: Libyan
--- NOTE | 2024-02-29 09:10 | ECG_ITS ---
Test Reason : FALL Blood Pressure : / mmHG Vent. Rate : 073 BPM Atrial Rate : 073 BPM P-R Int : 152 ms QRS Dur : 096 ms QT Int : 426 ms P-R-T Axes : 057 -01 022 degrees QTc Int : 469 ms Normal sinus rhythm Normal ECG When compared with ECG of 31-JAN-2024 12:44, No significant change was found Referred By: Joselyn Moralez Electronically Signed By:VIRA DAVIES
[2024-02-29 10:49] LABS: Appearance Urine Clear; Color Urine Yellow; Glucose Urine UA Negative (Negative); Leukocyte Esterase Urine Trace (Negative); Nitrite Urine Negative (Negative); UMIC TRIGGER UACC YES; Urine Blood Moderate (2+) (Negative); Urine Ketones 15 mg/dL (Negative); Urine Protein 100 (2+) mg/dL (Neg-Trace)
[2024-02-29 11:00] LABS: Bacteria Urine None Seen (None Seen); Hyaline Casts Urine 0-2 /LPF (0-2); Squamous Epithelial Cell Urine 0-2 /HPF (0-2); WBC Urine 0-5 /HPF (0-5)
[2024-02-29 11:25] LABS: Influenza A PCR NEGATIVE (Negative); Influenza B PCR NEGATIVE (Negative); Resp Syncy Virus RNA Qual PCR NEGATIVE (Negative); SARS COV2 PCR INHOUSE NEGATIVE (Negative)
[2024-02-29 11:30] LABS: Prothrombin Time 11.9 SEC (10.9-12.4)
[2024-02-29 11:31] LABS: Basophils Percent Auto 0.2 % (0-2); Eosinophils Absolute Auto 0.1 X10*3/uL (0.0-0.4); Eosinophils Percent Auto 0.5 % (0-4); Hematocrit 34.6 % (37.0-47.0); Hemoglobin 12.2 g/dl (12.0-16.0); Imm Gran Abs Auto 0.05 X10*3/uL (0.00-0.03); Imm Gran Pct Auto 0.4 % (0.0-0.4); Lymphocytes Absolute Auto 1.8 X10*3/uL (1.2-4.9); Lymphocytes Percent Auto 14.8 % (20-40); MANUAL DIFF FLAG SCAN; Mean Corpuscular HGB Conc 35.3 g/dl (31.0-35.0); Mean Corpuscular Hemoglobin 31.9 pg (27.0-33.0); Mean Corpuscular Volume 90.3 fL (80.0-98.0); Mean Platelet Volume 8.4 fL (9.4-12.3); Monocytes Absolute Auto 0.6 X10*3/uL (0.1-1.2); Monocytes Percent Auto 4.9 % (2-11); Neutrophils Absolute Auto 9.6 x10*3/uL (2.0-8.3); Neutrophils Percent Auto 79.2 % (45-73); PLT CLUMP 1; Red Blood Count 3.83 X10*6/uL (4.20-5.50); Red Cell Distribution Width 12.2 % (11.0-16.0); SCAN SMEAR FLAG 1; White Blood Count 12.1 X10*3/uL (4.8-10.8)
[2024-02-29 11:33] LABS: Partial Thromboplastin Time 29.2 SEC (26.0-36.8)
[2024-02-29 11:45] LABS: Alanine Aminotransferase 15 U/L (0-31); Albumin Level 4.3 g/dL (3.5-5.0); Alkaline Phosphatase 108 U/L (39-117); Anion Gap 16 (12-20); Aspartate Amino Transferase 56 U/L (5-31); Bilirubin Total 0.5 mg/dL (0.0-1.0); Blood Urea Nitrogen 7 mg/dL (9-16); Calcium 9.9 mg/dL (8.4-10.2); Carbon Dioxide 22 mmol/L (22-29); Chloride 100 mmol/L (96-108); Creatinine Clr Calc Pharmacy 81.1; Estimated Glomerular Filt Rate > 60; Glucose Random 78 mg/dL (60-115); Potassium 3.9 mmol/L (3.3-5.1); Sodium 134 mmol/L (135-145); Total Protein 7.4 g/dL (6.5-8.0)
[2024-02-29 11:59] LABS: Platelet Count 396 X10*3/uL (160-400); SLIDE REVIEW VERIFIED
[2024-02-29] MEDS: Ketorolac Tromethamine 15 MG/ML VIAL IM (13:42)
--- NOTE | 2024-02-29 16:00 | PC.NURSE ---
Report given to overflow RN
--- NOTE | 2024-02-29 16:01 | MHC.CM.ED ---
Received case management consult from Joselyn CANDELARIA. Patient came to the ER due to falls. Physical therapy eval completed. Short term rehab is recommended. Met with patient in regards to discharge planning. Patient lives with her sig other, ambulates with a cane and had no services prior to coming to the hospital. PCP verified. Copy of HCP verified to be on file. Patient agreeable to referral for STR being broadcasted for bed availability at this time. Referral broadcasted within 15 miles to fall facilities that are contracted with patient's insurance. Patient aware she will be here overnight. Continue to monitor for d/c needs.
--- NOTE | 2024-02-29 16:34 | MHC.EDTECH ---
This tech placed purewick at patient's request. Patient refused offer of assistance to bedside commode.
--- NOTE | 2024-02-29 18:11 | MHC.EDTECH ---
Updating vitals for patient. Suction canister empty still (patient has purewick in place) this tech informed patient if she would like we could try a bedpan when she felt the urge to urinate I could assist her. Patient declined bedpan stating I would rather use the purewick.
[2024-02-29] MEDS: HYDROcodone Bit/Acetam 5/325 TABLET 1 TAB PO (19:53)
--- NOTE | 2024-02-29 20:16 | PHA.MEDREC ---
Addendum entered by Chandler Moreira 02/29/24 20:31: reviewed Original Note: Pharmacy Consult ? Medication Reconciliation Pharmacy has completed the medication reconciliation. Spoke to patient to confirm med list. patent states she is no longer taking Divalproex 500 mg. patient says she is on dilaudid, however she couldn't tell me what dose she is taking. had pharmacist do a PDMP and no record of patent getting this medication. There is claim history for Hydrcodone-acetaminophen 5-325 mg last filled 01/08/24 for 7 days
[2024-02-29] MEDS: lamoTRIgine 25 MG TABLET PO (23:02)
[2024-02-29] MEDS: QUEtiapine Fumarate 100 MG TABLET PO (23:02)
[2024-02-29] MEDS: lamoTRIgine 100 MG TABLET PO (23:02)
[2024-03-01] VITALS (7 sets, daily range): BP systolic 108–155; BP diastolic 57–77; PULSE 59–73; RESP 16–19; TEMP 36.1–36.9; O2SAT 91–94
[2024-03-01] MEDS: HYDROcodone Bit/Acetam 5/325 TABLET 1 TAB PO ×3 (05:26→20:54)
[2024-03-01] MEDS: Omeprazole 20 MG CAPSULE.DR PO (05:26)
[2024-03-01] MEDS: Levothyroxine Sodium 112 MCG TABLET PO (05:26)
[2024-03-01] MEDS: minoxidiL 2.5 MG TABLET PO (09:59)
[2024-03-01] MEDS: Aspirin 325 MG TABLET PO ×2 (09:59→20:55)
[2024-03-01] MEDS: lamoTRIgine 25 MG TABLET PO ×2 (10:00→20:55)
[2024-03-01] MEDS: atenoloL 25 MG TABLET PO (10:00)
[2024-03-01] MEDS: Cholecalciferol (Vitamin D3) 25 MCG TABLET PO (10:01)
[2024-03-01] MEDS: lamoTRIgine 100 MG TABLET PO ×2 (10:01→20:55)
--- NOTE | 2024-03-01 11:41 | PC.NURSE ---
Spoke with Melanie Bonilla (case management), to alert the patient that [facility] [place] doesn't have an available bed. Pt is requesting [facility] in [place] as an alternative placement at this time. Melanie notified of request/preference.
--- NOTE | 2024-03-01 12:37 | MHC.CM.ED ---
Patient remains in ER overflow. [facility] and [facility] [place] are able to offer a bed. Was waiting to hear from [facility] and [facility]. Options discussed with patient. [facility]st choice. Received notification that [facility] does not have a bed available. [facility] now 1st choice. [facility] made aware and asked to obtain insurance auth. Continue to monitor for d/c needs.
--- NOTE | 2024-03-01 18:42 | PC.NURSE ---
Patient sleeping at this time. Did not disturb the patient. Chest rise noted. Respirations even/unlabored.
[2024-03-01] MEDS: QUEtiapine Fumarate 100 MG TABLET PO (20:56)
--- NOTE | 2024-03-01 22:56 | PC.NURSE ---
Assumed care of patient at 1900, night time medications administered including pain medication. Patient up to bathroom with assist/walker. Patient resting at present time. Bed alarm on , call hernández within reach.
[2024-03-02] MEDS: HYDROcodone Bit/Acetam 5/325 TABLET 1 TAB PO ×2 (04:00→09:26)
[2024-03-02 04:16] VITALS: BP 126/63; PULSE 63; RESP 14; TEMP 36.2; O2SAT 94
[2024-03-02 08:10] VITALS: BP 149/72; PULSE 61; RESP 16; TEMP 35.8; O2SAT 96
[2024-03-02] MEDS: lamoTRIgine 25 MG TABLET PO (08:18)
[2024-03-02] MEDS: lamoTRIgine 100 MG TABLET PO (08:19)
[2024-03-02] MEDS: Cholecalciferol (Vitamin D3) 25 MCG TABLET PO (08:19)
[2024-03-02] MEDS: Aspirin 325 MG TABLET PO (08:19)
--- NOTE | 2024-03-02 09:24 | MHC.CM.ED ---
Pt has been authorized to transport to [facility] [place] for a 10 am turkey picker via Jan. Spoke with [facility] to confirm arrival time as no response was issued in [facility]. Pt aware and in agreement with d/c plan.
[2024-03-02] MEDS: Levothyroxine Sodium 112 MCG TABLET PO (09:26)
[2024-03-02] MEDS: minoxidiL 2.5 MG TABLET PO (09:26)
[2024-03-02] MEDS: Omeprazole 20 MG CAPSULE.DR PO (09:26)
[2024-03-02] MEDS: atenoloL 25 MG TABLET PO (09:26)
--- NOTE | 2024-03-02 11:05 | PC.NURSE ---
Pt d/c to [facility] at ~11am. Attemped to call nurse to nurse report x3. Each time phone rang for >2 minutes with no answer.
[2024-03-02 11:07] VITALS: BP 149/72; PULSE 61; RESP 16; TEMP 36.2
== END 2024-03-02 11:08 ==
PROVIDERS: Physician Assistant Medical; Emergency Provider Emergency Medicine Emergency Medical Services; PCP Internal Medicine
DX: R53.1 Weakness (principal); S80.212A Abrasion, left knee, initial encounter; W19.XXXA Unspecified fall, initial encounter; Y93.9 Activity, unspecified; Y92.9 Unspecified place or not applicable; Y99.9 Unspecified external cause status; I10 Essential (primary) hypertension; K21.9 Gastro-esophageal reflux disease without esophagitis; E03.9 Hypothyroidism, unspecified; M79.89 Other specified soft tissue disorders; M71.21 Synovial cyst of popliteal space [Baker], right knee; M25.552 Pain in left hip; M47.812 Spondylosis without myelopathy or radiculopathy, cervical region; Z91.81 History of falling; Z96.651 Presence of right artificial knee joint; Z03.818 Encounter for observation for suspected exposure to other biological agents ruled out
CPT/HCPCS: 0241U; 70450; 72125; 73502; 73562; 80053; 81001; 83735; 84484; 85025; 85610; 85730; 93005; 93971; 96372; 97162; 99285; J1885

== ENCOUNTER → 2024-02-29 09:10 | Outpatient (BNV) | payer OTHER, SELFPAY | PROVIDERS: Emergency Provider Emergency Medicine Emergency Medical Services; PCP Internal Medicine; Visit Provider Internal Medicine | DX: M79.605 Pain in left leg (principal); W19.XXXA Unspecified fall, initial encounter | CPT/HCPCS: 93010 ==

== ENCOUNTER → 2024-02-29 09:10 | Outpatient (BNV) | payer OTHER, SELFPAY | PROVIDERS: Emergency Provider Emergency Medicine Emergency Medical Services; PCP Internal Medicine; Visit Provider Radiology Diagnostic Radiology | DX: R51.9 Headache, unspecified (principal); M54.2 Cervicalgia; M25.552 Pain in left hip; M25.562 Pain in left knee; M25.561 Pain in right knee | CPT/HCPCS: 70450; 72125; 73502; 73562 ==

== ENCOUNTER 2024-03-04 13:25 | Outpatient (AMB) | payer OTHER, SELFPAY ==
--- NOTE | 2024-03-04 13:40 | MHC.OFFVIS ---
Intake Visit Reasons: 2WK PO: R UKA w/NE 02/13/24 Intake Note: Regla a 63 year old female who presents today for a post operative visit s/p right UKA on 02/13/24 NE. Patient reports that she was having frequent falls, she was [place] [facility] [place] a rehab facility. States her whole body feels sore. Allergies lithium [LITHIUM] Adverse Reaction (Intermediate, Verified 03/04/24 13:44) bilateral pedal edema Medication List - Last Reconciled 03/04/24 by Jose Colorado PA-C aspirin 325 mg PO BID 42 days atenolol 25 mg PO DAILY 90 days cholecalciferol (vitamin D3) 25 mcg PO DAILY 90 days cyclobenzaprine 5 mg PO BEDTIME PRN hydrocodone-acetaminophen 5-325 mg 1 tab PO Q8H PRN 7 days hydroxyzine HCl 25 mg PO Q8H PRN lamotrigine ER 250 mg PO BEDTIME levothyroxine 112 mcg PO DAILY@0600 minoxidil 2.5 mg PO DAILY omeprazole magnesium 20 mg PO DAILY@0630 quetiapine 100 mg PO BEDTIME tolterodine (Detrol) 1 mg PO DAILY walker Folding Front wheeled walker HPI HPI 2WK PO: R UKA w/NE 02/13/24: Details: 63-year-old female who returns to the office today for post-op right UKA, 02/13/[address] Reyes. She reports she was having frequent falls and was seen at ER and was discharged to a rehab facility. She currently states her whole body feels sore. She has no other concerns today. [facility] Medical History Hypertension, essential Arthritis GERD (gastroesophageal reflux disease) Bipolar 1 disorder Internal derangement of right knee Thyroid ca Anxiety Hx of major depression Hypothyroidism Surgical History Status post total right knee replacement Hx of removal of cyst H/O colonoscopy Hx of thyroidectomy Hx of section Family History Father Colon cancer Other Mental health disorder Substance use disorder Social History Household Members: Significant Other Housing: House Are you a primary home care scheduler to a significant other at home: No Do you presently have visiting nurse or other home services: No Alcohol intake: current Alcohol intake frequency: a few times a week Patient Tobacco Use Status: Current everyday Tobacco user Tobacco use type: Cigarette Cigarette Packs Per Day: 0 Cigarettes Per Day: 2 Years Smoked: 40 years e-Cigarette/Vaping Use: Never Used Second Hand Smoke Exposure: No Substance Use Type: Marijuana service: No Current occupational status: unemployed Cognitive needs: No Hearing needs: No Vision needs: No Female Reproductive History Menstrual Age of Menarche: 14 Review of Systems Const All systems reviewed & are unremarkable except as noted in HPI and below Physical Exam Extrem Other: Right knee: Incision clean, dry and intact. No redness or drainage. ROM is 0-90 degrees. Calf supple, nontender. NVI. Assessment & Plan Assessment & Plan (1) Status post right partial knee replacement: Code(s): Z96.651 - Presence of right artificial knee joint Category: Surgical Plan Saima removed, steri strips applied. She is scheduled for Outpatient PT on 03/11/24 to begin working on Gait training, ROM and quad strength. No driving for another 4 weeks. She will require ppx abx for dental procedures. She will f/u in 4 weeks, sooner if needed. Medications: Changed From hydrocodone-acetaminophen 5-325 mg Partial Fill upon patient request. 1 tab PO Q4H PRN 42 tabs 0RF Pain, Moderate(Pain Scale 4-6) 7 days To hydrocodone-acetaminophen 5-325 mg Partial Fill upon patient request. 1 tab PO Q8H PRN 21 tabs 0RF Pain, Moderate(Pain Scale 4-6) 7 days Patient Instructions: Scribed for Jose Colorado PA-C, by Aníbal Thompson medical concierge, on 03/04/2024 at 1:30 PM EST.? I, Jose Colorado PA-C, have personally reviewed and agree with the information entered by the scribe. Coding Level of Care Code Complex EM visit Add On G2211 Diagnoses Status post right partial knee replacement Z96.651
== END 2024-03-04 14:04 | disposition home or self-care (01) ==
LOC: HO.HOS 13:36
PROVIDERS: PCP Internal Medicine; Visit Provider Physician Assistant
DX: Z96.651 Presence of right artificial knee joint (principal)
CPT/HCPCS: 99024

== ENCOUNTER → 2024-03-04 13:25 | Outpatient (BNVA) | payer OTHER, SELFPAY | PROVIDERS: PCP Internal Medicine; Visit Provider Physician Assistant | DX: Z47.1 Aftercare following joint replacement surgery (principal); Z96.651 Presence of right artificial knee joint | CPT/HCPCS: 99212 ==

== ENCOUNTER 2024-03-21 08:42 | Outpatient (AMB) | payer OTHER, SELFPAY ==
--- NOTE | 2024-03-21 08:44 | A.OFFVIS_ITS ---
Vital Signs 03/21/24 09:02 Height 5 ft 2 in Weight 190 lb BMI 34.7 Intake Visit Reasons: PO: Right UKA w/NE 02/13/24 Intake Note: Regla a 63 year old female who presents today for a post operative visit s/p right UKA on 02/13/24. Patient reports that she is doing well, she has some numbness in the lateral aspect of the knee. She has occasional pain in the lower leg when laying down. Allergies lithium [LITHIUM] Adverse Reaction (Intermediate, Verified 03/21/24 09:03) bilateral pedal edema HPI HPI PO: Right UKA w/NE 02/13/24: Details: Regla a 63 year old female who presents today for a post operative visit s/p right UKA on 02/13/24. Patient reports that she is doing well, she has some numbness in the lateral aspect of the knee. She has occasional pain in the lower leg when laying down. [facility] Medical History Hypertension, essential Arthritis GERD (gastroesophageal reflux disease) Bipolar 1 disorder Internal derangement of right knee Thyroid ca Anxiety Hx of major depression Hypothyroidism Surgical History Status post total right knee replacement Hx of removal of cyst H/O colonoscopy Hx of thyroidectomy Hx of section Family History Father Colon cancer Other Mental health disorder Substance use disorder Social History Household Members: Significant Other Housing: House Are you a primary care team coordinator scheduler to a significant other at home: No Do you presently have visiting nurse or other home services: No Alcohol intake: current Alcohol intake frequency: a few times a week Patient Tobacco Use Status: Current everyday Tobacco user Tobacco use type: Cigarette Cigarette Packs Per Day: 0 Cigarettes Per Day: 2 Years Smoked: 40 years e-Cigarette/Vaping Use: Never Used Second Hand Smoke Exposure: No Substance Use Type: Marijuana service: No Current occupational status: unemployed Cognitive needs: No Hearing needs: No Vision needs: No Female Reproductive History Menstrual Age of Menarche: 14 Physical Exam Vital Signs: BMI result Body Mass Index 34.7 Extrem Other: Incision clean dry and intact. Full range of motion. No effusion. Walking normally. Results Reviewed Results Reviewed: I personally reviewed relevant radiographs. Right unicompartmental knee arthroplasty in expected post operative position with no hardware complications or evidence of loosening Assessment & Plan Assessment & Plan (1) Status post right partial knee replacement: Code(s): Z96.651 - Presence of right artificial knee joint Category: Surgical Plan: Doing extremely well 5 weeks status post right knee Uni. Dental prophylaxis discussed. Follow up as needed. Orders: Orders XR knee RT 3V Today M25.561 - Pain in right knee XR knee LT 1V Today M25.569 - Pain in unspecified knee Coding Level of Care Code Global (72949) Diagnoses Status post right partial knee replacement Z96.651
[2024-03-21 09:02] VITALS: BMI 34.7
== END 2024-03-21 09:29 | disposition home or self-care (01) ==
PROVIDERS: PCP Internal Medicine; Visit Provider Orthopaedic Surgery
DX: Z96.651 Presence of right artificial knee joint (principal)
CPT/HCPCS: 99024

== ENCOUNTER 2024-03-21 15:08 | Outpatient (REF) | payer OTHER, SELFPAY ==
--- NOTE | ~2024-03-21 | XR_ITS ---
EXAMINATION: XR KNEE, RIGHT XR KNEE, LEFT CLINICAL INFORMATION: Pain in right knee. Pain in left knee. COMPARISON: X-rays of the right and left knees January 2024. TECHNIQUE: Right knee 3 views including AP upright. Single AP upright left knee. FINDINGS: RIGHT KNEE: Hemiarthroplasty noted in the medial compartment with unchanged appearance and alignment. Some persistent lucency along the tibial component measuring up to 6 mm. This appears more pronounced than on the postoperative examination although the postoperative exam is limited by overlying kory. Lateral compartment unremarkable. Mild arthrosis of the patellofemoral compartment with small marginal osteophytes. Small effusion. LEFT KNEE: Limited AP upright of the medial and lateral compartments is normal. Cannot assess patellofemoral compartment on AP projection. Surrounding bone and soft tissues unremarkable. XR/XR knee RT 3V IMPRESSION: RIGHT KNEE: Postoperative changes related to hemiarthroplasty of the medial compartment. There is lucency surrounding the tibial component of uncertain significance. This could reflect postoperative result. Cannot be certain whether this is new compared to prior or slightly more prominent as the postoperative exam is partially obscured by overlying kory. Continued follow-up recommended to evaluate for potential developing osteolysis. Mild osteoarthritis of the patellofemoral compartment. LEFT KNEE: Unremarkable. Electronically signed by: Rodrick Concepcion MD 03/27/2024 10:37 AM MOHAN
--- NOTE | ~2024-03-21 | XR_ITS ---
EXAMINATION: XR KNEE, RIGHT XR KNEE, LEFT CLINICAL INFORMATION: Pain in right knee. Pain in left knee. COMPARISON: X-rays of the right and left knees January 2024. TECHNIQUE: Right knee 3 views including AP upright. Single AP upright left knee. FINDINGS: RIGHT KNEE: Hemiarthroplasty noted in the medial compartment with unchanged appearance and alignment. Some persistent lucency along the tibial component measuring up to 6 mm. This appears more pronounced than on the postoperative examination although the postoperative exam is limited by overlying kory. Lateral compartment unremarkable. Mild arthrosis of the patellofemoral compartment with small marginal osteophytes. Small effusion. LEFT KNEE: Limited AP upright of the medial and lateral compartments is normal. Cannot assess patellofemoral compartment on AP projection. Surrounding bone and soft tissues unremarkable. XR/XR knee LT 1V IMPRESSION: RIGHT KNEE: Postoperative changes related to hemiarthroplasty of the medial compartment. There is lucency surrounding the tibial component of uncertain significance. This could reflect postoperative result. Cannot be certain whether this is new compared to prior or slightly more prominent as the postoperative exam is partially obscured by overlying kory. Continued follow-up recommended to evaluate for potential developing osteolysis. Mild osteoarthritis of the patellofemoral compartment. LEFT KNEE: Unremarkable. Electronically signed by: Rodrick Concepcion MD 03/27/2024 10:37 AM MOHAN
== END 2024-03-21 15:09 | disposition home or self-care (01) ==
LOC: HO.HOSX 15:08
PROVIDERS: Visit Provider Orthopaedic Surgery
DX: M25.561 Pain in right knee (principal); M25.569 Pain in unspecified knee; Z96.651 Presence of right artificial knee joint
CPT/HCPCS: 73560; 73562; 99212

== ENCOUNTER 2024-05-13 08:28 | Outpatient (AMB) | payer OTHER, SELFPAY ==
--- NOTE | 2024-05-13 08:37 | A.OFFVIS_ITS ---
Vital Signs 05/13/24 08:41 Height 5 ft 2 in Weight 180 lb BMI 32.9 BP 149/70 H Blood Pressure Location Lt brachial Position Sitting Pulse 67 Intake Visit Reasons: [place] Screening Intake Note: Patient new consult for her 2nd pre colonoscopy. Patient denies any GI issues for today visit. Philosophy And Religion Instructor Required: No Accompanied by: Self / Same As Patient Allergies lithium [LITHIUM] Adverse Reaction (Intermediate, Verified 05/13/24 08:35) bilateral pedal edema HPI HPI [place] Screening: Details: 64 year old? female with past medical history of hypertension, arthritis of right knee, status post knee surgery, bipolar disorder, hypothyroidism is here today for pre colonoscopy screening.? Patient was sent to us by her PCP.??Last colonoscopy in May of 2013 1 hyperplastic polyp found. Patient denies any gastrointestinal symptoms in the past or at present.? Family history of colorect al cancer, patient's father diagnosed with colorectal cancer in his 70s.? Denies history of difficulty with sedation or anesthesia in the past.? Negative for history of sleep apnea.? Denies any history of cardiac, renal, pulmonary, or hepatic disease.?? No history of infectious? diseases like hepatitis A, B, C, HIV or tuberculosis.? Patient is not on any anticoagulation PFSH Medical History Hypertension, essential Arthritis GERD (gastroesophageal reflux disease) Bipolar 1 disorder Internal derangement of right knee Thyroid ca Anxiety Hx of major depression Hypothyroidism Surgical History Status post total right knee replacement Hx of removal of cyst H/O colonoscopy Hx of thyroidectomy Hx of section Family History Father Colon cancer Other Mental health disorder Substance use disorder Social History Household Members: Significant Other Housing: House Are you a primary medicare biller to a significant other at home: No Do you presently have visiting nurse or other home services: No Alcohol intake: current Alcohol intake frequency: a few times a week Patient Tobacco Use Status: Current everyday Tobacco user Tobacco use type: Cigarette Cigarette Packs Per Day: 0 Cigarettes Per Day: 2 Years Smoked: 40 years e-Cigarette/Vaping Use: Never Used Second Hand Smoke Exposure: No Substance Use Type: Marijuana service: No Current occupational status: unemployed Cognitive needs: No Hearing needs: No Vision needs: No Female Reproductive History Menstrual Age of Menarche: 14 Review of Systems Const Denies weight gain and Denies weight loss ENT Reports no additional complaints, Denies dysphagia and Denies odynophagia Card Reports no additional complaints Resp Reports no additional complaints GI Denies abdominal pain, Denies belching, Denies melena, Denies bloating, Denies change in bowel habits, Denies dysphagia, Denies excessive flatus, Denies dyspepsia, Denies heartburn, Denies diarrhea, Denies loose stools, Denies nausea, Denies odynophagia and Denies vomiting Musc Reports no additional complaints Neuro Reports no additional complaints Psych Reports no additional complaints Endo Reports no additional complaints Physical Exam Vital Signs: Last Vital Signs Pulse 67 05/13/24 08:41 BP 149/70 H 05/13/24 08:41 BMI result Body Mass Index 32.9 Const General: healthy appearing, no acute distress and well developed Nutritional Appearance: well nourished Orientation/consciousness: patient oriented x3 Resp Effort & Inspection: normal respiratory effort, able to speak in complete sentences, no tracheal deviation and symmetric chest movement Auscultation: clear to auscultation bilaterally Cardio Rate: regular rate GI Inspection: Yes normal to inspection and No distended Palpation (GI): Soft to palpation, not firm, nontender and No hepatosplenomegaly present Auscultation: normal bowel sounds General: Yes no CVA tenderness Back/Spine/Pelvis Back: no CVA tenderness Skin General skin exam: elasticity normal, turgor normal and dry skin Neuro General: patient oriented x3 Psych Appearance: grossly normal Mental Status: mental status grossly normal Assessment & Plan Assessment & Plan (1) Screen for colon cancer: Code(s): Z12.11 - Encounter for screening for malignant neoplasm of colon Plan Patient denies any GI, cardiac or respiratory symptoms.? Denies any issues with anesthesia in the past.? Denies any history of sleep apnea.? No history infectious diseases in the past or present.? Not on any anticoagulation therapy.? Family history of CRC.? Patient denies melena, hematochezia, unintentional weight loss or ribbon like stools.? Discussed at length the pre- procedure,? prep, diet & medications as well as what to expect prior, during and after the procedure.?? Stressed the importance of good bowel prep.? Recommended the use of Vaseline or Calmoseptine OTC & baby wipes with bowel movements to promote comfort.? ?Patient verbalizes understanding and agrees to plan of care.? She was given the opportunity to ask questions and all questions answered.? We will see her after the procedure.? Medications: New bisacodyl (Dulcolax (bisacodyl)) take 4 tabs at noon the day before your colonoscopy 20 mg (4 x 5 mg) PO ONCE 1 day 4 tabs 0RF Z12.11 - Encounter for screening for malignant neoplasm of colon polyethylene glycol 3350 (Miralax) As directed by gastroenterology department at [facility] 238 grams PO ONCE 238 grams 0RF Z12.11 - Encounter for screening for malignant neoplasm of colon Discontinued aspirin Discontinued Reason: Patient Completed Course 325 mg PO BID 42 days 84 tabs 0RF Coding Level of Care Code New Pt Level 3 (39849) Diagnoses Screen for colon cancer Z12.11 Time Spent (min) 40 Comment 30 minutes spent with patient and additional 10 minutes spent reviewing her records
[2024-05-13 08:41] VITALS: BP 149/70; PULSE 67; BMI 32.9
== END 2024-05-13 10:50 | disposition home or self-care (01) ==
PROVIDERS: PCP Internal Medicine; Visit Provider Nurse Practitioner Family
DX: Z01.818 Encounter for other preprocedural examination (principal); Z12.11 Encounter for screening for malignant neoplasm of colon
CPT/HCPCS: 99202

== ENCOUNTER → 2024-05-13 08:28 | Outpatient (BNVA) | payer OTHER, SELFPAY | PROVIDERS: PCP Internal Medicine; Visit Provider Nurse Practitioner Family | DX: Z12.11 Encounter for screening for malignant neoplasm of colon (principal) | CPT/HCPCS: 99202 ==

== ENCOUNTER 2024-06-05 10:48 | Outpatient (AMB) | payer OTHER, SELFPAY ==
--- NOTE | 2024-06-05 10:51 | A.OFFPC_ITS ---
Vital Signs 06/05/24 10:52 Height 5 ft 2 in Weight 176 lb BMI 32.2 BP 118/70 Blood Pressure Location Lt brachial Position Sitting Respiration 18 Pulse 67 Pulse Source Pulse Oximeter Temp 98.7 F Temp Source Oral Pulse Oximetry (%) 95 Oxygen Delivery Method Room Air Intake Visit Reasons: Cough Allergies lithium [LITHIUM] Adverse Reaction (Intermediate, Verified 06/05/24 10:55) bilateral pedal edema Medication List - Last Reconciled 06/05/24 by Rozina Carpio MD atenolol 25 mg PO DAILY 90 days bisacodyl (Dulcolax (bisacodyl)) 20 mg (4 x 5 mg) PO ONCE 1 day bupropion HCl XL 150 mg PO QAM cholecalciferol (vitamin D3) 25 mcg PO DAILY 90 days cyclobenzaprine 5 mg PO BEDTIME PRN divalproex 500 mg PO BID hydroxyzine HCl 25 mg PO Q8H PRN lamotrigine ER 250 mg PO BEDTIME levothyroxine 112 mcg PO DAILY@0600 minoxidil 2.5 mg PO DAILY omeprazole magnesium 20 mg PO DAILY@0630 polyethylene glycol 3350 (Miralax) 238 grams PO ONCE quetiapine 100 mg PO BEDTIME tolterodine (Detrol) 1 mg PO DAILY walker Folding Front wheeled walker Tobacco use date assessed: 06/05/24 Dental Screening Dental Screen Date: 06/05/24 Did you have a dental visit in the last 12 months?: Yes Did you have a dental problem in the last 6 months where you did not have access to dental care?: No Was dental information given to patient?: Patient has dentist HPI Cough HPI Details - The patient is a 64-year-old female pr esenting with a chronic cough. She is also due for follow-up appointment Last time seen was January of last year - The cough, persisting for about one mo nth, commenced without concurrent cold symptoms. - It shows postprandial exacerbation, oc casionally leading to emesis. - Additionally, she has developed an abd ominal sore over the last two weeks. - The lesion originated as a pimple, enl arging, and eventually rupturing. - The patient is currently on atenolol f or hypertension, bupropion for depression, and a regimen of valproate, hydroxyzine, and lamotrigine for epilepsy. Omeprazole is used for GERD maintenance. - Other treatments include quetiapine ma nagement through psychiatry, Ditrol for bladder issues, minoxidil for hair loss, through Dermatology and levothyroxine for thyroid insufficiency. - Past laboratory evaluation showed norm ocytic normochromic anemia, now resolved upon recent analysis, with one liver enzyme appearing elevated. - Concerns regarding the possible need f or antibiotic therapy for both the cough and the open abdominal lesion were addressed. - Instructions were provided for dietary modification to minimize GERD symptoms, including the restriction of acidic beverages and foods. Problem List - Chronic Cough - Sore on the abdomen - Gastroesophageal Reflux Disease (GERD) - Essential Hypertension - Major Depressive Disorder - Epilepsy - Bladder Dysfunction - Androgenic Alopecia - Hypothyroidism Patient Instructions - Begin taking omeprazole twice a day, o nce in the morning and once at night on an empty stomach. - Avoid consuming soda, citrus juices, t omatoes, and tomato-based products. - Follow a bland diet to help manage sym ptoms. - Return for follow-up in ten days to as sess the healing of the abdominal sore and the progression of the cough. - Complete lab tests as discussed tomorr ow. - Medications will be available at the [facility]. Augmentin sent for 10 days - Detrol dose [facility] Review of Systems - Respiratory: Reports chronic cough for the past month, exacerbation postprandially. - Gastrointestinal: No nausea vomiting diarrhea - Skin: Reports development of a sore on the abdomen, began as a pimple. - General: No fever no chills - Neurological: No headaches no dizziness - Ear nose throat: No sore throat no hearing difficulty no ear pain - Gastrointestinal: No nausea vomiting or diarrhea - Endocrine: No polyuria polydipsia no heat intolerance - Genitourinary: No dysuria , no blood in urine Physical Exam General: No acute distress HEENT: No acute findings Neck: Supple Respiratory system: Able to talk in full sentences, no audible wheeze cardiovascular: S1-S2 regular in rate and rhythm Gastrointestinal: No pain Extremities: No new findings UTILIZATION MANAGEMENT MANAGER: Alert awake oriented x3 motor sensory intact Skin: Superficial blister noted on the stomach, bandaged, antibiotics prescribed [facility] Medical History Hypertension, essential Arthritis GERD (gastroesophageal reflux disease) Bipolar 1 disorder Internal derangement of right knee Thyroid ca Anxiety Hx of major depression Hypothyroidism Surgical History Status post total right knee replacement Hx of removal of cyst H/O colonoscopy Hx of thyroidectomy Hx of section Family History Father Colon cancer Other Mental health disorder Substance use disorder Social History Household Members: Significant Other Housing: House Are you a primary career placement services counselor to a significant other at home: No Do you presently have visiting nurse or other home services: No Alcohol intake: current Alcohol intake frequency: a few times a week Patient Tobacco Use Status: Current everyday Tobacco user Tobacco use type: Cigarette Cigarette Packs Per Day: 0 Cigarettes Per Day: 2 Years Smoked: 40 years e-Cigarette/Vaping Use: Never Used Second Hand Smoke Exposure: No Substance Use Type: Marijuana service: No Current occupational status: unemployed Cognitive needs: No Hearing needs: No Vision needs: No Female Reproductive History Menstrual Age of Menarche: 14 Questionnaire PHQ-9 Over the last 2 weeks, how often have you been bothered by any of the following problems? 1. Little interest or pleasure in doing things: not at all 2. Feeling down, depressed, or hopeless: several days 3. Trouble falling or staying asleep, or sleeping too much: not at all 4. Feeling tired or having little energy: not at all 5. Poor appetite or overeating: not at all 6. Feeling bad about yourself - or that you are a failure or have let yourself or your family down: not at all 7. Trouble concentrating on things, such as reading the newspaper or watching television: not at all 8. Moving or speaking so slowly that other people could have noticed. Or the opposite - being so fidgety or restless that you have been moving around a lot more than usual: not at all 9. Thoughts that you would be better off or of hurting yourself in some way: not at all Total score: 1 Depression Screening Interpretation: Negative Depression Screening Done: Yes [id number] - PHQ-9 Billing: Yes Source: Developed by Drs. Dangelo Taylor, Madiha B.W. Jonny Valdez and colleagues, with an educational brina from [employer]. Thrive Questionnaire Date Thrive assessed: 06/05/24 I am a: Patient What is your living situation today?: I have a steady place to live Within the past 12 months, did the food you bought not last and you didn't have the money to get more?: I choose not to answer this question Within the past 12 months, did you worry whether your food would run out before you got money to buy more?: I choose not to answer this question Do you have trouble paying for medicines?: I choose not to answer this question Do you have trouble getting transportation to medical appointments?: I choose not to answer this question Do you have trouble paying your heating and electricity bill?: I choose not to answer this question Do you have trouble taking care of your child, family member or friend?: I choose not to answer this question Do you have trouble with day-to-day activities such as bathing, preparing meals, shopping, managing finances, etc.?: I choose not to answer this question Are you currently unemployed and looking for a job?: I choose not to answer this question Are you interested in more education?: No Please select the resources that you would like help with: None Currently or been in a relationship where the following occur: I choose not to answer THRIVE Score: 0 AUDIT C Alcohol Use Questionnaire (AUDIT-C) 1. How often do you have a drink containing alcohol?: Monthly or less 2. How many drinks containing alcohol do you have on a typical day when you are drinking?: 1 or 2 3. How often do you have six or more drinks on one occasion?: Never Total Score: 1 Score Reviewed/Action Taken: Yes ANTON-7 AMB Questionnaire ANTON-7 Date ANTON - 7 assessed: 06/05/24 Feeling nervous, anxious, or on edge: 0 = Not at all Not being able to stop or control worryin = Not at all Worrying too much about different things: 0 = Not at all Trouble relaxin = Not at all Being so restless that it is hard to sit still: 0 = Not at all Becoming easily annoyed or irritable: 0 = Not at all Feeling afraid as if something awful might happen: 0 = Not at all Total ANTON-7 score (0-4 normal; 5-9 mild; 10-14 moderate; 15-21 severe): 0 Source: Developed by Drs. Dangelo Taylor, Madiha Valdez, Jonny Pepper and colleagues, with an educational brina from [employer]. ANTON-7 Assessment Billing ANTON-7 Assessment Tool: ANTON-7 Assessment 97242 Physical exam (Primary Care) Vital Signs: Last Vital Signs Temp 98.7 F 06/05/24 10:52 Pulse 67 06/05/24 10:52 Resp 18 06/05/24 10:52 BP 118/70 06/05/24 10:52 Pulse Ox 95 06/05/24 10:52 Oxygen Delivery Method Room Air 06/05/24 10:52 BMI result Body Mass Index 32.2 Tobacco/Smoking Status: Tobacco use Status Tobacco use date assessed 06/05/24 06/05/24 10:56 Patient Tobacco Use Status Current everyday Tobacco 06/05/24 10:52 Tobacco use type Cigarette 06/05/24 10:52 e-Cigarette/Vaping Use Never Used 06/05/24 10:52 PHQ-9: PHQ-9 Score PHQ-9: Total score 1 06/05/24 10:56 Depression Screening Interpretation: Negative Thrive Assessment: Date of Thrive Assessment Date Thrive assessed 06/05/24 06/05/24 10:56 Currently or been in a relationship where the following occur: I choose not to answer Coding Level of Care Code Est Pt Level 4 (45971) Complex EM visit Add On G2211 Diagnoses Cellulitis of abdominal wall L03.311 Chronic cough R05.3 Hypertension, essential I10 Gastroesophageal reflux disease without esophagitis K21.9 Esophagitis presence: without esophagitis Mixed stress and urge urinary incontinence N39.46 Urinary Incontinence type: mixed stress and urge incontinence Hyponatremia E87.1 Other specified hypothyroidism E03.8 Bipolar disorder, in full remission, most recent episode hypomanic F31.72 Active/Remission status: in full remission Most recent bipolar episode type: hypomanic Additional Codes ANTON-7 Assessment Billing - ANTON-7 Assessment Tool: ANTON-7 Assessment 31650 ([id number]) PHQ-9 - 08323 - PHQ-9 Billing: Yes ([id number]) Assessment & Plan Assessment & Plan (1) Cellulitis of abdominal wall: Code(s): L03.311 - Cellulitis of abdominal wall Category: Medical (2) Chronic cough: Code(s): R05.3 - Chronic cough Category: Medical (3) Hypertension, essential: Code(s): I10 - Essential (primary) hypertension Category: Medical (4) GERD (gastroesophageal reflux disease): Code(s): K21.9 - Gastro-esophageal reflux disease without esophagitis Category: Medical Qualifiers: Esophagitis presence: without esophagitis Qualified Code(s): K21.9 - Gastro-esophageal reflux disease without esophagitis (5) Urine incontinence: Code(s): R32 - Unspecified urinary incontinence Category: Medical Qualifiers: Urinary Incontinence type: mixed stress and urge incontinence Qualified Code(s): N39.46 - Mixed incontinence (6) Hyponatremia: Code(s): E87.1 - Hypo-osmolality and hyponatremia Category: Medical (7) Other specified hypothyroidism: Code(s): E03.8 - Other specified hypothyroidism Category: Medical (8) Bipolar disorder: Code(s): F31.9 - Bipolar disorder, unspecified Category: Medical Qualifiers: Active/Remission status: in full remission Most recent bipolar episode type: hypomanic Qualified Code(s): F31.72 - Bipolar disorder, in full ale ssion, most recent episode hypomanic Plan - The patient is a 64-year-old female presenting with a chronic cough. She is also due for follow-up appointment Last time seen was January of last year - The cough, persisting for about one month, commenced without concurrent cold symptoms. - It shows postprandial exacerbation, occasionally leading to emesis. - Additionally, she has developed an abdominal sore over the last two weeks. - The lesion originated as a pimple, enlarging, and eventually rupturing. - The patient is currently on atenolol for hypertension, bupropion for depression, and a regimen of valproate, hydroxyzine, and lamotrigine for epileps y. Omeprazole is used for GERD maintenance. - Other treatments include quetiapine management through psychiatry, Ditrol for bladder issues, minoxidil for hair loss, through Dermatology and levothyroxine for thyroid insufficiency. - Past laboratory evaluation showed normocytic normochromic anemia, now resolved upon recent analysis, with one liver enzyme appearing elevated. - Concerns regarding the possible need for antibiotic therapy for both the cough and the open abdominal lesion were addressed. - Instructions were provided for dietary modification to minimize GERD symptoms, including the restriction of acidic beverages and foods. Problem List - Chronic Cough - Sore on the abdomen - Gastroesophageal Reflux Disease (GERD) - Essential Hypertension - Major Depressive Disorder - Epilepsy - Bladder Dysfunction - Androgenic Alopecia - Hypothyroidism Patient Instructions - Begin taking omeprazole twice a day, once in the morning and once at night on an empty stomach. - Avoid consuming soda, citrus juices, tomatoes, and tomato-based products. - Follow a bland diet to help manage symptoms. - Return for follow-up in ten days to assess the healing of the abdominal sore and the progression of the cough. - Complete lab tests as discussed tomorrow. - Medications will be available at the pharmacy. Augmentin sent for 10 days - Detrol dose increased to 2 mg as per patient's request Orders: Orders Comprehensive Met. Panel Today E03.8 - Other specified hypothyroidism, E87.1 - Hypo-osmolality and hyponatremia, F31.72 - Bipolar disorder, in full remission, most recent episode hypomanic, I10 - Essential (primary) hypertension, K21.9 - Gastro-esophageal reflux disease without esophagitis, L03.311 - Cellulitis of abdominal wall, N39.46 - Mixed incontinence, R05.3 - Chronic cough LDL Cholesterol Direct Today E03.8 - Other specified hypothyroidism, E87.1 - Hypo-osmolality and hyponatremia, F31.72 - Bipolar disorder, in full remission, most recent episode hypomanic, I10 - Essential (primary) hypertension, K21.9 - Gastro-esophageal reflux disease without esophagitis, L03.311 - Cellulitis of abdominal wall, N39.46 - Mixed incontinence, R05.3 - Chronic cough Vitamin B12 Today E03.8 - Other specified hypothyroidism, E87.1 - Hypo- osmolality and hyponatremia, F31.72 - Bipolar disorder, in full remission, most recent episode hypomanic, I10 - Essential (primary) hypertension, K21.9 - Gastro-esophageal reflux disease without esophagitis, L03.311 - Cellulitis of abdominal wall, N39.46 - Mixed incontinence, R05.3 - Chronic cough TSH reflex Free T4 Today E03.8 - Other specified hypothyroidism, E87.1 - Hypo- osmolality and hyponatremia, F31.72 - Bipolar disorder, in full remission, most recent episode hypomanic, I10 - Essential (primary) hypertension, K21.9 - Gastro-esophageal reflux disease without esophagitis, L03.311 - Cellulitis of abdominal wall, N39.46 - Mixed incontinence, R05.3 - Chronic cough Hemoglobin A1c Today E03.8 - Other specified hypothyroidism, E87.1 - Hypo- osmolality and hyponatremia, F31.72 - Bipolar disorder, in full remission, most recent episode hypomanic, I10 - Essential (primary) hypertension, K21.9 - Gastro-esophageal reflux disease without esophagitis, L03.311 - Cellulitis of abdominal wall, N39.46 - Mixed incontinence, R05.3 - Chronic cough Complete Blood Count Auto Diff Today E03.8 - Other specified hypothyroidism, E87.1 - Hypo-osmolality and hyponatremia, F31.72 - Bipolar disorder, in full remission, most recent episode hypomanic, I10 - Essential (primary) hypertension, K21.9 - Gastro-esophageal reflux disease without esophagitis, L03.311 - Cellulitis of abdominal wall, N39.46 - Mixed incontinence, R05.3 - Chronic cough Vitamin D 25-OH (D2 and D3) Today E03.8 - Other specified hypothyroidism, E87.1 - Hypo-osmolality and hyponatremia, F31.72 - Bipolar disorder, in full remission, most recent episode hypomanic, I10 - Essential (primary) hypertension, K21.9 - Gastro-esophageal reflux disease without esophagitis, L03.311 - Cellulitis of abdominal wall, N39.46 - Mixed incontinence, R05.3 - Chronic cough Medications: New amoxicillin-pot clavulanate 875-125 mg 1 tab PO BID 10 days 20 tabs 0RF Changed From tolterodine (Detrol) 1 mg PO DAILY 90 tabs 1RF Bladder incontinence To tolterodine 2 mg PO DAILY 90 days 90 tabs 1RF Bladder incontinence
[2024-06-05 10:52] VITALS: BP 118/70; PULSE 67; RESP 18; TEMP 37.1; O2SAT 95; BMI 32.2
--- OUTSIDE RECORDS SUMMARY | 2024-06-05 11:59 | XMS_ITS ---
Author Organization [facility] clarisa Address Unknown Allergies, Adverse Reactions, Alerts Substance Reaction Status Noted Date Resolved Date [place] active 03/02/2024 Medications Medication Dose Frequency Directions Start Date End Michelet e Levothyroxine Sodium Oral Tablet 112 MCG 1 {tbl} 24 h Give 1 tablet by saúl th one time a day for thyroid 03/03/2024 Acetaminophen Tablet 325 MG 2 {tbl} Give 2 tablet by saúl th every 4 hours as needed for Mild Pain More than 3 doses in 48 hours, notify physician/advanced practice provider(DAVID).Do not exceed 3g/day. (standing order) 03/02/2024 Acetaminophen Tablet 325 MG 2 {tbl} Give 2 tablet by saúl th every 6 hours as needed for Temp 100F or above Notify Physician/Advanced Practice provider. Do not exceed 3g/day 03/02/2024 Milk of Magnesia Suspension 400 MG/5ML 30 mL Give 30 ml by mout h as needed for Constipation give at bedtime if no BM in 3 days 03/02/2024 Saline Laxative Enema 1 Insert 1 unit rectally as needed for Constipation if no result from Dulcolax within 2 hours. If no results from Saline laxative enema, call MD/advanced practice provider (DAVID) for further orders. 03/02/2024 MiraLax Powder 17 Give 17 gram by mouth as needed for Constipation in 4 to 8 ounces of fluid-if resident has not had a bowel movement in past 72 hours. 03/02/2024 Dulcolax Suppository 10 MG 1 Insert 1 suppository rectally as needed for Constipation if no result from MOM Miralax by next shift 03/02/2024 Atenolol Tablet 25 MG 1 {tbl} 24 h Give 1 tablet by mouth one time a day for hypertension 03/03/2024 lamoTRIgine ER Oral Tablet Extended Release 24 Hour 250 MG 1 {tbl} Give 1 tablet by saúl th at bedtime for seizures 03/03/2024 QUEtiapine Fumarate Tablet 100 MG 1 {tbl} Give 1 tablet by saúl at bedtime for bipolar 03/03/2024 Cholecalciferol Tablet 1000 UNIT 1 {tbl} 24 h Give 1 tablet by saúl one time a day for vit def. 03/03/2024 Omeprazole Magnesium Oral Tablet Delayed Release 20 MG 20 mg 24 h Give 20 mg by mouth one time a day for gerd 03/03/2024 Cyclobenzaprine HCl Oral Tablet 5 MG 1 {tbl} Give 1 tablet by saúl every 24 hours as needed for spasms 03/02/2024 HYDROcodone-Acetaminophen Oral Tablet 5-325 MG 1 {tbl} Give 1 tablet by mo [facility] every 4 hours as needed for pain 03/02/2024 Depakote ER Oral Tablet Extended Release 24 Hour 500 MG 1 {tbl} Give 1 tablet by saúl at bedtime for bipolar 03/03/2024 Detrol Oral Tablet 1 MG 1 {tbl} 24 h Give 1 tablet by mouth one time a day for urinary d/o 03/03/2024 Minoxidil Oral Tablet 2.5 MG 1 {tbl} 24 h Give 1 tablet by saúl one time a day for hair g 03/03/2024 Levothyroxine Sodium Oral Tablet 112 MCG 1 {tbl} 24 h Give 1 tablet by saúl one time a day for low thyroid hormone 03/03/2024 Medications Administered Medication Dose Frequency Status Start Date End Date Levothyroxine Sodium Oral Ta blet 112 MCG 1 {tbl} 24 h 03/03/2024 Acetaminophen Tablet 325 MG 2 {tbl} Acetaminophen Tablet 325 MG 2 {tbl} Milk of Magnesia Suspension 400 MG/5ML 30 mL 03/02/2024 Saline Laxative Enema 1 03/02/20 24 MiraLax Powder 17 03/02/2024 Dulcolax Suppository 10 MG 1 06/2023 Atenolol Tablet 25 MG 1 {tbl} 24 h 03/03/20 24 lamoTRIgine ER Oral Tablet E xtended Release 24 Hour 250 MG 1 {tbl} Refused 03/03/2024 QUEtiapine Fumarate Tablet 100 MG 1 {tbl} Refuse d 03/03/2024 Cholecalciferol Tablet 1000 UNIT 1 {tbl} 24 h 03/03/2024 Omeprazole Magnesium Oral Ta blet Delayed Release 20 MG 20 mg 24 h 03/03/2024 Cyclobenzaprine HCl Oral Tablet 5 MG 1 {tbl} 03/02/2024 HYDROcodone-Acetaminophen Or al Tablet 5-325 MG 1 {tbl} 03/02/2024 Depakote ER Oral Tablet Exte nded Release 24 Hour 500 MG 1 {tbl} Refused 03/03/2024 Detrol Oral Tablet 1 MG 1 {tbl} 24 h 2023 Minoxidil Oral Tablet 2.5 MG 1 {tbl} 24 h 1 05/03/2023 Levothyroxine Sodium Oral Ta blet 112 MCG 1 {tbl} 24 h 03/03/2024 Problems Problem Status Start Date End Date 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 - ICD-10-CM) RESOLVED 03/02/2024 05/14/2024 REPEATED FALLS (R29.6 - ICD-10-CM) RESOLVED 202305/14/2024 ESSENTIAL (PRIMARY) HYPERTENSION (I10 - ICD-10-CM) RES OLVED 03/02/2024 05/14/2024 OTHER SPECIFIED ARTHRITIS, U NSPECIFIED SITE (M13.80 - ICD-10-CM) RESOLVED 03/02/2024 05/14/2024 GASTRO-ESOPHAGEAL REFLUX DIS EASE WITHOUT ESOPHAGITIS (K21.9 - ICD-10-CM) RESOLVED 03/02/2024 05/14/2024 BIPOLAR II DISORDER (F31.81 - ICD-10-CM) RESOLVED 03/02/2024 05/14/2024 GENERALIZED ANXIETY DISORDER (F41.1 - ICD-10-CM) RESOL DOE 03/02/2024 05/14/2024 DEPRESSION, UNSPECIFIED (F32.A - ICD-10-CM) RESOLVED 03/02/2024 05/14/2024 HYPOTHYROIDISM, UNSPECIFIED (E03.9 - ICD-10-CM) RESOLV ED 03/02/2024 05/14/2024 Encounters Encounter Performer Performer Role Encounter Diagnoses Location Date Discharge - Discharged to home or self care - *Home - Private home/apt. with no home health services [facility] 03/02/2024 12:27 pm EDT - 03/02/2024 09:32 pm EDT Social History
== END 2024-06-05 11:08 | disposition home or self-care (01) ==
PROVIDERS: PCP Internal Medicine; Visit Provider Internal Medicine
DX: I10 Essential (primary) hypertension (principal); L03.311 Cellulitis of abdominal wall; F31.72 Bipolar disorder, in full remission, most recent episode hypomanic; R05.3 Chronic cough; K21.9 Gastro-esophageal reflux disease without esophagitis; N39.46 Mixed incontinence; E87.1 Hypo-osmolality and hyponatremia; E03.8 Other specified hypothyroidism

== ENCOUNTER → 2024-06-05 10:48 | Outpatient (BNVA) | payer OTHER, SELFPAY | PROVIDERS: PCP Internal Medicine; Visit Provider Internal Medicine | DX: L03.311 Cellulitis of abdominal wall (principal); R05.3 Chronic cough; I10 Essential (primary) hypertension; K21.9 Gastro-esophageal reflux disease without esophagitis; N39.46 Mixed incontinence; E87.1 Hypo-osmolality and hyponatremia; E03.8 Other specified hypothyroidism; F31.72 Bipolar disorder, in full remission, most recent episode hypomanic | CPT/HCPCS: 96127; 99212 ==

== ENCOUNTER 2024-06-10 08:34 | Outpatient (REF) | payer OTHER, SELFPAY ==
[2024-06-10 10:03] LABS: MANUAL DIFF FLAG NO
[2024-06-10 10:09] LABS: Basophils Percent Auto 0.5 % (0-2); Eosinophils Absolute Auto 0.1 X10*3/uL (0.0-0.4); Eosinophils Percent Auto 0.8 % (0-4); Hematocrit 42.9 % (37.0-47.0); Hemoglobin 14.7 g/dl (12.0-16.0); Imm Gran Abs Auto 0.04 X10*3/uL (0.00-0.03); Imm Gran Pct Auto 0.6 % (0.0-0.4); Lymphocytes Absolute Auto 2.3 X10*3/uL (1.2-4.9); Lymphocytes Percent Auto 36.3 % (20-40); Mean Corpuscular HGB Conc 34.3 g/dl (31.0-35.0); Mean Corpuscular Hemoglobin 31.3 pg (27.0-33.0); Mean Corpuscular Volume 91.5 fL (80.0-98.0); Mean Platelet Volume 8.9 fL (9.4-12.3); Monocytes Absolute Auto 0.6 X10*3/uL (0.1-1.2); Neutrophils Absolute Auto 3.3 x10*3/uL (2.0-8.3); Neutrophils Percent Auto 52.8 % (45-73); Platelet Count 305 X10*3/uL (160-400); Red Blood Count 4.69 X10*6/uL (4.20-5.50); Red Cell Distribution Width 13.3 % (11.0-16.0); White Blood Count 6.3 X10*3/uL (4.8-10.8)
[2024-06-10 10:15] LABS: Estimated Average Glucose 105 mg/dL; Hemoglobin A1C 130.4511 umol/L; Hemoglobin A1c % 5.3 % (<6.0); Total Hemoglobin (HGBA1C) 3778.8664 umol/L
[2024-06-10 10:27] LABS: Alanine Aminotransferase 91 U/L (0-31); Albumin Level 4.2 g/dL (3.5-5.0); Alkaline Phosphatase 93 U/L (39-117); Anion Gap 13 (12-20); Aspartate Amino Transferase 62 U/L (5-31); Bilirubin Total 0.3 mg/dL (0.0-1.0); Blood Urea Nitrogen 6 mg/dL (9-16); Calcium 9.4 mg/dL (8.4-10.2); Carbon Dioxide 21 mmol/L (22-29); Chloride 108 mmol/L (96-108); Estimated Glomerular Filt Rate > 60; Glucose Random 81 mg/dL (60-115); Potassium 4.1 mmol/L (3.3-5.1); Sodium 138 mmol/L (135-145); Total Protein 7.6 g/dL (6.5-8.0)
[2024-06-10 10:50] LABS: Vitamin B12 693 pg/mL (200-900)
[2024-06-10 10:52] LABS: TSH reflex Free T4 0.49 uIU/mL (0.32-4.0)
[2024-06-11 20:24] LABS: LDL Cholesterol Direct 88 mg/dL (<100)
[2024-06-14 14:08] LABS: Vitamin D 25-OH, D2 <4 ng/mL; Vitamin D 25-OH, D3 29 ng/mL; Vitamin D 25-OH, Total 29 ng/mL (30-100)
== END 2024-06-10 08:35 | disposition home or self-care (01) ==
LOC: HO.HMGCLDS 08:34
PROVIDERS: PCP Internal Medicine; Visit Provider Internal Medicine
DX: I10 Essential (primary) hypertension (principal); K21.9 Gastro-esophageal reflux disease without esophagitis; N39.46 Mixed incontinence; E87.1 Hypo-osmolality and hyponatremia; E03.8 Other specified hypothyroidism; F31.72 Bipolar disorder, in full remission, most recent episode hypomanic; R05.3 Chronic cough; L03.311 Cellulitis of abdominal wall
CPT/HCPCS: 36415; 80053; 82306; 82607; 83036; 83721; 84443; 85025

== ENCOUNTER 2024-06-14 10:27 | Outpatient (AMB) | payer OTHER, SELFPAY ==
[2024-06-14 10:30] VITALS: BP 122/76; PULSE 66; RESP 17; TEMP 36.6; O2SAT 97; BMI 32.3
--- NOTE | 2024-06-14 10:30 | A.OFFPC_ITS ---
Vital Signs 06/14/24 10:30 Height 5 ft 2 in Weight 176 lb 8 oz BMI 32.3 BP 122/76 Blood Pressure Location Lt brachial Position Sitting Respiration 17 Pulse 66 Pulse Source Pulse Oximeter Temp 98 F Temp Source Oral Pulse Oximetry (%) 97 Oxygen Delivery Method Room Air Intake Visit Reasons: 10 days f/up Allergies lithium [LITHIUM] Adverse Reaction (Intermediate, Verified 06/14/24 10:31) bilateral pedal edema Medication List - Last Reconciled 06/14/24 by Rozina Carpio MD amoxicillin-pot clavulanate 875-125 mg 1 tab PO BID 10 days atenolol 25 mg PO DAILY 90 days bisacodyl (Dulcolax (bisacodyl)) 20 mg (4 x 5 mg) PO ONCE 1 day bupropion HCl XL 150 mg PO QAM cholecalciferol (vitamin D3) 25 mcg PO DAILY 90 days cyclobenzaprine 5 mg PO BEDTIME PRN divalproex 500 mg PO BID hydroxyzine HCl 25 mg PO Q8H PRN lamotrigine ER 250 mg PO BEDTIME levothyroxine 112 mcg PO DAILY@0600 minoxidil 2.5 mg PO DAILY omeprazole magnesium 20 mg PO DAILY@0630 polyethylene glycol 3350 (Miralax) 238 grams PO ONCE quetiapine 100 mg PO BEDTIME tolterodine 2 mg PO DAILY 90 days walker Folding Front wheeled walker Tobacco use date assessed: 06/14/24 Dental Screening Dental Screen Date: 06/14/24 Did you have a dental visit in the last 12 months?: Yes Did you have a dental problem in the last 6 months where you did not have access to dental care?: No Was dental information given to patient?: Patient has dentist HPI 10 days f/up HPI Details History Follow up on abdominal sore started 3 weeks ago approximately and done into oozing sore Ten days ago patient was evaluated and given Augmentin for 10 days She came in today to be re-evaluated, it looks like an infected cyst which is healing still having some discharge I have sent another course of antibiotic if still not healed patient will need to see a surgeon She has appointment coming up in a week Her cough is better, she was given a script for omeprazole which she is to continue Labs done recently shows elevated liver enzymes we will repeat labs again in 4 weeks to ensure the stability of enzymes Problem List - Gastroesophageal Reflux Disease (GERD) - infected abdominal cyst - Elevated Liver Enzyme Patient Instructions - Continue current antibiotic treatment as prescribed. Augmentin for another 10 days - Maintain use of omeprazole for managin g gastroesophageal reflux disease symptoms. - Monitor for any increase in symptoms o r changes in the condition of the abdominal cyst. Seek care if symptoms worsen. - Schedule and complete follow-up labs i n one month to monitor liver enzyme lev els. - Adhere to any dietary or lifestyle mod ifications as previously discussed to aid symptom management. Review of Systems - General: No fever no chills - Neurological: No headaches no dizziness - Ear nose throat: No sore throat no hearing difficulty no ear pain - Cardiovascular: No syncope, no chest pain, no palpitations - Gastrointestinal: No nausea vomiting or diarrhea - Endocrine: No polyuria polydipsia no heat intolerance - Genitourinary: No dysuria , no blood in urine Physical Exam General: No acute distress HEENT: No acute findings Neck: Supple Respiratory system: Able to talk in full sentences, no audible wheeze cardiovascular: S1-S2 regular in rate and rhythm Gastrointestinal: Infected cyst right abdomen close to umbilicus with oozing cloudy discharge looks much better than before less erythema less pain Extremities: No new findings WARP TENSION TESTER: Alert awake oriented x3 motor sensory intact Skin: Normal turgor PFSH Medical History Hypertension, essential Arthritis GERD (gastroesophageal reflux disease) Bipolar 1 disorder Internal derangement of right knee Thyroid ca Anxiety Hx of major depression Hypothyroidism Surgical History Status post total right knee replacement Hx of removal of cyst H/O colonoscopy Hx of thyroidectomy Hx of section Family History Father Colon cancer Other Mental health disorder Substance use disorder Social History Household Members: Significant Other Housing: House Are you a primary inspector health care facilities to a significant other at home: No Do you presently have visiting nurse or other home services: No Alcohol intake: current Alcohol intake frequency: a few times a week Patient Tobacco Use Status: Current everyday Tobacco user Tobacco use type: Cigarette Cigarette Packs Per Day: 0 Cigarettes Per Day: 2 Years Smoked: 40 years e-Cigarette/Vaping Use: Never Used Second Hand Smoke Exposure: No Substance Use Type: Marijuana service: No Current occupational status: unemployed Cognitive needs: No Hearing needs: No Vision needs: No Female Reproductive History Menstrual Age of Menarche: 14 Questionnaire PHQ-9 Over the last 2 weeks, how often have you been bothered by any of the following problems? 1. Little interest or pleasure in doing things: not at all 2. Feeling down, depressed, or hopeless: not at all 3. Trouble falling or staying asleep, or sleeping too much: not at all 4. Feeling tired or having little energy: not at all 5. Poor appetite or overeating: not at all 6. Feeling bad about yourself - or that you are a failure or have let yourself or your family down: not at all 7. Trouble concentrating on things, such as reading the newspaper or watching television: not at all 8. Moving or speaking so slowly that other people could have noticed. Or the o pposite - being so fidgety or restless that you have been moving around a lot more than usual: not at all 9. Thoughts that you would be better off or of hurting yourself in some way: not at all Total score: 0 Depression Screening Interpretation: Negative Depression Screening Done: Yes [id number] - PHQ-9 Billing: Yes Source: Developed by Drs. Dangelo Taylor, Madiha Valdez, Jonny Pepper and colleagues, with an educational brina from [employer]. Thrive Questionnaire Date Thrive assessed: 06/14/24 I am a: Patient What is your living situation today?: I have a steady place to live Within the past 12 months, did the food you bought not last and you didn't have the money to get more?: I choose not to answer this question Within the past 12 months, did you worry whether your food would run out before you got money to buy more?: I choose not to answer this question Do you have trouble paying for medicines?: I choose not to answer this question Do you have trouble getting transportation to medical appointments?: I choose not to answer this question Do you have trouble paying your heating and electricity bill?: I choose not to answer this question Do you have trouble taking care of your child, family member or friend?: I choose not to answer this question Do you have trouble with day-to-day activities such as bathing, preparing meals, shopping, managing finances, etc.?: I choose not to answer this question Are you currently unemployed and looking for a job?: I choose not to answer this question Are you interested in more education?: No Please select the resources that you would like help with: None Currently or been in a relationship where the following occur: I choose not to answer THRIVE Score: 0 AUDIT C Alcohol Use Questionnaire (AUDIT-C) 1. How often do you have a drink containing alcohol?: Monthly or less 2. How many drinks containing alcohol do you have on a typical day when you are drinking?: 1 or 2 3. How often do you have six or more drinks on one occasion?: Never Total Score: 1 Score Reviewed/Action Taken: Yes ANTON-7 AMB Questionnaire ANTON-7 Date ANTON - 7 assessed: 06/05/24 Source: Developed by Drs. Dangelo Taylor, Madiha Valdez, Jonny Pepper and colleagues, with an educational brina from [employer]. Physical exam (Primary Care) Vital Signs: Last Vital Signs Temp 98 F 06/14/24 10:30 Pulse 66 06/14/24 10:30 Resp 17 06/14/24 10:30 BP 122/76 06/14/24 10:30 Pulse Ox 97 06/14/24 10:30 Oxygen Delivery Method Room Air 06/14/24 10:30 BMI result Body Mass Index 32.3 Tobacco/Smoking Status: Tobacco use Status Tobacco use date assessed 06/14/24 06/14/24 10:32 Patient Tobacco Use Status Current everyday Tobacco 06/14/24 10:32 Tobacco use type Cigarette 06/14/24 10:32 e-Cigarette/Vaping Use Never Used 06/14/24 10:32 PHQ-9: PHQ-9 Score PHQ-9: Total score 0 06/14/24 10:45 Depression Screening Interpretation: Negative Thrive Assessment: Date of Thrive Assessment Date Thrive assessed 06/14/24 06/14/24 10:32 Currently or been in a relationship where the following occur: I choose not to answer Coding Level of Care Code Est Pt Level 4 (54530) Diagnoses Infected sebaceous cyst L72.3; L08.9 Gastroesophageal reflux disease without esophagitis K21.9 Esophagitis presence: without esophagitis LFT elevation R79.89 Additional Codes PHQ-9 - 60719 - PHQ-9 Billing: Yes ([id number]) Assessment & Plan Assessment & Plan (1) Infected sebaceous cyst: Code(s): L72.3 - Sebaceous cyst; L08.9 - Local infection of the skin and subcutaneous tissue, unspecified Category: Medical (2) GERD (gastroesophageal reflux disease): Code(s): K21.9 - Gastro-esophageal reflux disease without esophagitis Category: Medical Qualifiers: Esophagitis presence: without esophagitis Qualified Code(s): K21.9 - Gastro-esophageal reflux disease without esophagitis (3) LFT elevation: Code(s): R79.89 - Other specified abnormal findings of blood chemistry Category: Medical Plan History Follow up on abdominal sore started 3 weeks ago approximately and done into oozing sore Ten days ago patient was evaluated and given Augmentin for 10 days She came in today to be re-evaluated, it looks like an infected cyst which is healing still having some discharge I have sent another course of antibiotic if still not healed patient will need to see a surgeon She has appointment coming up in a week Her cough is better, she was given a script for omeprazole which she is to continue Labs done recently shows elevated liver enzymes we will repeat labs again in 4 weeks to ensure the stability of enzymes Problem List - Gastroesophageal Reflux Disease (GERD) - infected abdominal cyst - Elevated Liver Enzyme Patient Instructions - Continue current antibiotic treatment as prescribed. Augmentin for another 10 days - Maintain use of omeprazole for managing gastroesophageal reflux disease symptoms. - Monitor for any increase in symptoms or changes in the condition of the abdominal cyst. Seek care if symptoms worsen. - Schedule and complete follow-up labs in one month to monitor liver enzyme levels. - Adhere to any dietary or lifestyle modifications as previously discussed to aid symptom management. New dressing applied over the sore Orders: Orders Liver Panel 4 Weeks R79.89 - Other specified abnormal findings of blood chemistry Medications: Refilled omeprazole magnesium 20 mg PO DAILY@0630 90 caps 0RF amoxicillin-pot clavulanate 875-125 mg 1 tab PO BID 10 days 20 tabs 0RF
== END 2024-06-14 11:32 | disposition home or self-care (01) ==
PROVIDERS: PCP Internal Medicine; Visit Provider Internal Medicine
DX: L72.3 Sebaceous cyst (principal); L08.9 Local infection of the skin and subcutaneous tissue, unspecified; K21.9 Gastro-esophageal reflux disease without esophagitis; R79.89 Other specified abnormal findings of blood chemistry

== ENCOUNTER → 2024-06-14 10:27 | Outpatient (BNVA) | payer OTHER, SELFPAY | PROVIDERS: PCP Internal Medicine; Visit Provider Internal Medicine | DX: R79.89 Other specified abnormal findings of blood chemistry (principal); K21.9 Gastro-esophageal reflux disease without esophagitis; L72.3 Sebaceous cyst; L08.9 Local infection of the skin and subcutaneous tissue, unspecified | CPT/HCPCS: 96127; 99212 ==

== ENCOUNTER 2024-06-25 11:04 | Outpatient (AMB) | payer OTHER, SELFPAY ==
[2024-06-25 11:11] VITALS: BP 136/84; PULSE 61; O2SAT 96; BMI 32.9
--- NOTE | 2024-06-25 11:11 | A.OFFPC_ITS ---
Vital Signs 06/25/24 11:11 Height 5 ft 2 in Weight 180 lb 2 oz BMI 32.9 BP 136/84 Blood Pressure Location Lt brachial Position Sitting Pulse 61 Pulse Source Pulse Oximeter Pulse Oximetry (%) 96 Oxygen Delivery Method Room Air Intake Visit Reasons: 4m follow up Allergies lithium [LITHIUM] Adverse Reaction (Intermediate, Verified 06/25/24 11:13) bilateral pedal edema Medication List - Last Reconciled 06/25/24 by Rozina Carpio MD atenolol 25 mg PO DAILY 90 days bisacodyl (Dulcolax (bisacodyl)) 20 mg (4 x 5 mg) PO ONCE 1 day bupropion HCl XL 150 mg PO QAM cholecalciferol (vitamin D3) 25 mcg PO DAILY 90 days cyclobenzaprine 5 mg PO BEDTIME PRN divalproex 500 mg PO BID hydroxyzine HCl 25 mg PO Q8H PRN lamotrigine ER 250 mg PO BEDTIME levothyroxine 112 mcg PO DAILY@0600 minoxidil 2.5 mg PO DAILY omeprazole magnesium 20 mg PO DAILY@0630 polyethylene glycol 3350 (Miralax) 238 grams PO ONCE quetiapine 100 mg PO BEDTIME tolterodine 2 mg PO DAILY 90 days walker Folding Front wheeled walker Tobacco use date assessed: 06/25/24 Dental Screening Dental Screen Date: 06/25/24 Did you have a dental visit in the last 12 months?: Yes Did you have a dental problem in the last 6 months where you did not have access to dental care?: No Was dental information given to patient?: Patient has dentist HPI 4m follow up HPI Details - The patient is a 64-year-old female pr esenting with follow-up for abdominal cellulitis - Notably, she experienced a yeast infec tion after taking amoxicillin, known to trigger such infections in her history. - cellulitis has resolved there is only residual redness and itching which is improving - Current prescriptions include omeprazo le and levothyroxine, along with Detrol for urinary incontinence through PCP office - Hypertension is managed by her nephrol ogist, relating blood pressure control with renal health concerns. - psychiatric medications through Psychi atry Patient will return in 4 months for follow-up no Problem List - Yeast Infection - Essential Hypertension - Hypothyroidism - Gastroesophageal Reflux Disease - Overactive Bladder - bipolar disorder Patient Instructions - Resume daily medication as prescribed, including omeprazole, levothyroxine, and bladder medication. - Monitor for any recurrence of a yeast infection; take Diflucan, script sent - Set up a patient portal account for ea sier communication and management of medical concerns. - Consult pattern lease inspector for blood pressur e management as needed. - continue follow-up with Psychiatry Review of Systems. - General: No fever no chills - Neurological: No headaches no dizziness - Ear nose throat: No sore throat no hearing difficulty no ear pain - Cardiovascular: No syncope, no chest pain, no palpitations - Gastrointestinal: No nausea vomiting or diarrhea - Endocrine: No polyuria polydipsia no heat intolerance - Genitourinary: No dysuria , no blood in urine Physical Exam General: No acute distress HEENT: No acute findings Neck: Supple Respiratory system: Able to talk in full sentences, no audible wheeze cardiovascular: S1-S2 regular in rate and rhythm Gastrointestinal: No pain Extremities: Tingling sensation noted 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: Alert awake oriented x3 motor sensory intact Skin: Normal turgor, no visible issues noted, cellulitis resolved with residual redness PFSH Medical History Hypertension, essential Arthritis GERD (gastroesophageal reflux disease) Bipolar 1 disorder Internal derangement of right knee Thyroid ca Anxiety Hx of major depression Hypothyroidism Surgical History Status post total right knee replacement Hx of removal of cyst H/O colonoscopy Hx of thyroidectomy Hx of section Family History Father Colon cancer Other Mental health disorder Substance use disorder Social History Household Members: Significant Other Housing: House Are you a primary adult caregiver to a significant other at home: No Do you presently have visiting nurse or other home services: No Alcohol intake: current Alcohol intake frequency: a few times a week Patient Tobacco Use Status: Current everyday Tobacco user Tobacco use type: Cigarette Cigarette Packs Per Day: 0 Cigarettes Per Day: 2 Years Smoked: 40 years Packs Per Year: 0 Packs per year/per ci.00 e-Cigarette/Vaping Use: Never Used Second Hand Smoke Exposure: No Substance Use Type: Marijuana service: No Current occupational status: unemployed Cognitive needs: No Hearing needs: No Vision needs: No Female Reproductive History Menstrual Age of Menarche: 14 Questionnaire Thrive Questionnaire Date Thrive assessed: 06/25/24 I am a: Patient What is your living situation today?: I have a steady place to live Within the past 12 months, did the food you bought not last and you didn't have the money to get more?: I choose not to answer this question Within the past 12 months, did you worry whether your food would run out before you got money to buy more?: I choose not to answer this question Do you have trouble paying for medicines?: I choose not to answer this question Do you have trouble getting transportation to medical appointments?: I choose not to answer this question Do you have trouble paying your heating and electricity bill?: I choose not to answer this question Do you have trouble taking care of your child, family member or friend?: I choose not to answer this question Do you have trouble with day-to-day activities such as bathing, preparing meals, shopping, managing finances, etc.?: I choose not to answer this question Are you currently unemployed and looking for a job?: I choose not to answer this question Are you interested in more education?: No Please select the resources that you would like help with: None Currently or been in a relationship where the following occur: I choose not to answer THRIVE Score: 0 AUDIT C Alcohol Use Questionnaire (AUDIT-C) 1. How often do you have a drink containing alcohol?: Monthly or less 2. How many drinks containing alcohol do you have on a typical day when you are drinking?: 1 or 2 3. How often do you have six or more drinks on one occasion?: Never Total Score: 1 Score Reviewed/Action Taken: Yes ANTON-7 AMB Questionnaire ANTON-7 Date ANTON - 7 assessed: 06/05/24 Source: Developed by Drs. Dangelo Taylor, Madiha Valdez, Jonny Pepper and colleagues, with an educational birna from [employer]. Physical exam (Primary Care) Vital Signs: Last Vital Signs Pulse 61 06/25/24 11:11 BP 136/84 06/25/24 11:11 Pulse Ox 96 06/25/24 11:11 Oxygen Delivery Method Room Air 06/25/24 11:11 BMI result Body Mass Index 32.9 Tobacco/Smoking Status: Tobacco use Status Tobacco use date assessed 06/25/24 06/25/24 11:14 Patient Tobacco Use Status Current everyday Tobacco 06/25/24 11:14 Tobacco use type Cigarette 06/25/24 11:14 e-Cigarette/Vaping Use Never Used 06/25/24 11:14 Thrive Assessment: Date of Thrive Assessment Date Thrive assessed 06/25/24 06/25/24 11:14 Currently or been in a relationship where the following occur: I choose not to answer Coding Level of Care Code Est Pt Level 3 (31613) Diagnoses Hypertension, essential I10 Bipolar disorder, in full remission, most recent episode hypomanic F31.72 Active/Remission status: in full remission Most recent bipolar episode type: hypomanic Other specified hypothyroidism E03.8 Gastroesophageal reflux disease without esophagitis K21.9 Esophagitis presence: without esophagitis Mixed stress and urge urinary incontinence N39.46 Urinary Incontinence type: mixed stress and urge incontinence Nephropathy N28.9 Assessment & Plan Assessment & Plan (1) Hypertension, essential: Code(s): I10 - Essential (primary) hypertension Category: Medical (2) Bipolar disorder: Code(s): F31.9 - Bipolar disorder, unspecified Category: Medical Qualifiers: Active/Remission status: in full remission Most recent bipolar episode type: hypomanic Qualified Code(s): F31.72 - Bipolar disorder, in full remission, most recent episode hypomanic (3) Other specified hypothyroidism: Code(s): E03.8 - Other specified hypothyroidism Category: Medical (4) GERD (gastroesophageal reflux disease): Code(s): K21.9 - Gastro-esophageal reflux disease without esophagitis Category: Medical Qualifiers: Esophagitis presence: without esophagitis Qualified Code(s): K21.9 - Gastro-esophageal reflux disease without esophagitis (5) Urine incontinence: Code(s): R32 - Unspecified urinary incontinence Category: Medical Qualifiers: Urinary Incontinence type: mixed stress and urge incontinence Qualified Code(s): N39.46 - Mixed incontinence (6) Nephropathy: Code(s): N28.9 - Disorder of kidney and ureter, unspecified Category: Medical Plan - The patient is a 64-year-old female presenting with follow-up for abdominal cellulitis - Notably, she experienced a yeast infection after taking amoxicillin, known to trigger such infections in her history. - cellulitis has resolved there is only residual redness and itching which is improving - Current prescriptions include omeprazole and levothyroxine, along with Detrol for urinary incontinence through PCP office - Hypertension is managed by her pattern lease inspector, relating blood pressure control with renal health concerns. - psychiatric medications through Psychiatry Patient will return in 4 months for follow-up no Problem List - Yeast Infection - Essential Hypertension - Hypothyroidism - Gastroesophageal Reflux Disease - Overactive Bladder - bipolar disorder Patient Instructions - Resume daily medication as prescribed, including omeprazole, levothyroxine, and bladder medication. - Monitor for any recurrence of a yeast infection; take Diflucan, script sent - Set up a patient portal account for easier communication and management of medical concerns. - Consult pattern lease inspector for blood pressure management as needed. - continue follow-up with Psychiatry Medications: New fluconazole may repeat second dose 72 hrs after first dose if symptoms persist 150 mg PO Q3D 2 doses 2 tabs 0RF
== END 2024-06-25 11:29 | disposition home or self-care (01) ==
PROVIDERS: PCP Internal Medicine; Visit Provider Internal Medicine
DX: I10 Essential (primary) hypertension (principal); F31.72 Bipolar disorder, in full remission, most recent episode hypomanic; E03.8 Other specified hypothyroidism; K21.9 Gastro-esophageal reflux disease without esophagitis; N39.46 Mixed incontinence; N28.9 Disorder of kidney and ureter, unspecified

== ENCOUNTER → 2024-06-25 11:04 | Outpatient (BNVA) | payer OTHER, SELFPAY | PROVIDERS: PCP Internal Medicine; Visit Provider Internal Medicine | DX: I10 Essential (primary) hypertension (principal); F31.72 Bipolar disorder, in full remission, most recent episode hypomanic; E03.8 Other specified hypothyroidism; K21.9 Gastro-esophageal reflux disease without esophagitis; N39.46 Mixed incontinence; N28.9 Disorder of kidney and ureter, unspecified | CPT/HCPCS: 99212 ==

== ENCOUNTER 2024-07-12 07:31 | Outpatient (REF) | payer OTHER, SELFPAY ==
[2024-07-12 10:42] LABS: Alanine Aminotransferase 28 U/L (0-31); Albumin Level 4.2 g/dL (3.5-5.0); Alkaline Phosphatase 104 U/L (39-117); Anion Gap 14 (12-20); Aspartate Amino Transferase 24 U/L (5-31); Bilirubin Direct 0.1 mg/dL (0.0-0.5); Bilirubin Total 0.3 mg/dL (0.0-1.0); Blood Urea Nitrogen 10 mg/dL (9-16); Calcium 9.5 mg/dL (8.4-10.2); Carbon Dioxide 22 mmol/L (22-29); Chloride 110 mmol/L (96-108); Estimated Glomerular Filt Rate > 60; Glucose Random 92 mg/dL (60-115); Potassium 4.6 mmol/L (3.3-5.1); Sodium 141 mmol/L (135-145); Total Protein 7.4 g/dL (6.5-8.0)
== END 2024-07-12 07:32 | disposition home or self-care (01) ==
LOC: HO.HMGCLDS 07:31
PROVIDERS: PCP Internal Medicine; Visit Provider Internal Medicine Hypertension Specialist
DX: E87.1 Hypo-osmolality and hyponatremia (principal); R79.89 Other specified abnormal findings of blood chemistry
CPT/HCPCS: 36415; 80048; 80076

== ENCOUNTER 2024-07-18 11:10 | Outpatient (AMB) | payer OTHER, SELFPAY ==
--- NOTE | 2024-07-18 11:13 | HO.NEPHOV_ITS ---
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 Required: No Accompanied by: Self / Same As Patient Allergies lithium [LITHIUM] Adverse Reaction (Intermediate, Verified 07/18/24 11:17) bilateral pedal edema Medication List - Last Reconciled 07/18/24 by Sarkis El MD atenolol 25 mg PO DAILY 90 days bisacodyl (Dulcolax (bisacodyl)) 20 mg (4 x 5 mg) PO ONCE 1 day bupropion HCl XL 150 mg PO QAM cholecalciferol (vitamin D3) 25 mcg PO DAILY 90 days cyclobenzaprine 5 mg PO BEDTIME PRN divalproex 500 mg PO BID fluconazole 150 mg PO Q3D 2 doses hydroxyzine HCl 25 mg PO Q8H PRN levothyroxine 112 mcg PO DAILY@0600 minoxidil 2.5 mg PO DAILY omeprazole magnesium 20 mg PO DAILY@0630 polyethylene glycol 3350 (Miralax) 238 grams PO ONCE quetiapine 100 mg PO BEDTIME tolterodine 2 mg PO DAILY 90 days walker Folding Front wheeled walker HPI Comments Details: 63 years old woman with a history significant for hypothyroidism (thyroid CA s/p thyroidectomy), depression and essential hypertension presents to the emergency department after she was found to have significant hyponatremia (120) on a routine blood workup as an outpatient. Sodium was 119. She admits to drinking 2 gal of water. She drinks at least 1 2 L bottle of diet Coke. She had severe hypothyroidism with a TSH of 16 She is placed on p.o. water restriction. Sodium gradually increased to 129 and she was discharged She is here for further follow-up. At the time of discharge she was supposed to be sent home with 125 mcg of Synthroid however she was given a prescription of 88 mcg. September 2023. She took 2 caffeinated gums and feels jittery. Recently treated for suspected UTI with nitrofurantoin. Currently she is on levothyroxine 125 mcg. 02/26/24 Recently had knee surgery;Levothyroxine decreased to 112mcg 07/18/2024. Overall doing well. No new issues. [facility] Medical History Hypertension, essential Arthritis GERD (gastroesophageal reflux disease) Bipolar 1 disorder Internal derangement of right knee Thyroid ca Anxiety Hx of major depression Hypothyroidism Surgical History Status post total right knee replacement Hx of removal of cyst H/O colonoscopy Hx of thyroidectomy Hx of section Family History Father Colon cancer Other Mental health disorder Substance use disorder Social History Household Members: Significant Other Housing: House Are you a primary rn critical care to a significant other at home: No Do you presently have visiting nurse or other home services: No Alcohol intake: current Alcohol intake frequency: a few times a week Patient Tobacco Use Status: Current everyday Tobacco user Tobacco use type: Cigarette Cigarette Packs Per Day: 0 Cigarettes Per Day: 2 Years Smoked: 40 years e-Cigarette/Vaping Use: Never Used Second Hand Smoke Exposure: No Substance Use Type: Marijuana service: No Current occupational status: unemployed Cognitive needs: No Hearing needs: No Vision needs: No Female Reproductive History Menstrual Age of Menarche: 14 Physical Exam Vital Signs: Last Vital Signs Pulse 60 07/18/24 11:15 BP 124/70 07/18/24 11:36 Pulse Ox 98 07/18/24 11:15 Oxygen Delivery Method Room Air 07/18/24 11:15 BMI result Body Mass Index 33.1 Comfortable Neck supple no JVD. Lungs entry equal no rales. Heart S1-S2 heard no gallop or rub. Abdomen soft nontender. Neuro alert awake oriented. No asterixis. Extremities no edema. Results Reviewed Nephrology Results: Hgb 14.7 g/dl (12.0-16.0) 06/10/24 WBC 6.3 X10*3/uL (4.8-10.8) 06/10/24 Plt Count 305 X10*3/uL (160-400) 06/10/24 Sodium 141 mmol/L (135-145) 07/12/24 Potassium 4.6 mmol/L (3.3-5.1) 07/12/24 Chloride 110 mmol/L (96-108) H 07/12/24 Carbon Dioxide 22 mmol/L (22-29) 07/12/24 BUN 10 mg/dL (9-16) 07/12/24 Creatinine 0.85 mg/dL (0.5-1.4) 07/12/24 Calcium 9.5 mg/dL (8.4-10.2) 07/12/24 Assessment & Plan Assessment & Plan (1) Hyponatremia: Code(s): E87.1 - Hypo-osmolality and hyponatremia Category: Medical (2) Other specified hypothyroidism: Code(s): E03.8 - Other specified hypothyroidism Category: Medical (3) Hypertension, essential: Code(s): I10 - Essential (primary) hypertension Category: Medical Plan History of Severe hyponatremia due to significant hypothyroidism and excessive free water intake. Serum sodium has been gradually improved Rate of correction acceptable. Goal is to maintain serum sodium more than 130 millimoles. Hypothyroidism levothyroxine 112 mcg- Follow with PCP Encouraged to limit her free water intake. Mild hypokalemia. corrected BP is better controlled Initial blood pressure was elevated but REpeat was better- shall watch Low salt diet Orders: Orders Basic Metabolic Panel 6 Months E87.1 - Hypo-osmolality and hyponatremia, I10 - Essential (primary) hypertension Coding Level of Care Code Est Pt Level 4 (65046) Diagnoses Hyponatremia E87.1 Other specified hypothyroidism E03.8 Hypertension, essential I10
[2024-07-18 11:15] VITALS: BP 150/80; PULSE 60; O2SAT 98; BMI 33.1
[2024-07-18 11:36] VITALS: BP 124/70
== END 2024-07-18 11:37 | disposition home or self-care (01) ==
PROVIDERS: PCP Internal Medicine; Visit Provider Internal Medicine Hypertension Specialist
DX: E87.1 Hypo-osmolality and hyponatremia (principal); E03.8 Other specified hypothyroidism; I10 Essential (primary) hypertension
CPT/HCPCS: 99214

== ENCOUNTER → 2024-07-18 11:10 | Outpatient (BNVA) | payer OTHER, SELFPAY | PROVIDERS: PCP Internal Medicine; Visit Provider Internal Medicine Hypertension Specialist | DX: E87.1 Hypo-osmolality and hyponatremia (principal); E03.8 Other specified hypothyroidism; I10 Essential (primary) hypertension | CPT/HCPCS: 99212 ==

== ENCOUNTER 2024-07-24 09:13 | Day surgery (SDC) | payer OTHER, SELFPAY ==
[2024-07-22 14:23] VITALS: BMI 32.9
[2024-07-24 10:42] VITALS: BMI 32.9
[2024-07-24 10:46] VITALS: BP 128/71; PULSE 64; RESP 18; TEMP 36.7; O2SAT 99
[2024-07-24] MEDS: Lactated Ringers 1,000 ML 100 ML IVCONT (11:07)
--- NOTE | 2024-07-24 11:41 | HO.ANESPROP2 ---
HPI - Anesthesia Eval Consult details Narrative: 64 yo female patient for Colonoscopy PMFSH Active Problems Active Problems: All Active Problems LFT elevation (Acute) Infected sebaceous cyst (Acute) Cellulitis of abdominal wall (Acute) Chronic cough (Acute) Pre-op evaluation (Acute) Urine incontinence (Acute) Arthritis of right knee (Acute) Unilateral post-traumatic osteoarthritis, right knee (Acute) Hospital discharge follow-up (Acute) Nephropathy (Acute) Hyponatremia (Acute) Frequency of urination (Acute) Muscle cramps (Acute) Skin cancer screening (Acute) Hair loss (Acute) Acute pain of right knee (Acute) Osteoarthritis of right knee (Acute) COVID-19 (Acute) Recurrent vomiting (Acute) Obesity due to excess calories (Acute) Other specified hypothyroidism (Acute) Well woman exam (Acute) Routine gynecological examination (Acute) Breast screening (Acute) Bipolar disorder (Acute) Encounter for general adult medical examination with abnormal findings (Acute) Arthrosis (Acute) GERD (gastroesophageal reflux disease) (Acute) Hypertension, essential (Acute) Internal derangement of right knee (Acute) Patient states has never used marijuana Past Medical History Medical History Arthritis GERD (gastroesophageal reflux disease) Bipolar 1 disorder Internal derangement of right knee Thyroid ca Anxiety Hx of major depression Hypothyroidism Hypertension, essential Family History Family History Father Colon cancer Other Mental health disorder Substance use disorder Family history of problems with anesthesia: No Surgical History Surgical History Status post total right knee replacement Hx of removal of cyst H/O colonoscopy Hx of thyroidectomy Hx of section History of Problems with Anesthesia: No Social History Social History Household Members: Significant Other Housing: House Are you a primary hospice care sales consultant to a significant other at home: No Do you presently have visiting nurse or other home services: No Alcohol intake: current Alcohol intake frequency: a few times a week Patient Tobacco Use Status: Former Tobacco user Tobacco use type: Cigarette Cigarette Packs Per Day: 0 Cigarettes Per Day: 2 Years Smoked: 40 years e-Cigarette/Vaping Use: Never Used Second Hand Smoke Exposure: No service: No Current occupational status: unemployed Cognitive needs: No Hearing needs: No Vision needs: No Meds Allergies Allergy/AdvReac Type Severity Reaction Status Date / Time lithium [LITHIUM] AdvReac Intermediate bilateral Verified 07/18/24 11:17 pedal edema Active Medications: Current Medications Lactated Ringer's (Lr) 1,000 mls @ 100 mls/hr IVCONT .Q10H MARILOU Last Admin: 07/24/24 11:07 Dose: 100 mls/hr Home Medications ?Medication ?Instructions ?Recorded ?Confirmed ?Last Taken ?Type quetiapine 100 mg tablet 100 mg PO BEDTIME 08/19/23 07/22/24 02/27/24 History minoxidil 2.5 mg tablet 2.5 mg PO DAILY 11/20/23 07/18/24 02/27/24 History cyclobenzaprine 5 mg tablet 5 mg PO BEDTIME PRN Muscle Spasm 01/31/24 07/22/24 02/11/24 History hydroxyzine HCl 25 mg tablet 25 mg PO Q8H PRN anxiety 01/31/24 07/22/24 02/11/24 History bupropion HCl 150 mg 24 hr tablet, 150 mg PO QAM 05/13/24 07/22/24 Unknown History extended release divalproex 500 mg tablet,delayed 500 mg PO BID 05/13/24 07/22/24 Unknown History release Exam Height,Weight and Vital Signs: Height 5 ft 2 in Weight 81.5 kg Last Vital Signs Temp 98.1 F 07/24/24 10:46 Pulse 64 07/24/24 10:46 Resp 18 07/24/24 10:46 BP 128/71 07/24/24 10:46 Pulse Ox 99 07/24/24 10:46 O2 Del Method Room Air 07/24/24 10:46 Airway Mallampati Class: II TM Dist: >3cm Neck ROM: Full Partial: Upper Loose/Missing/Broken Teeth: Yes (Partial top dentures. Denies broken or loose teeth) Heart: RRR Lungs: CTAB Assessment and Plan Assessment Anesthesia Assessment: Anesthesia Plan Discussed and Chart Reviewed Final Anesthetic Review Family History of Problems with Anesthesia: No History of Problems with Anesthesia: No NPO: Yes ASA Class: III Final Preanesthetic Review: No Changes in Pt Med Stat, Meds/Allgs Chart Reviewed, Consent Obtained/Reviewed and Anes Risks/Benef Reviewed Patient Risk: Intermediate Procedure Risk: Low Assessment/Block/Sedation in SS: Assess/Block/Sedation-SS Anesthetic Plan Anesthetic Plan: TIVA Disposition: Standard PACU
--- NOTE | 2024-07-24 12:07 | MHC.SHP ---
Pre-Procedural Eval Section A - 24 Hr Update-Section A only Date of Service: 07/24/24 Section B - Complete if H&P > 30 days Chief Complaint: screening Relevant Family History (Specify if Yes): No Relevant Social History: None Present Medications: see Short Stay Collaborative assessment Medical History: Significant History ((gastroesophageal reflux disease) Bipolar 1 disorder Internal derangement of right knee Thyroid ca Anxiety Hx of major depression Hypothyroidism Hypertension, essential) History of Previous Operations: Relevant previous surgery/procedure and date(s) (Status post total right knee replacement Hx of removal of cyst H/O colonoscopy Hx of thyroidectomy Hx of section) Allergies: Allergies Allergy/AdvReac Type Severity Reaction Status Date / Time lithium [LITHIUM] AdvReac Intermediate bilateral Verified 07/18/24 11:17 pedal edema Review of Systems Sugical H&P ROS: Negative: Constitution, Cardiovascular, Respiratory, Neurological, Psychiatric, Hem-Onc, Allergic/Immunologic, Gastrointestinal, Genitourinary, Musculoskeletal, Integumentary, Endocrine and Eyes/Ears/Nose/Throat Exam Surgical H&P Exam: Normal: HEENT, Normal: Heart, Normal: Lungs, Normal: Extremities, Normal: Abdomen, Normal: Skin and Normal: Neurological Plan Diagnosis/Plan: Unchanged I have reviewed the history and physical and performed a pertinent physical examination on my patient. No changes have occurred unless specified. Time Spent With Patient Time: Total time managing care of this patient today ____ minutes.
--- NOTE | 2024-07-24 12:41 | P.OPN-COLO_ITS ---
Colonoscopy Operative Note Operative Note Date of Service: 07/24/24 Narrative: Operative Information Procedure Description: Colonoscopy Indication: screening Anesthesia: MAC COLONOSCOPY Instrument: Olympus variable stiffness pediatric scope 190L Colonoscopy Monitoring: Vital signs and clinical assessment, continuous EKG monitoring, Pulse oximetry, Carbon Dioxide monitoring and blood pressure monitoring were done throughout the procedure. Colon withdrawal time was 8 minutes. Procedure: The patient was placed in the left lateral decubitis position and pre-procedure medications were administered. After a digital rectal examination of the ano-rectum, the video colonoscope was inserted into the rectum and advanced through the colon to the cecum/TI. The colonoscope was slowly withdrawn in a retrograde panoramic fashion and the colon mucosa was carefully examined including a retroflexed view of the rectum. Findings and interventions are described below. Procedure Difficulty: easy Findings: Terminal Ileum-normal Cecum:normal Ascending Colon: normal Transverse Colon -normal Descending Colon:normal Sigmoid Colon: x 3 sessile polyps 6-8 mm removed with colsd snare Rectum: Retroflexion with small internal hemorrhoids seen, grade I Anorectum - normal Intervention: cold snare Colon preparation: [place]ike Bowel Preparation Scale Right colon; 2 Transverse colon: 2 Left colon; 2 (0 = Unprepared colon segment with mucosa not seen due to solid stool that cannot be cleared. 1 = Portion of mucosa of the colon segment seen, but other areas of the colon segment not well seen due to staining, residual stool and/or opaque liquid. 2 = Minor amount of residual staining, small fragments of stool and/or opaque liquid, but mucosa of colon segment seen well. 3 = Entire mucosa of colon segment seen well with no residual staining, small fragments of stool or opaque liquid) Impression and Post Procedure Diagnosis: colon polyps internal hemorrhoids Plan: High fiber diet leaflet Avoid straining at stool, epsom salts and sitz bath, anusol supps or cream Repeat Colonoscopy in 5 years if adenomatous poylps, 10 yrs if hyperplastic or earlier if clinically indicated Above findings were reviewed with the patient and relevant handouts were provided if indicated.
[2024-07-24 12:49] VITALS: BP 140/60; PULSE 58; RESP 18; TEMP 36.1; O2SAT 97
[2024-07-24 13:04] VITALS: BP 151/59; PULSE 54; RESP 18; TEMP 36.1; O2SAT 98
== END 2024-07-24 14:09 | disposition home or self-care (01) ==
PROVIDERS: PCP Internal Medicine; Visit Provider Internal Medicine Gastroenterology
PROC: 0DJD8ZZ Inspection of Lower Intestinal Tract, Via Natural or Artificial Opening Endoscopic (ICD-10-PCS; CPT 45378; principal; 2024-07-24 12:10)
DX: Z12.11 Encounter for screening for malignant neoplasm of colon (principal); Z80.0 Family history of malignant neoplasm of digestive organs; D12.5 Benign neoplasm of sigmoid colon; K64.0 First degree hemorrhoids; K21.9 Gastro-esophageal reflux disease without esophagitis; Z85.850 Personal history of malignant neoplasm of thyroid; E89.0 Postprocedural hypothyroidism; I10 Essential (primary) hypertension; F31.9 Bipolar disorder, unspecified; Z79.899 Other long term (current) drug therapy; Z88.8 Allergy status to other drugs, medicaments and biological substances; Z96.651 Presence of right artificial knee joint; F17.210 Nicotine dependence, cigarettes, uncomplicated; Z56.0 Unemployment, unspecified
CPT/HCPCS: 45385; 88305; J2003; J2704

== ENCOUNTER → 2024-07-24 09:13 | Outpatient (BNV) | payer OTHER, SELFPAY | PROVIDERS: PCP Internal Medicine; Visit Provider Internal Medicine Gastroenterology | DX: Z12.11 Encounter for screening for malignant neoplasm of colon (principal); D12.5 Benign neoplasm of sigmoid colon; K64.0 First degree hemorrhoids | CPT/HCPCS: 45385 ==

== ENCOUNTER 2024-10-15 10:58 | Outpatient (AMB) | payer OTHER, SELFPAY ==
--- NOTE | 2024-10-15 11:05 | A.OFFPC_ITS ---
Vital Signs 10/15/24 11:07 Height 5 ft 2 in Weight 190 lb 6 oz BMI 34.8 BP 126/80 Blood Pressure Location Lt brachial Position Sitting Pulse 59 Pulse Source Pulse Oximeter Temp 97.4 F Temp Source Oral Pulse Oximetry (%) 98 Oxygen Delivery Method Room Air Intake Visit Reasons: 4 month f/up Allergies lithium [LITHIUM] Adverse Reaction (Intermediate, Verified 10/15/24 11:07) bilateral pedal edema Medication List - Last Reconciled 10/15/24 by Rozina Carpio MD atenolol 25 mg PO DAILY 90 days bupropion HCl XL 150 mg PO QAM cholecalciferol (vitamin D3) 25 mcg PO DAILY 90 days cyclobenzaprine 5 mg PO BEDTIME PRN hydroxyzine HCl 25 mg PO Q8H PRN levothyroxine 112 mcg PO DAILY@0600 minoxidil 2.5 mg PO DAILY omeprazole magnesium 20 mg PO DAILY@0630 quetiapine 100 mg PO BEDTIME tolterodine 2 mg PO DAILY 90 days walker Folding Front wheeled walker Tobacco use date assessed: 10/15/24 Dental Screening Dental Screen Date: 10/15/24 Did you have a dental visit in the last 12 months?: No Did you have a dental problem in the last 6 months where you did not have access to dental care?: No Was dental information given to patient?: Patient has dentist HPI 4 month f/up HPI Details History - The patient is a 64-year-old female pr esenting with a desire to manage weight, exploring the possibility of using Mounjaro as a weight loss therapy. - The patient has also inquired about ot her weight loss medications, including Wegovy and Zepbound, suggesting she may be familiar with self-administration. - Concerns were noted regarding the pote ntial side effects of weight loss medications, such as nausea, pancreatitis, and thyroid inflammation. - insurance may require the trial of ph entermine prior to approving new prescriptions, which she has not yet started. Medical History: - Hypertension, managed with atenolol. - h/o thyroidectomy, managed with levoth yroxine. - Anxiety. - History of knee problems which have re solved. - Bipolar disorder Medications: - Atenolol 25 mg for hypertension. - Bupropion for mood stabilization. - Levothyroxine for hypothyroidism. - Omeprazole for acid reflux management. - Quetiapine. - Hydrochlorothiazide. - Minoxidil for hair regrowth related to alopecia. Social History: - The patient lives with her family, inc luding a grandson with diabetes. - The patient is familiar with administe ring injectable medications. Family History: - The patient's grandson has diabetes. Diagnostic Results: - Labs conducted in June indicate no rmal complete blood count (CBC). - Electrolytes, kidney function tests, a nd glucose levels are within normal limits. - Lipid profile results are normal. Problem List - Obesity - Hypertension - Hypothyroidism - Anxiety - Bipolar disorder in remission Patient Instructions - The patient should attempt starting on phentermine as discussed. - Monitor for any insurance notification s regarding phentermine approval. - Follow instructions to access the [employer] portal for lab results communication. - Attend follow-up appointments every fo ur weeks to assess progress with weight management medication. - Reach out promptly if an issue arises with prescription approvals. Review of Systems - General: No fever no chills - Neurological: No headaches no dizziness - Ear nose throat: No sore throat no hearing difficulty no ear pain - Cardiovascular: No syncope, no chest pain, no palpitations - Gastrointestinal: No nausea vomiting or diarrhea - Endocrine: No polyuria polydipsia no heat intolerance - Genitourinary: No dysuria , no blood in urine Physical Exam General: No acute distress HEENT: No acute findings Neck: Supple Respiratory system: Able to talk in full sentences, no audible wheeze Cardiovascular: S1-S2 regular in rate and rhythm, blood pressure is excellent Gastrointestinal: No pain, no nausea or vomiting Extremities: No new findings, no swelling of ankles 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: Alert awake oriented x3 motor sensory intact Skin: Normal turgor PFSH Medical History Arthritis GERD (gastroesophageal reflux disease) Bipolar 1 disorder Internal derangement of right knee Thyroid ca Anxiety Hx of major depression Hypothyroidism Hypertension, essential Surgical History Status post total right knee replacement Hx of removal of cyst H/O colonoscopy Hx of thyroidectomy Hx of section Family History Father Colon cancer Other Mental health disorder Substance use disorder Social History Household Members: Significant Other Housing: House Are you a primary day care home mother to a significant other at home: No Do you presently have visiting nurse or other home services: No Alcohol intake: current Alcohol intake frequency: a few times a week Patient Tobacco Use Status: Former Tobacco user Tobacco use type: Cigarette Cigarette Packs Per Day: 0 Cigarettes Per Day: 2 Years Smoked: 40 years e-Cigarette/Vaping Use: Never Used Second Hand Smoke Exposure: No service: No Current occupational status: unemployed Cognitive needs: No Hearing needs: No Vision needs: No Female Reproductive History Menstrual Age of Menarche: 14 Questionnaire PHQ-9 Over the last 2 weeks, how often have you been bothered by any of the following problems? 1. Little interest or pleasure in doing things: not at all Source: Developed by Drs. Dangelo Taylor, Madiha Valdez, Jonny Pepper and colleagues, with an educational brina from [employer]. Thrive Questionnaire Date Thrive assessed: 05/29/24 I am a: Patient What is your living situation today?: I have a steady place to live Within the past 12 months, did the food you bought not last and you didn't have the money to get more?: I choose not to answer this question Within the past 12 months, did you worry whether your food would run out before you got money to buy more?: I choose not to answer this question Do you have trouble paying for medicines?: I choose not to answer this question Do you have trouble getting transportation to medical appointments?: I choose not to answer this question Do you have trouble paying your heating and electricity bill?: I choose not to answer this question Do you have trouble taking care of your child, family member or friend?: I choose not to answer this question Do you have trouble with day-to-day activities such as bathing, preparing meals, shopping, managing finances, etc.?: I choose not to answer this question Are you currently unemployed and looking for a job?: I choose not to answer this question Are you interested in more education?: No Please select the resources that you would like help with: None Currently or been in a relationship where the following occur: I choose not to answer THRIVE Score: 0 ANTON-7 AMB Questionnaire ANTON-7 Date ANTON - 7 assessed: 06/05/24 Source: Developed by DrsOksana Taylor, Madiha Valdez, Jonny Pepper and colleagues, with an educational brina from [employer]. Physical exam (Primary Care) Vital Signs: Last Vital Signs Temp 97.4 F 10/15/24 11:07 Pulse 59 10/15/24 11:07 BP 126/80 10/15/24 11:07 Pulse Ox 98 10/15/24 11:07 Oxygen Delivery Method Room Air 10/15/24 11:07 BMI result Body Mass Index 34.8 Tobacco/Smoking Status: Tobacco use Status Tobacco use date assessed 10/15/24 10/15/24 11:12 Patient Tobacco Use Status Former Tobacco user 10/15/24 11:12 Tobacco use type Cigarette 10/15/24 11:12 e-Cigarette/Vaping Use Never Used 10/15/24 11:12 Thrive Assessment: Date of Thrive Assessment Date Thrive assessed 05/29/24 10/15/24 11:12 Currently or been in a relationship where the following occur: I choose not to answer Coding Level of Care Code Est Pt Level 4 (81965) Complex EM visit Add On G2211 Diagnoses Hypertension, essential I10 Bipolar disorder, in full remission, most recent episode hypomanic F31.72 Active/Remission status: in full remission Most recent bipolar episode type: hypomanic Other specified hypothyroidism E03.8 Gastroesophageal reflux disease without esophagitis K21.9 Esophagitis presence: without esophagitis Mixed stress and urge urinary incontinence N39.46 Urinary Incontinence type: mixed stress and urge incontinence Assessment & Plan Assessment & Plan (1) Hypertension, essential: Code(s): I10 - Essential (primary) hypertension Category: Medical (2) Bipolar disorder: Code(s): F31.9 - Bipolar disorder, unspecified Category: Medical Qualifiers: Active/Remission status: in full remission Most recent bipolar episode type: hypomanic Qualified Code(s): F31.72 - Bipolar disorder, in full remission, most recent episode hypomanic (3) Other specified hypothyroidism: Code(s): E03.8 - Other specified hypothyroidism Category: Medical (4) GERD (gastroesophageal reflux disease): Code(s): K21.9 - Gastro-esophageal reflux disease without esophagitis Category: Medical Qualifiers: Esophagitis presence: without esophagitis Qualified Code(s): K21.9 - Gastro-esophageal reflux disease without esophagitis (5) Urine incontinence: Code(s): R32 - Unspecified urinary incontinence Category: Medical Qualifiers: Urinary Incontinence type: mixed stress and urge incontinence Qualified Code(s): N39.46 - Mixed incontinence Plan History - The patient is a 64-year-old female presenting with a desire to manage weight, exploring the possibility of using Mounjaro as a weight loss therapy. - The patient has also inquired about other weight loss medications, including Wegovy and Zepbound, suggesting she may be familiar with self-administration. - Concerns were noted regarding the potential side effects of weight loss medications, such as nausea, pancreatitis, and thyroid inflammation. - insurance may require the trial of phentermine prior to approving new prescriptions, which she has not yet started. Medical History: - Hypertension, managed with atenolol. - h/o thyroidectomy, managed with levothyroxine. - Anxiety. - History of knee problems which have resolved. - Bipolar disorder Medications: - Atenolol 25 mg for hypertension. - Bupropion for mood stabilization. - Levothyroxine for hypothyroidism. - Omeprazole for acid reflux management. - Quetiapine. - Hydrochlorothiazide. - Minoxidil for hair regrowth related to alopecia. Social History: - The patient lives with her family, including a grandson with diabetes. - The patient is familiar with administering injectable medications. Family History: - The patient's grandson has diabetes. Diagnostic Results: - Labs conducted in June indicate normal complete blood count (CBC). - Electrolytes, kidney function tests, and glucose levels are within normal limits. - Lipid profile results are normal. Problem List - Obesity - Hypertension - Hypothyroidism - Anxiety - Bipolar disorder in remission Patient Instructions - The patient should attempt starting on phentermine as discussed. - Monitor for any insurance notifications regarding phentermine approval. - Follow instructions to access the online health portal for lab results communication. - Attend follow-up appointments every four weeks to assess progress with weight management medication. - Reach out promptly if an issue arises with prescription approvals. Medications: New phentermine must administer 2 hours after breakfast 15 mg PO DAILY 30 caps 0RF
[2024-10-15 11:07] VITALS: BP 126/80; PULSE 59; TEMP 36.3; O2SAT 98; BMI 34.8
== END 2024-10-15 11:22 | disposition home or self-care (01) ==
LOC: HO.HMCC 10:59
PROVIDERS: PCP Internal Medicine; Visit Provider Internal Medicine
DX: I10 Essential (primary) hypertension (principal); F31.72 Bipolar disorder, in full remission, most recent episode hypomanic; E03.8 Other specified hypothyroidism; K21.9 Gastro-esophageal reflux disease without esophagitis; N39.46 Mixed incontinence

== ENCOUNTER → 2024-10-15 10:58 | Outpatient (BNVA) | payer OTHER, SELFPAY | PROVIDERS: PCP Internal Medicine; Visit Provider Internal Medicine | DX: E66.9 Obesity, unspecified (principal); I10 Essential (primary) hypertension; E03.9 Hypothyroidism, unspecified; F41.9 Anxiety disorder, unspecified; F31.72 Bipolar disorder, in full remission, most recent episode hypomanic; E03.8 Other specified hypothyroidism; K21.9 Gastro-esophageal reflux disease without esophagitis; N39.46 Mixed incontinence; Z68.34 Body mass index [BMI] 34.0-34.9, adult | CPT/HCPCS: 99212 ==

== ENCOUNTER 2024-11-15 09:30 | Outpatient (AMB) | payer MEDICARE, MEDICAID, SELFPAY ==
[2024-11-15 09:34] VITALS: BP 130/80; PULSE 71; O2SAT 96; BMI 34.7
--- NOTE | 2024-11-15 09:34 | A.OFFPC_ITS ---
Vital Signs 11/15/24 09:34 Height 5 ft 2 in Weight 190 lb BMI 34.7 BP 130/80 Blood Pressure Location Lt brachial Position Sitting Pulse 71 Pulse Source Pulse Oximeter Pulse Oximetry (%) 96 Intake Visit Reasons: 4 weeks follow up-ins not active Allergies lithium (LITHIUM) Adverse Reaction (Intermediate, Verified 11/15/24 09:36) bilateral pedal edema Medication List - Last Reconciled 11/15/24 by Rozina Carpio MD atenolol 25 mg PO DAILY 90 days bupropion HCl XL 150 mg PO QAM cholecalciferol (vitamin D3) 25 mcg PO DAILY 90 days cholecalciferol (vitamin D3) 25 mcg PO DAILY levothyroxine 112 mcg PO DAILY@0600 minoxidil 2.5 mg PO DAILY omeprazole magnesium 20 mg PO DAILY@0630 phentermine 15 mg PO DAILY quetiapine 100 mg PO BEDTIME tolterodine 2 mg PO DAILY 90 days walker Folding Front wheeled walker Tobacco use date assessed: 10/15/24 Dental Screening Dental Screen Date: 10/15/24 HPI 4 weeks follow up-ins not active HPI Details History - The patient is a 64-year-old female pr esenting with concerns related to weight management. - The patient's current weight is 190 po unds with a BMI of 34.8. - She has been able to lose 6 ounces wan ding up to this visit. - The patient reports feeling hungry con sistently and has not implemented specific lifestyle changes to address weight. - She currently uses phentermine as part of her weight management regimen, which was tolerated without side effects for the past month. - She expresses interest in continuing t his medication to assess further efficacy in weight reduction. - There was a discussion about using add itional pharmacotherapy, such as topiramate, to complement her current treatment. Medical History: - Psychiatric disorder (specific diagnos is not mentioned) currently managed with quetiapine and Wellbutrin (bupropion). Medications: - Phentermine: For weight management. - Wellbutrin (bupropion): For psychiatri c condition. - Quetiapine: For psychiatric condition. Social History: - The patient is covered under Medicare, which influences her medication management due to approval limitations. Diagnostic Results: - Weight: 190 pounds. - BMI: 34.8. Problem List - Obesity - Psychiatric disorder (specific diagnos is not mentioned) Patient Instructions - Continue phentermine as instructed for another month. - Monitor for any side effects. - Consider trying additional medication like Topamax if recommended. - Follow up in four weeks for evaluation of progress. Review of Systems - General: No fever no chills - Neurological: No headaches no dizziness - Ear nose throat: No sore throat no hearing difficulty no ear pain - Cardiovascular: No syncope, no chest pain, no palpitations - Gastrointestinal: No nausea vomiting or diarrhea - Endocrine: No polyuria polydipsia no heat intolerance - Genitourinary: No dysuria , no blood in urine Physical Exam General: No acute distress HEENT: No acute findings Neck: Supple Respiratory system: Lungs are clear, able to talk in full sentences, no audible wheeze Cardiovascular: S1-S2 regular in rate and rhythm, heart sound is fine Gastrointestinal: No pain Extremities: No new findings 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 awake oriented x3 motor sensory intact Skin: Normal turgor PFSH Medical History Arthritis GERD (gastroesophageal reflux disease) Bipolar 1 disorder Internal derangement of right knee Thyroid ca Anxiety Hx of major depression Hypothyroidism Hypertension, essential Surgical History Status post total right knee replacement Hx of removal of cyst H/O colonoscopy Hx of thyroidectomy Hx of section Family History Father Colon cancer Other Mental health disorder Substance use disorder Social History Household Members: Significant Other Housing: House Are you a primary acute care assistant to a significant other at home: No Do you presently have visiting nurse or other home services: No Alcohol intake: current Alcohol intake frequency: a few times a week Patient Tobacco Use Status: Former Tobacco user Tobacco use type: Cigarette Cigarette Packs Per Day: 0 Cigarettes Per Day: 2 Years Smoked: 40 years e-Cigarette/Vaping Use: Never Used Second Hand Smoke Exposure: No service: No Current occupational status: unemployed Cognitive needs: No Hearing needs: No Vision needs: No Female Reproductive History Menstrual Age of Menarche: 14 Questionnaire PHQ-9 Over the last 2 weeks, how often have you been bothered by any of the following problems? 1. Little interest or pleasure in doing things: not at all 2. Feeling down, depressed, or hopeless: several days 3. Trouble falling or staying asleep, or sleeping too much: not at all 4. Feeling tired or having little energy: not at all 5. Poor appetite or overeating: not at all 6. Feeling bad about yourself - or that you are a failure or have let yourself or your family down: not at all 7. Trouble concentrating on things, such as reading the newspaper or watching television: not at all 8. Moving or speaking so slowly that other people could have noticed. Or the opposite - being so fidgety or restless that you have been moving around a lot more than usual: not at all 9. Thoughts that you would be better off or of hurting yourself in some way: not at all Total score: 1 Depression Screening Interpretation: Negative Depression Screening Done: Yes 06386 - PHQ-9 Billing: Yes Source: Developed by Drs. Dangelo Taylor, Madiha Valdez, Jonny Pepper and colleagues, with an educational brina from [employer]. Thrive Questionnaire Date Thrive assessed: 11/15/24 I am a: Patient What is your living situation today?: I have a steady place to live Within the past 12 months, did the food you bought not last and you didn't have the money to get more?: I choose not to answer this question Within the past 12 months, did you worry whether your food would run out before you got money to buy more?: I choose not to answer this question Do you have trouble paying for medicines?: I choose not to answer this question Do you have trouble getting transportation to medical appointments?: I choose not to answer this question Do you have trouble paying your heating and electricity bill?: I choose not to answer this question Do you have trouble taking care of your child, family member or friend?: I choose not to answer this question Do you have trouble with day-to-day activities such as bathing, preparing meals, shopping, managing finances, etc.?: I choose not to answer this question Are you currently unemployed and looking for a job?: I choose not to answer this question Are you interested in more education?: No Please select the resources that you would like help with: None Currently or been in a relationship where the following occur: I choose not to answer THRIVE Score: 0 ANTON-7 AMB Questionnaire ANTON-7 Date ANTON - 7 assessed: 06/05/24 Source: Developed by Drs. Dangelo Taylor, Madiha Valdez, Jonny Pepper and colleagues, with an educational brina from [employer]. Physical exam (Primary Care) Vital Signs: Last Vital Signs Pulse 71 11/15/24 09:34 BP 130/80 11/15/24 09:34 Pulse Ox 96 11/15/24 09:34 BMI result Body Mass Index 34.7 Tobacco/Smoking Status: Tobacco use Status Tobacco use date assessed 10/15/24 11/15/24 09:38 Patient Tobacco Use Status Former Tobacco user 11/15/24 09:38 Tobacco use type Cigarette 11/15/24 09:38 e-Cigarette/Vaping Use Never Used 11/15/24 09:38 PHQ-9: PHQ-9 Score PHQ-9: Total score 1 11/15/24 09:47 Depression Screening Interpretation: Negative Thrive Assessment: Date of Thrive Assessment Date Thrive assessed 11/15/24 11/15/24 09:38 Currently or been in a relationship where the following occur: I choose not to answer Coding Level of Care Code Est Pt Level 3 (85747) Diagnoses Class 1 obesity due to excess calories with serious comorbidity and body mass index (BMI) of 33.0 to 33.9 in adult E66.09; Z68.33 Body mass index: BMI 33.0-33.9 Obesity classification: adult class 1 (BMI 30 - 34.9) Serious obesity comorbidity presence: with serious comorbidity Additional Codes PHQ-9 - 71649 - PHQ-9 Billing: Yes ([id number]) Assessment & Plan Assessment & Plan (1) Obesity due to excess calories: Code(s): E66.09 - Other obesity due to excess calories Category: Medical Qualifiers: Body mass index: BMI 33.0-33.9 Obesity classification: adult class 1 (BMI 30 - 34.9) Serious obesity comorbidity presence: with serious comorbidity Qualified Code(s): E66.09 - Other obesity due to excess calories; Z68.33 - Body mass index [BMI] 33.0-33.9, adult Plan History - The patient is a 64-year-old female presenting with concerns related to weight management. - The patient's current weight is 190 pounds with a BMI of 34.8. - She has been able to lose 6 ounces leading up to this visit. - The patient reports feeling hungry consistently and has not implemented specific lifestyle changes to address weight. - She currently uses phentermine as part of her weight management regimen, which was tolerated without side effects for the past month. - She expresses interest in continuing this medication to assess further efficacy in weight reduction. - There was a discussion about using additional pharmacotherapy, such as topiramate, to complement her current treatment. Medical History: - Psychiatric disorder (specific diagnosis not mentioned) currently managed with quetiapine and Wellbutrin (bupropion). Medications: - Phentermine: For weight management. - Wellbutrin (bupropion): For psychiatric condition. - Quetiapine: For psychiatric condition. Social History: - The patient is covered under Medicare, which influences her medication management due to approval limitations. Diagnostic Results: - Weight: 190 pounds. - BMI: 34.8. Problem List - Obesity - Psychiatric disorder (specific diagnosis not mentioned) Patient Instructions - Continue phentermine as instructed for another month. - Monitor for any side effects. - Consider trying additional medication like Topamax if recommended. - Follow up in four weeks for evaluation of progress. Medications: New topiramate (Topamax) 50 mg PO BEDTIME 30 tabs 0RF 30 days Changed From phentermine must administer 2 hours after breakfast 15 mg PO DAILY 30 caps 0RF E66.09 - Other obesity due to excess calories, Z68.33 - Body mass index [BMI] 33.0-33.9, adult To phentermine must administer 2 hours after breakfast 37.5 mg PO DAILY 30 caps 0RF 30 days E66.09 - Other obesity due to excess calories, Z68.33 - Body mass index [BMI] 33.0-33.9, adult
--- OUTSIDE RECORDS SUMMARY | 2024-11-15 09:37 | XMS_ITS | Clinical Summary ---
Author Organization [facility] Address [address] [facility] [address] [place] [id number] Phone Care Team Providers Care Cocktail Server Name Role Phone Rozina Carpio MD Primary Care Provider Unavailabl e Social History Tobacco Use Types Packs/Day Years Used Date Smoking Tobacco: Never Assessed Education Answer Date Recorded Are you interested in more education? Not on ernestine e 01/19/2024 Are you concerned about learning? Not on file 01/19/2024 No 01/19/2024 No 01/19/2024 Digital Access Answer Date Recorded No 01/19/2024 No 01/19/2024 Reliable internet access at home? Not on file 01/19/2024 Device with a working camera? Not on file Comments Unknown Sex and Gender Information Value Date Recorded Sex Assigned at Not on file Legal Sex Female 9:45 PM EDT Gender Identity Not on file Sexual Orientation Not on file Plan of Treatment Not on file Medical Devices Not on file [place] [address] [place] [address] [place] [address] [place] [address] [place] [address] [place] [address] [place] [address] [employer] [address] [place] [address] [employer] Care Teams Cocktail Server Relationship Specialty Start Date End Date Rozina Carpio MD PCP - General 02/13/17 Additional Source Comments The information contained in this document represents components of the legal health record. It is not the complete legal health record.[facility]
== END 2024-11-15 09:48 | disposition home or self-care (01) ==
PROVIDERS: PCP Internal Medicine; Visit Provider Internal Medicine
DX: E66.09 Other obesity due to excess calories (principal); Z68.33 Body mass index [BMI] 33.0-33.9, adult

== ENCOUNTER → 2024-11-15 09:30 | Outpatient (BNVA) | payer MEDICARE, MEDICAID, SELFPAY | PROVIDERS: PCP Internal Medicine; Visit Provider Internal Medicine | DX: E66.09 Other obesity due to excess calories (principal); Z68.33 Body mass index [BMI] 33.0-33.9, adult; Z71.3 Dietary counseling and surveillance | CPT/HCPCS: 96127; 99212 ==

== ENCOUNTER 2024-12-05 08:04 | Outpatient (REF) | payer MEDICARE, SELFPAY ==
--- OUTSIDE RECORDS SUMMARY | 2024-12-05 08:06 | XMS_ITS | Clinical Summary ---
Author Organization [facility] Address [address] [id number] Phone Care Team Providers Care Care Aide Name Role Phone Rozina Carpio MD Primary Care Provider [phone] Social History Tobacco Use Types Packs/Day Years [...] file Medical Devices Not on file Insurance [facility] [place] [address] [place] [address] [employer] [facility] [place] [address] [address] [address] [place] [address] [place] [address] ACO Care Teams Care Aide Relationship Specialty Start Date End Date Rozina Carpio MD [address] [facility] [address] PCP - General 02/13/17 Additional Source Comments The information contained in this document represents components of the legal health record. It is not the complete legal health record.[facility]
== END 2024-12-05 08:05 | disposition home or self-care (01) ==
LOC: HO.MAMMO 08:04
PROVIDERS: Visit Provider Internal Medicine
DX: Z12.31 Encounter for screening mammogram for malignant neoplasm of breast (principal)
CPT/HCPCS: 77063; 77067

== ENCOUNTER → 2024-12-05 08:15 | Outpatient (BNV) | payer MEDICARE, MEDICAID, SELFPAY | PROVIDERS: Visit Provider Radiology Body Imaging | DX: Z12.31 Encounter for screening mammogram for malignant neoplasm of breast (principal) | CPT/HCPCS: 77063; 77067 ==

== ENCOUNTER 2024-12-11 08:46 | Outpatient (AMB) | payer MEDICARE, MEDICAID, SELFPAY ==
--- NOTE | 2024-12-11 08:50 | MHC.PC.OV ---
Vital Signs 12/11/24 08:52 Height 5 ft 2 in Weight 183 lb BMI 33.5 BP 130/74 Blood Pressure Location Lt brachial Position Sitting Pulse 70 Pulse Source Pulse Oximeter Pulse Oximetry (%) 97 Intake Visit Reasons: 4 weeks follow up Allergies lithium (LITHIUM) Adverse Reaction (Intermediate, Verified 12/11/24 08:53) bilateral pedal edema Medication List - Last Reconciled 12/11/24 by Rozina Carpio MD atenolol 25 mg PO DAILY 90 days bupropion HCl XL 150 mg PO QAM cholecalciferol (vitamin D3) 25 mcg PO DAILY levothyroxine 112 mcg PO DAILY@0600 minoxidil 2.5 mg PO DAILY omeprazole magnesium 20 mg PO DAILY@0630 phentermine 37.5 mg PO DAILY 30 days quetiapine 100 mg PO BEDTIME tolterodine 2 mg PO DAILY 90 days topiramate (Topamax) 50 mg PO BEDTIME 30 days walker Folding Front wheeled walker Tobacco use date assessed: 10/15/24 Dental Screening Dental Screen Date: 10/15/24 HPI 4 weeks follow up HPI Details Chief Complaint The patient presents for assistance with weight management and medication refill. History of Present Illness The patient is a 64-year-old female presenting with weight management. Weight management: - The patient reports a decrease in weight from 190 pounds on November 15 to 183 pounds. - She credits this weight loss to dietary control, eating less, and having a supportive environment. - The patient has not yet started an exercise regimen but acknowledges a need for motivation. - Prior attempts to increase physical activity have been hindered by hot weather. - She expresses a desire to continue losing weight and possibly reduce her medication dependency. Medications: - phentermine, well-tolerated by the patient, for weight management. Problem List - Weight management Patient Instructions - Continue controlling diet to aid in weight loss. - Combine exercise with diet control to enhance progress. - Expect to improve adherence to the regimen. - Return for follow-up in four weeks. Review of Systems - General: No fever no chills - Neurological: No headaches no dizziness - Ear nose throat: No sore throat no hearing difficulty no ear pain - Cardiovascular: No syncope, no chest pain, no palpitations - Gastrointestinal: No nausea vomiting or diarrhea - Endocrine: No polyuria polydipsia no heat intolerance - Genitourinary: No dysuria , no blood in urine Physical Exam General: No acute distress HEENT: No acute findings Neck: Supple Respiratory system: Able to talk in full sentences, no audible wheeze Cardiovascular: S1-S2 regular in rate and rhythm, no palpitations Gastrointestinal: No pain Extremities: No new findings 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 oriented x3 motor sensory intact Skin: Normal turgor PFSH Medical History Arthritis GERD (gastroesophageal reflux disease) Bipolar 1 disorder Internal derangement of right knee Thyroid ca Anxiety Hx of major depression Hypothyroidism Hypertension, essential Surgical History Status post total right knee replacement Hx of removal of cyst H/O colonoscopy Hx of thyroidectomy Hx of section Family History Father Colon cancer Other Mental health disorder Substance use disorder Social History Household Members: Significant Other Housing: House Are you a primary acute care clinical nurse specialist to a significant other at home: No Do you presently have visiting nurse or other home services: No Alcohol intake: current Alcohol intake frequency: a few times a week Patient Tobacco Use Status: Former Tobacco user Tobacco use type: Cigarette Cigarette Packs Per Day: 0 Cigarettes Per Day: 2 Years Smoked: 40 years e-Cigarette/Vaping Use: Never Used Second Hand Smoke Exposure: No service: No Current occupational status: unemployed Cognitive needs: No Hearing needs: No Vision needs: No Female Reproductive History Menstrual Age of Menarche: 14 Questionnaire Thrive Questionnaire Date Thrive assessed: 05/29/24 I am a: Patient What is your living situation today?: I have a steady place to live Within the past 12 months, did the food you bought not last and you didn't have the money to get more?: I choose not to answer this question Within the past 12 months, did you worry whether your food would run out before you got money to buy more?: I choose not to answer this question Do you have trouble paying for medicines?: I choose not to answer this question Do you have trouble getting transportation to medical appointments?: I choose not to answer this question Do you have trouble paying your heating and electricity bill?: I choose not to answer this question Do you have trouble taking care of your child, family member or friend?: I choose not to answer this question Do you have trouble with day-to-day activities such as bathing, preparing meals, shopping, managing finances, etc.?: I choose not to answer this question Are you currently unemployed and looking for a job?: I choose not to answer this question Are you interested in more education?: No Please select the resources that you would like help with: None Currently or been in a relationship where the following occur: I choose not to answer THRIVE Score: 0 ANTON-7 AMB Questionnaire ANTON-7 Date ANTON - 7 assessed: 06/05/24 Source: Developed by Drs. Dangelo Taylor, Madiha Valdez, Jonny Pepper and colleagues, with an educational brina from [employer]. Physical exam (Primary Care) Vital Signs: Last Vital Signs Pulse 70 12/11/24 08:52 BP 130/74 12/11/24 08:52 Pulse Ox 97 12/11/24 08:52 BMI result Body Mass Index 33.5 Tobacco/Smoking Status: Tobacco use Status Tobacco use date assessed 10/15/24 12/11/24 08:52 Patient Tobacco Use Status Former Tobacco user 12/11/24 08:52 Tobacco use type Cigarette 12/11/24 08:52 e-Cigarette/Vaping Use Never Used 12/11/24 08:52 Thrive Assessment: Date of Thrive Assessment Date Thrive assessed 05/29/24 12/11/24 08:52 Currently or been in a relationship where the following occur: I choose not to answer Coding Level of Care Code Est Pt Level 3 (96407) Diagnoses Class 1 obesity due to excess calories with serious comorbidity and body mass index (BMI) of 33.0 to 33.9 in adult E66.09; Z68.33 Obesity classification: adult class 1 (BMI 30 - 34.9) Serious obesity comorbidity presence: with serious comorbidity Body mass index: BMI 33.0-33.9 Assessment & Plan Assessment & Plan (1) Obesity due to excess calories: Code(s): E66.09 - Other obesity due to excess calories Category: Medical Qualifiers: Obesity classification: adult class 1 (BMI 30 - 34.9) Serious obesity comorbidity presence: with serious comorbidity Body mass index: BMI 33.0-33.9 Qualified Code(s): E66.09 - Other obesity due to excess calories; Z68.33 - Body mass index [BMI] 33.0-33.9, adult Plan Chief Complaint The patient presents for assistance with weight management and medication refill. History of Present Illness The patient is a 64-year-old female presenting with weight management. Weight management: - The patient reports a decrease in weight from 190 pounds on November 15 to 183 pounds. - She credits this weight loss to dietary control, eating less, and having a supportive environment. - The patient has not yet started an exercise regimen but acknowledges a need for motivation. - Prior attempts to increase physical activity have been hindered by hot weather. - She expresses a desire to continue losing weight and possibly reduce her medication dependency. Medications: - phentermine, well-tolerated by the patient, for weight management. Problem List - Weight management Patient Instructions - Continue controlling diet to aid in weight loss. - Combine exercise with diet control to enhance progress. - Expect to improve adherence to the regimen. - Return for follow-up in four weeks. Medications: Refilled phentermine must administer 2 hours after breakfast 37.5 mg PO DAILY 30 caps 0RF 30 days E66.09 - Other obesity due to excess calories, Z68.33 - Body mass index [BMI] 33.0-33.9, adult
[2024-12-11 08:52] VITALS: BP 130/74; PULSE 70; O2SAT 97; BMI 33.5
--- OUTSIDE RECORDS SUMMARY | 2024-12-11 09:04 | XMS_ITS | Clinical Summary ---
Author Organization [facility] Address [address] [address] Phone Care Team Providers Care Try On Baster Name Role Phone Rozina Carpio MD Primary Care Provider [phone] Social History Tobacco Use Types Packs/Day Years [...] file Medical Devices Not on file Insurance [facility] [address] [facility] [place] [address] [place] [address] [employer] [facility] [address] [address] [place] [address] [employer] [place] [address] [place] [address] ACO Care Teams Try On Baster Relationship Specialty Start Date End Date Rozina Carpio MD [address] [place] [id number] PCP - General 02/13/17 Additional Source Comments The information contained in this document represents components of the legal health record. It is not the complete legal health record.[facility]
== END 2024-12-11 09:00 | disposition home or self-care (01) ==
LOC: HO.HMCC 08:47
PROVIDERS: Visit Provider Internal Medicine
DX: E66.09 Other obesity due to excess calories (principal); Z68.33 Body mass index [BMI] 33.0-33.9, adult

== ENCOUNTER → 2024-12-11 08:46 | Outpatient (BNVA) | payer MEDICARE, SELFPAY | PROVIDERS: Visit Provider Internal Medicine | DX: E66.09 Other obesity due to excess calories (principal); Z68.33 Body mass index [BMI] 33.0-33.9, adult; Z71.3 Dietary counseling and surveillance | CPT/HCPCS: 99212 ==

== ENCOUNTER 2025-01-08 10:49 | Outpatient (AMB) | payer MEDICARE, MEDICAID, SELFPAY ==
[2025-01-08 10:52] VITALS: BP 128/80; PULSE 72; O2SAT 97; BMI 34.0
--- NOTE | 2025-01-08 10:52 | MHC.PC.OV ---
Vital Signs 01/08/25 10:52 Height 5 ft 2 in Weight 186 lb BMI 34.0 BP 128/80 Blood Pressure Location Lt brachial Position Sitting Pulse 72 Pulse Source Pulse Oximeter Pulse Oximetry (%) 97 Intake Visit Reasons: 4 weeks f/up Allergies lithium (LITHIUM) Adverse Reaction (Intermediate, Verified 01/08/25 10:55) bilateral pedal edema Medication List - Last Reconciled 01/08/25 by Rozina Carpio MD atenolol 25 mg PO DAILY 90 days bupropion HCl XL 150 mg PO QAM cholecalciferol (vitamin D3) 25 mcg PO DAILY levothyroxine 112 mcg PO DAILY@0600 minoxidil 2.5 mg PO DAILY omeprazole magnesium 20 mg PO DAILY@0630 phentermine 37.5 mg PO DAILY 30 days quetiapine 100 mg PO BEDTIME tolterodine 2 mg PO DAILY 90 days topiramate (Topamax) 50 mg PO BEDTIME 30 days walker Folding Front wheeled walker Tobacco use date assessed: 10/15/24 Dental Screening Dental Screen Date: 10/15/24 HPI 4 weeks f/up HPI Details History of Present Illness The patient is a 64-year-old female presenting with weight management concerns. Weight Management Concerns: - The patient is having difficulty achieving desired weight loss. - Has been using phentermine without desired effect. - Has considered stopping the medication as it is not effective for her. - Mentioned potential issues with Medicare coverage, but Medicaid may cover weight loss injections. - patient is going through behavioral therapy and she is seeing a psychiatrist. Migraine Episode: - Experienced a severe headache on December 17. - During the episode, the patient took an additional aspirin (325 mg) , migraine headache resulting in a temporary visual disturbance in the right eye. - She describes the visual disturbance as blacking out of the right eye when covering the left, with visuals resembling x-rays, symptomatic only from that eye, suggestive of an aura sign associated with migraines. - no issues at this time Medical History: - History of migraine episodes with aura. - Ongoing therapy with a psychiatrist, indicating involvement of mental health management. Surgical History: - Knee surgery (specifics not detailed). Medications: - Phentermine for weight management. Problem List - Weight management challenges - Migraine with aura - obesity Patient Instructions - The patient was instructed to consider the injection option covered since she has failed phentermine treatment - The patient should notify the office after picking up the semaglutide, if approved. Review of Systems - General: No fever no chills - Neurological: No headaches no dizziness - Ear nose throat: No sore throat no hearing difficulty no ear pain - Cardiovascular: No syncope, no chest pain, no palpitations - Gastrointestinal: No nausea vomiting or diarrhea - Endocrine: No polyuria polydipsia no heat intolerance - Genitourinary: No dysuria , no blood in urine Physical Exam - General: No acute distress - HEENT: No acute findings - Neck: Supple - Respiratory system: Able to talk in full sentences, no audible wheeze - Cardiovascular: S1-S2 regular in rate and rhythm - Gastrointestinal: No pain - Extremities: No new findings - 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 x3 motor sensory intact - Skin: Normal turgor PFSH Medical History Arthritis GERD (gastroesophageal reflux disease) Bipolar 1 disorder Internal derangement of right knee Thyroid ca Anxiety Hx of major depression Hypothyroidism Hypertension, essential Surgical History Status post total right knee replacement Hx of removal of cyst H/O colonoscopy Hx of thyroidectomy Hx of section Family History Father Colon cancer Other Mental health disorder Substance use disorder Social History Household Members: Significant Other Housing: House Are you a primary healthcare administrative assistant to a significant other at home: No Do you presently have visiting nurse or other home services: No Alcohol intake: current Alcohol intake frequency: a few times a week Patient Tobacco Use Status: Former Tobacco user Tobacco use type: Cigarette Cigarette Packs Per Day: 0 Cigarettes Per Day: 2 Years Smoked: 40 years Packs Per Year: 0 Packs per year/per ci.00 e-Cigarette/Vaping Use: Never Used Second Hand Smoke Exposure: No service: No Current occupational status: unemployed Cognitive needs: No Hearing needs: No Vision needs: No Female Reproductive History Menstrual Age of Menarche: 14 Questionnaire Thrive Questionnaire Date Thrive assessed: 05/29/24 I am a: Patient What is your living situation today?: I have a steady place to live Within the past 12 months, did the food you bought not last and you didn't have the money to get more?: I choose not to answer this question Within the past 12 months, did you worry whether your food would run out before you got money to buy more?: I choose not to answer this question Do you have trouble paying for medicines?: I choose not to answer this question Do you have trouble getting transportation to medical appointments?: I choose not to answer this question Do you have trouble paying your heating and electricity bill?: I choose not to answer this question Do you have trouble taking care of your child, family member or friend?: I choose not to answer this question Do you have trouble with day-to-day activities such as bathing, preparing meals, shopping, managing finances, etc.?: I choose not to answer this question Are you currently unemployed and looking for a job?: I choose not to answer this question Are you interested in more education?: No Please select the resources that you would like help with: None Currently or been in a relationship where the following occur: I choose not to answer THRIVE Score: 0 ANTON-7 AMB Questionnaire ANTON-7 Date ANTON - 7 assessed: 06/05/24 Source: Developed by Drs. Dangelo Taylor, Madiha Valdez, Jonny Pepper and colleagues, with an educational brina from [email or web address]. Physical exam (Primary Care) Vital Signs: Last Vital Signs Pulse 72 01/08/25 10:52 BP 128/80 01/08/25 10:52 Pulse Ox 97 01/08/25 10:52 BMI result Body Mass Index 34.0 Tobacco/Smoking Status: Tobacco use Status Tobacco use date assessed 10/15/24 01/08/25 10:56 Patient Tobacco Use Status Former Tobacco user 01/08/25 10:56 Tobacco use type Cigarette 01/08/25 10:56 e-Cigarette/Vaping Use Never Used 01/08/25 10:56 Thrive Assessment: Date of Thrive Assessment Date Thrive assessed 05/29/24 01/08/25 10:56 Currently or been in a relationship where the following occur: I choose not to answer Coding Level of Care Code Est Pt Level 4 (94094) Complex EM visit Add On G2211 Diagnoses Hypertension, essential I10 Class 1 obesity due to excess calories with serious comorbidity and body mass index (BMI) of 33.0 to 33.9 in adult E66.09; Z68.33 Body mass index: BMI 33.0-33.9 Obesity classification: adult class 1 (BMI 30 - 34.9) Serious obesity comorbidity presence: with serious comorbidity Nephropathy N28.9 Assessment & Plan Assessment & Plan (1) Hypertension, essential: Code(s): I10 - Essential (primary) hypertension Category: Medical (2) Obesity due to excess calories: Code(s): E66.09 - Other obesity due to excess calories Category: Medical Qualifiers: Body mass index: BMI 33.0-33.9 Obesity classification: adult class 1 (BMI 30 - 34.9) Serious obesity comorbidity presence: with serious comorbidity Qualified Code(s): E66.09 - Other obesity due to excess calories; Z68.33 - Body mass index [BMI] 33.0-33.9, adult (3) Nephropathy: Code(s): N28.9 - Disorder of kidney and ureter, unspecified Category: Medical Plan History of Present Illness The patient is a 64-year-old female presenting with weight management concerns. She has a history of obesity, nephropathy, bipolar disorder, hypertension Weight Management Concerns: - The patient is having difficulty achieving desired weight loss. - Has been using phentermine without desired effect. - Has considered stopping the medication as it is not effective for her. - Mentioned potential issues with Medicare coverage, but Medicaid may cover weight loss injections. - patient is going through behavioral therapy and she is seeing a psychiatrist. Migraine Episode: - Experienced a severe headache on December 17. - During the episode, the patient took an additional aspirin (325 mg) , migraine headache resulting in a temporary visual disturbance in the right eye. - She describes the visual disturbance as blacking out of the right eye when covering the left, with visuals resembling x-rays, symptomatic only from that eye, suggestive of an aura sign associated with migraines. - no issues at this time Medical History: - History of migraine episodes with aura. - Ongoing therapy with a psychiatrist, indicating involvement of mental health management. Surgical History: - Knee surgery (specifics not detailed). Medications: - Phentermine for weight management. Problem List - Weight management challenges - Migraine with aura - obesity Patient Instructions - The patient was instructed to consider the injection option covered since she has failed phentermine treatment - The patient should notify the office after picking up the semaglutide, if approved. Medications: New semaglutide for 4 weeks 0.25 mg (0.368 mL) subcut QWEEK 30 days 2 mL 0RF semaglutide for 4 weeks 0.25 mg (0.368 mL) subcut QWEEK 2 mL 0RF 30 days E66.09 - Other obesity due to excess calories, I10 - Essential (primary) hypertension, N28.9 - Disorder of kidney and ureter, unspecified, Z68.33 - Body mass index [BMI] 33.0-33.9, adult
--- OUTSIDE RECORDS SUMMARY | 2025-01-08 13:30 | XMS_ITS | Clinical Summary ---
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 Name Role Phone Rozina Carpio MD Primary Care Provider [phone] Social History Tobacco Use Types Packs/Day Years [...] file Medical Devices Not on file Insurance [facility] A[employer] [facility] [place] [address] [address] ACO [facility] [place] [address] [address] [employer] [place] [address] [address] ACO Care Teams Coal Washer Tender Relationship Specialty Start Date End Date Rozina Carpio MD [address] [facility] [place] [address] PCP - General 02/13/17 Additional Source Comments The information contained in this document represents components of the legal health record. It is not the complete legal health record.[facility]
== END 2025-01-08 13:30 | disposition home or self-care (01) ==
LOC: HO.HMCC 10:50
PROVIDERS: PCP Internal Medicine; Visit Provider Internal Medicine
DX: I10 Essential (primary) hypertension (principal); E66.09 Other obesity due to excess calories; Z68.33 Body mass index [BMI] 33.0-33.9, adult; N28.9 Disorder of kidney and ureter, unspecified

== ENCOUNTER → 2025-01-08 10:49 | Outpatient (BNVA) | payer MEDICARE, MEDICAID, SELFPAY | PROVIDERS: PCP Internal Medicine; Visit Provider Internal Medicine | DX: I10 Essential (primary) hypertension (principal); E66.09 Other obesity due to excess calories; G43.909 Migraine, unspecified, not intractable, without status migrainosus; N28.9 Disorder of kidney and ureter, unspecified; Z68.33 Body mass index [BMI] 33.0-33.9, adult; Z79.899 Other long term (current) drug therapy | CPT/HCPCS: 99212 ==

== ENCOUNTER 2025-04-11 11:37 | Outpatient (AMB) | payer MEDICARE, MEDICAID, SELFPAY ==
--- NOTE | 2025-04-11 11:42 | A.OFFPC_ITS ---
Vital Signs 04/11/25 11:43 Height 5 ft 2 in Weight 183 lb BMI 33.5 BP 130/80 Blood Pressure Location Lt brachial Position Sitting Pulse 77 Pulse Source Pulse Oximeter Pulse Oximetry (%) 97 Intake Visit Reasons: 3m follow up Allergies lithium (LITHIUM) Adverse Reaction (Intermediate, Verified 04/11/25 11:43) bilateral pedal edema Medication List - Last Reconciled 04/11/25 by Rozina Carpio MD atenolol 25 mg PO DAILY 90 days bupropion HCl XL 150 mg PO QAM cholecalciferol (vitamin D3) 25 mcg PO DAILY levothyroxine 112 mcg PO DAILY@0600 minoxidil 2.5 mg PO DAILY omeprazole 20 mg PO QAM 90 days phentermine 37.5 mg PO DAILY 30 days quetiapine 100 mg PO BEDTIME semaglutide 0.25 mg (0.368 mL) subcut QWEEK 30 days tolterodine 2 mg PO DAILY 90 days topiramate (Topamax) 50 mg PO BEDTIME 30 days walker Folding Front wheeled walker Tobacco use date assessed: 10/15/24 Dental Screening Dental Screen Date: 10/15/24 HPI HPI Comments History of Present Illness Details History of Present Illness The patient is a 64 year-old female presenting for a follow-up appointment for weight management. Overweight: - The patient's weight has plateaued, wi th recent weights of 186 pounds in December, then 183, back to 186, and now 183 pounds. - She previously took phentermine for we ight management but is not currently on any medication for it. Urinary Incontinence: - The patient reports ongoing issues wit h urinary incontinence, which has been occurring for a while. - She experiences leakage to the point o f soaking her pants, often triggered by just thinking of a toilet. - She is taking Ditrol 2 mg, but feels i t is not working and reports no side effects. Migraine: - The patient experiences occasional low -grade headaches and migraines that can affect her eyesight. - The migraines are reportedly not as se emperatriz as before. - She was started on Topamax in March to help with her symptoms. Medications: - Phentermine for weight management, whi ch she is currently not taking. - Ditrol LA 2 mg for urinary incontinenc e. - Atenolol for blood pressure. - Levothyroxine. - Omeprazole. - Topamax for migraine prevention. - Wellbutrin, prescribed by her psychiat rist. - Quetiapine, prescribed by her psychiat rist. Social History: - The patient is actively engaged in [facility] management. [facility] Medical History Arthritis GERD (gastroesophageal reflux disease) Bipolar 1 disorder Internal derangement of right knee Thyroid ca Anxiety Hx of major depression Hypothyroidism Hypertension, essential Surgical History Status post total right knee replacement Hx of removal of cyst H/O colonoscopy Hx of thyroidectomy Hx of section Family History Father Colon cancer Other Mental health disorder Substance use disorder Social History Household Members: Significant Other Housing: House Are you a primary manager wound care to a significant other at home: No Do you presently have visiting nurse or other home services: No Alcohol intake: current Alcohol intake frequency: a few times a week Patient Tobacco Use Status: Former Tobacco user Tobacco use type: Cigarette Cigarette Packs Per Day: 0 Cigarettes Per Day: 2 Years Smoked: 40 years e-Cigarette/Vaping Use: Never Used Second Hand Smoke Exposure: No service: No Current occupational status: unemployed Cognitive needs: No Hearing needs: No Vision needs: No Female Reproductive History Menstrual Age of Menarche: 14 Questionnaire Thrive Questionnaire Date Thrive assessed: 05/29/24 I am a: Patient What is your living situation today?: I have a steady place to live Within the past 12 months, did the food you bought not last and you didn't have the money to get more?: I choose not to answer this question Within the past 12 months, did you worry whether your food would run out before you got money to buy more?: I choose not to answer this question Do you have trouble paying for medicines?: I choose not to answer this question Do you have trouble getting transportation to medical appointments?: I choose not to answer this question Do you have trouble paying your heating and electricity bill?: I choose not to answer this question Do you have trouble taking care of your child, family member or friend?: I choose not to answer this question Do you have trouble with day-to-day activities such as bathing, preparing meals, shopping, managing finances, etc.?: I choose not to answer this question Are you currently unemployed and looking for a job?: I choose not to answer this question Are you interested in more education?: No Please select the resources that you would like help with: None Currently or been in a relationship where the following occur: I choose not to answer THRIVE Score: 0 ANTON-7 AMB Questionnaire ANTON-7 Date ANTON - 7 assessed: 06/05/24 Source: Developed by Drs. Dangelo Taylor, Madiha Valdez, Jonny Pepper and colleagues, with an educational brina from [employer]. Review of Systems Narrative Review of Systems - Neurological: No headaches no dizziness - Ear nose throat: No sore throat no hearing difficulty no ear pain - Cardiovascular: No syncope, no chest pain, no palpitations - Gastrointestinal: No nausea vomiting or diarrhea - Endocrine: No polyuria polydipsia no heat intolerance - Genitourinary: No dysuria , no blood in urine Physical exam (Primary Care) Vital Signs: Last Vital Signs Pulse 77 04/11/25 11:43 BP 130/80 04/11/25 11:43 Pulse Ox 97 04/11/25 11:43 BMI result Body Mass Index 33.5 Tobacco/Smoking Status: Tobacco use Status Tobacco use date assessed 10/15/24 04/11/25 11:44 Patient Tobacco Use Status Former Tobacco user 04/11/25 11:44 Tobacco use type Cigarette 04/11/25 11:44 e-Cigarette/Vaping Use Never Used 04/11/25 11:44 Thrive Assessment: Date of Thrive Assessment Date Thrive assessed 05/29/24 04/11/25 11:44 Currently or been in a relationship where the following occur: I choose not to answer Narrative Physical Exam - General: No acute distress - HEENT: No acute findings - Neck: Supple - Respiratory system: Able to talk in full sentences, no audible wheeze - Cardiovascular: S1-S2 regular in rate and rhythm - Gastrointestinal: No pain - Extremities: No new findings - [employer]PER[employer]OR: Alert awake oriented x3 motor intact - Skin: Normal turgor Coding Level of Care Code Est Pt Level 4 (01683) Add On Problem Visit Only Diagnoses Hypertension, essential I10 Other migraine without status migrainosus, not intractable G43.809 Migraine type: other Status migrainosus presence: without status migrainosus Intractability: not intractable Class 1 obesity due to excess calories with serious comorbidity and body mass index (BMI) of 33.0 to 33.9 in adult E66.09; Z68.33 Obesity classification: adult class 1 (BMI 30 - 34.9) Serious obesity comorbidity presence: with serious comorbidity Body mass index: BMI 33.0-33.9 Gastroesophageal reflux disease without esophagitis K21.9 Esophagitis presence: without esophagitis Adverse effect of phentermine, initial encounter T50.5X5A Encounter type: initial encounter Bipolar disorder, in full remission, most recent episode hypomanic F31.72 Active/Remission status: in full remission Most recent bipolar episode type: hypomanic Mixed stress and urge urinary incontinence N39.46 Urinary Incontinence type: mixed stress and urge incontinence Assessment & Plan Assessment & Plan (1) Hypertension, essential: Code(s): I10 - Essential (primary) hypertension Category: Medical (2) Migraine headache: Code(s): G43.909 - Migraine, unspecified, not intractable, without status migrainosus Category: Medical Qualifiers: Migraine type: other Status migrainosus presence: without status migrainosus Intractability: not intractable Qualified Code(s): G43.809 - Other migraine, not intractable, without status migrainosus (3) Obesity due to excess calories: Code(s): E66.09 - Other obesity due to excess calories Category: Medical Qualifiers: Obesity classification: adult class 1 (BMI 30 - 34.9) Serious obesity comorbidity presence: with serious comorbidity Body mass index: BMI 33.0-33.9 Qualified Code(s): E66.09 - Other obesity due to excess calories; Z68.33 - Body mass index [BMI] 33.0-33.9, adult (4) GERD (gastroesophageal reflux disease): Code(s): K21.9 - Gastro-esophageal reflux disease without esophagitis Category: Medical Qualifiers: Esophagitis presence: without esophagitis Qualified Code(s): K21.9 - Gastro-esophageal reflux disease without esophagitis (5) Phentermine adverse reaction: Code(s): T50.5X5A - Adverse effect of appetite depressants, initial encounter Category: Medical Qualifiers: Encounter type: initial encounter Qualified Code(s): T50.5X5A - Adverse effect of appetite depressants, initial encounter (6) Bipolar disorder: Code(s): F31.9 - Bipolar disorder, unspecified Category: Medical Qualifiers: Active/Remission status: in full remission Most recent bipolar episode type: hypomanic Qualified Code(s): F31.72 - Bipolar disorder, in full remission, most recent episode hypomanic (7) Urine incontinence: Code(s): R32 - Unspecified urinary incontinence Category: Medical Qualifiers: Urinary Incontinence type: mixed stress and urge incontinence Qualified Code(s): N39.46 - Mixed incontinence Plan Problem List - Overweight - Urinary incontinence - Menopausal vaginal atrophy? - Migraine - Bipolar disorder - HYN Plan - An attempt will be made to get approval for weight loss injections. since you have failed treatment with phentermin - A referral will be made for a consultation with a urogynecologist to discuss procedural options for her urinary incontinence. - A trial of vaginal estrogen cream was offered for potential vaginal atrophy while awaiting the urogynecology appointment, which the patient can consider. how ever she is not interested in it at this time and would like to wait - The possibility of a higher strength for her urinary incontinence medication will be investigated, and if available, a prescription will be sent. detrol increase to 2 mg bid - Continue taking Topamax for migraines; a refill will be provided. - The patient will follow up in early July. - Bp is controlled Medications: Changed From tolterodine 2 mg PO DAILY 90 days 90 tabs 0RF Bladder incontinence To tolterodine 2 mg PO BID 180 tabs 0RF Bladder incontinence 90 days From topiramate (Topamax) 50 mg PO BEDTIME 30 days 30 tabs 0RF To topiramate (Topamax) 50 mg PO BEDTIME 90 tabs 0RF 90 days Discontinued phentermine must administer 2 hours after breakfast Discontinued Reason: Doctor's Order 37.5 mg PO DAILY 30 days 30 caps 0RF E66.09 - Other obesity due to excess calories, Z68.33 - Body mass index [BMI] 33.0-33.9, adult
[2025-04-11 11:43] VITALS: BP 130/80; PULSE 77; O2SAT 97; BMI 33.5
== END 2025-04-11 12:03 | disposition home or self-care (01) ==
LOC: HO.HMCC 11:38
PROVIDERS: PCP Internal Medicine; Visit Provider Internal Medicine
DX: I10 Essential (primary) hypertension (principal); G43.809 Other migraine, not intractable, without status migrainosus; E66.09 Other obesity due to excess calories; Z68.33 Body mass index [BMI] 33.0-33.9, adult; K21.9 Gastro-esophageal reflux disease without esophagitis; T50.5X5A Adverse effect of appetite depressants, initial encounter; F31.72 Bipolar disorder, in full remission, most recent episode hypomanic; N39.46 Mixed incontinence

== ENCOUNTER → 2025-04-11 11:37 | Outpatient (BNVA) | payer MEDICARE, MEDICAID, SELFPAY | PROVIDERS: PCP Internal Medicine; Visit Provider Internal Medicine | DX: I10 Essential (primary) hypertension (principal); G43.809 Other migraine, not intractable, without status migrainosus; E66.09 Other obesity due to excess calories; Z68.33 Body mass index [BMI] 33.0-33.9, adult; K21.9 Gastro-esophageal reflux disease without esophagitis; T50.5X5A Adverse effect of appetite depressants, initial encounter; F31.72 Bipolar disorder, in full remission, most recent episode hypomanic; N39.46 Mixed incontinence | CPT/HCPCS: 99212 ==